=== PATIENT | female | born 2000 | race Hispanic/Latino ===

== ENCOUNTER 2021-08-14 09:12 | Emergency (ER) | payer OTHER ==
--- OUTSIDE RECORDS SUMMARY | 2021-08-14 09:24 | XMS REPORT | Continuity of Care Document ---
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, G Attending Clinician Doctor Unassigned, Name Attending Clinician Unavailable RAZ Attending Clinician Unavailable Akinsilolita WILSONP, C Attending Clinician KEVIN C Attending Clinician Unavailable Abel Brandon DO Attending Clinician Stephanie ZHAO Attending Clinician Unavailable Micah MARTÍNEZ Attending Clinician Ultrasound Attending Clinician Unavailable Sage MARTÍNEZ, F Attending Clinician 2, [facility] Usg Room Attending Clinician Unavailable Ana Paula MARTÍNEZ, M Attending Clinician Micah MARTÍNEZ Admitting Clinician Payers Payer Name Policy Type Policy Number Effective Date Expiration Date Counts include 234 beds at the [facility] [id number] 2019 CHOICE MEDICAID 00:00:00 Problems Condition Condition Condition Status Onset Resolution Last Treating Co mments Source Name Details Category Date Date Treatment Clinician Date UTI UTI Disease Active Univers symptoms symptoms 4-26 ity of 00:00: [address] Nexplanon Nexplanon Disease Active Uni vers insertion insertion 1-04 ity of 00:00: [place] 00 Medical Branch Obesity Obesity Disease Active 2020-0 Univers (BMI (BMI 1-04 ity of 30.0-34.9) 30.0-34.9) [place] UTI UTI Disease Active 2020- Univers symptoms symptoms 1-10 ity of 00:00: [place] 00 Medical Branch 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 vaginally vaginally Bran ch Encounter Encounter Disease Active 2020- Uni vers for for 0-25 ity of induction [place] 00:[place] of [place] 00 Med[place] Branch Vaginal Vaginal Disease Active 2020- Univers bleeding bleeding 0-13 ity of during during 00:00: [place] 00 [facility] Anemia of Anemia of Disease Active 2020-0 Uni vers mother in mother in 8-12 ity of , , [place] [facility] [place] Obesity in Obesity in Disease Active 2020-0 U nivers 8-11 ity of 00:00: [place] 00 [facility] Supervisio Supervisio Disease Active 2020-0 U nivers n of n of 3-27 ity of high-risk high-risk 00:[place] [facility] Multiparit Multiparit Disease Active 2020-0 U nivers y y 3-27 ity of 00:00: [place] 00 [facility] Single Single Disease Active 2020-0 Overview: Univer s umbilical umbilical 3-27 With last i ty of artery artery 00:00: [place] 00 [facility] Well woman Well woman Disease Active 2019-0 U nivers exam exam 9-05 ity of 00:00: [place] 00 Medical [place] Contracept Contracept Disease Active 2019-0 U nivers baron baron 9-05 ity of management management [place] Contracept Contracept Disease Active 2019-0 U nivers baron baron 9-05 ity of management management [place] Liveborn Liveborn Disease Active Unive rs , of infant, of 2-22 it y of woot[place] wooten 00:00: Jeramy montoya , , 00 Me dical born in born in [facility] hospital by vaginal by vaginal delivery delivery Over Over Disease Active Univers weight weight 2-21 ity of 00:00: [place] [facility] 39 weeks 39 weeks Disease Active Unive rs gestation gestation 2-21 ity of of of 00:00: [place] [address] [facility] Branch Obesity Obesity Disease Active Univers (BMI (BMI 2-21 ity of 30-39.9) 30-39.9) 00:00: [place] [facility] Two vessel Two vessel Disease Active U nivers umbilical umbilical 1-03 ity of cord cord 00:00: [place] [facility] Anxiety Anxiety Disease Active Univers disorder, disorder, 706 ity of unspecifie unspecifie 00:[place] d type d type 00 Medical [place] Bipolar Bipolar Disease Active Univers affective affective 7-06 ity of disorder, disorder, 00:00: Jeramy s remission remission 00 [facility] status status Branch unspecifie unspecifie d d Allergies, Adverse Reactions, Alerts Allergy Allergy Status Severity Reaction(s) Onset Inactive Treating Comm ents Source Name Type Date Date Clinician DIPHENHY DRUG Active Hives Univers DRAMINE INGREDI 3-24 ity of HCL 00:00: [facility] Branch SEAFOOD/ Food Active Hives Univers FISH 3-24 ity of 00:00: [place] [facility] Diphenhy Propensi Active Hives Pt states Uni vers dramine ty to 3-24 she gets ity of Hcl adverse 00:00: "bumps [place] reaction 00 all over Medica l s face and Branch covers her eyes" Seafood/ Propensi Active Hives Univer s Fish ty to 3-24 ity of adverse 00:00: [place] reaction 00 Medical [facility] Social History Social Habit Start Date Stop Date Quantity Comments Source ASSERTION 2019-09-13 University of 00:00:00 [facility] Exposure to Not sure University of SARS-CoV-2 [place] [facility] (event) Branch Alcohol intake 2021-07-29 2021-07-29 Current University 00:00:00 00:00:00 non-drinker of [facility] alcohol Branch (finding) Tobacco use and 2020-11-26 2020-11-26 Never used Universit y of exposure 00:00:00 00:00:00 [facility] Sex Assigned At [birth year] Universit y of 00:00:00 00:00:00 [facility] Smoking Status Start Date Stop Date Source Never smoker [facility] Medical Branch Medications Ordered Filled Start Stop Current Ordering Indication Dosage Frequency Signature Comments Components Source Medication Medication Date Date Medication? Clinician (SIG) Name Name naproxen 2020-08 Yes [id number] 500mg Take 1 Un cuco (NAPROSYN) 2-27 tablet by ity of 500 mg 00:00: mouth 2 [place] tablet 00 (two) Medical times Branch daily with meals. methylPREDN 2020-08 Yes [id number] Take by Univers ISolone 4 2-10 mouth ity of mg tablets 00:00: [place]INSTRU [place] CTIONS. Medical follow Branch package directions methylPREDN 2020-08 Yes [id number] Take by Univers ISolone 4 2-10 mouth ity of mg tablets 00:00: [place]INSTRU [place] 00 CTIONS. Medical follow Branch package directions amoxicillin 2020-08- Yes [id number] 500mg Take 1 Univers 500 mg 2-10 12-21 tablet by ity of tablet 00:00: 05:59 mouth 3 [place] 00 :00 (three) Medical times Branch daily for 10 days. etonogestre No 68mg Unive rs L 08-06 ity of (NEXPLANON) 21:45: 20:39 [place] implant 68 00 :03 Medical mg Branch etonogestre 2020- No 68mg Unive rs L 08-06 ity of (NEXPLANON) 21:45: 20:39 [place] implant 68 00 :03 Medical mg Branch etonogestre 2020- No 68mg Unive rs L 08-06 ity of (NEXPLANON) 21:45: 20:39 [place] implant 68 00 :03 Medical mg Branch etonogestre 2020- No 68mg Unive rs L 08-06 ity of (NEXPLANON) 21:45: 20:39 [place] implant 68 00 :03 Medical mg Branch etonogestre 2020- No 68mg Unive rs L 08-06 ity of (NEXPLANON) 21:30: 20:39 [place] implant 68 00 :00 Medical mg Branch etonogestre 2020- No 68mg 68 mg, Uni vers L 08-06 Subdermal, ity of (NEXPLANON) 21:30: 20:39 ONCE NOW, [place] implant 68 00 :00 1 dose, Medica l mg 08/06/20 Branch at 1530, Routine
Use approved by: RIPPER OPERATOR etonogestre 2020- No 68mg Unive rs L 08-06 ity of (NEXPLANON) 21:30: 20:39 [place] implant 68 00 :00 Medical mg Branch etonogestre 2020- No 68mg 68 mg, Uni vers L 08-06 Subdermal, ity of (NEXPLANON) 21:30: 20:39 ONCE NOW, [place] implant 68 00 :00 1 dose, Medica l mg 08/06/20 Branch at 1530, Routine
Use approved by: RIPPER OPERATOR etonogestre 2020- No 68mg Unive rs L 08-06 ity of (NEXPLANON) 21:30: 20:39 [place] implant 68 00 :00 Medical mg Branch etonogestre 2020- No 68mg 68 mg, Uni vers L 08-06 Subdermal, ity of (NEXPLANON) 21:30: 20:39 ONCE NOW, [place] implant 68 00 :00 1 dose, Medica l mg 08/06/20 Branch at 1530, Routine
Use approved by: RIPPER OPERATOR etonogestre 2020- No 68mg Unive rs L 08-06 ity of (NEXPLANON) 21:30: 20:39 [place] implant 68 00 :00 Medical mg Branch etonogestre 2020- No 68mg 68 mg, Uni vers L 08-06 Subdermal, ity of (NEXPLANON) 21:30: 20:39 ONCE NOW, [place] implant 68 00 :00 1 dose, Medica l mg 08/06/20 Branch at 1530, Routine
Use approved by: RIPPER OPERATOR 2019-08 2020- No Take by [facility] ers vit 0-26 10-26 mouth. ity of calc,iron,f 13:19: 00:00 [place] olic 03 :00 Medical ( Branch VITAMIN ORAL) rho(D) 2019-08 Yes 300ug 300 mcg, Univer s immune 0-26 Intramuscu ity of globulin 03:55: lar, ONCE, Sridhar as (RHOGAM) 44 For 1 Medical syringe 300 dose, Branch mcg Conditiona l, Routine human 2019-08 Yes .5mL 0.5 mL, Univers papillomav 0- Intramuscu ity of vac,9-shanice(P 03:55: lar, [place] F) 42 ONCE-PRIOR Medical (GARDASIL-9 TO [place] ) syringe DISCHARGE, 0.5 mL 1 dose, Starting 05/27/20 at 2255, Until Discontinu ed, Routine, Give vaccine prior to discharge ibuprofen 2019-08 Yes 600mg 600 mg, Univ ers (IBU) 0- Oral, ity of tablet 600 03:55: Q6HPRN, [place] mg 42 Starting Medical Sun Branch 05/27/20 at 2255, Until Discontinu ed, Routine, Pain (scale 4-6) ondansetron 2019-08 Yes 4mg 4 mg, Slow Univers (ZOFRAN 0-26 IV Push, ity of (PF)) 03:55: Q8HPRN, [place] injection 4 42 Starting Medi martínez mg [facility] 05/27/20 at 2255, Until Discontinu ed, Routine, Nausea and Vomiting (N/V) simethicone 2019-08 Yes 160mg 160 mg, Un cuco (GAS RELIEF 0-26 Oral, ity of (SIMETHICON 03:55: PC+HSPRN, [place] E)) 42 Starting Medical chewable Sun Branch tablet 160 05/27/ mg at 2255, Until Discontinu ed, Routine, Gas docusate 2019-08 Yes 240mg 240 mg, Unive rs calcium 0-26 Oral, ity of (SURFAK) 03:55: QDAILYPRN, [place] as capsule 240 42 Starting Medi martínez mg Sun Branch 05/27/20 at 2255, Until Discontinu ed, Routine, Constipati on magnesium 2019-08 Yes 30mL 30 mL, Univer s hydroxide 0-26 Oral, ity of (MILK OF 03:55: QDAILYPRN, [place] as MAGNESIA) 42 Starting Medica l 400 mg/5 mL Sun Branch suspension 05/27/20 30 mL at 2255, Until Discontinu ed, Routine, Constipati on acetaminoph 2019-08 Yes 650mg 650 mg, Un cuco en 0-26 Oral, ity of (TYLENOL) 03:55: Q6HPRN, [place] tablet 650 41 Starting Medic al mg Sun Branch 05/27/20 at 2255, Until Discontinu ed, Routine, Pain (scale 1-3) benzocaine- 2019-08 Yes Topical, Un cuco menthol 0-26 PRN, ity of (DERMOPLAST 03:55: [place] 20-0.5 % 41 Sun Medical topical 05/27/20 Branch spray at 2255, Until Discontinu ed, Routine, Perineum discomfort 2019-08 Yes [id number] 1{tbl} Take 1 Univers vitamin 0-26 tablet by ity of w/FA tablet 00:00: mouth [place] 00 daily. Medical Branch docusate 2019-08 Yes [id number] 240mg Take 1 U nivers calcium 240 0-26 capsule by it y of mg capsule 00:00: mouth [place] 00 daily as Medical needed for Branch Constipati on. ferrous 2019-08 Yes [id number] 325mg Take 1 Un cuco sulfate 325 0-26 tablet by ity of mg (65 mg 00:00: mouth 2 [place] iron) 00 (two) Medical tablet times Branch daily. ibuprofen 2019-08 Yes [id number] 600mg Take 1 Univers 600 mg 0-26 tablet by ity of tablet 00:00: mouth [place] 00 every 6 Medical (six) Branch hours as needed (Pain). Take with food or milk. 2019-08 Yes [id number] 1{tbl} Take 1 Univers vitamin 0-26 tablet by ity of w/FA tablet 00:00: mouth [place] 00 daily. Medical Branch docusate 2019-08 Yes [id number] 240mg Take 1 U nivers calcium 240 0-26 capsule by it y of mg capsule 00:00: mouth once [place] 00 daily as Medical needed for Branch Constipati on. ferrous 2020 Yes [id number] 325mg Take 1 Un cuco sulfate 325 0-26 tablet by ity of mg (65 mg 00:00: mouth 2 [place] iron) 00 (two) Medical tablet times Branch daily. ibuprofen 2019-08 Yes [id number] 600mg Take 1 Univers 600 mg 0-26 tablet by ity of tablet 00:00: mouth [place] 00 every 6 Medical (six) Branch hours as needed (Pain). Take with food or milk. 2019-08 Yes [id number] 1{tbl} Take 1 Univers vitamin 0-26 tablet by ity of w/FA tablet 00:00: mouth [place] 00 daily. Medical Branch docusate 2019-08 Yes [id number] 240mg Take 1 U nivers calcium 240 0-26 capsule by it y of mg capsule 00:00: mouth once [place] 00 daily as Medical needed for Branch Constipati on. ferrous 2019-08 Yes [id number] 325mg Take 1 Un cuco sulfate 325 0-26 tablet by ity of mg (65 mg 00:00: mouth 2 [place] iron) 00 (two) Medical tablet times Branch daily. ibuprofen 2019-08 Yes [id number] 600mg Take 1 Univers 600 mg 0-26 tablet by ity of tablet 00:00: mouth [place] 00 every 6 Medical (six) Branch hours as needed (Pain). Take with food or milk. 2019-08 Yes [id number] 1{tbl} Take 1 Univers vitamin 0-26 tablet by ity of w/FA tablet 00:00: mouth [place] 00 daily. Medical Branch docusate 2019-08 Yes [id number] 240mg Take 1 U nivers calcium 240 0-26 capsule by it y of mg capsule 00:00: mouth once [place] 00 daily as Medical needed for Branch Constipati on. ferrous 2019-08 Yes [id number] 325mg Take 1 Un cuco sulfate 325 0-26 tablet by ity of mg (65 mg 00:00: mouth 2 [place] iron) 00 (two) Medical tablet times Branch daily. ibuprofen 2019-08 Yes [id number] 600mg Take 1 Univers 600 mg 0-26 tablet by ity of tablet 00:00: mouth [place] 00 every 6 Medical (six) Branch hours as needed (Pain). Take with food or milk. 2019-08 Yes [id number] 1{tbl} Take 1 Univers vitamin 0-26 tablet by ity of w/FA tablet 00:00: mouth [place] 00 daily. Medical Branch docusate 2019-08 Yes [id number] 240mg Take 1 U nivers calcium 240 0-26 capsule by it y of mg capsule 00:00: mouth once [place] 00 daily as Medical needed for Branch Constipati on. ferrous 2019-08 Yes [id number] 325mg Take 1 Un cuco sulfate 325 0-26 tablet by ity of mg (65 mg 00:00: mouth 2 [place] iron) 00 (two) Medical tablet times Branch daily. ibuprofen 2019-08 Yes [id number] 600mg Take 1 Univers 600 mg 0-26 tablet by ity of tablet 00:00: mouth [place] 00 every 6 Medical (six) Branch hours as needed (Pain). Take with food or milk. 2019-08 Yes [id number] 1{tbl} Take 1 Univers vitamin 0-26 tablet by ity of w/FA tablet 00:00: mouth [place] 00 daily. Medical Branch docusate 2019-08 Yes [id number] 240mg Take 1 U nivers calcium 240 0-26 capsule by it y of mg capsule 00:00: mouth once [place] 00 daily as Medical needed for Branch Constipati on. ferrous 2019-08 Yes [id number] 325mg Take 1 Un cuco sulfate 325 0-26 tablet by ity of mg (65 mg 00:00: mouth 2 [place] iron) 00 (two) Medical tablet times Branch daily. ibuprofen 2019-08 Yes [id number] 600mg Take 1 Univers 600 mg 0-26 tablet by ity of tablet 00:00: mouth [place] 00 every 6 Medical (six) Branch hours as needed (Pain). Take with food or milk. 2019-08 Yes [id number] 1{tbl} Take 1 Univers vitamin 0-26 tablet by ity of w/FA tablet 00:00: mouth [place] 00 daily. Medical Branch docusate 2019-08 Yes [id number] 240mg Take 1 U nivers calcium 240 0-26 capsule by it y of mg capsule 00:00: mouth once [place] 00 daily as Medical needed for Branch Constipati on. ferrous 2019-08 Yes [id number] 325mg Take 1 Un cuco sulfate 325 0-26 tablet by ity of mg (65 mg 00:00: mouth 2 [place] iron) 00 (two) Medical tablet times Branch daily. ibuprofen 2019-08 Yes [id number] 600mg Take 1 Univers 600 mg 0-26 tablet by ity of tablet 00:00: mouth [place] 00 every 6 Medical (six) Branch hours as needed (Pain). Take with food or milk. 2019-08 Yes [id number] 1{tbl} Take 1 Univers vitamin 0-26 tablet by ity of w/FA tablet 00:00: mouth [place] 00 daily. Medical Branch docusate 2019-08 Yes [id number] 240mg Take 1 U nivers calcium 240 0-26 capsule by it y of mg capsule 00:00: mouth once [place] 00 daily as Medical needed for Branch Constipati on. ferrous 2019-08 Yes [id number] 325mg Take 1 Un cuco sulfate 325 0-26 tablet by ity of mg (65 mg 00:00: mouth 2 [place] iron) 00 (two) Medical tablet times Branch daily. ibuprofen 2019-08 Yes [id number] 600mg Take 1 Univers 600 mg 0-26 tablet by ity of tablet 00:00: mouth [place] 00 every 6 Medical (six) Branch hours as needed (Pain). Take with food or milk. 2019-08 Yes [id number] 1{tbl} Take 1 Univers vitamin 0-26 tablet by ity of w/FA tablet 00:00: mouth [place] 00 daily. Medical Branch docusate 2019-08 Yes [id number] 240mg Take 1 U nivers calcium 240 0-26 capsule by it y of mg capsule 00:00: mouth once [place] 00 daily as Medical needed for Branch Constipati on. ferrous 2019-08 Yes [id number] 325mg Take 1 Un cuco sulfate 325 0-26 tablet by ity of mg (65 mg 00:00: mouth 2 [place] iron) 00 (two) Medical tablet times Branch daily. ibuprofen 2019-08 Yes [id number] 600mg Take 1 Univers 600 mg 0-26 tablet by ity of tablet 00:00: mouth [place] 00 every 6 Medical (six) Branch hours as needed (Pain). Take with food or milk. 2019-08 Yes [id number] 1{tbl} Take 1 Univers vitamin 0-26 tablet by ity of w/FA tablet 00:00: mouth [place] 00 daily. Medical Branch docusate 2019-08 Yes [id number] 240mg Take 1 U nivers calcium 240 0-26 capsule by it y of mg capsule 00:00: mouth once [place] 00 daily as Medical needed for Branch Constipati on. ferrous 2019-08 Yes [id number] 325mg Take 1 Un cuco sulfate 325 0-26 tablet by ity of mg (65 mg 00:00: mouth 2 [place] iron) 00 (two) Medical tablet times Branch daily. ibuprofen 2019-08 Yes [id number] 600mg Take 1 Univers 600 mg 0-26 tablet by ity of tablet 00:00: mouth [place] 00 every 6 Medical (six) Branch hours as needed (Pain). Take with food or milk. 2019-08 Yes [id number] 1{tbl} Take 1 Univers vitamin 0-26 tablet by ity of w/FA tablet 00:00: mouth [place] 00 daily. Medical Branch docusate 2019-08 Yes [id number] 240mg Take 1 U nivers calcium 240 0-26 capsule by it y of mg capsule 00:00: mouth once [place] 00 daily as Medical needed for Branch Constipati on. ferrous 2019-08 Yes [id number] 325mg Take 1 Un cuco sulfate 325 0-26 tablet by ity of mg (65 mg 00:00: mouth 2 [place] iron) 00 (two) Medical tablet times Branch daily. ibuprofen 2019-08 Yes [id number] 600mg Take 1 Univers 600 mg 0-26 tablet by ity of tablet 00:00: mouth [place] 00 every 6 Medical (six) Branch hours as needed (Pain). Take with food or milk. 2019-08 Yes [id number] 1{tbl} Take 1 Univers vitamin 0-26 tablet by ity of w/FA tablet 00:00: mouth [place] 00 daily. Medical Branch docusate 2019-08 Yes [id number] 240mg Take 1 U nivers calcium 240 0-26 capsule by it y of mg capsule 00:00: mouth once [place] 00 daily as Medical needed for Branch Constipati on. ferrous 2019-08 Yes [id number] 325mg Take 1 Un cuco sulfate 325 0-26 tablet by ity of mg (65 mg 00:00: mouth 2 [place] iron) 00 (two) Medical tablet times Branch daily. ibuprofen 2019-08 Yes [id number] 600mg Take 1 Univers 600 mg 0-26 tablet by ity of tablet 00:00: mouth [place] 00 every 6 Medical (six) Branch hours as needed (Pain). Take with food or milk. 2019-08 Yes [id number] 1{tbl} Take 1 Univers vitamin 0-26 tablet by ity of w/FA tablet 00:00: mouth [place] 00 daily. Medical Branch docusate 2019-08 Yes [id number] 240mg Take 1 U nivers calcium 240 0-26 capsule by it y of mg capsule 00:00: mouth once [place] 00 daily as Medical needed for Branch Constipati on. ferrous 2019-08 Yes [id number] 325mg Take 1 Un cuco sulfate 325 0-26 tablet by ity of mg (65 mg 00:00: mouth 2 [place] iron) 00 (two) Medical tablet times Branch daily. ibuprofen 2019-08 Yes [id number] 600mg Take 1 Univers 600 mg 0-26 tablet by ity of tablet 00:00: mouth [place] 00 every 6 Medical (six) Branch hours as needed (Pain). Take with food or milk. 2019-08 Yes [id number] 1{tbl} Take 1 Univers vitamin 0-26 tablet by ity of w/FA tablet 00:00: mouth [place] 00 daily. Medical Branch docusate 2019-08 Yes [id number] 240mg Take 1 U nivers calcium 240 0-26 capsule by it y of mg capsule 00:00: mouth once [place] 00 daily as Medical needed for Branch Constipati on. ferrous 2019-08 Yes [id number] 325mg Take 1 Un cuco sulfate 325 0-26 tablet by ity of mg (65 mg 00:00: mouth 2 [place] iron) 00 (two) Medical tablet times Branch daily. ibuprofen 2019-08 Yes [id number] 600mg Take 1 Univers 600 mg 0-26 tablet by ity of tablet 00:00: mouth [place] 00 every 6 Medical (six) Branch hours as needed (Pain). Take with food or milk. 2019-08 Yes [id number] 1{tbl} Take 1 Univers vitamin 0-26 tablet by ity of w/FA tablet 00:00: mouth [place] 00 daily. Medical Branch docusate 2019-08 Yes [id number] 240mg Take 1 U nivers calcium 240 0-26 capsule by it y of mg capsule 00:00: mouth once [place] 00 daily as Medical needed for Branch Constipati on. ferrous 2019-08 Yes [id number] 325mg Take 1 Un cuco sulfate 325 0-26 tablet by ity of mg (65 mg 00:00: mouth 2 [place] iron) 00 (two) Medical tablet times Branch daily. ibuprofen 2019-08 Yes [id number] 600mg Take 1 Univers 600 mg 0-26 tablet by ity of tablet 00:00: mouth [place] 00 every 6 Medical (six) Branch hours as needed (Pain). Take with food or milk. 2019-08 Yes [id number] 1{tbl} Take 1 Univers vitamin 0-26 tablet by ity of w/FA tablet 00:00: mouth [place] 00 daily. Medical Branch docusate 2019-08 Yes [id number] 240mg Take 1 U nivers calcium 240 0-26 capsule by it y of mg capsule 00:00: mouth once [place] 00 daily as Medical needed for Branch Constipati on. ferrous 2019-08 Yes [id number] 325mg Take 1 Un cuco sulfate 325 0-26 tablet by ity of mg (65 mg 00:00: mouth 2 [place] iron) 00 (two) Medical tablet times Branch daily. ibuprofen 2019-08 Yes [id number] 600mg Take 1 Univers 600 mg 0-26 tablet by ity of tablet 00:00: mouth [place] 00 every 6 Medical (six) Branch hours as needed (Pain). Take with food or milk. 2019-08 Yes [id number] 1{tbl} Take 1 Univers vitamin 0-26 tablet by ity of w/FA tablet 00:00: mouth [place] 00 daily. Medical Branch docusate 2019-08 Yes [id number] 240mg Take 1 U nivers calcium 240 0-26 capsule by it y of mg capsule 00:00: mouth once [place] 00 daily as Medical needed for Branch Constipati on. ferrous 2019-08 Yes [id number] 325mg Take 1 Un cuco sulfate 325 0-26 tablet by ity of mg (65 mg 00:00: mouth 2 [place] iron) 00 (two) Medical tablet times Branch daily. ibuprofen 2019-08 Yes [id number] 600mg Take 1 Univers 600 mg 0-26 tablet by ity of tablet 00:00: mouth [place] 00 every 6 Medical (six) Branch hours as needed (Pain). Take with food or milk. 2019-08 Yes [id number] 1{tbl} Take 1 Univers vitamin 0-26 tablet by ity of w/FA tablet 00:00: mouth [place] 00 daily. Medical Branch docusate 2019-08 Yes [id number] 240mg Take 1 U nivers calcium 240 0-26 capsule by it y of mg capsule 00:00: mouth once [place] 00 daily as Medical needed for Branch Constipati on. ferrous 2019-08 Yes [id number] 325mg Take 1 Un cuco sulfate 325 0-26 tablet by ity of mg (65 mg 00:00: mouth 2 [place] iron) 00 (two) Medical tablet times Branch daily. ibuprofen 2019-08 Yes [id number] 600mg Take 1 Univers 600 mg 0-26 tablet by ity of tablet 00:00: mouth [place] 00 every 6 Medical (six) Branch hours as needed (Pain). Take with food or milk. 2019-08 Yes [id number] 1{tbl} Take 1 Univers vitamin 0-26 tablet by ity of w/FA tablet 00:00: mouth [place] 00 daily. Medical Branch docusate 2019-08 Yes [id number] 240mg Take 1 U nivers calcium 240 0-26 capsule by it y of mg capsule 00:00: mouth once [place] 00 daily as Medical needed for Branch Constipati on. ferrous 2019-08 Yes [id number] 325mg Take 1 Un cuco sulfate 325 0-26 tablet by ity of mg (65 mg 00:00: mouth 2 [place] iron) 00 (two) Medical tablet times Branch daily. ibuprofen 2019-08 Yes [id number] 600mg Take 1 Univers 600 mg 0-26 tablet by ity of tablet 00:00: mouth [place] 00 every 6 Medical (six) Branch hours as needed (Pain). Take with food or milk. 2019-08 Yes [id number] 1{tbl} Take 1 Univers vitamin 0-26 tablet by ity of w/FA tablet 00:00: mouth [place] 00 daily. Medical Branch docusate 2019-08 Yes [id number] 240mg Take 1 U nivers calcium 240 0-26 capsule by it y of mg capsule 00:00: mouth once [place] 00 daily as Medical needed for Branch Constipati on. ferrous 2019-08 Yes [id number] 325mg Take 1 Un cuco sulfate 325 0-26 tablet by ity of mg (65 mg 00:00: mouth 2 [place] iron) 00 (two) Medical tablet times Branch daily. ibuprofen 2019-08 Yes [id number] 600mg Take 1 Univers 600 mg 0-26 tablet by ity of tablet 00:00: mouth [place] 00 every 6 Medical (six) Branch hours as needed (Pain). Take with food or milk. 2019-08 Yes [id number] 1{tbl} Take 1 [facility] vitamin 0-26 tablet by ity of w/FA tablet 00:00: mouth [place] 00 daily. Medical Branch docusate 2019-08 Yes [id number] 240mg Take 1 [facility] calcium 240 0-26 capsule by it y of mg capsule 00:00: mouth once [place] 00 daily as Medical needed for Branch Constipati on. ferrous 2019-08 Yes [id number] 325mg Take 1 Un cuco sulfate 325 0-26 tablet by ity of mg (65 mg 00:00: mouth 2 [place] iron) 00 (two) Medical tablet times Branch daily. ibuprofen 2019-08 Yes [id number] 600mg Take 1 [facility] 600 mg 0-26 tablet by ity of tablet 00:00: mouth [place] 00 every 6 Medical (six) Branch hours as needed (Pain). Take with food or milk. 2019-08 Yes [id number] 1{tbl} Take 1 [facility] vitamin 0-26 tablet by ity of w/FA tablet 00:00: mouth [place] 00 daily. Medical Branch docusate 2019-08 Yes [id number] 240mg Take 1 [facility] n[facility] calcium 240 0-26 capsule by it y of mg capsule 00:00: mouth once [place] 00 daily as Medical needed for Branch Constipati on. ferrous 2019-08 Yes [id number] 325mg Take 1 Un cuco sulfate 325 0-26 tablet by ity of mg (65 mg 00:00: mouth 2 [place] iron) 00 (two) Medical tablet times Branch daily. ibuprofen 2019-08 Yes [id number] 600mg Take 1 [facility] 600 mg 0-26 tablet by ity of tablet 00:00: mouth [place] 00 every 6 Medical (six) Branch hours as needed (Pain). Take with food or milk. 2019-08 Yes [id number] 1{tbl} Take 1 [facility] vitamin 0-26 tablet by ity of w/FA tablet 00:00: mouth [place] 00 daily. Medical Branch docusate 2019-08 Yes [id number] 240mg Take 1 [facility] n[facility] calcium 240 0-26 capsule by it y of mg capsule 00:00: mouth once [place] 00 daily as Medical needed for Branch Constipati on. ferrous 2019-08 Yes [id number] 325mg Take 1 Un cuco sulfate 325 0-26 tablet by ity of mg (65 mg 00:00: mouth 2 [place] iron) 00 (two) Medical tablet times Branch daily. ibuprofen 2019-08 Yes [id number] 600mg Take 1 [facility] 600 mg 0-26 tablet by ity of tablet 00:00: mouth [place] 00 every 6 Medical (six) Branch hours as needed (Pain). Take with food or milk. 2019-08 Yes [id number] 1{tbl} Take 1 [facility] vitamin 0-26 tablet by ity of w/FA tablet 00:00: mouth [place] 00 daily. Medical Branch docusate 2019-08 Yes [id number] 240mg Take 1 [facility] n[facility] calcium 240 0-26 capsule by it y of mg capsule 00:00: mouth once [place] 00 daily as Medical needed for Branch Constipati on. ferrous 2019-08 Yes [id number] 325mg Take 1 Un cuco sulfate 325 0-26 tablet by ity of mg (65 mg 00:00: mouth 2 [place] iron) 00 (two) Medical tablet times Branch daily. ibuprofen 2019-08 Yes [id number] 600mg Take 1 [facility] 600 mg 0-26 tablet by ity of tablet 00:00: mouth [place] 00 every 6 Medical (six) Branch hours as needed (Pain). Take with food or milk. lactated 2019-08- No 500mL at 999 Unive rs ringers IV 0-25 10-25 mL/hr, 500 it y of infusion 22:30: 21:55 mL, IV [place] 500 mL 00 :00 Infusion, Medical ONCE, 1 Branch dose, 05/27/20 at 1730, Routine sodium 2019-08- No 30mL 30 mL, [facility] citrate-cit 0-25 10-25 Oral, ity of anamaria acid 21:17: 21:54 PRE-PROCED [place] (BICITRA) 19 :00 URE ONCE, Medic al 500-334 1 dose, Branch mg/5 mL Starting solution 30 Sun mL 05/27/20 at 1617, Until 05/27/20 at 1654, Routine, Surgery/Pr ocedure [id number] IV 2019-08 2020- No 1000mL at 125 Uni vers infusion 0-25 10-26 mL/hr, IV ity o f 1,000 mL 19:15: 03:55 Infusion, [place] as 00 :45 CONTINUOUS Medical , Starting Branch 05/27/20 at 1415, Until 05/27/20 at 2255, Routine LR 1000 mL 2020- 2020- No 2mU/min at 6-120 [facility] + oxytocin 0-25 10-26 mL/hr, IV ity of 20 units IV 19:08: 03:55 Infusion, [place] Solution 25 :45 TITRATE, Medical Starting Branch 05/27/20 at 1408, Until 05/27/20 at 2255, ROSALINO ferrous 2020-0 Yes [id number] 325mg Take 1 Un cuco sulfate 325 8-12 tablet by ity of mg (65 mg 00:00: mouth 2 [place] iron) 00 (two) Medical tablet times Branch daily. ascorbic 2020-0 Yes [id number] 500mg Take 1 [facility] n[facility] acid, 8-12 tablet by it[facility] of vitamin C, 00:00: mouth 3 [place] 500 mg 00 (three) Medical tablet times Branch daily. ferrous 2020-0 Yes [id number] 325mg Take 1 Un cuco sulfate 325 8-12 tablet by ity of mg (65 mg 00:00: mouth 2 [place] iron) 00 (two) Medical tablet times Branch daily. ascorbic 2020-0 Yes [id number] 500mg Take 1 [facility] n[facility] acid, 8-12 tablet by [facility] of vitamin C, 00:00: mouth [place] 500 mg 00 (three) Medical tablet times Branch daily. ferrous 2020-0 Yes [id number] 325mg Take 1 Un cuco sulfate 325 8-12 tablet by ity of mg (65 mg 00:00: mouth 2 [place] iron) 00 (two) Medical tablet times Branch daily. ascorbic 2020-0 Yes [id number] 500mg Take 1 [facility] nivers acid, 8-12 tablet by it[facility] of vitamin C, 00:00: mouth [place] 500 mg 00 (three) Medical tablet times Branch daily. ferrous 2020-0 Yes [id number] 325mg Take 1 Un cuco sulfate 325 8-12 tablet by ity of mg (65 mg 00:00: mouth 2 [place] iron) 00 (two) Medical tablet times Branch daily. ascorbic 2020-0 Yes [id number] 500mg Take 1 U nivers acid, 8-12 tablet by ity of vitamin C, 00:00: mouth [place] 500 mg 00 (three) Medical tablet times Branch daily. ferrous 2020-0 Yes [id number] 325mg Take 1 Un cuco sulfate 325 8-12 tablet by ity of mg (65 mg 00:00: mouth 2 [place] iron) 00 (two) Medical tablet times Branch daily. ascorbic 2020-0 Yes [id number] 500mg Take 1 [facility] nivers acid, 8-12 tablet by ity of vitamin C, 00:00: mouth 3 [place] 500 mg 00 (three) Medical tablet times Branch daily. ferrous 2020-0 Yes [id number] 325mg Take 1 Un cuco sulfate 325 8-12 tablet by ity of mg (65 mg 00:00: mouth 2 [place] iron) 00 (two) Medical tablet times Branch daily. ascorbic 2020-0 Yes [id number] 500mg Take 1 [facility] nivers acid, 8-12 tablet by it[facility] of vitamin C, 00:00: mouth [place] 500 mg 00 (three) Medical tablet times Branch daily. ferrous 2020-0 Yes [id number] 325mg Take 1 Un cuco sulfate 325 8-12 tablet by ity of mg (65 mg 00:00: mouth 2 [place] iron) 00 (two) Medical tablet times Branch daily. ascorbic 2020-0 Yes [id number] 500mg Take 1 [facility] n[facility] acid, 8-12 tablet by ity of vitamin C, 00:00: mouth [place] 500 mg 00 (three) Medical tablet times Branch daily. ferrous 2020-0 Yes [id number] 325mg Take 1 Un cuco sulfate 325 8-12 tablet by ity of mg (65 mg 00:00: mouth 2 [place] iron) 00 (two) Medical tablet times Branch daily. ascorbic 2020-0 Yes [id number] 500mg Take 1 [facility] nivers acid, 8-12 tablet by it[facility] of vitamin C, 00:00: mouth [place] 500 mg 00 (three) Medical tablet times Branch daily. ferrous 2020-0 Yes [id number] 325mg Take 1 Un cuco sulfate 325 8-12 tablet by ity of mg (65 mg 00:00: mouth 2 [place] iron) 00 (two) Medical tablet times Branch daily. ascorbic 2020-0 Yes [id number] 500mg Take 1 [facility] nivers acid, 8-12 tablet by [facility] of vitamin C, 00:00: mouth [place] 500 mg 00 (three) Medical tablet times Branch daily. ferrous 2020-0 Yes [id number] 325mg Take 1 Un cuco sulfate 325 8-12 tablet by ity of mg (65 mg 00:00: mouth 2 [place] iron) 00 (two) Medical tablet times Branch daily. ascorbic 2020-0 Yes [id number] 500mg Take 1 [facility] nivers acid, 8-12 tablet by it[facility] of vitamin C, 00:00: mouth [place] 500 mg 00 (three) Medical tablet times Branch daily. ferrous 2020-0 Yes [id number] 325mg Take 1 Un cuco sulfate 325 8-12 tablet by ity of mg (65 mg 00:00: mouth 2 [place] iron) 00 (two) Medical tablet times Branch daily. ascorbic 2020-0 Yes [id number] 500mg Take 1 [facility] n[facility] acid, 8-12 tablet by ity of vitamin C, 00:00: mouth 3 [place] 500 mg 00 (three) Medical tablet times Branch daily. ferrous 2020-0 Yes [id number] 325mg Take 1 Un cuco sulfate 325 8-12 tablet by ity of mg (65 mg 00:00: mouth 2 [place] iron) 00 (two) Medical tablet times Branch daily. ascorbic 2020-0 Yes [id number] 500mg Take 1 [facility] nivers acid, 8-12 tablet by ity of vitamin C, 00:00: mouth 3 [place] 500 mg 00 (three) Medical tablet times Branch daily. ferrous 2020-0 Yes [id number] 325mg Take 1 Un cuco sulfate 325 8-12 tablet by ity of mg (65 mg 00:00: mouth 2 [place] iron) 00 (two) Medical tablet times Branch daily. ascorbic 2020-0 Yes [id number] 500mg Take 1 [facility] nivers acid, 8-12 tablet by ity of vitamin C, 00:00: mouth 3 [place] 500 mg 00 (three) Medical tablet times Branch daily. ferrous 2020-0 Yes [id number] 325mg Take 1 Un cuco sulfate 325 8-12 tablet by ity of mg (65 mg 00:00: mouth 2 [place] iron) 00 (two) Medical tablet times Branch daily. ascorbic 2020-0 Yes [id number] 500mg Take 1 [facility] nivers acid, 8-12 tablet by ity of vitamin C, 00:00: mouth 3 [place] 500 mg 00 (three) Medical tablet times Branch daily. ferrous 2020-0 Yes [id number] 325mg Take 1 Un cuco sulfate 325 8-12 tablet by ity of mg (65 mg 00:00: mouth 2 [place] iron) 00 (two) Medical tablet times Branch daily. ascorbic 2020-0 Yes [id number] 500mg Take 1 [facility] nivers acid, 8-12 tablet by ity of vitamin C, 00:00: mouth 3 [place] 500 mg 00 (three) Medical tablet times Branch daily. ferrous 2020-0 Yes [id number] 325mg Take 1 Un cuco sulfate 325 8-12 tablet by ity of mg (65 mg 00:00: mouth 2 [place] iron) 00 (two) Medical tablet times Branch daily. ascorbic 2020-0 Yes [id number] 500mg Take 1 [facility] n[facility] acid, 8-12 tablet by ity of vitamin C, 00:00: mouth 3 [place] 500 mg 00 (three) Medical tablet times Branch daily. ferrous 2020-0 2020- No [id number] 325mg Take 1 U nivers sulfate 325 8-12 10-26 tablet by it y of mg (65 mg 00:00: 00:00 mouth [place] iron) 00 :00 (two) Medical tablet times Branch daily. ascorbic 2020-0 2020- No [id number] 500mg Take 1 [facility] acid, 8-12 10-26 tablet by ity of vitamin C, 00:00: 00:00 mouth 3 [place] 500 mg 00 :00 (three) Medical tablet times Branch daily. PNV 67-iron 2020-0 Yes [id number] 1{each} Take 1 [facility] ps-folate 6-01 Each by ity of no.1-dha 00:00: mouth [place] (VITAFOL 00 daily. Medical ULTRA) 29 Branch mg iron- 1 mg-200 mg Cap PNV 67-iron 2020-0 Yes [id number] 1{each} Take 1 [facility] ps-folate 6-01 Each by ity of no.1-dha 00:00: mouth [place] (VITAFOL 00 daily. Medical ULTRA) 29 Branch mg iron- 1 mg-200 mg Cap PNV 67-iron 2020-0 Yes [id number] 1{each} Take 1 [facility] ps-folate 6-01 Each by ity of no.1-dha 00:00: mouth [place] (VITAFOL 00 daily. Medical ULTRA) 29 Branch mg iron- 1 mg-200 mg Cap PNV 67-iron 2020-0 Yes [id number] 1{each} Take 1 [facility] ps-folate 6-01 Each by ity of no.1-dha 00:00: mouth [place] (VITAFOL 00 daily. Medical ULTRA) 29 Branch mg iron- 1 mg-200 mg Cap PNV 67-iron 2020-0 Yes [id number] 1{each} Take 1 [facility] ps-folate 6-01 Each by ity of no.1-dha 00:00: mouth [place] (VITAFOL 00 daily. Medical ULTRA) 29 Branch mg iron- 1 mg-200 mg Cap PNV 67-iron 2020-0 Yes [id number] 1{each} Take 1 [facility] ps-folate 6-01 Each by ity of no.1-dha 00:00: mouth [place] (VITAFOL 00 daily. Medical ULTRA) 29 Branch mg iron- 1 mg-200 mg Cap PNV 67-iron 2020-0 Yes [id number] 1{each} Take 1 [facility] ps-folate 6-01 Each by ity of no.1-dha 00:00: mouth [place] (VITAFOL daily. Medical ULTRA) 29 Branch mg iron- 1 mg-200 mg Cap PNV 67-iron 2020-0 Yes [id number] 1{each} Take 1 [facility] ps-folate 6-01 Each by ity of no.1-dha 00:00: mouth [place] (VITAFOL daily. Medical ULTRA) 29 Branch mg iron- 1 mg-200 mg Cap PNV 67-iron 2020-0 Yes [id number] 1{each} Take 1 [facility] ps-folate 6-01 Each by ity of no.1-dha 00:00: mouth [place] (VITAFOL daily. Medical ULTRA) 29 Branch mg iron- 1 mg-200 mg Cap PNV 67-iron 2020-0 Yes [id number] 1{each} Take 1 [facility] ps-folate 6-01 Each by ity of no.1-dha 00:00: mouth [place] (VITAFOL daily. Medical ULTRA) 29 Branch mg iron- 1 mg-200 mg Cap PNV 67-iron 2020-0 Yes [id number] 1{each} Take 1 [facility] ps-folate 6-01 Each by ity of no.1-dha 00:00: mouth [place] (VITAFOL daily. Medical ULTRA) 29 Branch mg iron- 1 mg-200 mg Cap PNV 67-iron 2020-0 Yes [id number] 1{each} Take 1 [facility] ps-folate 6-01 Each by ity of no.1-dha 00:00: mouth [place] (VITAFOL daily. Medical ULTRA) 29 Branch mg iron- 1 mg-200 mg Cap PNV 67-iron 2020-0 Yes [id number] 1{each} Take 1 [facility] ps-folate 6-01 Each by ity of no.1-dha 00:00: mouth [place] (VITAFOL 00 daily. Medical ULTRA) 29 Branch mg iron- 1 mg-200 mg Cap PNV 67-iron 2020-0 Yes [id number] 1{each} Take 1 [facility] ps-folate 6-01 Each by ity of no.1-dha 00:00: mouth [place] (VITAFOL 00 daily. Medical ULTRA) 29 Branch mg iron- 1 mg-200 mg Cap PNV 67-iron 2020-0 Yes [id number] 1{each} Take 1 [facility] ps-folate 6-01 Each by ity of no.1-dha 00:00: mouth [place] (VITAFOL 00 daily. Medical ULTRA) 29 Branch mg iron- 1 mg-200 mg Cap PNV 67-iron 2020-0 Yes [id number] 1{each} Take 1 [facility] ps-folate 6-01 Each by ity of no.1-dha 00:00: mouth [place] (VITAFOL 00 daily. Medical ULTRA) 29 Branch mg iron- 1 mg-200 mg Cap PNV 67-iron 2020-0 Yes [id number] 1{each} Take 1 [facility] ps-folate 6-01 Each by ity of no.1-dha 00:00: mouth [place] (VITAFOL 00 daily. Medical ULTRA) 29 Branch mg iron- 1 mg-200 mg Cap PNV 67-iron 2020-0 Yes [id number] 1{each} Take 1 [facility] ps-folate 6-01 Each by ity of no.1-dha 00:00: mouth [place] (VITAFOL 00 daily. Medical ULTRA) 29 Branch mg iron- 1 mg-200 mg Cap PNV 67-iron 2020-0 Yes [id number] 1{each} Take 1 [facility] ps-folate 6-01 Each by ity of no.1-dha 00:00: mouth [place] (VITAFOL 00 daily. Medical ULTRA) 29 Branch mg iron- 1 mg-200 mg Cap PNV 67-iron 2020-0 Yes [id number] 1{each} Take 1 [facility] ps-folate 6-01 Each by ity of no.1-dha 00:00: mouth [place] (VITAFOL 00 daily. Medical ULTRA) 29 Branch mg iron- 1 mg-200 mg Cap PNV 67-iron 2020-0 Yes [id number] 1{each} Take 1 [facility] ps-folate 6-01 Each by ity of no.1-dha 00:00: mouth [place] (VITAFOL 00 daily. Medical ULTRA) 29 Branch mg iron- 1 mg-200 mg Cap PNV 67-iron 2020-0 Yes [id number] 1{each} Take 1 [facility] ps-folate 6-01 Each by ity of no.1-dha 00:00: mouth [place] (VITAFOL 00 daily. Medical ULTRA) 29 Branch mg iron- 1 mg-200 mg Cap PNV 67-iron 2020-0 Yes [id number] 1{each} Take 1 [facility] ps-folate 6-01 Each by ity of no.1-dha 00:00: mouth [place] (VITAFOL 00 daily. Medical ULTRA) 29 Branch mg iron- 1 mg-200 mg Cap PNV 67-iron 2020-0 Yes [id number] 1{each} Take 1 [facility] ps-folate 6-01 Each by ity of no.1-dha 00:00: mouth [place] (VITAFOL 00 daily. Medical ULTRA) 29 Branch mg iron- 1 mg-200 mg Cap PNV 67-iron 2020-0 Yes [id number] 1{each} Take 1 [facility] ps-folate 6-01 Each by ity of no.1-dha 00:00: mouth [place] (VITAFOL 00 daily. Medical ULTRA) 29 Branch mg iron- 1 mg-200 mg Cap PNV 67-iron 2020-0 Yes [id number] 1{each} Take 1 [facility] ps-folate 6-01 Each by ity of no.1-dha 00:00: mouth [place] (VITAFOL 00 daily. Medical ULTRA) 29 Branch mg iron- 1 mg-200 mg Cap PNV 67-iron 2020-0 Yes [id number] 1{each} Take 1 [facility] ps-folate 6-01 Each by ity of no.1-dha 00:00: mouth [place] (VITAFOL 00 daily. Medical ULTRA) 29 Branch mg iron- 1 mg-200 mg Cap PNV 67-iron 2020-0 Yes [id number] 1{each} Take 1 [facility] ps-folate 6-01 Each by ity of no.1-dha 00:00: mouth [place] (VITAFOL 00 daily. Medical ULTRA) 29 Branch mg iron- 1 mg-200 mg Cap PNV 67-iron 2020-0 Yes [id number] 1{each} Take 1 [facility] ps-folate 6- Each by ity of no.1-dha 00:00: mouth [place] (VITAFOL 00 daily. Medical ULTRA) 29 Branch mg iron- 1 mg-200 mg Cap PNV 67-iron 2020-0 Yes [id number] 1{each} Take 1 [facility] ps-folate 6- Each by ity of no.1-dha 00:00: mouth [place] (VITAFOL 00 daily. Medical ULTRA) 29 Branch mg iron- 1 mg-200 mg Cap PNV 67-iron 2020-0 2020- No [id number] 1{each} Take 1 [facility] ps-folate 6- 10- Each by ity of no.1-dha 00:00: 00:00 mouth [place] (VITAFOL 00 :00 daily. Medical ULTRA) 29 Branch mg iron- 1 mg-200 mg Cap Miscellaneo 2020-0 Yes [id number] Use as [facility] 5-18 directed ity o f Supply 00:00: [place] (BLOOD 00 Medical PRESSURE Branch CUFF) Misc Miscellaneo 2020-0 Yes [id number] Use as [facility] 5-18 directed ity o f Supply 00:00: [place] (BLOOD 00 Medical PRESSURE Branch CUFF) Misc Miscellaneo 2020-0 Yes [id number] Use as [facility] 5- directed ity o f Supply 00:00: [place] (BLOOD 00 Medical PRESSURE Branch CUFF) Misc Miscellaneo 2020-0 Yes [id number] Use as [facility] 5- directed ity o f Supply 00:00: [place] (BLOOD 00 Medical PRESSURE Branch CUFF) Misc Miscellaneo 2020-0 Yes [id number] Use as [facility] 5- directed ity o f Supply 00:00: [place] (BLOOD 00 Medical PRESSURE Branch CUFF) Misc Miscellaneo 2020-0 Yes [id number] Use as [facility] 5- directed ity o f Supply 00:00: [place] (BLOOD 00 Medical PRESSURE Branch CUFF) Misc Miscellaneo 2020-0 Yes [id number] Use as [facility] 5- directed ity o f Supply 00:00: [place] (BLOOD 00 Medical PRESSURE Branch CUFF) Misc Miscellaneo 2020-0 Yes [id number] Use as [facility] 5-18 directed ity o f Supply 00:00: [place] (BLOOD 00 Medical PRESSURE Branch CUFF) Misc Miscellaneo 2020-0 Yes [id number] Use as [facility] Medical 5-18 directed ity o f Supply 00:00: [place] (BLOOD 00 Medical PRESSURE Branch CUFF) Misc Miscellaneo 2020-0 Yes [id number] Use as [facility] Medical 5-18 directed ity o f Supply 00:00: [place] (BLOOD 00 Medical PRESSURE Branch CUFF) Misc Miscellaneo 2020-0 Yes [id number] Use as [facility] Medical 5-18 directed ity o f Supply 00:00: [place] (BLOOD 00 Medical PRESSURE Branch CUFF) Misc Miscellaneo 2020-0 Yes [id number] Use as [facility] Medical 5-18 directed ity o f Supply 00:00: [place] (BLOOD 00 Medical PRESSURE Branch CUFF) Misc Miscellaneo 2020-0 Yes [id number] Use as [facility] Medical 5-18 directed ity o f Supply 00:00: [place] (BLOOD 00 Medical PRESSURE Branch CUFF) Misc Miscellaneo 2020-0 Yes [id number] Use as [facility] Medical 5-18 directed ity o f Supply 00:00: [place] (BLOOD 00 Medical PRESSURE Branch CUFF) Misc Miscellaneo 2020-0 Yes [id number] Use as [facility] Medical 5-18 directed ity o f Supply 00:00: [place] (BLOOD 00 Medical PRESSURE Branch CUFF) Misc Miscellaneo 2020-0 Yes [id number] Use as [facility] Medical 5-18 directed ity o f Supply 00:00: [place] (BLOOD 00 Medical PRESSURE Branch CUFF) Misc Miscellaneo 2020-0 Yes [id number] Use as [facility] Medical 5-18 directed ity o f Supply 00:00: [place] (BLOOD 00 Medical PRESSURE Branch CUFF) Misc Miscellaneo 2020-0 Yes [id number] Use as [facility] Medical 5-18 directed ity o f Supply 00:00: [place] (BLOOD 00 Medical PRESSURE Branch CUFF) Misc Miscellaneo 2020-0 Yes [id number] Use as [facility] Medical 5-18 directed ity o f Supply 00:00: [place] (BLOOD 00 Medical PRESSURE Branch CUFF) Misc Miscellaneo 2020-0 Yes [id number] Use as [facility] Medical 5-18 directed ity o f Supply 00:00: [place] (BLOOD 00 Medical PRESSURE Branch CUFF) Misc Miscellaneo 2020-0 Yes [id number] Use as [facility] Medical 5-18 directed ity o f Supply 00:00: [place] (BLOOD 00 Medical PRESSURE Branch CUFF) Misc Miscellaneo 2020-0 Yes [id number] Use as [facility] Medical 5-18 directed ity o f Supply 00:00: [place] (BLOOD 00 Medical PRESSURE Branch CUFF) Misc Miscellaneo 2020-0 Yes [id number] Use as [facility] Medical 5-18 directed ity o f Supply 00:00: [place] (BLOOD 00 Medical PRESSURE Branch CUFF) Misc Miscellaneo 2020-0 Yes [id number] Use as [facility] Medical 5-18 directed ity o f Supply 00:00: [place] (BLOOD 00 Medical PRESSURE Branch CUFF) Misc Miscellaneo 2020-0 Yes [id number] Use as [facility] Medical 5-18 directed ity o f Supply 00:00: [place] (BLOOD 00 Medical PRESSURE Branch CUFF) Misc Miscellaneo 2020-0 Yes [id number] Use as [facility] Medical 5-18 directed ity o f Supply 00:00: [place] (BLOOD 00 Medical PRESSURE Branch CUFF) Misc Miscellaneo 2020-0 Yes [id number] Use as [facility] Medical 5-18 directed ity o f Supply 00:00: [place] (BLOOD 00 Medical PRESSURE Branch CUFF) Misc Miscellaneo 2020-0 Yes [id number] Use as [facility] Medical 5-18 directed ity o f Supply 00:00: [place] (BLOOD 00 Medical PRESSURE Branch CUFF) Misc Miscellaneo 2020-0 Yes [id number] Use as [facility] Medical 5-18 directed ity o f Supply 00:00: [place] (BLOOD 00 Medical PRESSURE Branch CUFF) Misc Miscellaneo 2020-0 Yes [id number] Use as [facility] Medical 5-18 directed ity o f Supply 00:00: [place] (BLOOD 00 Medical PRESSURE Branch CUFF) Misc Miscellaneo 2020-0 Yes [id number] Use as [facility] Medical 5-18 directed ity o f Supply 00:00: [place] (BLOOD 00 Medical PRESSURE Branch CUFF) Misc Miscellaneo 2020-0 2020- No [id number] Use as [facility] Medical 5-18 - directed ity of Supply 00:00: 00:00 [place] (BLOOD 00 :00 Medical PRESSURE Branch CUFF) Misc Miscellaneo 2020-0 Yes [id number] Use as [facility] Medical 4-20 directed ity o f Supply 00:00: [place] (BLOOD 00 Medical PRESSURE Branch CUFF) Misc Miscellaneo 2020-0 Yes [id number] Use as [facility] 4- directed ity o f Supply 00:00: [place] (BLOOD 00 Medical PRESSURE Branch CUFF) Misc Miscellaneo 2020-0 Yes [id number] Use as [facility] 4- directed ity o f Supply 00:00: [place] (BLOOD 00 Medical PRESSURE Branch CUFF) Misc Miscellaneo 2020-0 Yes [id number] Use as [facility] 4- directed ity o f Supply 00:00: [place] (BLOOD 00 Medical PRESSURE Branch CUFF) Misc Miscellaneo 2020-0 Yes [id number] Use as [facility] 4- directed ity o f Supply 00:00: [place] (BLOOD 00 Medical PRESSURE Branch CUFF) Misc Miscellaneo 2020-0 Yes [id number] Use as [facility] 4- directed ity o f Supply 00:00: [place] (BLOOD 00 Medical PRESSURE Branch CUFF) Misc Miscellaneo 2020-0 Yes [id number] Use as [facility] directed ity o f Supply 00:00: [place] (BLOOD 00 Medical PRESSURE Branch CUFF) Misc Miscellaneo 2020-0 Yes [id number] Use as [facility] 4- directed ity o f Supply 00:00: [place] (BLOOD 00 Medical PRESSURE Branch CUFF) Misc Miscellaneo 2020-0 Yes [id number] Use as [facility] directed ity o f Supply 00:00: [place] (BLOOD 00 Medical PRESSURE Branch CUFF) Misc Miscellaneo 2020-0 Yes [id number] Use as [facility] directed ity o f Supply 00:00: [place] (BLOOD 00 Medical PRESSURE Branch CUFF) Misc Miscellaneo 2020-0 Yes [id number] Use as [facility] directed ity o f Supply 00:00: [place] (BLOOD 00 Medical PRESSURE Branch CUFF) Misc Miscellaneo 2020-0 Yes [id number] Use as [facility] 4- directed ity o f Supply 00:00: [place] (BLOOD 00 Medical PRESSURE Branch CUFF) Misc Miscellaneo 2020-0 Yes [id number] Use as [facility] 4- directed ity o f Supply 00:00: [place] (BLOOD 00 Medical PRESSURE Branch CUFF) Misc Miscellaneo 2020-0 Yes [id number] Use as [facility] Medical 4-20 directed ity o f Supply 00:00: [place] (BLOOD 00 Medical PRESSURE Branch CUFF) Misc Miscellaneo 2020-0 Yes [id number] Use as [facility] Medical 4-20 directed ity o f Supply 00:00: [place] (BLOOD 00 Medical PRESSURE Branch CUFF) Misc Miscellaneo 2020-0 Yes [id number] Use as [facility] Medical 4-20 directed ity o f Supply 00:00: [place] (BLOOD 00 Medical PRESSURE Branch CUFF) Misc Miscellaneo 2020-0 Yes [id number] Use as [facility] Medical 4-20 directed ity o f Supply 00:00: [place] (BLOOD 00 Medical PRESSURE Branch CUFF) Misc Miscellaneo 2020-0 Yes [id number] Use as [facility] Medical 4-20 directed ity o f Supply 00:00: [place] (BLOOD 00 Medical PRESSURE Branch CUFF) Misc Miscellaneo 2020-0 Yes [id number] Use as [facility] Medical 4-20 directed ity o f Supply 00:00: [place] (BLOOD 00 Medical PRESSURE Branch CUFF) Misc Miscellaneo 2020-0 Yes [id number] Use as [facility] Medical 4-20 directed ity o f Supply 00:00: [place] (BLOOD 00 Medical PRESSURE Branch CUFF) Misc Miscellaneo 2020-0 Yes [id number] Use as [facility] Medical 4-20 directed ity o f Supply 00:00: [place] (BLOOD 00 Medical PRESSURE Branch CUFF) Misc Miscellaneo 2020-0 Yes [id number] Use as [facility] Medical 4-20 directed ity o f Supply 00:00: [place] (BLOOD 00 Medical PRESSURE Branch CUFF) Misc Miscellaneo 2020-0 Yes [id number] Use as [facility] Medical 4-20 directed ity o f Supply 00:00: [place] (BLOOD 00 Medical PRESSURE Branch CUFF) Misc Miscellaneo 2020-0 Yes [id number] Use as [facility] Medical 4-20 directed ity o f Supply 00:00: [place] (BLOOD 00 Medical PRESSURE Branch CUFF) Misc Miscellaneo 2020-0 Yes [id number] Use as [facility] Medical 4-20 directed ity o f Supply 00:00: [place] (BLOOD 00 Medical PRESSURE Branch CUFF) Misc Miscellaneo 2020-0 Yes [id number] Use as [facility] 4-20 directed ity o f Supply 00:00: [place] (BLOOD 00 Medical PRESSURE Branch CUFF) Misc Miscellaneo 2020-0 Yes [id number] Use as [facility] 4-20 directed ity o f Supply 00:00: [place] (BLOOD 00 Medical PRESSURE Branch CUFF) Misc Miscellaneo 2020-0 Yes [id number] Use as [facility] 4-20 directed ity o f Supply 00:00: [place] (BLOOD 00 Medical PRESSURE Branch CUFF) Misc Miscellaneo 2020-0 Yes [id number] Use as [facility] 4-20 directed ity o f Supply 00:00: [place] (BLOOD 00 Medical PRESSURE Branch CUFF) Misc Miscellaneo 2020-0 Yes [id number] Use as [facility] 4-20 directed ity o f Supply 00:00: [place] (BLOOD 00 Medical PRESSURE Branch CUFF) Misc Miscellaneo 2020-0 Yes [id number] Use as [facility] 4-20 directed ity o f Supply 00:00: [place] (BLOOD 00 Medical PRESSURE Branch CUFF) Misc Miscellaneo 2020-0 Yes [id number] Use as [facility] 4-20 directed ity o f Supply 00:00: [place] (BLOOD 00 Medical PRESSURE Branch CUFF) Misc Miscellaneo 2020-0 2020- No [id number] Use as [facility] 420 05-28 directed ity of Supply 00:00: 00:00 [place] (BLOOD 00 :00 Medical PRESSURE Branch CUFF) [facility] [place] 2020-0 Yes Take by Unive rs vit 3-27 mouth. ity of calc,iron,f 16:06: [facility] 02 Medical ( Branch VITAMIN ORAL) 2020-0 Yes Take by Unive rs vit 3-27 mouth. ity of calc,iron,f 16:06: [facility] [place] 02 Medical ( Branch VITAMIN ORAL) 2020-0 Yes Take by Unive rs vit 3-27 mouth. ity of calc,iron,f 16:06: [facility] [place] 02 Medical ( Branch VITAMIN ORAL) 2020-0 Yes Take by Unive rs vit 3-27 mouth. ity of calc,iron,f 16:06: [facility] [place] 02 Medical ( Branch VITAMIN ORAL) 2020-0 Yes Take by Unive rs vit 3-27 mouth. ity of calc,iron,f 16:06: [place] [address] Medical ( Branch VITAMIN ORAL) 2020-0 Yes Take by Unive rs vit 3-27 mouth. ity of calc,iron,f 16:06: [place] [address] Medical ( Branch VITAMIN ORAL) 2020-0 Yes Take by Unive rs vit 3-27 mouth. ity of calc,iron,f 16:06: [place] [address] Medical ( Branch VITAMIN ORAL) 2020-0 Yes Take by Unive rs vit 3-27 mouth. ity of calc,iron,f 16:06: [place] [address] Medical ( Branch VITAMIN ORAL) 2020-0 Yes Take by Unive rs vit 3-27 mouth. ity of calc,iron,f 16:06: [place] [address] Medical ( Branch VITAMIN ORAL) 2020-0 Yes Take by Unive rs vit 3-27 mouth. ity of calc,iron,f 16:06: [place] [address] Medical ( Branch VITAMIN ORAL) 2020-0 Yes Take by Unive rs vit 3-27 mouth. ity of calc,iron,f 16:06: [place] [address] Medical ( Branch VITAMIN ORAL) 2020-0 Yes Take by Unive rs vit 3-27 mouth. ity of calc,iron,f 16:06: [place] [address] Medical ( Branch VITAMIN ORAL) 2020-0 Yes Take by Unive rs vit 3-27 mouth. ity of calc,iron,f 16:06: [place] [address] Medical ( Branch VITAMIN ORAL) 2020-0 Yes Take by Unive rs vit 3-27 mouth. ity of calc,iron,f 16:06: [place] [address] Medical ( Branch VITAMIN ORAL) 2020-0 Yes Take by Unive rs vit 3-27 mouth. ity of calc,iron,f 16:06: [place] [address] Medical ( Branch VITAMIN ORAL) 2020-0 Yes Take by Unive rs vit 3-27 mouth. ity of calc,iron,f 16:06: [place] [address] Medical ( Branch VITAMIN ORAL) 2020-0 Yes Take by Unive rs vit 3-27 mouth. ity of calc,iron,f 16:06: [place] [address] Medical ( Branch VITAMIN ORAL) 2020-0 Yes Take by Unive rs vit 3-27 mouth. ity of calc,iron,f 16:06: [place] [address] Medical ( Branch VITAMIN ORAL) 2020-0 Yes Take by Unive rs vit 3-27 mouth. ity of calc,iron,f 16:06: [place] [address] Medical ( Branch VITAMIN ORAL) 2020-0 Yes Take by Unive rs vit 3-27 mouth. ity of calc,iron,f 16:06: [place] [address] Medical ( Branch VITAMIN ORAL) 2020-0 Yes Take by Unive rs vit 3-27 mouth. ity of calc,iron,f 16:06: [place] [address] Medical ( Branch VITAMIN ORAL) 2020-0 Yes Take by Unive rs vit 3-27 mouth. ity of calc,iron,f 16:06: [place] [address] Medical ( Branch VITAMIN ORAL) 2020-0 Yes Take by Unive rs vit 3-27 mouth. ity of calc,iron,f 16:06: [place] [address] Medical ( Branch VITAMIN ORAL) 2020-0 Yes Take by Unive rs vit 3-27 mouth. ity of calc,iron,f 16:06: [place] [address] Medical ( Branch VITAMIN ORAL) 2020-0 Yes Take by Unive rs vit 3-27 mouth. ity of calc,iron,f 16:06: [place] [address] Medical ( Branch VITAMIN ORAL) 2020-0 Yes Take by Unive rs vit 3-27 mouth. ity of calc,iron,f 16:06: [place] [address] Medical ( Branch VITAMIN ORAL) 2020-0 Yes Take by Unive rs vit 3-27 mouth. ity of calc,iron,f 16:06: [place] [address] Medical ( Branch VITAMIN ORAL) 2020-0 Yes Take by Unive rs vit 3-27 mouth. ity of calc,iron,f 16:06: [place] [address] Medical ( Branch VITAMIN ORAL) 2020-0 Yes Take by Unive rs vit 3-27 mouth. ity of calc,iron,f 16:06: [place] [address] Medical ( Branch VITAMIN ORAL) 2020-0 Yes Take by Unive rs vit 3-27 mouth. ity of calc,iron,f 16:06: [place] [address] Medical ( Branch VITAMIN ORAL) 2020-0 Yes Take by Unive rs vit 3-27 mouth. ity of calc,iron,f 16:06: [facility] [place] Medical ( Branch VITAMIN ORAL) Yes Take by Unive rs vit 3-27 mouth. ity of calc,iron,f 16:06: [place] [address] Medical ( Branch VITAMIN ORAL) Yes Take by Unive rs vit 3-27 mouth. ity of calc,iron,f 16:06: [place] [address] Medical ( Branch VITAMIN ORAL) Yes Take by Unive rs vit 3-27 mouth. ity of calc,iron,f 16:06: [facility] [place] Medical ( Branch VITAMIN ORAL) Yes Take by Unive rs vit 3-27 mouth. ity of calc,iron,f 16:06: [facility] [place] Medical ( Branch VITAMIN ORAL) Yes Take by Unive rs vit 3-27 mouth. ity of calc,iron,f 16:06: [place] [address] Medical ( Branch VITAMIN ORAL) ibuprofen Yes [id number] 600mg Take 1 [facility] 600 mg 2-23 102 tablet by ity of tablet 00:00: mouth [place] 00 every 6 Medical (six) Branch hours as needed for Pain (scale 1-3) or Pain (scale 4-6) (Pain). Take with food or milk. ferrous Yes [id number] 325mg Take 1 [facility] sulfate 325 2-23 102 tablet by ity of mg (65 mg 00:00: mouth [place] iron) 00 daily. Medical tablet Branch Yes [id number] 1{tbl} Take 1 [facility] vitamin 2-23 102 tablet by ity of w/FA tablet 00:00: mouth [place] 00 daily. Medical Branch docusate Yes [id number] 240mg Take 1 [facility] calcium 240 2-23 102 capsule by it y of mg capsule 00:00: mouth once [place] 00 daily as Medical needed for Branch Constipati on. ferrous Yes [id number] 325mg Take 1 [facility] sulfate 325 2-23 102 tablet by ity of mg (65 mg 00:00: mouth [place] iron) 00 daily. Medical tablet Branch ibuprofen Yes [id number] 600mg Take 1 [facility] 600 mg 2-23 102 tablet by ity of tablet 00:00: mouth [place] 00 every 6 Medical (six) Branch hours as needed for Pain (scale 1-3) or Pain (scale 4-6) (Pain). Take with food or milk. ibuprofen Yes [id number] 600mg Take 1 [facility] 600 mg 2-23 102 tablet by ity of tablet 00:00: mouth [place] 00 every 6 Medical (six) Branch hours as needed for Pain (scale 1-3) or Pain (scale 4-6) (Pain). Take with food or milk. Yes [id number] 1{tbl} Take 1 [facility] vitamin 2-23 102 tablet by ity of w/FA tablet 00:00: mouth [place] 00 daily. Medical Branch docusate Yes [id number] 240mg Take 1 [facility] calcium 240 2-23 102 capsule by it y of mg capsule 00:00: mouth once [place] 00 daily as Medical needed for Branch Constipati on. ferrous Yes [id number] 325mg Take 1 [facility] sulfate 325 2-23 102 tablet by ity of mg (65 mg 00:00: mouth [place] iron) 00 daily. Medical tablet Branch ibuprofen Yes [id number] 600mg Take 1 [facility] 600 mg 2-23 102 tablet by ity of tablet 00:00: mouth [place] 00 every 6 Medical (six) Branch hours as needed for Pain (scale 1-3) or Pain (scale 4-6) (Pain). Take with food or milk. Yes [id number] 1{tbl} Take 1 [facility] vitamin 2-23 102 tablet by ity of w/FA tablet 00:00: mouth [place] 00 daily. Medical Branch docusate Yes [id number] 240mg Take 1 [facility] calcium 240 2-23 102 capsule by it y of mg capsule 00:00: mouth once [place] 00 daily as Medical needed for Branch Constipati on. ferrous Yes [id number] 325mg Take 1 [facility] sulfate 325 2-23 102 tablet by ity of mg (65 mg 00:00: mouth [place] iron) 00 daily. Medical tablet Branch ibuprofen Yes [id number] 600mg Take 1 [facility] 600 mg 2-23 102 tablet by ity of tablet 00:00: mouth [place] 00 every 6 Medical (six) Branch hours as needed for Pain (scale 1-3) or Pain (scale 4-6) (Pain). Take with food or milk. Yes [id number] 1{tbl} Take 1 [facility] vitamin 2-23 102 tablet by ity of w/FA tablet 00:00: mouth [place] 00 daily. Medical Branch docusate Yes [id number] 240mg Take 1 [facility] calcium 240 2-23 102 capsule by it y of mg capsule 00:00: mouth once [place] 00 daily as Medical needed for Branch Constipati on. ferrous Yes [id number] 325mg Take 1 [facility] sulfate 325 2-23 102 tablet by ity of mg (65 mg 00:00: mouth [place] iron) 00 daily. Medical tablet Branch ibuprofen Yes [id number] 600mg Take 1 [facility] 600 mg 2-23 102 tablet by ity of tablet 00:00: mouth [place] 00 every 6 Medical (six) Branch hours as needed for Pain (scale 1-3) or Pain (scale 4-6) (Pain). Take with food or milk. Yes [id number] 1{tbl} Take 1 [facility] vitamin 2-23 102 tablet by ity of w/FA tablet 00:00: mouth [place] 00 daily. Medical Branch docusate Yes [id number] 240mg Take 1 [facility] calcium 240 2-23 102 capsule by it y of mg capsule 00:00: mouth once [place] 00 daily as Medical needed for Branch Constipati on. ferrous Yes [id number] 325mg Take 1 [facility] sulfate 325 2-23 102 tablet by ity of mg (65 mg 00:00: mouth [place] iron) 00 daily. Medical tablet Branch ibuprofen Yes [id number] 600mg Take 1 [facility] 600 mg 2-23 102 tablet by ity of tablet 00:00: mouth [place] 00 every 6 Medical (six) Branch hours as needed for Pain (scale 1-3) or Pain (scale 4-6) (Pain). Take with food or milk. Yes [id number] 1{tbl} Take 1 [facility] vitamin 2-23 102 tablet by ity of w/FA tablet 00:00: mouth [place] 00 daily. Medical Branch docusate Yes [id number] 240mg Take 1 [facility] calcium 240 2-23 102 capsule by it y of mg capsule 00:00: mouth once [place] 00 daily as Medical needed for Branch Constipati on. ferrous Yes [id number] 325mg Take 1 [facility] sulfate 325 2-23 102 tablet by ity of mg (65 mg 00:00: mouth [place] iron) 00 daily. Medical tablet Branch ibuprofen Yes [id number] 600mg Take 1 [facility] 600 mg 2-23 102 tablet by ity of tablet 00:00: mouth [place] 00 every 6 Medical (six) Branch hours as needed for Pain (scale 1-3) or Pain (scale 4-6) (Pain). Take with food or milk. Yes [id number] 1{tbl} Take 1 [facility] vitamin 2-23 102 tablet by ity of w/FA tablet 00:00: mouth [place] 00 daily. Medical Branch docusate Yes [id number] 240mg Take 1 [facility] calcium 240 2-23 102 capsule by it y of mg capsule 00:00: mouth once [place] 00 daily as Medical needed for Branch Constipati on. ferrous Yes [id number] 325mg Take 1 [facility] sulfate 325 2-23 102 tablet by ity of mg (65 mg 00:00: mouth [place] iron) 00 daily. Medical tablet Branch ibuprofen Yes [id number] 600mg Take 1 [facility] 600 mg 2-23 102 tablet by ity of tablet 00:00: mouth [place] 00 every 6 Medical (six) Branch hours as needed for Pain (scale 1-3) or Pain (scale 4-6) (Pain). Take with food or milk. Yes [id number] 1{tbl} Take 1 [facility] vitamin 2-23 102 tablet by ity of w/FA tablet 00:00: mouth [place] 00 daily. Medical Branch docusate Yes [id number] 240mg Take 1 [facility] calcium 240 2-23 102 capsule by it y of mg capsule 00:00: mouth once [place] 00 daily as Medical needed for Branch Constipati on. ferrous Yes [id number] 325mg Take 1 [facility] sulfate 325 2-23 102 tablet by ity of mg (65 mg 00:00: mouth [place] iron) 00 daily. Medical tablet Branch ibuprofen Yes [id number] 600mg Take 1 [facility] 600 mg 2-23 102 tablet by ity of tablet 00:00: mouth [place] 00 every 6 Medical (six) Branch hours as needed for Pain (scale 1-3) or Pain (scale 4-6) (Pain). Take with food or milk. Yes [id number] 1{tbl} Take 1 [facility] vitamin 2-23 102 tablet by ity of w/FA tablet 00:00: mouth [place] 00 daily. Medical Branch docusate Yes [id number] 240mg Take 1 [facility] calcium 240 2-23 102 capsule by it y of mg capsule 00:00: mouth once [place] 00 daily as Medical needed for Branch Constipati on. ferrous Yes [id number] 325mg Take 1 [facility] sulfate 325 2-23 102 tablet by ity of mg (65 mg 00:00: mouth [place] iron) 00 daily. Medical tablet Branch Yes [id number] 1{tbl} Take 1 [facility] vitamin 2-23 102 tablet by ity of w/FA tablet 00:00: mouth [place] 00 daily. Medical Branch ibuprofen Yes [id number] 600mg Take 1 [facility] 600 mg 2-23 102 tablet by ity of tablet 00:00: mouth [place] 00 every 6 Medical (six) Branch hours as needed for Pain (scale 1-3) or Pain (scale 4-6) (Pain). Take with food or milk. docusate Yes [id number] 240mg Take 1 [facility] calcium 240 2-23 102 capsule by it y of mg capsule 00:00: mouth once [place] 00 daily as Medical needed for Branch Constipati on. ferrous Yes [id number] 325mg Take 1 [facility] sulfate 325 2-23 102 tablet by ity of mg (65 mg 00:00: mouth [place] iron) 00 daily. Medical tablet Branch Yes [id number] 1{tbl} Take 1 [facility] vitamin 2-23 102 tablet by ity of w/FA tablet 00:00: mouth [place] 00 daily. Medical Branch docusate Yes [id number] 240mg Take 1 [facility] calcium 240 2-23 102 capsule by it y of mg capsule 00:00: mouth once [place] 00 daily as Medical needed for Branch Constipati on. ferrous Yes [id number] 325mg Take 1 [facility] sulfate 325 2-23 102 tablet by ity of mg (65 mg 00:00: mouth [place] iron) 00 daily. Medical tablet Branch ibuprofen 2019-0 Yes [id number] 600mg Take 1 [facility] 600 mg 2-23 102 tablet by ity of tablet 00:00: mouth [place] 00 every 6 Medical (six) Branch hours as needed for Pain (scale 1-3) or Pain (scale 4-6) (Pain). Take with food or milk. ibuprofen Yes [id number] 600mg Take 1 [facility] 600 mg 2-23 102 tablet by ity of tablet 00:00: mouth [place] 00 every 6 Medical (six) Branch hours as needed for Pain (scale 1-3) or Pain (scale 4-6) (Pain). Take with food or milk. Yes [id number] 1{tbl} Take 1 [facility] vitamin 2-23 102 tablet by ity of w/FA tablet 00:00: mouth [place] 00 daily. Medical Branch docusate Yes [id number] 240mg Take 1 [facility] calcium 240 2-23 102 capsule by it y of mg capsule 00:00: mouth once [place] 00 daily as Medical needed for Branch Constipati on. ferrous Yes [id number] 325mg Take 1 [facility] sulfate 325 2-23 102 tablet by ity of mg (65 mg 00:00: mouth [place] iron) 00 daily. Medical tablet Branch ibuprofen Yes [id number] 600mg Take 1 [facility] 600 mg 2-23 102 tablet by ity of tablet 00:00: mouth [place] 00 every 6 Medical (six) Branch hours as needed for Pain (scale 1-3) or Pain (scale 4-6) (Pain). Take with food or milk. Yes [id number] 1{tbl} Take 1 [facility] vitamin 2-23 102 tablet by ity of w/FA tablet 00:00: mouth [place] 00 daily. Medical Branch docusate Yes [id number] 240mg Take 1 [facility] calcium 240 2-23 102 capsule by it y of mg capsule 00:00: mouth once [place] 00 daily as Medical needed for Branch Constipati on. ferrous 2018-0 Yes [id number] 325mg Take 1 [facility] sulfate 325 2-23 102 tablet by ity of mg (65 mg 00:00: mouth [place] iron) 00 daily. Medical tablet Branch ibuprofen Yes [id number] 600mg Take 1 [facility] 600 mg 2-23 102 tablet by ity of tablet 00:00: mouth [place] 00 every 6 Medical (six) Branch hours as needed for Pain (scale 1-3) or Pain (scale 4-6) (Pain). Take with food or milk. Yes [id number] 1{tbl} Take 1 [facility] vitamin 2-23 102 tablet by ity of w/FA tablet 00:00: mouth [place] 00 daily. Medical Branch docusate Yes [id number] 240mg Take 1 [facility] calcium 240 2-23 102 capsule by it y of mg capsule 00:00: mouth once [place] 00 daily as Medical needed for Branch Constipati on. ferrous Yes [id number] 325mg Take 1 [facility] sulfate 325 2-23 102 tablet by ity of mg (65 mg 00:00: mouth [place] iron) 00 daily. Medical tablet Branch ibuprofen Yes [id number] 600mg Take 1 [facility] 600 mg 2-23 102 tablet by ity of tablet 00:00: mouth [place] 00 every 6 Medical (six) Branch hours as needed for Pain (scale 1-3) or Pain (scale 4-6) (Pain). Take with food or milk. Yes [id number] 1{tbl} Take 1 [facility] vitamin 2-23 102 tablet by ity of w/FA tablet 00:00: mouth [place] 00 daily. Medical Branch docusate Yes [id number] 240mg Take 1 [facility] calcium 240 2-23 102 capsule by it y of mg capsule 00:00: mouth once [place] 00 daily as Medical needed for Branch Constipati on. ferrous Yes [id number] 325mg Take 1 [facility] sulfate 325 2-23 102 tablet by ity of mg (65 mg 00:00: mouth [place] iron) 00 daily. Medical tablet Branch ibuprofen Yes [id number] 600mg Take 1 [facility] 600 mg 2-23 102 tablet by ity of tablet 00:00: mouth [place] 00 every 6 Medical (six) Branch hours as needed for Pain (scale 1-3) or Pain (scale 4-6) (Pain). Take with food or milk. Yes [id number] 1{tbl} Take 1 [facility] vitamin 2-23 102 tablet by ity of w/FA tablet 00:00: mouth [place] 00 daily. Medical Branch Yes [id number] 1{tbl} Take 1 [facility] vitamin 2-23 102 tablet by ity of w/FA tablet 00:00: mouth [place] 00 daily. Medical Branch docusate Yes [id number] 240mg Take 1 [facility] calcium 240 2-23 102 capsule by it y of mg capsule 00:00: mouth once [place] 00 daily as Medical needed for Branch Constipati on. ferrous Yes [id number] 325mg Take 1 [facility] sulfate 325 2-23 102 tablet by ity of mg (65 mg 00:00: mouth [place] iron) 00 daily. Medical tablet Branch ibuprofen Yes [id number] 600mg Take 1 [facility] 600 mg 2-23 102 tablet by ity of tablet 00:00: mouth [place] 00 every 6 Medical (six) Branch hours as needed for Pain (scale 1-3) or Pain (scale 4-6) (Pain). Take with food or milk. docusate Yes [id number] 240mg Take 1 [facility] calcium 240 2-23 102 capsule by it y of mg capsule 00:00: mouth once [place] 00 daily as Medical needed for Branch Constipati on. ferrous Yes [id number] 325mg Take 1 [facility] sulfate 325 2-23 102 tablet by ity of mg (65 mg 00:00: mouth [place] iron) 00 daily. Medical tablet Branch ibuprofen Yes [id number] 600mg Take 1 [facility] 600 mg 2-23 102 tablet by ity of tablet 00:00: mouth [place] 00 every 6 Medical (six) Branch hours as needed for Pain (scale 1-3) or Pain (scale 4-6) (Pain). Take with food or milk. Yes [id number] 1{tbl} Take 1 [facility] vitamin 2-23 102 tablet by ity of w/FA tablet 00:00: mouth [place] 00 daily. Medical Branch docusate Yes [id number] 240mg Take 1 [facility] calcium 240 2-23 102 capsule by it y of mg capsule 00:00: mouth once [place] 00 daily as Medical needed for Branch Constipati on. ferrous Yes [id number] 325mg Take 1 [facility] sulfate 325 2-23 102 tablet by ity of mg (65 mg 00:00: mouth [place] iron) 00 daily. Medical tablet Branch ibuprofen Yes [id number] 600mg Take 1 [facility] 600 mg 2-23 102 tablet by ity of tablet 00:00: mouth [place] 00 every 6 Medical (six) Branch hours as needed for Pain (scale 1-3) or Pain (scale 4-6) (Pain). Take with food or milk. Yes [id number] 1{tbl} Take 1 [facility] vitamin 2-23 102 tablet by ity of w/FA tablet 00:00: mouth [place] 00 daily. Medical Branch docusate Yes [id number] 240mg Take 1 [facility] calcium 240 2-23 102 capsule by it y of mg capsule 00:00: mouth once [place] 00 daily as Medical needed for Branch Constipati on. ferrous Yes [id number] 325mg Take 1 [facility] sulfate 325 2-23 102 tablet by ity of mg (65 mg 00:00: mouth [place] iron) 00 daily. Medical tablet Branch ibuprofen Yes [id number] 600mg Take 1 [facility] 600 mg 2-23 102 tablet by ity of tablet 00:00: mouth [place] 00 every 6 Medical (six) Branch hours as needed for Pain (scale 1-3) or Pain (scale 4-6) (Pain). Take with food or milk. Yes [id number] 1{tbl} Take 1 [facility] vitamin 2-23 102 tablet by ity of w/FA tablet 00:00: mouth [place] 00 daily. Medical Branch docusate Yes [id number] 240mg Take 1 [facility] calcium 240 2-23 102 capsule by it y of mg capsule 00:00: mouth once [place] 00 daily as Medical needed for Branch Constipati on. ferrous Yes [id number] 325mg Take 1 [facility] sulfate 325 2-23 102 tablet by ity of mg (65 mg 00:00: mouth [place] iron) 00 daily. Medical tablet Branch ibuprofen Yes [id number] 600mg Take 1 [facility] 600 mg 2-23 102 tablet by ity of tablet 00:00: mouth [place] 00 every 6 Medical (six) Branch hours as needed for Pain (scale 1-3) or Pain (scale 4-6) (Pain). Take with food or milk. Yes [id number] 1{tbl} Take 1 [facility] vitamin 2-23 102 tablet by ity of w/FA tablet 00:00: mouth [place] 00 daily. Medical Branch docusate Yes [id number] 240mg Take 1 [facility] calcium 240 2-23 102 capsule by it y of mg capsule 00:00: mouth once [place] 00 daily as Medical needed for Branch Constipati on. ferrous Yes [id number] 325mg Take 1 [facility] sulfate 325 2-23 102 tablet by ity of mg (65 mg 00:00: mouth [place] iron) 00 daily. Medical tablet Branch ibuprofen Yes [id number] 600mg Take 1 [facility] 600 mg 2-23 102 tablet by ity of tablet 00:00: mouth [place] 00 every 6 Medical (six) Branch hours as needed for Pain (scale 1-3) or Pain (scale 4-6) (Pain). Take with food or milk. Yes [id number] 1{tbl} Take 1 [facility] vitamin 2-23 102 tablet by ity of w/FA tablet 00:00: mouth [place] 00 daily. Medical Branch docusate Yes [id number] 240mg Take 1 [facility] calcium 240 2-23 102 capsule by it y of mg capsule 00:00: mouth once [place] 00 daily as Medical needed for Branch Constipati on. ferrous Yes [id number] 325mg Take 1 [facility] sulfate 325 2-23 102 tablet by ity of mg (65 mg 00:00: mouth [place] iron) 00 daily. Medical tablet Branch ibuprofen Yes [id number] 600mg Take 1 [facility] 600 mg 2-23 102 tablet by ity of tablet 00:00: mouth [place] 00 every 6 Medical (six) Branch hours as needed for Pain (scale 1-3) or Pain (scale 4-6) (Pain). Take with food or milk. Yes [id number] 1{tbl} Take 1 [facility] vitamin 2-23 102 tablet by ity of w/FA tablet 00:00: mouth [place] 00 daily. Medical Branch docusate Yes [id number] 240mg Take 1 [facility] calcium 240 2-23 102 capsule by it y of mg capsule 00:00: mouth once [place] 00 daily as Medical needed for Branch Constipati on. ferrous Yes [id number] 325mg Take 1 [facility] sulfate 325 2-23 102 tablet by ity of mg (65 mg 00:00: mouth [place] iron) 00 daily. Medical tablet Branch ibuprofen Yes [id number] 600mg Take 1 [facility] 600 mg 2-23 102 tablet by ity of tablet 00:00: mouth [place] 00 every 6 Medical (six) Branch hours as needed for Pain (scale 1-3) or Pain (scale 4-6) (Pain). Take with food or milk. Yes [id number] 1{tbl} Take 1 [facility] vitamin 2-23 102 tablet by ity of w/FA tablet 00:00: mouth [place] 00 daily. Medical Branch docusate Yes [id number] 240mg Take 1 [facility] calcium 240 2-23 102 capsule by it y of mg capsule 00:00: mouth once [place] 00 daily as Medical needed for Branch Constipati on. ferrous Yes [id number] 325mg Take 1 [facility] sulfate 325 2-23 102 tablet by ity of mg (65 mg 00:00: mouth [place] iron) 00 daily. Medical tablet Branch ibuprofen Yes [id number] 600mg Take 1 [facility] 600 mg 2-23 102 tablet by ity of tablet 00:00: mouth [place] 00 every 6 Medical (six) Branch hours as needed for Pain (scale 1-3) or Pain (scale 4-6) (Pain). Take with food or milk. Yes [id number] 1{tbl} Take 1 [facility] vitamin 2-23 102 tablet by ity of w/FA tablet 00:00: mouth [place] 00 daily. Medical Branch docusate Yes [id number] 240mg Take 1 [facility] calcium 240 2-23 102 capsule by it y of mg capsule 00:00: mouth once [place] 00 daily as Medical needed for Branch Constipati on. ferrous Yes [id number] 325mg Take 1 [facility] sulfate 325 2-23 102 tablet by ity of mg (65 mg 00:00: mouth [place] iron) 00 daily. Medical tablet Branch ibuprofen Yes [id number] 600mg Take 1 [facility] 600 mg 2-23 102 tablet by ity of tablet 00:00: mouth [place] 00 every 6 Medical (six) Branch hours as needed for Pain (scale 1-3) or Pain (scale 4-6) (Pain). Take with food or milk. Yes [id number] 1{tbl} Take 1 [facility] vitamin 2-23 102 tablet by ity of w/FA tablet 00:00: mouth [place] 00 daily. Medical Branch docusate Yes [id number] 240mg Take 1 [facility] calcium 240 2-23 102 capsule by it y of mg capsule 00:00: mouth once [place] 00 daily as Medical needed for Branch Constipati on. ferrous Yes [id number] 325mg Take 1 [facility] sulfate 325 2-23 102 tablet by ity of mg (65 mg 00:00: mouth [place] iron) 00 daily. Medical tablet Branch ibuprofen Yes [id number] 600mg Take 1 [facility] 600 mg 2-23 102 tablet by ity of tablet 00:00: mouth [place] 00 every 6 Medical (six) Branch hours as needed for Pain (scale 1-3) or Pain (scale 4-6) (Pain). Take with food or milk. Yes [id number] 1{tbl} Take 1 [facility] vitamin 2-23 102 tablet by [facility] of w/FA tablet 00:00: mouth [place] 00 daily. Medical Branch docusate Yes [id number] 240mg Take 1 [facility] calcium 240 2-23 102 capsule by it y of mg capsule 00:00: mouth once [place] 00 daily as Medical needed for Branch Constipati on. ferrous Yes [id number] 325mg Take 1 [facility] sulfate 325 2-23 102 tablet by ity of mg (65 mg 00:00: mouth [place] iron) 00 daily. Medical tablet Branch ibuprofen Yes [id number] 600mg Take 1 [facility] 600 mg 2-23 102 tablet by ity of tablet 00:00: mouth [place] 00 every 6 Medical (six) Branch hours as needed for Pain (scale 1-3) or Pain (scale 4-6) (Pain). Take with food or milk. Yes [id number] 1{tbl} Take 1 [facility] vitamin 2-23 102 tablet by [facility]y of w/FA tablet 00:00: mouth [place] 00 daily. [facility] docusate Yes [id number] 240mg Take 1 [facility] calcium 240 2-23 102 capsule by it y of mg capsule 00:00: mouth once [place] 00 daily as Medical needed for Branch Constipati on. ferrous Yes [id number] 325mg Take 1 [facility] sulfate 325 2-23 102 tablet by ity of mg (65 mg 00:00: mouth [place] iron) 00 daily. Medical tablet Branch ibuprofen Yes [id number] 600mg Take 1 [facility] 600 mg 2-23 102 tablet by ity of tablet 00:00: mouth [place] 00 every 6 Medical (six) Branch hours as needed for Pain (scale 1-3) or Pain (scale 4-6) (Pain). Take with food or milk. Yes [id number] 1{tbl} Take 1 [facility] vitamin 2-23 102 tablet by [facility]y of w/FA tablet 00:00: mouth [place] 00 daily. Medical [facility] docusate Yes [id number] 240mg Take 1 [facility] calcium 240 2-23 102 capsule by it y of mg capsule 00:00: mouth once [place] 00 daily as Medical needed for Branch Constipati on. Yes [id number] 1{tbl} Take 1 [facility] vitamin 2-23 102 tablet by ity of w/FA tablet 00:00: mouth [place] 00 daily. Medical [facility] docusate Yes [id number] 240mg Take 1 [facility] calcium 240 2-23 102 capsule by it y of mg capsule 00:00: mouth once [place] 00 daily as Medical needed for Branch Constipati on. ferrous Yes [id number] 325mg Take 1 [facility] sulfate 325 2-23 102 tablet by ity of mg (65 mg 00:00: mouth [place] iron) 00 daily. Medical tablet Branch ibuprofen Yes [id number] 600mg Take 1 [facility] 600 mg 2-23 102 tablet by ity of tablet 00:00: mouth [place] 00 every 6 Medical (six) Branch hours as needed for Pain (scale 1-3) or Pain (scale 4-6) (Pain). Take with food or milk. ferrous Yes [id number] 325mg Take 1 [facility] sulfate 325 2-23 102 tablet by ity of mg (65 mg 00:00: mouth [place] iron) 00 daily. Medical tablet Branch Yes [id number] 1{tbl} Take 1 [facility] vitamin 2-23 102 tablet by ity of w/FA tablet 00:00: mouth [place] 00 daily. Medical Branch docusate Yes [id number] 240mg Take 1 [facility] calcium 240 2-23 102 capsule by it y of mg capsule 00:00: mouth once [place] 00 daily as Medical needed for Branch Constipati on. ferrous Yes [id number] 325mg Take 1 [facility] sulfate 325 2-23 102 tablet by ity of mg (65 mg 00:00: mouth [place] iron) 00 daily. Medical tablet Branch ibuprofen Yes [id number] 600mg Take 1 [facility] 600 mg 2-23 102 tablet by ity of tablet 00:00: mouth [place] 00 every 6 Medical (six) Branch hours as needed for Pain (scale 1-3) or Pain (scale 4-6) (Pain). Take with food or milk. ibuprofen Yes [id number] 600mg Take 1 [facility] 600 mg 2-23 102 tablet by ity of tablet 00:00: mouth [place] 00 every 6 Medical (six) Branch hours as needed for Pain (scale 1-3) or Pain (scale 4-6) (Pain). Take with food or milk. Yes [id number] 1{tbl} Take 1 [facility] vitamin 2-23 102 tablet by [facility]y of w/FA tablet 00:00: mouth [place] 00 daily. [facility] docusate Yes [id number] 240mg Take 1 [facility] calcium 240 2-23 102 capsule by it y of mg capsule 00:00: mouth once [place] 00 daily as Medical needed for Branch Constipati on. ferrous Yes [id number] 325mg Take 1 [facility] sulfate 325 2-23 102 tablet by ity of mg (65 mg 00:00: mouth [place] iron) 00 daily. Medical tablet Branch ibuprofen Yes [id number] 600mg Take 1 [facility] 600 mg 2-23 102 tablet by ity of tablet 00:00: mouth [place] 00 every 6 Medical (six) Branch hours as needed for Pain (scale 1-3) or Pain (scale 4-6) (Pain). Take with food or milk. Yes [id number] 1{tbl} Take 1 [facility] vitamin 2-23 102 tablet by [facility]y of w/FA tablet 00:00: mouth [place] 00 daily. [facility] docusate Yes [id number] 240mg Take 1 [facility] calcium 240 2-23 102 capsule by it y of mg capsule 00:00: mouth once [place] 00 daily as Medical needed for Branch Constipati on. ferrous Yes [id number] 325mg Take 1 [facility] sulfate 325 2-23 102 tablet by ity of mg (65 mg 00:00: mouth [place] iron) 00 daily. Medical tablet Branch ibuprofen Yes [id number] 600mg Take 1 [facility] 600 mg 2-23 102 tablet by ity of tablet 00:00: mouth [place] 00 every 6 Medical (six) Branch hours as needed for Pain (scale 1-3) or Pain (scale 4-6) (Pain). Take with food or milk. Yes [id number] 1{tbl} Take 1 [facility] vitamin 2-23 102 tablet by [facility]y of w/FA tablet 00:00: mouth [place] 00 daily. [facility] docusate Yes [id number] 240mg Take 1 [facility] calcium 240 2-23 102 capsule by it y of mg capsule 00:00: mouth once [place] 00 daily as Medical needed for Branch Constipati on. ferrous Yes [id number] 325mg Take 1 [facility] sulfate 325 2-23 102 tablet by ity of mg (65 mg 00:00: mouth [place] iron) 00 daily. Medical tablet Branch ibuprofen Yes [id number] 600mg Take 1 [facility] 600 mg 2-23 102 tablet by ity of tablet 00:00: mouth [place] 00 every 6 Medical (six) Branch hours as needed for Pain (scale 1-3) or Pain (scale 4-6) (Pain). Take with food or milk. Yes [id number] 1{tbl} Take 1 [facility] vitamin 2-23 102 tablet by [facility]y of w/FA tablet 00:00: mouth [place] 00 daily. [facility] docusate Yes [id number] 240mg Take 1 [facility] calcium 240 2-23 102 capsule by it y of mg capsule 00:00: mouth once [place] 00 daily as Medical needed for Branch Constipati on. ferrous Yes [id number] 325mg Take 1 [facility] sulfate 325 2-23 102 tablet by ity of mg (65 mg 00:00: mouth [place] iron) 00 daily. Medical tablet Branch ibuprofen Yes [id number] 600mg Take 1 [facility] 600 mg 2-23 102 tablet by ity of tablet 00:00: mouth [place] 00 every 6 Medical (six) Branch hours as needed for Pain (scale 1-3) or Pain (scale 4-6) (Pain). Take with food or milk. Yes [id number] 1{tbl} Take 1 [facility] vitamin 2-23 102 tablet by [facility]y of w/FA tablet 00:00: mouth [place] 00 daily. [facility] docusate Yes [id number] 240mg Take 1 [facility] calcium 240 2-23 102 capsule by it y of mg capsule 00:00: mouth once [place] 00 daily as Medical needed for Branch Constipati on. ferrous Yes [id number] 325mg Take 1 [facility] sulfate 325 2-23 102 tablet by ity of mg (65 mg 00:00: mouth [place] iron) 00 daily. Medical tablet Branch ibuprofen Yes [id number] 600mg Take 1 [facility] 600 mg 2-23 102 tablet by ity of tablet 00:00: mouth [place] 00 every 6 Medical (six) Branch hours as needed for Pain (scale 1-3) or Pain (scale 4-6) (Pain). Take with food or milk. Yes [id number] 1{tbl} Take 1 [facility] vitamin 2-23 102 tablet by ity of w/FA tablet 00:00: mouth [place] 00 daily. [facility] [id number] 240mg Take 1 [facility] calcium 240 2-23 102 capsule by it y of mg capsule 00:00: mouth once [place] 00 daily as Medical needed for Branch Constipati on. ferrous Yes [id number] 325mg Take 1 [facility] sulfate 325 2-23 102 tablet by ity of mg (65 mg 00:00: mouth [place] iron) 00 daily. Medical tablet Branch ibuprofen Yes [id number] 600mg Take 1 [facility] 600 mg 2-23 102 tablet by ity of tablet 00:00: mouth [place] 00 every 6 Medical (six) Branch hours as needed for Pain (scale 1-3) or Pain (scale 4-6) (Pain). Take with food or milk. Yes [id number] 1{tbl} Take 1 [facility] vitamin 2-23 102 tablet by ity of w/FA tablet 00:00: mouth [place] 00 daily. [facility] [id number] 240mg Take 1 [facility] calcium 240 2-23 102 capsule by it y of mg capsule 00:00: mouth once [place] 00 daily as Medical needed for Branch Constipati on. ferrous Yes [id number] 325mg Take 1 [facility] sulfate 325 2-23 102 tablet by ity of mg (65 mg 00:00: mouth [place] iron) 00 daily. Medical tablet Branch ibuprofen Yes [id number] 600mg Take 1 [facility] 600 mg 2-23 102 tablet by ity of tablet 00:00: mouth [place] 00 every 6 Medical (six) Branch hours as needed for Pain (scale 1-3) or Pain (scale 4-6) (Pain). Take with food or milk. Yes [id number] 1{tbl} Take 1 [facility] vitamin 2-23 102 tablet by ity of w/FA tablet 00:00: mouth [place] 00 daily. Medical Branch Yes [id number] 1{tbl} Take 1 [facility] vitamin 2-23 102 tablet by ity of w/FA tablet 00:00: mouth [place] 00 daily. Medical Branch docusate Yes [id number] 240mg Take 1 [facility] calcium 240 2-23 102 capsule by it y of mg capsule 00:00: mouth once [place] 00 daily as Medical needed for Branch Constipati on. ferrous Yes [id number] 325mg Take 1 [facility] sulfate 325 2-23 102 tablet by ity of mg (65 mg 00:00: mouth [place] iron) 00 daily. Medical tablet Branch docusate Yes [id number] 240mg Take 1 [facility] calcium 240 2-23 102 capsule by it y of mg capsule 00:00: mouth once [place] 00 daily as Medical needed for Branch Constipati on. 2020- No [id number] 1{tbl} Take 1 [facility] vitamin 2-23 10-26 102 tablet by [facility]y of w/FA tablet 00:00: 00:00 mouth [place] :00 daily. [facility] docusate 2020- No [id number] 240mg Take 1 [facility] calcium 240 2-23 10-26 102 capsule by i ty of mg capsule 00:00: 00:00 mouth once [place] 00 :00 daily as Medical needed for Branch Constipati on. ferrous 2020- No [id number] 325mg Take 1 [facility] sulfate 325 2-23 10-26 102 tablet by it y of mg (65 mg 00:00: 00:00 mouth [place] iron) 00 :00 daily. Medical tablet Branch ibuprofen 2020- No [id number] 600mg Take 1 [facility] 600 mg 2-23 10-26 102 tablet by ity of tablet 00:00: 00:00 mouth [place] 00 :00 every 6 Medical (six) Branch hours as needed for Pain (scale 1-3) or Pain (scale 4-6) (Pain). Take with food or milk. [id number] Yes 1{dose} Take 1 Un cuco carb,glu-FA 8-20 Dose by ity o f -dss-dha 00:00: mouth [place] ([employer] 00 daily. Medica l ASSURE) 35 Branch mg iron-1 mg -50 mg-300 mg combo pack [id number] Yes 1{dose} Take 1 Un cuco carb,glu-FA 8-20 Dose by ity o f -dss-dha 00:00: mouth [place] ([employer] 00 daily. Medica l ASSURE) 35 Branch mg iron-1 mg -50 mg-300 mg combo pack [id number] Yes 1{dose} Take 1 Un cuco carb,glu-FA 8-20 Dose by ity o f -dss-dha 00:00: mouth [place] ([employer] 00 daily. Medica l ASSURE) 35 Branch mg iron-1 mg -50 mg-300 mg combo pack [id number] Yes 1{dose} Take 1 Un cuco carb,glu-FA 8-20 Dose by ity o f -dss-dha 00:00: mouth [place] ([employer] 00 daily. Medica l ASSURE) 35 Branch mg iron-1 mg -50 mg-300 mg combo pack [id number] Yes 1{dose} Take 1 Un cuco carb,glu-FA 8-20 Dose by ity o f -dss-dha 00:00: mouth [place] ([employer] 00 daily. Medica l ASSURE) 35 Branch mg iron-1 mg -50 mg-300 mg combo pack [id number] Yes 1{dose} Take 1 Un cuco carb,glu-FA 8-20 Dose by ity o f -dss-dha 00:00: mouth [place] ([employer] 00 daily. Medica l ASSURE) 35 Branch mg iron-1 mg -50 mg-300 mg combo pack [id number] 2018-0 Yes 1{dose} Take 1 Un cuco carb,glu-FA 8-20 Dose by ity o f -dss-dha 00:00: mouth [place] ([employer] 00 daily. Medica l ASSURE) 35 Branch mg iron-1 mg -50 mg-300 mg combo pack [id number] 2017-0 Yes 1{dose} Take 1 Un cuco carb,glu-FA 8-20 Dose by ity o f -dss-dha 00:00: mouth [place] ([employer] 00 daily. Medica l ASSURE) 35 Branch mg iron-1 mg -50 mg-300 mg combo pack [id number] 2017- Yes 1{dose} Take 1 Un cuco carb,glu-FA 8-20 Dose by ity o f -dss-dha 00:00: mouth [place] ([employer] 00 daily. Medica l ASSURE) 35 Branch mg iron-1 mg -50 mg-300 mg combo pack [id number] 2017- Yes 1{dose} Take 1 Un cuco carb,glu-FA 8-20 Dose by ity o f -dss-dha 00:00: mouth [place] ([employer] 00 daily. Medica l ASSURE) 35 Branch mg iron-1 mg -50 mg-300 mg combo pack [id number] Yes 1{dose} Take 1 Un cuco carb,glu-FA 8-20 Dose by ity o f -dss-dha 00:00: mouth [place] ([employer] 00 daily. Medica l ASSURE) 35 Branch mg iron-1 mg -50 mg-300 mg combo pack [id number] Yes 1{dose} Take 1 Un cuco carb,glu-FA 8-20 Dose by ity o f -dss-dha 00:00: mouth [place] ([employer] 00 daily. Medica l ASSURE) 35 Branch mg iron-1 mg -50 mg-300 mg combo pack [id number] 2017-0 Yes 1{dose} Take 1 Un cuco carb,glu-FA 8-20 Dose by ity o f -dss-dha 00:00: mouth [place] ([employer] 00 daily. Medica l ASSURE) 35 Branch mg iron-1 mg -50 mg-300 mg combo pack [id number] Yes 1{dose} Take 1 Un cuco carb,glu-FA 8-20 Dose by ity o f -dss-dha 00:00: mouth [place] ([employer] 00 daily. Medica l ASSURE) 35 Branch mg iron-1 mg -50 mg-300 mg combo pack [id number] Yes 1{dose} Take 1 Un cuco carb,glu-FA 8-20 Dose by ity o f -dss-dha 00:00: mouth [place] ([employer] 00 daily. Medica l ASSURE) 35 Branch mg iron-1 mg -50 mg-300 mg combo pack [id number] Yes 1{dose} Take 1 Un cuco carb,glu-FA 8-20 Dose by ity o f -dss-dha 00:00: mouth [place] ([employer] 00 daily. Medica l ASSURE) 35 Branch mg iron-1 mg -50 mg-300 mg combo pack [id number] Yes 1{dose} Take 1 Un cuco carb,glu-FA 8-20 Dose by ity o f -dss-dha 00:00: mouth [place] ([employer] 00 daily. Medica l ASSURE) 35 Branch mg iron-1 mg -50 mg-300 mg combo pack [id number] Yes 1{dose} Take 1 Un cuco carb,glu-FA 8-20 Dose by ity o f -dss-dha 00:00: mouth [place] ([employer] 00 daily. Medica l ASSURE) 35 Branch mg iron-1 mg -50 mg-300 mg combo pack [id number] Yes 1{dose} Take 1 Un cuco carb,glu-FA 8-20 Dose by ity o f -dss-dha 00:00: mouth [place] ([employer] 00 daily. Medica l ASSURE) 35 Branch mg iron-1 mg -50 mg-300 mg combo pack [id number] Yes 1{dose} Take 1 Un cuco carb,glu-FA 8-20 Dose by ity o f -dss-dha 00:00: mouth [place] ([employer] 00 daily. Medica l ASSURE) 35 Branch mg iron-1 mg -50 mg-300 mg combo pack [id number] Yes 1{dose} Take 1 Un cuco carb,glu-FA 8-20 Dose by ity o f -dss-dha 00:00: mouth [place] ([employer] 00 daily. Medica l ASSURE) 35 Branch mg iron-1 mg -50 mg-300 mg combo pack [id number] 2018-0 Yes 1{dose} Take 1 Un cuco carb,glu-FA 8-20 Dose by ity o f -dss-dha 00:00: mouth [place] ([employer] 00 daily. Medica l ASSURE) 35 Branch mg iron-1 mg -50 mg-300 mg combo pack [id number] 2018-0 Yes 1{dose} Take 1 Un cuco carb,glu-FA 8-20 Dose by ity o f -dss-dha 00:00: mouth [place] ([employer] 00 daily. Medica l ASSURE) 35 Branch mg iron-1 mg -50 mg-300 mg combo pack [id number] 2017-0 Yes 1{dose} Take 1 Un cuco carb,glu-FA 8-20 Dose by ity o f -dss-dha 00:00: mouth [place] ([employer] 00 daily. Medica l ASSURE) 35 Branch mg iron-1 mg -50 mg-300 mg combo pack [id number] 2017-0 Yes 1{dose} Take 1 Un cuco carb,glu-FA 8-20 Dose by ity o f -dss-dha 00:00: mouth [place] ([employer] 00 daily. Medica l ASSURE) 35 Branch mg iron-1 mg -50 mg-300 mg combo pack [id number] 2017-0 Yes 1{dose} Take 1 Un cuco carb,glu-FA 8-20 Dose by ity o f -dss-dha 00:00: mouth [place] ([employer] 00 daily. Medica l ASSURE) 35 Branch mg iron-1 mg -50 mg-300 mg combo pack [id number] 2018-0 Yes 1{dose} Take 1 Un cuco carb,glu-FA 8-20 Dose by ity o f -dss-dha 00:00: mouth [place] ([employer] 00 daily. Medica l ASSURE) 35 Branch mg iron-1 mg -50 mg-300 mg combo pack [id number] 2017-0 Yes 1{dose} Take 1 Un cuco carb,glu-FA 8-20 Dose by ity o f -dss-dha 00:00: mouth [place] ([employer] 00 daily. Medica l ASSURE) 35 Branch mg iron-1 mg -50 mg-300 mg combo pack [id number] 2018-0 Yes 1{dose} Take 1 Un cuco carb,glu-FA 8-20 Dose by ity o f -dss-dha 00:00: mouth [place] ([employer] 00 daily. Medica l ASSURE) 35 Branch mg iron-1 mg -50 mg-300 mg combo pack [id number] 2018-0 Yes 1{dose} Take 1 Un cuco carb,glu-FA 8-20 Dose by ity o f -dss-dha 00:00: mouth [place] ([employer] 00 daily. Medica l ASSURE) 35 Branch mg iron-1 mg -50 mg-300 mg combo pack [id number] 2018-0 Yes 1{dose} Take 1 Un cuco carb,glu-FA 8-20 Dose by ity o f -dss-dha 00:00: mouth [place] ([employer] daily. Medica l ASSURE) 35 Branch mg iron-1 mg -50 mg-300 mg combo pack [id number] 2018-0 Yes 1{dose} Take 1 Un cuco carb,glu-FA 8-20 Dose by ity o f -dss-dha 00:00: mouth [place] ([employer] 00 daily. Medica l ASSURE) 35 Branch mg iron-1 mg -50 mg-300 mg combo pack [id number] 2018-0 Yes 1{dose} Take 1 Un cuco carb,glu-FA 8-20 Dose by ity o f -dss-dha 00:00: mouth [place] ([employer] 00 daily. Medica l ASSURE) 35 Branch mg iron-1 mg -50 mg-300 mg combo pack [id number] 2018-0 Yes 1{dose} Take 1 Un cuco carb,glu-FA 8-20 Dose by ity o f -dss-dha 00:00: mouth [place] ([employer] 00 daily. Medica l ASSURE) 35 Branch mg iron-1 mg -50 mg-300 mg combo pack [id number] 2018-0 Yes 1{dose} Take 1 Un cuco carb,glu-FA 8-20 Dose by ity o f -dss-dha 00:00: mouth [place] ([employer] 00 daily. Medica l ASSURE) 35 Branch mg iron-1 mg -50 mg-300 mg combo pack [id number] 2018- Yes 1{dose} Take 1 Un cuoc carb,glu-FA 8-20 Dose by ity o f -dss-dha 00:00: mouth [place] ([employer] 00 daily. Medica l ASSURE) 35 Branch mg iron-1 mg -50 mg-300 mg combo pack [id number] 0 Yes 1{dose} Take 1 Un cuco carb,glu-FA 8-20 Dose by ity o f -dss-dha 00:00: mouth [place] ([employer] 00 daily. Medica l ASSURE) 35 Branch mg iron-1 mg -50 mg-300 mg combo pack [id number] Yes 1{dose} Take 1 Un cuco carb,glu-FA 8-20 Dose by ity o f -dss-dha 00:00: mouth [place] ([employer] 00 daily. Medica l ASSURE) 35 Branch mg iron-1 mg -50 mg-300 mg combo pack [id number] Yes 1{dose} Take 1 Un cuco carb,glu-FA 8-20 Dose by ity o f -dss-dha 00:00: mouth [place] ([employer] 00 daily. Medica l ASSURE) 35 Branch mg iron-1 mg -50 mg-300 mg combo pack [id number] Yes 1{dose} Take 1 Un cuco carb,glu-FA 8-20 Dose by ity o f -dss-dha 00:00: mouth [place] ([employer] 00 daily. Medica l ASSURE) 35 Branch mg iron-1 mg -50 mg-300 mg combo pack [id number] 2020- No 1{dose} Take 1 U nivers carb,glu-FA 8-20 10-26 Dose by ity of -dss-dha 00:00: 00:00 mouth [place] ([facility] 00 :00 daily. Medica l ASSURE) 35 Branch mg iron-1 mg -50 mg-300 mg combo pack Immunizations Ordered Filled Immunization Date Status Comments [facility] e Immunization Name Name TDAP 2020-03-13 Completed [facility] 00:00:00 [facility] TDAP 2020-03-13 Completed [facility] 00:00:00 [place] [facility] TDAP 2020-03-13 Completed [facility] 00[facility]00:00 [place] [facility] TDAP 2020-03-13 Completed [facility] 00:00:00 [place] [facility] TDAP 2020-03-13 Completed [facility] 00:00:00 [place] [facility] TDAP 2020-03-13 Completed [facility] 00:00:00 [place] [facility] TDAP 2020-03-13 Completed [facility] 00:00:00 [place] [facility] TDAP 2020-03-13 Completed [facility] 00:00:00 [place] [facility] TDAP 2020-03-13 Completed [facility] 00:00:00 [place] [facility] TDAP 2020-03-13 Completed [facility] 00:00:00 [place] [facility] TDAP 2020-03-13 Completed [facility] 00:00:00 [place] [facility] TDAP 2020-03-13 Completed [facility] 00:00:00 [place] [facility] TDAP 2020-03-13 Completed [facility] 00:00:00 [place] [facility] TDAP 2020-03-13 Completed [facility] 00:00:00 [place] [facility] TDAP 2020-03-13 Completed [facility] 00:00:00 [place] [facility] TDAP 2020-03-13 Completed [facility] 00:00:00 [place] [facility] TDAP 2020-03-13 Completed [facility] 00:00:00 [place] [facility] TDAP 2020-03-13 Completed [facility] 00:00:00 [place] [facility] TDAP 2020-03-13 Completed [facility] 00:00:00 [place] [facility] TDAP 2020-03-13 Completed [facility] 00:00:00 [place] [facility] TDAP 2020-03-13 Completed [facility] 00:00:00 [place] [facility] TDAP 2020-03-13 Completed [facility] 00:00:00 [place] [facility] TDAP 2020-03-13 Completed [facility] 00:00:00 [place] [facility] TDAP 2020-03-13 Completed [facility] 00:00:00 [place] [facility] TDAP 2020-03-13 Completed [facility] 00:00:00 [place] [facility] TDAP 2020-03-13 Completed [facility] 00:00:00 [place] [facility] TDAP 2020-03-13 Completed [facility] 00:00:00 [place] [facility] TDAP 2020-03-13 Completed [facility] 00:00:00 [place] [facility] TDAP 2020-03-13 Completed [facility] 00:00:00 [place] [facility] TDAP 2020-03-13 Completed [facility] 00:00:00 [place] [facility] TDAP 2020-03-13 Completed [facility] 00:00:00 [place] [facility] TDAP 2020-03-13 Completed [facility] 00:00:00 [place] [facility] TDAP 2020-03-13 Completed [facility] 00:00:00 [place] [facility] TDAP 2020-03-13 Completed [facility] 00:00:00 [place] [facility] TDAP 2020-03-13 Completed [facility] 00:00:00 [place] [facility] TDAP 2020-03-13 Completed [facility] 00:00:00 [place] [facility] TDAP 2020-03-13 Completed [facility] 00:00:00 [place] [facility] TDAP 2020-03-13 Completed [facility] 00:00:00 [place] [facility] TDAP 2020-03-13 Completed [facility] 00:00:00 [place] [facility] TDAP 2020-03-13 Completed [facility] 00:00:00 [place] [facility] TDAP 2020-03-13 Completed [facility] 00:00:00 [facility] TDAP 2020-03-13 Completed [facility] 00:00:00 [place] [facility] [place] TDAP 2020-03-13 Completed [facility] 00:00:00 [facility] Influenza Virus 2019-10-28 Completed Universit y of [facility] .5 mL 00:00:00 [place] [facility] 6+ [facility] Influenza Virus 2019-10-28 Completed [facility] y of [facility] .5 mL 00:00:00 [place] [facility] 6+ [facility] Influenza Virus 2019-10-28 Completed [facility]it y of [facility] .5 mL 00:00:00 [place] [facility] 6+ MO [facility] Influenza Virus 2019-10-28 Completed [facility]it y of [facility] .5 mL 00:00:00 [place] [facility] IM 6+ MO [facility] Influenza Virus 2019-10-28 Completed [facility]it y of [facility] .5 mL 00:00:00 [place] [facility] IM 6+ MO Branch Influenza Virus 2019-10-28 Completed [facility]it y of [facility] .5 mL 00:00:00 [place] [facility] IM 6+ MO [facility] Influenza Virus 2019-10-28 Completed [facility]it y of [facility] .5 mL 00:00:00 [place] [facility] IM 6+ MO [facility] Influenza Virus 2019-10-28 Completed [facility]it y of [facility] .5 mL 00:00:00 [place] [facility] 6+ MO [facility] Influenza Virus 2019-10-28 Completed [facility] y of [facility] .5 mL 00:00:00 [place] [facility] IM 6+ MO [facility] Influenza Virus 2019-10-28 Completed [facility] y of [facility] .5 mL 00:00:00 [place] [facility] IM 6+ MO [facility] Influenza Virus 2019-10-28 Completed [facility] y of [facility] .5 mL 00:00:00 [place] [facility] 6+ MO [facility] Influenza Virus 2019-10-28 Completed [facility] y of [facility] .5 mL 00:00:00 [place] [facility] IM 6+ MO [facility] Influenza Virus 2019-10-28 Completed [facility] y of [facility] .5 mL 00:00:00 [place] [facility] IM 6+ MO [facility] Influenza Virus 2019-10-28 Completed [facility] y of [facility] .5 mL 00:00:00 [place] [facility] IM 6+ MO [facility] Influenza Virus 2019-10-28 Completed [facility] y of [facility] .5 mL 00:00:00 [place] [facility] IM 6+ MO [facility] Influenza Virus 2019-10-28 Completed [facility] y of [facility] .5 mL 00:00:00 [place] [facility] IM 6+ MO [facility] Influenza Virus 2019-10-28 Completed [facility] y of [facility] .5 mL 00:00:00 [place] [facility] IM 6+ MO [facility] Influenza Virus 2019-10-28 Completed [facility] y of [facility] .5 mL 00:00:00 [place] [facility] IM 6+ MO [facility] Influenza Virus 2019-10-28 Completed [facility] y of [facility] .5 mL 00:00:00 [place] [facility] IM 6+ MO [facility] Influenza Virus 2019-10-28 Completed [facility] y of [facility] .5 mL 00:00:00 [place] [facility] IM 6+ MO [facility] Influenza Virus 2019-10-28 Completed [facility] y of [facility] .5 mL 00:00:00 [place] [facility] IM 6+ MO [facility] Influenza Virus 2019-10-28 Completed [facility] of [facility] .5 mL 00:00:00 [place] [facility] IM 6+ MO [facility] Influenza Virus 2019-10-28 Completed [facility] y of [facility] .5 mL 00:00:00 [place] [facility] IM 6+ MO [facility] Influenza Virus 2019-10-28 Completed [facility] y of [facility] .5 mL 00:00:00 [place] [facility] IM 6+ MO [facility] Influenza Virus 2019-10-28 Completed [facility] y of [facility] .5 mL 00:00:00 [place] [facility] IM 6+ MO Branch Influenza Virus 2019-10-28 Completed [facility] y of [facility] .5 mL 00:00:00 [place] [facility] IM 6+ MO [facility] Influenza Virus 2019-10-28 Completed [facility] y of [facility] .5 mL 00:00:00 [place] [facility] IM 6+ MO [facility] Influenza Virus 2019-10-28 Completed [facility] y of [facility] .5 mL 00:00:00 [place] [facility] IM 6+ MO [facility] Influenza Virus 2019-10-28 Completed [facility] y of [facility] .5 mL 00:00:00 [facility] Influenza Virus 2019-10-28 Completed [facility] .5 mL 00:00:00 [facility] Influenza Virus 2019-10-28 Completed [facility] .5 mL 00:00:00 [facility] Influenza Virus 2019-10-28 Completed [facility] .5 mL 00:00:00 [facility] Influenza Virus 2019-10-28 Completed [facility] .5 mL 00:00:00 [facility] Influenza Virus 2019-10-28 Completed [facility] .5 mL 00:00:00 [facility] Influenza Virus 2019-10-28 Completed [facility] .5 mL 00:00:00 [facility] Influenza Virus 2019-10-28 Completed [facility] .5 mL 00:00:00 [facility] Influenza Virus 2019-10-28 Completed [facility] .5 mL 00:00:00 [facility] Influenza Virus 2019-10-28 Completed [facility] .5 mL 00:00:00 [facility] Influenza Virus 2019-10-28 Completed [facility] .5 mL 00:00:00 [facility] Influenza Virus 2019-10-28 Completed [facility] .5 mL 00:00:00 [facility] Influenza Virus 2019-10-28 Completed [facility] .5 mL 00:00:00 [facility] Influenza Virus 2019-10-28 Completed [facility] .5 mL 00:00:00 [facility] Influenza Virus 2019-10-28 Completed [facility] .5 mL 00:00:00 [facility] Influenza Virus 2019-10-28 Completed [facility] .5 mL 00:00:00 [facility] Influenza Virus 2019-10-28 Completed [facility] .5 mL 00:00:00 [facility] Influenza Virus 2019-10-28 Completed [facility] .5 mL 00:00:00 [facility] Influenza Virus 2019-10-28 Completed [facility] .5 mL 00:00:00 [facility] Influenza Virus 2019-10-28 Completed [facility] .5 mL 00:00:00 [facility] Influenza Virus 2019-10-28 Completed [facility] .5 mL 00:00:00 [facility] Influenza Virus 2019-10-28 Completed [facility] .5 mL 00:00:00 [facility] Influenza Virus 2019-10-28 Completed [facility] .5 mL 00:00:00 [facility] Influenza Virus 2019-10-28 Completed [facility] .5 mL 00:00:00 [facility] Influenza Virus 2019-10-28 Completed [facility] .5 mL 00:00:00 [facility] Influenza Virus 2019-10-28 Completed [facility] .5 mL 00:00:00 [facility] Influenza Virus 2019-10-28 Completed [facility] .5 mL 00:00:00 [facility] Influenza Virus 2019-10-28 Completed [facility] .5 mL 00:00:00 [facility] Influenza Virus 2019-10-28 Completed [facility] .5 mL 00:00:00 [facility] Influenza Virus 2019-10-28 Completed [facility] .5 mL 00:00:00 [facility] Influenza Virus 2019-10-28 Completed [facility] .5 mL 00:00:00 [facility] Influenza Virus 2019-10-28 Completed [facility] .5 mL 00:00:00 [facility] TDAP 2018-07-13 Completed [facility] 00:00:00 [facility] TDAP 2018-07-13 Completed [facility] 00:00:00 [facility] TDAP 2018-07-13 Completed [facility] 00:00:00 [facility] TDAP 2018-07-13 Completed [facility] 00:00:00 [facility] TDAP 2018-07-13 Completed [facility] 00:00:00 [facility] TDAP 2018-07-13 Completed [facility] 00:00:00 [facility] TDAP 2018-07-13 Completed [facility] 00:00:00 [facility] Tdap 2018-07-13 Completed [facility] 00:00:00 [facility] TDAP 2018-07-13 Completed [facility] 00:00:00 [facility] TDAP 2018-07-13 Completed [facility] 00:00:00 [facility] TDAP 2018-07-13 Completed [facility] 00:00:00 [facility] TDAP 2018-07-13 Completed [facility] 00:00:00 [facility] TDAP 2018-07-13 Completed [facility] 00:00:00 [facility] TDAP 2018-07-13 Completed [facility] 00:00:00 [facility] TDAP 2018-07-13 Completed [facility] 00:00:00 [facility] Tdap 2018-07-13 Completed [facility] 00:00:00 [facility] TDAP 2018-07-13 Completed [facility] 00:00:00 [facility] Tdap 2018-07-13 Completed [facility] 00:00:00 [facility] Tdap 2018-07-13 Completed [facility] 00:00:00 [facility] Tdap 2018-07-13 Completed [facility] 00:00:00 [facility] Tdap 2018-07-13 Completed [facility] 00:00:00 [facility] TDAP 2018-07-13 Completed [facility] 00:00:00 [facility] TDAP 2018-07-13 Completed [facility] 00:00:00 [facility] TDAP 2018-07-13 Completed [facility] 00:00:00 [facility] TDAP 2018-07-13 Completed [facility] 00:00:00 [facility] TDAP 2018-07-13 Completed [facility] 00:00:00 [facility] TDAP 2018-07-13 Completed [facility] 00:00:00 [facility] Tdap 2018-07-13 Completed [facility] 00:00:00 [facility] TDAP 2018-07-13 Completed [facility] 00:00:00 [facility] TDAP 2018-07-13 Completed [facility] 00:00:00 [facility] TDAP 2018-07-13 Completed [facility] 00:00:00 [facility] TDAP 2018-07-13 Completed [facility] 00:00:00 [facility] TDAP 2018-07-13 Completed [facility] 00:00:00 [facility] TDAP 2018-07-13 Completed [facility] 00:00:00 [facility] TDAP 2018-07-13 Completed [facility] 00:00:00 [facility] TDAP 2018-07-13 Completed [facility] 00:00:00 [facility] TDAP 2018-07-13 Completed [facility] 00:00:00 [facility] Tdap 2018-07-13 Completed [facility] 00:00:00 [facility] TDAP 2018-07-13 Completed [facility] 00:00:00 [facility] TDAP 2018-07-13 Completed [facility] 00:00:00 [facility] TDAP 2018-07-13 Completed [facility] 00:00:00 [facility] TDAP 2018-07-13 Completed [facility] 00:00:00 [facility] TDAP 2018-07-13 Completed [facility] 00:00:00 [facility] TDAP 2018-07-13 Completed [facility] 00:00:00 [facility] TDAP 2018-07-13 Completed [facility] 00:00:00 [facility] TDAP 2018-07-13 Completed [facility] 00:00:00 [facility] TDAP 2018-07-13 Completed [facility] 00:00:00 [facility] Tdap 2018-07-13 Completed [facility] 00:00:00 [facility] TDAP 2018-07-13 Completed [facility] 00:00:00 [facility] TDAP 2018-07-13 Completed [facility] 00:00:00 [facility] TDAP 2018-07-13 Completed [facility] 00:00:00 [facility] TDAP 2018-07-13 Completed [facility] 00:00:00 [facility] TDAP 2018-07-13 Completed [facility] 00:00:00 [facility] Tdap 2018-07-13 Completed [facility] 00:00:00 [facility] TDAP 2018-07-13 Completed [facility] 00:00:00 [facility] TDAP 2018-07-13 Completed [facility] 00:00:00 [facility] TDAP 2018-07-13 Completed [facility] 00:00:00 [facility] TDAP 2018-07-13 Completed [facility] 00:00:00 [facility] Tdap 2018-07-13 Completed [facility] 00:00:00 [facility] TDAP 2018-07-13 Completed [facility] 00:00:00 [facility] TDAP 2018-07-13 Completed [facility] 00:00:00 [facility] TDAP 2018-07-13 Completed [facility] 00:00:00 [facility] TDAP 2018-07-13 Completed [facility] 00:00:00 [facility] TDAP 2018-07-13 Completed [facility] 00:00:00 [facility] Influenza Virus 2018-05-06 Completed [facility] .5 mL 00:00:00 [facility] Influenza Virus 2018-05-06 Completed [facility] .5 mL 00:00:00 [facility] Influenza Virus 2018-05-06 Completed [facility] .5 mL 00:00:00 [facility] Influenza Virus 2018-05-06 Completed [facility] .5 mL 00:00:00 [facility] Influenza Virus 2018-05-06 Completed [facility] .5 mL 00:00:00 [facility] Influenza Virus 2018-05-06 Completed [facility] .5 mL 00:00:00 [facility] Influenza Virus 2018-05-06 Completed [facility] .5 mL 00:00:00 [facility] Influenza Virus 2018-05-06 Completed [facility] .5 mL 00:00:00 [facility] Influenza Virus 2018-05-06 Completed [facility] .5 mL 00:00:00 [facility] Influenza Virus 2018-05-06 Completed [facility] .5 mL 00:00:00 [facility] Influenza Virus 2018-05-06 Completed [facility] .5 mL 00:00:00 [facility] Influenza Virus 2018-05-06 Completed [facility] .5 mL 00:00:00 [facility] Influenza Virus 2018-05-06 Completed [facility] .5 mL 00:00:00 [facility] Influenza Virus 2018-05-06 Completed [facility] .5 mL 00:00:00 [facility] Influenza Virus 2018-05-06 Completed [facility] .5 mL 00:00:00 [facility] Influenza Virus 2018-05-06 Completed [facility] .5 mL 00:00:00 [facility] Influenza Virus 2018-05-06 Completed [facility] .5 mL 00:00:00 [facility] Influenza Virus 2018-05-06 Completed [facility] .5 mL 00:00:00 [facility] Influenza Virus 2018-05-06 Completed [facility] .5 mL 00:00:00 [facility] Influenza Virus 2018-05-06 Completed [facility] .5 mL 00:00:00 [facility] Influenza Virus 2018-05-06 Completed [facility] .5 mL 00:00:00 [facility] Influenza Virus 2018-05-06 Completed [facility] .5 mL 00:00:00 [facility] Influenza Virus 2018-05-06 Completed [facility] .5 mL 00:00:00 [facility] Influenza Virus 2018-05-06 Completed [facility] .5 mL 00:00:00 [facility] Influenza Virus 2018-05-06 Completed [facility] .5 mL 00:00:00 [facility] Influenza Virus 2018-05-06 Completed [facility] .5 mL 00:00:00 [facility] Influenza Virus 2018-05-06 Completed [facility] .5 mL 00:00:00 [facility] Influenza Virus 2018-05-06 Completed [facility] .5 mL 00:00:00 [facility] Influenza Virus 2018-05-06 Completed [facility] .5 mL 00:00:00 [facility] Influenza Virus 2018-05-06 Completed [facility] .5 mL 00:00:00 [facility] Influenza Virus 2018-05-06 Completed [facility] .5 mL 00:00:00 [facility] Influenza Virus 2018-05-06 Completed [facility] .5 mL 00:00:00 [facility] Influenza Virus 2018-05-06 Completed [facility] .5 mL 00:00:00 [facility] Influenza Virus 2018-05-06 Completed [facility] .5 mL 00:00:00 [facility] Influenza Virus 2018-05-06 Completed [facility] .5 mL 00:00:00 [facility] Influenza Virus 2018-05-06 Completed [facility] .5 mL 00:00:00 [facility] Influenza Virus 2018-05-06 Completed [facility] .5 mL 00:00:00 [facility] Influenza Virus 2018-05-06 Completed [facility] .5 mL 00:00:00 [facility] Influenza Virus 2018-05-06 Completed [facility] .5 mL 00:00:00 [facility] Influenza Virus 2018-05-06 Completed [facility] .5 mL 00:00:00 [facility] Influenza Virus 2018-05-06 Completed [facility] .5 mL 00:00:00 [facility] Influenza Virus 2018-05-06 Completed [facility] .5 mL 00:00:00 [facility] Influenza Virus 2018-05-06 Completed [facility] .5 mL 00:00:00 [facility] Influenza Virus 2018-05-06 Completed [facility] .5 mL 00:00:00 [facility] Influenza Virus 2018-05-06 Completed [facility] .5 mL 00:00:00 [facility] Influenza Virus 2018-05-06 Completed [facility] .5 mL 00:00:00 [facility] Influenza Virus 2018-05-06 Completed [facility] .5 mL 00:00:00 [facility] Influenza Virus 2018-05-06 Completed [facility] .5 mL 00:00:00 [facility] Influenza Virus 2018-05-06 Completed [facility] .5 mL 00:00:00 [facility] Influenza Virus 2018-05-06 Completed [facility] .5 mL 00:00:00 [facility] Influenza Virus 2018-05-06 Completed [facility] .5 mL 00:00:00 [facility] Influenza Virus 2018-05-06 Completed [facility] .5 mL 00:00:00 [facility] Influenza Virus 2018-05-06 Completed [facility] .5 mL 00:00:00 [facility] Influenza Virus 2018-05-06 Completed [facility] .5 mL 00:00:00 [facility] Influenza Virus 2018-05-06 Completed [facility] .5 mL 00:00:00 [facility] Influenza Virus 2018-05-06 Completed [facility] .5 mL 00:00:00 [facility] Influenza Virus 2018-05-06 Completed [facility] .5 mL 00:00:00 [facility] Influenza Virus 2018-05-06 Completed [facility] .5 mL 00:00:00 [facility] Influenza Virus 2018-05-06 Completed [facility] .5 mL 00:00:00 [facility] Influenza Virus 2018-05-06 Completed [facility] .5 mL 00:00:00 [facility] Influenza Virus 2018-05-06 Completed [facility] .5 mL 00:00:00 [facility] Influenza Virus 2018-05-06 Completed [facility] .5 mL 00:00:00 [facility] Influenza Virus 2018-05-06 Completed [facility] .5 mL 00:00:00 [facility] Influenza Virus 2018-05-06 Completed [facility] .5 mL 00:00:00 [facility] TDAP 2014-08-19 Completed [facility] 00:00:00 [facility] TDAP 2014-08-19 Completed [facility] 00:00:00 [facility] TDAP 2014-08-19 Completed [facility] 00:00:00 [facility] TDAP 2014-08-19 Completed [facility] 00:00:00 [facility] TDAP 2014-08-19 Completed [facility] 00:00:00 [facility] TDAP 2014-08-19 Completed [facility] 00:00:00 [facility] Tdap 2014-08-19 Completed [facility] 00:00:00 [facility] TDAP 2014-08-19 Completed [facility] 00:00:00 [facility] TDAP 2014-08-19 Completed [facility] 00:00:00 [facility] TDAP 2014-08-19 Completed [facility] 00:00:00 [facility] TDAP 2014-08-19 Completed [facility] 00:00:00 [facility] TDAP 2014-08-19 Completed [facility] 00:00:00 [facility] TDAP 2014-08-19 Completed [facility] 00:00:00 [facility] TDAP 2014-08-19 Completed [facility] 00:00:00 [facility] TDAP 2014-08-19 Completed [facility] 00:00:00 [facility] Tdap 2014-08-19 Completed [facility] 00:00:00 [facility] TDAP 2014-08-19 Completed [facility] 00:00:00 [facility] Tdap 2014-08-19 Completed [facility] 00:00:00 [facility] Tdap 2014-08-19 Completed [facility] 00:00:00 [facility] Tdap 2014-08-19 Completed [facility] 00:00:00 [facility] Tdap 2014-08-19 Completed [facility] 00:00:00 [facility] TDAP 2014-08-19 Completed [facility] 00:00:00 [facility] TDAP 2014-08-19 Completed [facility] 00:00:00 [facility] TDAP 2014-08-19 Completed [facility] 00:00:00 [facility] TDAP 2014-08-19 Completed [facility] 00:00:00 [facility] TDAP 2014-08-19 Completed [facility] 00:00:00 [facility] Tdap 2014-08-19 Completed [facility] 00:00:00 [facility] TDAP 2014-08-19 Completed [facility] 00:00:00 [facility] TDAP 2014-08-19 Completed [facility] 00:00:00 [facility] TDAP 2014-08-19 Completed [facility] 00:00:00 [facility] TDAP 2014-08-19 Completed [facility] 00:00:00 [facility] TDAP 2014-08-19 Completed [facility] 00:00:00 [facility] TDAP 2014-08-19 Completed [facility] 00:00:00 [facility] TDAP 2014-08-19 Completed [facility] 00:00:00 [facility] TDAP 2014-08-19 Completed [facility] 00:00:00 [facility] TDAP 2014-08-19 Completed [facility] 00:00:00 [facility] Tdap 2014-08-19 Completed [facility] 00:00:00 [facility] TDAP 2014-08-19 Completed [facility] 00:00:00 [facility] TDAP 2014-08-19 Completed [facility] 00:00:00 [facility] TDAP 2014-08-19 Completed [facility] 00:00:00 [facility] TDAP 2014-08-19 Completed [facility] 00:00:00 [facility] TDAP 2014-08-19 Completed [facility] 00:00:00 [facility] TDAP 2014-08-19 Completed [facility] 00:00:00 [facility] TDAP 2014-08-19 Completed [facility] 00:00:00 [facility] TDAP 2014-08-19 Completed [facility] 00:00:00 [facility] TDAP 2014-08-19 Completed [facility] 00:00:00 [facility] Tdap 2014-08-19 Completed [facility] 00:00:00 [facility] TDAP 2014-08-19 Completed [facility] 00:00:00 [facility] TDAP 2014-08-19 Completed [facility] 00:00:00 [facility] TDAP 2014-08-19 Completed [facility] 00:00:00 [facility] TDAP 2014-08-19 Completed [facility] 00:00:00 [facility] TDAP 2014-08-19 Completed [facility] 00:00:00 [facility] Tdap 2014-08-19 Completed [facility] 00:00:00 [facility] TDAP 2014-08-19 Completed [facility] 00:00:00 [facility] TDAP 2014-08-19 Completed [facility] 00:00:00 [facility] TDAP 2014-08-19 Completed [facility] 00:00:00 [facility] TDAP 2014-08-19 Completed [facility] 00:00:00 [facility] Tdap 2014-08-19 Completed [facility] 00:00:00 [facility] TDAP 2014-08-19 Completed [facility] 00:00:00 [facility] TDAP 2014-08-19 Completed [facility] 00:00:00 [facility] TDAP 2014-08-19 Completed [facility] 00:00:00 [facility] TDAP 2014-08-19 Completed [facility] 00:00:00 [facility] TDAP 2014-08-19 Completed [facility] 00:00:00 [facility] TDAP 2014-08-19 Completed [facility] 00:00:00 [facility] Vital Signs Vital Name Observation Time Observation Value Comments Source Systolic blood 2021-07-30 01:10:00 108 mm[Hg] Univer sity of pressure [facility] Diastolic blood 2021-07-30 01:10:00 71 mm[Hg] Unive rsity of [facility] Heart rate 2021-07-30 01:10:00 69 /min [facility] Body temperature 2021-07-30 01:10:00 37.17 [place] [facility] 2021-07-30 01:10:00 15 /min [facility] Body height 2021-07-30 01:10:00 154.9 cm [facility] Body weight 2021-07-30 01:10:00 69.854 kg [facility] BMI 2021-07-30 01:10:00 29.10 kg/m2 [facility] Oxygen saturation in 2021-07-30 01:10:00 99 /min [facility] Arterial blood by [facility] Pulse oximetry Branch Systolic blood 2021-07-12 18:46:00 126 mm[Hg] Univer sity of pressure [facility] Diastolic blood 2021-07-12 18:46:00 63 mm[Hg] Unive rsity of pressure [facility] Heart rate 2021-07-12 18:46:00 84 /[facility] 2021-07-12 18:46:00 37.17 [place] [facility] Respiratory rate 2021-07-12 18:46:00 17 /min [facility] Body height 2021-07-12 18:46:00 154.9 cm [facility] Body weight 2021-07-12 18:46:00 69.854 kg [facility] BMI 2021-07-12 18:46:00 29.10 kg/m2 [facility] of [facility] Oxygen saturation in 2021-07-12 18:46:00 98 /min University of Arterial blood by [facility] Pulse oximetry Branch Systolic blood 2020-11-26 20:39:00 114 mm[Hg] Univer sity of pressure [facility] Diastolic blood 2020-11-26 20:39:00 71 mm[Hg] Unive rsity of pressure [facility] Heart rate 2020-11-26 20:39:00 73 /min [facility]i [facility] of [facility] Body temperature 2020-11-26 20:39:00 36.72 [place] [facility] ersity of [facility] Respiratory rate 2020-11-26 20:39:00 16 /min Univ ersity of [facility] Body height 2020-11-26 20:39:00 152.4 cm [facility] Body weight 2020-11-26 20:39:00 82.243 kg [facility]i [facility] of [facility] BMI 2020-11-26 20:39:00 35.41 kg/m2 [facility] of [facility] Systolic blood 2020-08-06 19:49:00 114 mm[Hg] Univer sity of pressure [facility] Diastolic blood 2020-08-06 19:49:00 72 mm[Hg] Unive rsity of pressure [facility] Heart rate 2020-08-06 19:49:00 84 /min [facility] Body temperature 2020-08-06 19:49:00 36.89 [place] [facility] ers[facility] of [facility] Respiratory rate 2020-08-06 19:49:00 16 /min Univ ersity of [facility] Body height 2020-08-06 19:49:00 152.4 cm [facility] Body weight 2020-08-06 19:49:00 75.07 kg [facility] BMI 2020-08-06 19:49:00 32.32 kg/m2 [facility] Systolic blood 2020-07-18 20:07:00 111 mm[Hg] [facility]ity of pressure [facility] Diastolic blood 2020-07-18 20:07:00 65 mm[Hg] Unive rsity of pressure [facility] Heart rate 2020-07-18 20:07:00 87 /min [facility] Body temperature 2020-07-18 20:07:00 36.67 [place] [facility] Respiratory rate 2020-07-18 20:07:00 16 /min Univ [facility] Body height 2020-07-18 20:07:00 152.4 cm [facility] Body weight 2020-07-18 20:07:00 74.985 kg [facility] BMI 2020-07-18 20:07:00 32.29 kg/m2 [facility] Systolic blood 2020-06-12 19:10:00 108 mm[Hg] Univer sity of pressure [facility] Diastolic blood 2020-06-12 19:10:00 59 mm[Hg] Unive rsity of pressure [facility] Heart rate 2020-06-12 19:10:00 80 /min Universi ty [facility] Body temperature 2020-06-12 19:10:00 37.11 Dinorah [facility] Respiratory rate 2020-06-12 19:10:00 16 /min Univ [facility] Body height 2020-06-12 19:10:00 152.4 cm [facility] Body weight 2020-06-12 19:10:00 74.617 kg [facility] BMI 2020-06-12 19:10:00 32.13 kg/m2 [facility] Systolic blood 2020-05-28 20:36:00 111 mm[Hg] Univer sity of [facility] Diastolic blood 2020-05-28 20:36:00 70 mm[Hg] Unive rsity of [facility] Heart rate 2020-05-28 20:36:00 73 /min Universi ty [facility] Body temperature 2020-05-28 20:36:00 36.33 Dinorah [facility] Respiratory rate 2020-05-28 20:36:00 18 /min Univ ersity of [facility] Oxygen saturation in 2020-05-28 20:36:00 96 /min University of Arterial blood by [facility] Pulse oximetry Branch Body height 2020-05-27 17:30:00 154 cm Universi ty of [facility] Body weight 2020-05-27 17:30:00 78 kg [facility] BMI 2020-05-27 17:30:00 32.89 kg/m2 Universi ty of [facility] Systolic blood 2020-05-21 15:52:00 115 mm[Hg] Univer sity of pressure [facility] Diastolic blood 2020-05-21 15:52:00 67 mm[Hg] Unive rsity of pressure [facility] Heart rate 2020-05-21 15:52:00 83 /min Universi ty of [facility] Body temperature 2020-05-21 15:52:00 36.39 Dinorah Univ ersity of [facility] Respiratory rate 2020-05-21 15:52:00 16 /min Univ ersity of [facility] Body height 2020-05-21 15:52:00 154.9 cm [facility] [place] [facility] [place] Body weight 2020-05-21 15:52:00 77.622 kg [facility] BMI 2020-05-21 15:52:00 32.33 kg/m2 Universi ty of [facility] Systolic blood 2020-05-15 15:58:00 112 mm[Hg] Univer sity of pressure [facility] Diastolic blood 2020-05-15 15:58:00 53 mm[Hg] Unive rsity of pressure [facility] Heart rate 2020-05-15 15:58:00 74 /min Universi ty of [facility] Body temperature 2020-05-15 15:58:00 36.94 [place] Univ ersity of [facility] Respiratory rate 2020-05-15 15:58:00 16 /min Univ ersity of [facility] Body height 2020-05-15 15:58:00 154.9 cm Universi ty of [facility] Body weight 2020-05-15 15:58:00 77.593 kg Universi ty of [facility] BMI 2020-05-15 15:58:00 32.32 kg/m2 Universi ty of [facility] Systolic blood 2020-05-09 16:14:00 104 mm[Hg] Univer sity of [facility] Diastolic blood 2020-05-09 16:14:00 65 mm[Hg] Unive rsity of [facility] Heart rate 2020-05-09 16:14:00 87 /min [facility]i ty [facility] Body temperature 2020-05-09 16:14:00 36.89 [place] [facility] Respiratory rate 2020-05-09 16:14:00 16 /min Univ [facility] Body height 2020-05-09 16:14:00 154.9 cm [facility]i [facility] Body weight 2020-05-09 16:14:00 77.168 kg [facility] BMI 2020-05-09 16:14:00 32.14 kg/m2 [facility] Systolic blood 2020-03-27 16:27:00 96 mm[Hg] Univer sity of [facility] Diastolic blood 2020-03-27 16:27:00 57 mm[Hg] Unive rsity of [facility] Heart rate 2020-03-27 16:27:00 86 /min [facility]i [facility] Body temperature 2020-03-27 16:27:00 36.72 Din[place] [facility] Respiratory rate 2020-03-27 16:27:00 16 /min Univ [facility] Body height 2020-03-27 16:27:00 154.9 cm Universi ty [facility] Body weight 2020-03-27 16:27:00 74.503 kg [facility] BMI 2020-03-27 16:27:00 31.03 kg/m2 [facility] Systolic blood 2020-03-13 14:49:00 96 mm[Hg] Univer [facility]ity of [facility] Diastolic blood 2020-03-13 14:49:00 58 mm[Hg] Unive rsity of [facility] Heart rate 2020-03-13 14:49:00 82 /min [facility] Body temperature 2020-03-13 14:49:00 36.83 [place] [facility] Respiratory rate 2020-03-13 14:49:00 16 /min Univ [facility] Body height 2020-03-13 14:49:00 154.9 cm [facility] Body weight 2020-03-13 14:49:00 73.284 kg [facility] BMI 2020-03-13 14:49:00 30.53 kg/m2 [facility] Systolic blood 2020-02-16 15:55:00 121 mm[Hg] Univer sity of [facility] Diastolic blood 2020-02-16 15:55:00 81 mm[Hg] Unive rsity of [facility] Heart rate 2020-02-16 15:55:00 100 /min [facility]i [facility] Body temperature 2020-02-16 15:55:00 36.44 [place] [facility] Respiratory rate 2020-02-16 15:55:00 16 /min Univ [facility] Body height 2020-02-16 15:55:00 154.9 cm [facility] Body weight 2020-02-16 15:55:00 71.81 kg [facility] BMI 2020-02-16 15:55:00 29.91 kg/m2 [facility] Systolic blood 2020-01-17 18:06:00 104 mm[Hg] Univer [facility]ity of [facility] Diastolic blood 2020-01-17 18:06:00 57 mm[Hg] Unive rsity of [facility] Heart rate 2020-01-17 18:06:00 86 /min [facility] Body temperature 2020-01-17 18:06:00 37 [place] [facility] Respiratory rate 2020-01-17 18:06:00 16 /min Univ [facility] Body height 2020-01-17 18:06:00 154.9 cm [facility] Body weight 2020-01-17 18:06:00 68.266 kg [facility] BMI 2020-01-17 18:06:00 28.44 kg/m2 [facility] Systolic blood 2019-10-28 15:38:00 109 mm[Hg] Univer sity of [facility] Diastolic blood 2019-10-28 15:38:00 69 mm[Hg] Unive rsity of [facility] Heart rate 2019-10-28 15:38:00 94 /min Universi ty [facility] Body temperature 2019-10-28 15:38:00 37.17 Dinorah [facility] Respiratory rate 2019-10-28 15:38:00 16 /min [facility] Body height 2019-10-28 15:38:00 154.9 cm Universi ty [facility] Body weight 2019-10-28 15:38:00 65.046 kg Universi [facility] BMI 2019-10-28 15:38:00 27.10 kg/m2 Universi [facility] Systolic blood 2019-04-07 19:35:00 119 mm[Hg] [facility] Diastolic blood 2019-04-07 19:35:00 76 mm[Hg] [facility] 2019-04-07 19:35:00 76 /min [facility] Body temperature 2019-04-07 19:35:00 36.67 Dinorah [facility] Respiratory rate 2019-04-07 19:35:00 16 /min [facility] Body height 2019-04-07 19:35:00 154.9 cm Universi ty [facility] Body weight 2019-04-07 19:35:00 71.923 kg [facility] BMI 2019-04-07 19:35:00 29.96 kg/m2 [facility] Procedures Procedure Date / Time Performing Clinician Source Performed LIPASE 2021-07-30 01:38:00 Nisha Nascimento [facility] COMP. METABOLIC PANEL 2021-07-30 01:38:00 Nisha Nascimento [facility] ([id number]) [facility] CBC WITH DIFF 2021-07-30 01:38:00 Nisha Nascimento [facility] POCT TEST 2021-07-30 01:38:00 Nisha Nascimento [facility] URINALYSIS 2021-07-30 01:32:00 Nisha Nascimento [facility] CONSENT/REFUSAL FOR 2021-07-30 01:03:08 Doctor Unassigned, No Un [facility] DIAGNOSIS AND TREATMENT Name Medical Branch POCT TEST 2021-07-12 19:11:[address] [facility] NOTICE OF PRIVACY 2021-07-12 18:38:27 Doctor Unassigned, No [facility] PRACTICES Name [facility] CONSENT/REFUSAL FOR 2021-07-12 18:37:37 Doctor Unassigned, No Un [facility] AND TREATMENT [facility] REFERRAL- 2021-07-05 06:01:00 Doctor Unassigned, No [facility] REQUEST/RESPONSE [facility] POCT URINALYSIS W/O 2020-11-26 20:41:00 Mona Brown Uni versity of [facility] ASSIGNMENT OF BENEFITS 2020-11-26 20:20:50 Doctor Unassigned, No [facility] POCT TEST 2020-08-06 19:50:00 Mona Brown [facility] CONSENT FOR CONTRACEPTION 2020-08-06 06:01:00 Doctor Unassigned, No [facility] POCT TEST 2020-07-18 20:08:00 Mona Brown Uni [facility] POCT URINALYSIS W/O 2020-06-12 19:12:00 Mona Brown Uni [facility] CBC WITH DIFF 2020-05-28 09:42:00 [facility]AS 2020-05-28 01:11:00 [facility] HEPATITIS B SURFACE 2020-05-27 20:53:00 [facility] ANTIGEN [facility] GALV ONLY - SYPHILIS 2020-05-27 20:53:00 [facility] IGG/IGM [facility] HB ABO GROUPING 2020-05-27 19:46:00 [facility] RHO (D) IMMUNE GLOBULIN 2020-05-27 19:46:00 [facility] (ID NOW RAPID 2020-05-27 17:26:00 Agata Brandon [facility] TESTING) Medical Branch LAB ONLY COVID 2020-05-27 17:26:00 [facility] FLU VACC (), 2020-05-15 16:08:57 Mona Brown [facility], , [facility] POCT URINALYSIS 2020-05-15 16:00:[address] [facility] POCT URINALYSIS 2020-05-09 16:16:[address] [facility] POCT URINALYSIS 2020-03-27 16:28:[address] [facility] TDAP VACCINE, >11 YRS, IM 2020-03-13 15:06:[address] [facility] POCT URINALYSIS 2020-03-13 14:55:[address] [facility] POCT URINALYSIS 2020-02-16 15:56:[address] [facility] POCT URINALYSIS 2020-01-17 18:07:[address] [facility] ASSIGNMENT OF BENEFITS 2019-10-28 16:52:01 Doctor Unassigned, No [facility] FLU VACC (), 2019-10-28 16:02:39 Mona Brown [facility], , [facility] POCT TEST 2019-10-28 15:47:00 [facility]INALYSIS W/O 2019-10-28 15:47:[address] [facility] SPECIFIC GRAVITY [facility] POCT TEST 2019-04-07 19:51:00 [facility] NO SHOW OR MISSED 2019-04-07 19:25:15 Doctor Unassigned, No [facility] APPOINTMENT POLICY Name Medical [facility] h ACKNOWLEDGEMENT Encounters Start End Encounter Admission Attending Care Care Encounter Source Date/Time Date/Time Type Type Clinicians Facility Department ID 2021-06-01 Outpatient [facility] [id number] Univers 00:54:23 ity [facility] 2021-07-29 2021-07-29 Emergency X [facility] ERT [id number] Univers 19:20:00 21:17:00 [facility] 2021-07-29 2021-07-29 Emergency [facility] [id number] Univers 19:20:00 21:17:00 Nisha Montoya PASCUAL [id number] i ty of [place] [id number] [facility] [phone] [place] [id number] [place] 2021-07-12 2021-07-12 Emergency X [facility] ERT [id number] Univers 12:49:00 13:30:00 [facility] 2021-07-12 2021-07-12 Emergency [facility] [id number] Univers 12:49:00 13:30:00 Dmitriy GARNER 350.1.13.10 ity [facility] [id number] [facility] [phone] [place] [id number] Branch 2021-07-05 2021-07-05 Orders Doctor YVROSE [id number] Univers 00:00:00 00:00:00 Only Unassigned, REGINA [id number] ity of [place] [facility] [phone] [facility] 009 Branch 2021-03-28 2021-03-28 Outpatient [facility] [id number] Univers 11:20:00 11:20:00 [id number] [facility] 2021-03-28 2021-03-28 Outpatient Stephanie CRANDALL [facility] [id number] Univers 11:20:00 11:20:00 ROMEO [facility] 2020-12-03 2020-12-03 [facility]phone [facility] [id number] Univers 00:00:00 00:00:00 Mona Mancilla RIPPER OPERATOR [id number] ity of [facility] [id number] [place] as MATERNAL [phone] Med ical & CHILD [address] [place] [address] 2020-11-30 2020-11-30 Outpatient R AKINSIPE, [facility] [id number] Univers 15:45:00 15:45:00 MONA [id number] ity o f [facility] 2020-11-28 2020-11-28 Telephone [facility] [id number] Univers 00:00:00 00:00:00 Mona Mancilla RIPPER OPERATOR [id number] ity of [facility] [id number] [place] as MATERNAL [id number] [facility] & CHILD [address] [place] [address] 2020-11-26 2020-11-26 Office [facility] [id number] Univers 15:18:52 16:06:01 Visit Mona Mancilla RIPPER OPERATOR [id number] ity of [facility] [id number] [place] as MATERNAL [phone] [facility] & [address] 2020-11-26 2020-11-26 Outpatient R AKINSIPE, [facility] [id number] Univers 15:15:00 15:15:00 MONA [id number] ity o [facility] 2020-11-26 2020-11-26 Outpatient R AKINSIPE, [facility] [id number] Univers 15:15:00 15:15:00 MONA upy o [facility] 2020-11-26 2020-11-26 Orders Doctor YVROSE [id number] Univers 00:00:00 00:00:00 Only Unassigned, REGINA 350.1.13.10 ity of [place] [facility] [phone] [facility] 009 [place] 2020-10-23 2020-10-23 Patient Aleksandr [facility] [id number] Univers 00:00:00 00:00:00 Outreach Сергейjan POPE [id number] i ty of [facility] [id number] [place] [phone] Me dical [address] [place] 2020-08-23 2020-08-23 Outpatient R TRACILOLITA, [facility] [id number] Univers 13:15:00 13:15:00 MONA [id number] ity o [facility] 2020-08-23 2020-08-23 Outpatient R TRACIPE, [facility] [id number] Univers 13:15:00 13:15:00 MONA ity o [facility] 2020-08-22 2020-08-22 Telephone [facility] [id number] Univers 00:00:00 00:00:00 Mona Mancilla RIPPER OPERATOR [id number] ity of [facility] [id number] [place] as MATERNAL [phone] [facility] CHILD [address] [place] [address] 2020-08-06 2020-08-06 Office [facility] [id number] Univers 13:35:16 14:54:02 Visit Mona Mancilla RIPPER OPERATOR 350.1.13.[address] [facility] [id number] [place] as MATERNAL [phone] [facility] & [address] 2020-08-06 2020-08-06 Outpatient R KEVIN, [facility] [id number] Univers 13:30:00 13:30:00 MONA [id number] annely o [facility] 2020-08-06 2020-08-06 Outpatient R REREGIANLUCALOLITA, [facility] [id number] Univers 13:30:00 13:30:00 MONA ity o [facility] 2020-08-06 2020-08-06 Orders Doctor YVROSE [id number] [id number] Univers 00:00:00 00:00:00 Only Unassigned, REGINA 350.1.13.10 ity of [facility] [id number] [place] as [id number] [address] 2020-07-18 2020-07-18 Office [facility] [id number] Univers 13:32:05 14:22:19 Visit Mona Mancilla RIPPER OPERATOR [id number] ity of [facility] [id number] [place] as MATERNAL [phone] [facility] & [address] 2020-07-18 2020-07-18 Outpatient R AKINSIPE, [facility] [id number] Univers 13:30:00 13:30:00 MONA [id number] ity o f [facility] 2020-07-18 2020-07-18 Outpatient R AKINSIPE, [facility] [id number] Univers 13:30:00 13:30:00 MONA ity o [facility] 2020-07-12 2020-07-12 Telephone [facility] 1.2.840.114 [id number] Univers 00:00:00 00:00:00 Mona Mancilla RIPPER OPERATOR [id number] ity of REG[facility] [id number] [place] as MATERNAL [phone] [facility] & [address] 2020-07-11 2020-07-11 Outpatient R AKINSIPE, [facility] [id number] Univers 13:15:00 13:15:00 MONA ity o [facility] 2020-07-11 2020-07-11 Outpatient R AKINSIPE, [facility] [id number] Univers 13:15:00 13:15:00 MONA ity o f [facility] 2020-06-27 2020-06-27 Outpatient R AKINSIPE, [facility] [id number] Univers 13:30:00 13:30:00 MONA [id number] ity o f [facility] 2020-06-27 2020-06-27 Outpatient R AKINSIPE, [facility] [id number] Univers 13:30:00 13:30:00 MONA ity o [facility] 2020-06-21 2020-06-21 Outpatient R ZHAO, [facility] [id number] Univers 15:15:00 15:15:00 ROSHUNDA ity o [facility] 2020-06-15 2020-06-15 Telephone [facility] 1.2.840.114 [id number] Univers 00:00:00 00:00:00 Mona Mancilla RIPPER OPERATOR [id number] ity of [facility] [id number] [place] as MATERNAL [id number] [facility] ical & CHILD [address] [place] [address] 2020-06-12 2020-06-12 Routine [facility] [id number] Univers 12:57:43 13:37:52 Mona C RIPPER OPERATOR 350.1.13.10 ity of Visit REGIONAL [id number] [place] as MATERNAL [id number] [facility] ical & CHILD [address] [place] [address] 2020-06-12 2020-06-12 Outpatient R AKINSIPE, [facility] [id number] Univers 13:00:00 13:00:00 MONA ity o [facility] 2020-06-12 2020-06-12 Outpatient R AKINSIPE, [facility] [id number] Univers 13:00:00 13:00:00 MONA sosa o [facility] 2020-06-12 2020-06-12 Telephone [facility] 1.2.840.114 [id number] Univers 00:00:00 00:00:00 Mona Mancilla RIPPER OPERATOR [id number] ity of [facility] [id number] [place] as MATERNAL [id number] [facility] & CHILD [address] [place] [address] 2020-05-27 2020-05-28 [facility] Micah YVROSE 1.2.840.114 [id number] Univers 11:59:00 22:15:00 Encounter Nell TAPIA 350.1.13.10 ity of [facility] 4.2.7.2.686 [place] as [id number] [address] 2020-05-28 2020-05-28 Outpatient R AKINSIPE, [facility] [id number] Univers 13:00:00 13:00:00 MONA sosa o [facility] 2020-05-28 2020-05-28 Outpatient R AKINSIPE, [facility] [id number] Univers 08:30:00 08:30:00 MONA [id number] ity o [facility] 2020-05-28 2020-05-28 Outpatient R AKINSIPE, [facility] [id number] Univers 08:30:00 08:30:00 MONA ity o [facility] 2020-05-21 2020-05-21 Routine Akinsipe, [facility] [id number] Univers 10:46:00 11:18:02 Mona C RIPPER OPERATOR [id number] ity of Visit REGIONAL [id number] [place] as MATERNAL [phone] Med ical & CHILD [address] [place] [address] 2020-05-21 2020-05-21 Outpatient R AKINSIPE, [facility] [id number] Univers 11:00:00 11:00:00 MONA [id number] ity o [facility] 2020-05-21 2020-05-21 Outpatient R AKINSIPE, [facility] [id number] Univers 11:00:00 11:00:00 MONA ity o [facility] 2020-05-15 2020-05-15 Routine Akinsipe, [facility] [id number] Univers 10:46:40 11:11:47 Mona C RIPPER OPERATOR 350.1.13.10 ity of Visit REGIONAL [id number] [place]har as MATERNAL [phone] [facility] ical & CHILD [address] [place] [address] 2020-05-15 2020-05-15 Outpatient R AKINSIPE, [facility] [id number] Univers 10:45:00 10:45:00 MONA [id number] ity o [facility] 2020-05-15 2020-05-15 Outpatient R AKINSIPE, [facility] [id number] Univers 10:45:00 10:45:00 MONA ity o [facility] 2020-05-10 2020-05-10 Telephone Akinsipe, [facility] [id number] Univers 00:00:00 00:00:00 Mona C RIPPER OPERATOR [id number] ity of [facility] [id number] [place] as MATERNAL [phone] [facility] ical & CHILD [address] [place] [address] 2020-05-09 2020-05-09 Routine Akinsipe, [facility] [id number] Univers 10:48:25 11:31:17 Mona C RIPPER OPERATOR 350.1.13.10 ity of Visit REGIONAL [id number] [place]har as MATERNAL [id number] [facility] ical & CHILD [address] [place] [address] 2020-05-09 2020-05-09 Outpatient AKINSIPE, [facility] [id number] Univers 11:00:00 11:00:00 MONA ity o [facility] 2020-05-09 2020-05-09 Outpatient R AKINSIPE, [facility] [id number] Univers 11:00:00 11:00:00 MONA ity o [facility] 2020-04-26 2020-04-26 Telephone [facility] 1.2.840.114 [id number] Univers 00:00:00 00:00:00 Mona C RIPPER OPERATOR [id number] ity of [place] [id number] [place] as MATERNAL [phone] [facility] ical & CHILD [address] [place] [address] 2020-04-11 2020-04-11 Outpatient R AKINSIPE, [facility] [id number] Univers 09:30:00 09:30:00 MONA ity o [facility] 2020-04-11 2020-04-11 Outpatient R AKINSIPE, [facility] [id number] Univers 09:30:00 09:30:00 MONA ity o [facility] 2020-04-06 2020-04-06 Refill [facility] [id number] Univers 00:00:00 00:00:00 Mona C RIPPER OPERATOR 350.1.13.10 ity of [facility] [id number] [place]har as MATERNAL [id number] [facility] & CHILD [address] [place] [address] 2020-03-27 2020-03-27 Routine Akinsipe, [facility] [id number] Univers 10:52:55 11:52:15 Mona C RIPPER OPERATOR 350.1.13.10 ity of Visit REGIONAL [id number] Sridhar as MATERNAL [phone] [facility] ical & CHILD [address] [place] [address] 2020-03-27 2020-03-27 Outpatient R KEVIN [facility] [id number] Univers 10:45:00 10:45:00 MONA [id number] ity o f [facility] [facility] 2020-03-27 2020-03-27 Outpatient R KEVIN [facility] [id number] Univers 10:45:00 10:45:00 MONA ity o f [facility] 2020-03-14 2020-03-14 [facility] 1.2.840.114 [id number] Univers 00:00:00 00:00:00 Mona C RIPPER OPERATOR 350.1.13.10 ity of REGIONAL 4.2.7.2.686 Sridhar as MATERNAL [phone] [facility] & CHILD [address] [place] [address] 2020-03-14 2020-03-14 [facility] 1.2.840.114 [id number] Univers 00:00:00 00:00:00 Mona C RIPPER OPERATOR 350.1.13.10 ity of REGIONAL 4.2.7.2.686 Sridhar as MATERNAL [phone] [facility] & CHILD [address] [place] [address] 2020-03-13 2020-03-13 [facility]ine [facility] [id number] Univers 09:43:25 11:44:55 Mona C RIPPER OPERATOR 350.1.13.10 ity of Visit REGIONAL 4.2.7.2.686 Sridhar as MATERNAL [phone] [facility] ical & CHILD [address] [place] [address] 2020-03-13 2020-03-13 Pipe Cleaning Machine Operator Ultrasound, [facility] 1.2 .840.114 [id number] Univers 10:25:57 10:42:11 Visit Mona Brown C RIPPER OPERATOR 350.1.13. 10 ity of Kai Cazares REGIONAL 4.2.7.2.686 [place] MATERNAL [phone] [facility] ical & CHILD 369 [facility] 2020-03-13 2020-03-13 Outpatient R [facility] [id number] Univers 10:00:00 10:00:00 [id number] ity [facility] 2020-03-13 2020-03-13 Outpatient P [facility] [id number] Univers 10:00:00 10:00:00 ity of [facility] 2020-03-08 2020-03-08 Outpatient AKINSIPE, [facility] [id number] Univers 08:15:00 08:15:00 MONA ity o f [facility] 2020-03-08 2020-03-08 Outpatient R AKINSIPE, [facility] [id number] Univers 08:15:00 08:15:00 MONA upy o f [facility] 2020-03-01 2020-03-01 Outpatient R AKINSIPE, [facility] [id number] Univers 09:15:00 09:15:00 MONA annely o f [facility] 2020-03-01 2020-03-01 Outpatient R AKINSIPE, [facility] [id number] Univers 09:15:00 09:15:00 MONA upy o f [facility] 2020-02-17 2020-02-17 Telephone Akinsipe, [facility] 1.2.840.114 [id number] Univers 00:00:00 00:00:00 Mona Mancilla RIPPER OPERATOR 350.1.13.10 ity of REGIONAL 4.2.7.2.686 [place]rid[place] as MATERNAL [phone] [facility] ical & CHILD [address] [place] [address] 2020-02-16 2020-02-16 Routine Akinsipe, [facility] [id number] Univers 10:44:57 11:18:35 Mona C RIPPER OPERATOR 350.1.13.10 ity of Visit REGIONAL 4.2.7.2.686 Sridhar as MATERNAL [id number] [facility] & CHILD [address] [place] [address] 2020-02-16 2020-02-16 Outpatient R AKINSIPE, [facility] [id number] Univers 10:45:00 10:45:00 MONA [id number] annely o f [facility] 2020-02-16 2020-02-16 [facility] [id number] Univers 10:45:00 10:45:00 MONA itkervin o giovani [facility] 2020-02-15 2020-02-15 [facility]phone [facility] 1.2.840.114 [id number] Univers 00:00:00 00:00:00 Mona C RIPPER OPERATOR 350.1.13.10 ity of REGIONAL 4.2.7.2.686 Sridhar as MATERNAL [phone] [facility] & CHILD [address] [place] [address] 2020-02-14 2020-02-14 Outpatient R AKINSIPE, [facility] [id number] Univers 13:00:00 13:00:00 MONA [id number] ity o [facility] 2020-02-14 2020-02-14 Outpatient R [facility] [id number] Univers 13:00:00 13:00:00 MONA annelkervin o [facility] 2020-02-13 2020-02-13 Telephone [facility] 1.2.840.114 [id number] Univers 00:00:00 00:00:00 Mona C RIPPER OPERATOR 350.1.13.10 ity of REGIONAL 4.2.7.2.686 [place]ridhar as MATERNAL [phone] [address] 2020-02-01 2020-02-01 Abstract [facility] 1.2.840.114 [id number] Univers 00:00:00 00:00:00 Mona C RIPPER OPERATOR 350.1.13.10 ity of REGIONAL 4.2.7.2.686 Sridhar as MATERNAL [phone] [facility] & CHILD [address] [place] [address] 2020-01-31 2020-01-31 Pipe Cleaning Machine Operator 2, [facility] Us Room UNIVERSIT 1 .2.840.114 [id number] Univers 11:06:29 12:38:[address] [facility] 350.1.13.10 ity of CL[place] [phone] [address] 2020-01-31 2020-01-31 Outpatient P [facility] [id number] Univers 10:45:00 10:45:00 ity [facility] 2020-01-31 2020-01-31 Outpatient P [facility] [id number] Univers 10:45:00 10:45:00 ity of [facility] 2020-01-31 2020-01-31 [facility] 1.2.840.114 [id number] Univers 00:00:00 00:00:00 Mona C RIPPER OPERATOR 350.1.13.10 ity of REGIONAL 4.2.7.2.686 Sridhar as MATERNAL [phone] Med ical & CHILD [address] [place] [address] 2020-01-26 2020-01-26 Outpatient R [facility] [id number] Univers 13:00:00 13:00:00 [id number] ity [facility] 2020-01-26 2020-01-26 Outpatient P [facility] [id number] Univers 13:00:00 13:00:00 ity of [facility] 2020-01-17 2020-01-17 Routine [facility] [id number] Univers 12:49:15 13:31:47 Mona C RIPPER OPERATOR 350.1.13.10 ity of Visit REGIONAL 4.2.7.2.686 Sridhar as MATERNAL [phone] [facility] & [address] 2020-01-17 2020-01-17 Outpatient R AKINSIPE, [facility] [id number] Univers 12:45:00 12:45:00 MONA [id number] ity o f [facility] 2020-01-17 2020-01-17 Outpatient R AKINSIPE, [facility] [id number] Univers 12:45:00 12:45:00 MONA ity o f [facility] 2019-12-19 2019-12-19 Telemedici [facility] 1.2.840.114 [id number] Univers 13:22:09 13:57:58 ne Visit Mona C RIPPER OPERATOR 350.1.13.10 ity of REGIONAL 4.2.7.2.686 Sridhar as MATERNAL [phone] [facility] ical & CHILD [address] [place] [address] 2019-12-19 2019-12-19 Outpatient R AKINSIPE, [facility] [id number] Univers 13:45:00 13:45:00 MONA [id number] itkervin o [facility] 2019-12-19 2019-12-19 Outpatient R AKINSIPE, [facility] [id number] Univers 13:45:00 13:45:00 MONA ian o [facility] 2019-11-24 2019-11-24 Outpatient R AKINSIPE, [facility] [id number] Univers 10:45:00 10:45:00 MONA [id number] itkervin o [facility] 2019-11-24 2019-11-24 Outpatient R AKINSIPE, [facility] [id number] Univers 10:45:00 10:45:00 MONA ian o [facility] 2019-11-21 2019-11-21 Telemedici [facility] 1.2.840.114 [id number] Univers 07:48:27 15:06:30 ne Visit Mona Mancilla RIPPER OPERATOR 350.1.13.10 ity of [facility] 4.2.7.2.686 Sridhar as MATERNAL [phone] Med ical & CHILD [address] [place] [address] 2019-11-21 2019-11-21 Outpatient R AKINSIPE, [facility] [id number] Univers 08:30:00 08:30:00 MONA annelkervin o [facility] 2019-11-21 2019-11-21 Outpatient R AKINSIPE, [facility] [id number] Univers 08:30:00 08:30:00 MONA itkervin o [facility] 2019-11-21 2019-11-21 Telephone [facility] 1.2.840.114 [id number] Univers 00:00:00 00:00:00 Mona C RIPPER OPERATOR 350.1.13.10 ity of [facility] 4.2.7.2.686 Sridhar as MATERNAL [phone] Med ical & CHILD [address] [place] [address] 2019-11-01 2019-11-01 Telephone Akinsipe, [facility] 1.2.840.114 [id number] Univers 00:00:00 00:00:00 Mona C RIPPER OPERATOR 350.1.13.10 ity of [facility] 4.2.7.2.686 Sridhar as MATERNAL [phone] [facility] ica & CHILD [address] [place] [address] 2019-10-28 2019-10-28 Initial [facility] 1.2.165.851 [id number] Univers 10:28:47 11:51:12 Mona C RIPPER OPERATOR 350.1.13.10 ity of Visit [facility] 4.2.7.2.686 Sridhar as MATERNAL [phone] [facility] & CHILD [address] [place] [address] 2019-10-28 2019-10-28 [facility] [id number] Univers 10:30:00 10:30:00 MONA [id number] ity o f [facility] 2019-10-28 2019-10-28 [facility] [id number] Univers 10:30:00 10:30:00 MONA sosa o f [facility] 2019-10-28 2019-10-28 Orders Doctor FRANCES 1.2.840.114 [id number] Univers 00:00:00 00:00:00 Only Unassigned, REGINA 350.1.13.10 ity of [place] [facility] 4.2.7.2.686 Sridhar as [id number] [address] 2019-10-25 2019-10-25 Telephone [facility] 1.2.840.114 [id number] Univers 00:00:00 00:00:00 Mona C RIPPER OPERATOR 350.1.13.10 ity of [facility] 4.2.7.2.686 Sridhar as MATERNAL [phone] [facility] ical & CHILD [address] [place] [address] 2019-04-07 2019-04-07 Office [facility] [id number] Univers 14:25:56 15:31:22 Visit Mona C RIPPER OPERATOR 350.1.13.10 ity of [facility] 4.2.7.2.686 Sridhar as MATERNAL [id number] [facility] ical & CHILD [address] [place] [address] 2019-04-07 2019-04-07 Orders Doctor YVROSE 1.2.840.114 [id number] Univers 00:00:00 00:00:00 Only Unassigned, REGINA 350.1.13.10 ity of [place] [facility] 4.2.7.2.686 Sridhar as [phone] [place] [address] Branch Results Test Description Test Time Test Comments Results Result Comments Source COMP. METABOLIC PANEL (06751) 2021-07-30 01:59:38 Test Item Value Reference Range Interpretation Comme nts NA (test code = 8256199001) 135 mmol/L 135-145 K (test code = 5303582430) 3.9 mmol/L 3.5-5.0 CL (test code = 0300467158) 102 mmol/L 98-108 CO2 TOTAL (test code = 27 mmol/L 23-31 0747886830) AGAP (test code = 7955459610) 2-16 BUN (test code = 6879758937) 15 mg/dL 7-23 GLUCOSE (test code = 2919553629) 107 mg/dL 70-110 CREATININE (test code = 0.67 mg/dL 0.50-1.04 5844043904) TOTAL BILI (test code = 0.3 mg/dL 0.1-1.8 1215799658) CALCIUM (test code = 5730577057) 8.8 mg/dL 8.6-10.6 T PROTEIN (test code = 7.4 g/dL 6.3-8.2 8302433142) ALBUMIN (test code = 9447138142) 4.5 g/dL 3.5-5.0 ALK PHOS (test code = 8615243275) 114 U/L 34-122 ALTv (test code = 1742-6) 20 U/L 5-35 AST(SGOT) (test code = 28 U/L 13-40 5022637915) eGFR (test code = 7120323561) mL/min/1.73m2 BASIL (test code = BASIL) Association of Glomerular Filtration Rate (GFR) and Staging of Kidney Disease* + +--------- + ----+| GFR (mL/min/1.73 m2) ?| With Kidney Damage ?| ?Without Kidney Damage+ +--- + +| ?>90 ?| ?Stage one ?| ? Normal ?+ +-------- + -----+| ?60-89 ?| ?Stage two ?| ? Decreased GFR ? + +--------- + ----+| ?30-59 ?| ?Stage three ?| ? Stage three ? + +--------- + ----+| ?15-29 ?| ?Stage four ? | ? Stage four ?+ +-------- + -----+| ?<15 (or dialysis) ? ?| ?Stage five ? | ? Stage five ?+ +-------- + -----+ *Each stage assumes the associated GFR level has been in effect for at least three months. ?Stages 1 to 5, with or without kidney disease, indicate chronic kidney disease. Notes: Determination of stages one and two (with eGFR >59mL/min/1.73 m2) requires estimation of kidney damage for at least three months as defined by structural or functional abnormalities of the kidney, manifested by either:Pathological abnormalities or Markers of kidney damage (including abnormalities in the composition of the blood or urine or abnormalities in imaging tests). [facility] 01:59:33 Test Item Value Reference Range Interpretation Comments LIPASE (test code = 3751442595) 58 U/L 0-220 Lab Interpretation (test code = Normal 26507-6) [facility] WITH [id number] 01:46:19 Test Item Value Reference Range Interpretation Comments WBC (test code = See_Comment [Automated 8332-2) message] The sy stem which generated this result transmitted reference range : 4.30 - 11.10 10*3/?L. The reference range was not used to interpret this result as normal/abnormal . RBC (test code = See_Comment [Automated 746-8) message] The sy stem which generated this result transmitted reference range : 3.93 - 5.25 10*6/?L. The reference range was not used to interpret this result as normal/abnormal . HGB (test code = 12.4 g/dL 11.6-15.0 718-7) HCT (test code = 38.1 % 35.7-45.2 4544-3) MCV (test code = 93.4 fL 80.6-95.5 787-2) MCH (test code = 30.4 pg 25.9-32.8 785-6) MCHC (test code = 32.5 g/dL 31.6-35.1 786-4) RDW-SD (test code = 45.5 fL 39.0-49.9 21533-5) RDW-CV (test code = 13.2 % 12.0-15.5 788-0) PLT (test code = See_Comment [Automated 777-3) message] The sy stem which generated this result transmitted reference range : 166 - 358 10*3/ ?L. The reference r emile was not used to interpret this result as normal/abnormal . MPV (test code = 11.2 fL 9.5-12.9 75473-7) NRBC/100 WBC (test See_Comment [Automat ed code = 7629053397) message] The system which generated this result transmitted reference range : 0.0 - 10.0 /100 WBCs. The refer ence range was not u sed to interpret th is result as normal/abnormal . NRBC x10^3 (test code <0.01 See_Comment [Auto mated = 0879600125) message] The s ystem which generated this result transmitted reference range : 10*3/?L. The reference range was not used to interpret this result as normal/abnormal . GRAN MAT (NEUT) % 73.5 % (test code = 770-8) IMM GRAN % (test code 0.50 % = 6400831028) LYMPH % (test code = 19.0 % 736-9) MONO % (test code = 5.2 % 5905-5) EOS % (test code = 1.1 % 713-8) BASO % (test code = 0.7 % 706-2) GRAN MAT x10^3(ANC) 7.95 10*3/uL 1.88-7.09 H (test code = 9427271396) IMM GRAN x10^3 (test 0.05 10*3/uL 0.00-0.06 code = 3422600685) LYMPH x10^3 (test code 2.05 10*3/uL 1.32-3.29 = 731-0) MONO x10^3 (test code 0.56 10*3/uL 0.33-0.92 = 742-7) EOS x10^3 (test code = 0.12 10*3/uL 0.03-0.39 711-2) BASO x10^3 (test code 0.08 10*3/uL 0.01-0.07 H = 704-7) Lab Interpretation Abnormal (test code = 85105-4) [facility] [id number] 01:38:00 Test Item Value Reference Range Interpretation Comments POCT PREG (test code = 1605) negative On board controls acceptable with present C Line (test code = 3574) POCT PREG LOT # (test code = 3575) [id number] POCT PREG TEST DATE (test 2022-09-30 code = 3576) Lab Interpretation (test code = Normal 29500-8) [facility] [id number] 19:11:00 Test Item Value Reference Range Interpretation Comments POCT PREG (test code = 1605) negative On board controls acceptable with present C Line (test code = 3574) POCT PREG LOT # (test code = 3575) [id number] POCT PREG TEST DATE (test 09-02-2022 code = 3576) Lab Interpretation (test code = Normal 05302-1) [facility] URINALYSIS W/O SPECIFIC [id number] 20:41:00 Test Item Value Reference Range Interpretation Comments POCT PH U (test code = 3254) 7 mg/dl 5-8 POCT U LEUK EST (test code = Trace Negative - Negative 3263) POCT U NIT (test code = 3262) Neg Negative - Negative POCT U PROT (test code = 3259) Trace Negative - Negative POCT U GLU (test code = 3256) Neg Negative - Negative POCT U KETONE (test code = 3258) None Negative - Negative POCT U BLD (test code = 3257) Trace Negative - Negative [facility] URINALYSIS W/O SPECIFIC [id number] 20:41:00 Test Item Value Reference Range Interpretation Comments POCT PH U (test code = 3254) 7 mg/dl 5-8 POCT U LEUK EST (test code = Trace Negative - Negative 3263) POCT U NIT (test code = 3262) Neg Negative - Negative POCT U PROT (test code = 3259) Trace Negative - Negative POCT U GLU (test code = 3256) Neg Negative - Negative POCT U KETONE (test code = 3258) None Negative - Negative POCT U BLD (test code = 3257) Trace Negative - Negative [facility] URINALYSIS W/O SPECIFIC [id number] 20:41:00 Test Item Value Reference Range Interpretation Comments POCT PH U (test code = 3254) 7 mg/dl 5-8 POCT U LEUK EST (test code = Trace Negative - Negative 3263) POCT U NIT (test code = 3262) Neg Negative - Negative POCT U PROT (test code = 3259) Trace Negative - Negative POCT U GLU (test code = 3256) Neg Negative - Negative POCT U KETONE (test code = 3258) None Negative - Negative POCT U BLD (test code = 3257) Trace Negative - Negative [facility] [id number] 19:50:00 Test Item Value Reference Range Interpretation Comments POCT PREG (test code = 1605) Negative On board controls acceptable with C Yes Line (test code = 3574) POCT PREG LOT # (test code = 3575) POCT PREG TEST DATE (test code = 3576) [facility] [id number] 19:50:00 Test Item Value Reference Range Interpretation Comments POCT PREG (test code = 1605) Negative On board controls acceptable with C Yes Line (test code = 3574) POCT PREG LOT # (test code = 3575) POCT PREG TEST DATE (test code = 3576) [facility] [id number] 19:50:00 Test Item Value Reference Range Interpretation Comments POCT PREG (test code = 1605) Negative On board controls acceptable with C Yes Line (test code = 3574) POCT PREG LOT # (test code = 3575) POCT PREG TEST DATE (test code = 3576) [facility] [id number] 19:50:00 Test Item Value Reference Range Interpretation Comments POCT PREG (test code = 1605) Negative On board controls acceptable with C Yes Line (test code = 3574) POCT PREG LOT # (test code = 3575) POCT PREG TEST DATE (test code = 3576) [facility] [id number] 20:08:00 Test Item Value Reference Range Interpretation Comments POCT PREG (test code = 1605) Negative On board controls acceptable with C Yes Line (test code = 3574) POCT PREG LOT # (test code = 3575) POCT PREG TEST DATE (test code = 3576) [facility] [id number] 20:08:00 Test Item Value Reference Range Interpretation Comments POCT PREG (test code = 1605) Negative On board controls acceptable with C Yes Line (test code = 3574) POCT PREG LOT # (test code = 3575) POCT PREG TEST DATE (test code = 3576) [facility] URINALYSIS W/O SPECIFIC [id number] 19:12:00 Test Item Value Reference Range Interpretation Comments POCT PH U (test code = 3254) 5 mg/dl 5-8 POCT U LEUK EST (test code = 1+ Negative - Negative 3263) POCT U NIT (test code = 3262) Neg Negative - Negative POCT U PROT (test code = 3259) Trace Negative - Negative POCT U GLU (test code = 3256) Neg Negative - Negative POCT U KETONE (test code = 3258) None Negative - Negative POCT U BLD (test code = 3257) Trace Negative - Negative [facility] URINALYSIS W/O SPECIFIC [id number] 19:12:00 Test Item Value Reference Range Interpretation Comments POCT PH U (test code = 3254) 5 mg/dl 5-8 POCT U LEUK EST (test code = 1+ Negative - Negative 3263) POCT U NIT (test code = 3262) Neg Negative - Negative POCT U PROT (test code = 3259) Trace Negative - Negative POCT U GLU (test code = 3256) Neg Negative - Negative POCT U KETONE (test code = 3258) None Negative - Negative POCT U BLD (test code = 3257) Trace Negative - Negative [facility] COVID [id number] 00:16:00COVID DMT InterpretationInterpretation/RecommendationTests (PCR) for Active Infection by COVID-19 Virus:This result indicates that the patient has tested negative for the COVID-19 virus on one occasion. The most likely interpretation, for approximately two thirds of patients with a negative test, is that the patient is truly negative and has not been infected with the COVID- 19 virus. However, for those tested using a nasopharyngeal sample, there is approximately a kaf-xj-zkibf chance that the patient has indeed been infected and the result is a false negative. This occurs because the virus is predom inantly in the lung and out of reach of the nasopharyngeal swab. ?If the patient becomes progressively more symptomatic, a repeat PCR test should be performed.Tests for IgM and/or IgG Antibodies to COVID-19 Virus: ? A. ?A test for IgM antibody to the COVID-19 virus is would be highly informative at this time. IgM antibodies to the COVID-19 virus identified in a high performing test, usually an KORIN or chemiluminescence based assay, should appear in most patients who are truly infected within approximately one week from the onset of symptoms, and in nearly all patients by 2 to 3 weeks after symptoms begin. If the IgM test is positive, even if the initial PCR test for active infection was negative,it is highly probable that the patient has been infected with the virus at some point. A repeat PCR test to determine if the patient has recovered from the infection would be important to perform if the IgM gclx-QBZCJ-25 antibody test is positive. ? B. ?A blood sample collected from this patient revealed a negative test for IgG antibodies to the COVID-19 virus. ?This could be because the patient has never been infected with the COVID-19 virus. ?However, IgG antibodies to the COVID-19 virus often appear after the presence of IgM antibodies, and therefore it may be too early in the course of this patient's infection for the IgG response to occur. It would be informative to test the patient at least 3-to-4 weeks post onset of symptoms for both IgG and IgM antibodies. IgM antibodies may have developed since the first IgG antibody test was performed. At this time, it is not known if the production ofantibodies indicates whether the patient is immune to future infections with the COVID-19 virus. ? C. ?Although it is uncommon, some patients cannot ever mount an antibody response to infectious agents, such as COVID-19. If there are persistently negative results for IgM and IgG antibodies, this may be the explanation.[facility] LABORATORY SERVICESCOVID [id number] Rapid ID NOW (no units) ? ? Date ? Value ? 05/27/2020 ? Not Detected ? CoV-2 IgG (nounits) ? ? Date ? Value ? 05/09/2020 ? Negative ? ? ? [facility] LABORATORY SERVICESUnMemorial [facility] HospitalGALV ONLY - SYPHILIS [id number] 13:53:00 Test Item Value Reference Range Interpretation Comments Syphilis IgG/IgM (test Non-reactive Non-reactive code = 61098-0) BASIL (test code = BASIL) Non-reactive - No serologic evidence of T. pallidum infection. Cannot exclude incubating or early syphilis. Submit a second specimen in 2-4 weeks if syphilis is clinically suspected. Equivocal - Further testing to follow. Reactive - Further testing to follow. Lab Interpretation (test Normal code = 25785-0) [facility] HospitalCB with [id number] 10:09:00 Test Item Value Reference Range Interpretation Comments WBC (test code = See_Comment H [Automated 0790-2) message] The sy stem which generated this result transmitted reference range : 4.30 - 11.10 10*3/?L. The reference range was not used to interpret this result as normal/abnormal . RBC (test code = See_Comment L [Automated 129-8) message] The sy stem which generated this result transmitted reference range : 3.93 - 5.25 10*6/?L. The reference range was not used to interpret this result as normal/abnormal . HGB (test code = 9.8 g/dL 11.6-15 L 718-7) HCT (test code = 29.9 % 35.7-45.2 L 4544-3) MCV (test code = 86.9 fL 80.6-95.5 787-2) MCH (test code = 28.5 pg 25.9-32.8 785-6) MCHC (test code = 32.8 g/dL 31.6-35.1 786-4) RDW-SD (test code = 41.8 fL 39-49.9 71873-2) RDW-CV (test code = 13.4 % 12-15.5 788-0) PLT (test code = See_Comment [Automated 777-3) message] The sy stem which generated this result transmitted reference range : 166 - 358 10*3/ ?L. The reference r emile was not used to interpret this result as normal/abnormal . MPV (test code = 11.7 fL 9.5-12.9 94489-8) NRBC/100 WBC (test See_Comment [Automat ed code = [id number]) message] The system which generated this result transmitted reference range : 0.0 - 10.0 /100 WBCs. The refer ence range was not u sed to interpret th is result as normal/abnormal . NRBC x10^3 (test code <0.01 See_Comment [Auto mated = 0593009786) message] The s ystem which generated this result transmitted reference range : 10*3/?L. The reference range was not used to interpret this result as normal/abnormal . GRAN MAT (NEUT) % 72.6 % (test code = 770-8) IMM GRAN % (test code 0.80 % = 9674091583) LYMPH % (test code = 20.0 % 736-9) MONO % (test code = 5.6 % 5905-5) EOS % (test code = 0.6 % 713-8) BASO % (test code = 0.4 % 706-2) GRAN MAT x10^3(ANC) 9.03 10*3/uL 1.88-7.09 H (test code = 2568207838) IMM GRAN x10^3 (test 0.10 10*3/uL 0-0.06 H code = 0586436137) LYMPH x10^3 (test code 2.49 10*3/uL 1.32-3.29 = 731-0) MONO x10^3 (test code 0.70 10*3/uL 0.33-0.92 = 742-7) EOS x10^3 (test code = 0.07 10*3/uL 0.03-0.39 711-2) BASO x10^3 (test code 0.05 10*3/uL 0.01-0.07 = 704-7) Lab Interpretation Abnormal (test code = 99047-9) [facility] IMMUNE [id number] 03:57:06 Test Item Value Reference Range Interpretation Comments RHIG CANDIDATE? No- see comment Patient i s not a (test code = candidate for R hIg- 5055) Patient is Rh Positive.Perfor med at [facility] Laboratory Services - [facility] [address], [place] [address] Free: [phone] A No. [id number] [facility] HospitalVENOUS CORD [id number] 01:29:00 Test Item Value Reference Range Interpretation Comments VENOUS BASE EXCESS, mEq/L CORD (test code = 0127112958) VENOUS PH, CORD (test 7.25-7.45 code = 0421933479) VENOUS PC02, CORD See_Comment [Automate d message] The (test code = system which ge nerated 9947451382) this result tra nsmitted reference range : 27 - 49 mmHg. The refer ence range was not used to interpret this result as normal/abnormal . VENOUS PO2, CORD (test See_Comment [Aut omated message] The code = 4046218740) system wh ich generated this result tra nsmitted reference range : 17 - 41 mmHg. The refer ence range was not used to interpret this result as normal/abnormal . VENOUS BICARBONATE, See_Comment QUES [Au tomated message] CORD (test code = The system which generated 5192421992) this result tra nsmitted reference range : 12 - 29 mEq/L. The refe rence range was not used to interpret this result as normal/abnormal . [facility] HospitalHepatitis B Surface [id number] 22:52:00 Test Item Value Reference Range Interpretation Comments HBsAg Semi-Quantitative (test code = Negative Negative 5195-3) [facility] HospitalType and Screen - ONCE [id number] 21:31:21 Test Item Value Reference Range Interpretation Comments ABO & RH (test code O POSITIVE Performe d at [facility] = 20) Laboratory Serv ices - [facility] Blood [address] [facility] s [address]Vs[address] Free: [phone] A No. [id number] IAT (test code = Negative Performed a t [facility] 1185) Laboratory Serv [facility] Blood [facility] [place] [address]Wxaq Free: [phone] A No. [id number] [facility] HospitalCOVID-19 (ID NOW RAPID TESTING)2020-05-27 18:12:00 Test Item Value Reference Range Interpretation Comments SARS-CoV-2 Rapid ID NOW Not Detected Not Detected (test code = 24183-2) BASIL (test code = BASIL) ID NOW COVID-19 Assay is an isothermal nucleic acid amplification test intended for the qualitative detection of nucleic acid from SARS-CoV-2 viral RNA in nasopharyngeal (DISTILLERY WORKER GENERAL) specimens. It is used under Emergency Use Authorization (EUA) by FDA. The limit of detection (LOD) of the assay is 125 Genome Equivalents/mL. A positive result is indicative of the presence of SARS-CoV-2 RNA. ?Clinical correlation with patient history and other diagnostic information is necessary to determine patient infection status. A negative (Not Detected) result does not preclude SARS-CoV-2 infection. In patients with clinical symptoms and other tests that are consistent with SARS-CoV-2 infection, negative results should be treated as presumptive negative and a new specimen should be tested with alternative PCR molecular test. Invalid: Please collect a new specimen for repeat patient testing if clinically indicated. Lab Interpretation Normal (test code = 95628-0) [facility] URINALYSIS W SPECIFIC [id number] 16:00:00 Test Item Value Reference Range Interpretation Comments POCT U SP GRAV (test code = 3255) . 1.005-1.025 POCT PH U (test code = 3254) . 5-8 POCT U LEUK EST (test code = 3263) . Negative - Negative POCT U NIT (test code = 3262) . Negative - Negative POCT U PROT (test code = 3259) Trace Negative - Negative POCT U GLU (test code = 3256) Neg Negative - Negative POCT U KETONE (test code = 3258) . Negative - Negative POCT U UROBILI (test code = 3260) . 0.2-1 POCT U BILI (test code = 3261) . Negative - Negative POCT U BLD (test code = 3257) . Negative - Negative POCT U COLOR (test code = 3266) POCT U APPEAR (test code = 3267) [facility] URINALYSIS W SPECIFIC [id number] 16:16:00 Test Item Value Reference Range Interpretation Comments POCT U SP GRAV (test code = 3255) . 1.005-1.025 POCT PH U (test code = 3254) . 5-8 POCT U LEUK EST (test code = 3263) . Negative - Negative POCT U NIT (test code = 3262) . Negative - Negative POCT U PROT (test code = 3259) Trace Negative - Negative POCT U GLU (test code = 3256) Neg Negative - Negative POCT U KETONE (test code = 3258) . Negative - Negative POCT U UROBILI (test code = 3260) . 0.2-1 POCT U BILI (test code = 3261) . Negative - Negative POCT U BLD (test code = 3257) . Negative - Negative POCT U COLOR (test code = 3266) POCT U APPEAR (test code = 3267) Lab Interpretation (test code = Normal 68899-7) [facility] URINALYSIS W SPECIFIC [id number] 16:16:00 Test Item Value Reference Range Interpretation Comments POCT U SP GRAV (test code = 3255) . 1.005-1.025 POCT PH U (test code = 3254) . 5-8 POCT U LEUK EST (test code = 3263) . Negative - Negative POCT U NIT (test code = 3262) . Negative - Negative POCT U PROT (test code = 3259) Trace Negative - Negative POCT U GLU (test code = 3256) Neg Negative - Negative POCT U KETONE (test code = 3258) . Negative - Negative POCT U UROBILI (test code = 3260) . 0.2-1 POCT U BILI (test code = 3261) . Negative - Negative POCT U BLD (test code = 3257) . Negative - Negative POCT U COLOR (test code = 3266) POCT U APPEAR (test code = 3267) Lab Interpretation (test code = Normal 20441-3) [facility] URINALYSIS W SPECIFIC [id number] 16:16:00 Test Item Value Reference Range Interpretation Comments POCT U SP GRAV (test code = 3255) . 1.005-1.025 POCT PH U (test code = 3254) . 5-8 POCT U LEUK EST (test code = 3263) . Negative - Negative POCT U NIT (test code = 3262) . Negative - Negative POCT U PROT (test code = 3259) Trace Negative - Negative POCT U GLU (test code = 3256) Neg Negative - Negative POCT U KETONE (test code = 3258) . Negative - Negative POCT U UROBILI (test code = 3260) . 0.2-1 POCT U BILI (test code = 3261) . Negative - Negative POCT U BLD (test code = 3257) . Negative - Negative POCT U COLOR (test code = 3266) POCT U APPEAR (test code = 3267) Lab Interpretation (test code = Normal 43206-3) [facility] URINALYSIS W SPECIFIC [id number] 16:16:00 Test Item Value Reference Range Interpretation Comments POCT U SP GRAV (test code = 3255) . 1.005-1.025 POCT PH U (test code = 3254) . 5-8 POCT U LEUK EST (test code = 3263) . Negative - Negative POCT U NIT (test code = 3262) . Negative - Negative POCT U PROT (test code = 3259) Trace Negative - Negative POCT U GLU (test code = 3256) Neg Negative - Negative POCT U KETONE (test code = 3258) . Negative - Negative POCT U UROBILI (test code = 3260) . 0.2-1 POCT U BILI (test code = 3261) . Negative - Negative POCT U BLD (test code = 3257) . Negative - Negative POCT U COLOR (test code = 3266) POCT U APPEAR (test code = 3267) Lab Interpretation (test code = Normal 73011-2) [facility] URINALYSIS W SPECIFIC [id number] 16:28:00 Test Item Value Reference Range Interpretation Comments POCT U SP GRAV (test code = 3255) . 1.005-1.025 POCT PH U (test code = 3254) . 5-8 POCT U LEUK EST (test code = 3263) . Negative - Negative POCT U NIT (test code = 3262) . Negative - Negative POCT U PROT (test code = 3259) Trace Negative - Negative POCT U GLU (test code = 3256) Neg Negative - Negative POCT U KETONE (test code = 3258) . Negative - Negative POCT U UROBILI (test code = 3260) . 0.2-1 POCT U BILI (test code = 3261) . Negative - Negative POCT U BLD (test code = 3257) . Negative - Negative POCT U COLOR (test code = 3266) POCT U APPEAR (test code = 3267) [facility] URINALYSIS W SPECIFIC [id number] 14:55:00 Test Item Value Reference Range Interpretation Comments POCT U SP GRAV (test code = 3255) . 1.005-1.025 POCT PH U (test code = 3254) . 5-8 POCT U LEUK EST (test code = 3263) . Negative - Negative POCT U NIT (test code = 3262) . Negative - Negative POCT U PROT (test code = 3259) Trace Negative - Negative POCT U GLU (test code = 3256) Neg Negative - Negative POCT U KETONE (test code = 3258) . Negative - Negative POCT U UROBILI (test code = 3260) . 0.2-1 POCT U BILI (test code = 3261) . Negative - Negative POCT U BLD (test code = 3257) . Negative - Negative POCT U COLOR (test code = 3266) POCT U APPEAR (test code = 3267) [facility] URINALYSIS W SPECIFIC [id number] 14:55:00 Test Item Value Reference Range Interpretation Comments POCT U SP GRAV (test code = 3255) . 1.005-1.025 POCT PH U (test code = 3254) . 5-8 POCT U LEUK EST (test code = 3263) . Negative - Negative POCT U NIT (test code = 3262) . Negative - Negative POCT U PROT (test code = 3259) Trace Negative - Negative POCT U GLU (test code = 3256) Neg Negative - Negative POCT U KETONE (test code = 3258) . Negative - Negative POCT U UROBILI (test code = 3260) . 0.2-1 POCT U BILI (test code = 3261) . Negative - Negative POCT U BLD (test code = 3257) . Negative - Negative POCT U COLOR (test code = 3266) POCT U APPEAR (test code = 3267) [facility] URINALYSIS W SPECIFIC [id number] 15:56:00 Test Item Value Reference Range Interpretation Comments POCT U SP GRAV (test code = 3255) . 1.005-1.025 POCT PH U (test code = 3254) . 5-8 POCT U LEUK EST (test code = 3263) . Negative - Negative POCT U NIT (test code = 3262) . Negative - Negative POCT U PROT (test code = 3259) Trace Negative - Negative POCT U GLU (test code = 3256) Neg Negative - Negative POCT U KETONE (test code = 3258) . Negative - Negative POCT U UROBILI (test code = 3260) . 0.2-1 POCT U BILI (test code = 3261) . Negative - Negative POCT U BLD (test code = 3257) . Negative - Negative POCT U COLOR (test code = 3266) POCT U APPEAR (test code = 3267) [facility] URINALYSIS W SPECIFIC [id number] 15:56:00 Test Item Value Reference Range Interpretation Comments POCT U SP GRAV (test code = 3255) . 1.005-1.025 POCT PH U (test code = 3254) . 5-8 POCT U LEUK EST (test code = 3263) . Negative - Negative POCT U NIT (test code = 3262) . Negative - Negative POCT U PROT (test code = 3259) Trace Negative - Negative POCT U GLU (test code = 3256) Neg Negative - Negative POCT U KETONE (test code = 3258) . Negative - Negative POCT U UROBILI (test code = 3260) . 0.2-1 POCT U BILI (test code = 3261) . Negative - Negative POCT U BLD (test code = 3257) . Negative - Negative POCT U COLOR (test code = 3266) POCT U APPEAR (test code = 3267) [facility] URINALYSIS W SPECIFIC [id number] 15:56:00 Test Item Value Reference Range Interpretation Comments POCT U SP GRAV (test code = 3255) . 1.005-1.025 POCT PH U (test code = 3254) . 5-8 POCT U LEUK EST (test code = 3263) . Negative - Negative POCT U NIT (test code = 3262) . Negative - Negative POCT U PROT (test code = 3259) Trace Negative - Negative POCT U GLU (test code = 3256) Neg Negative - Negative POCT U KETONE (test code = 3258) . Negative - Negative POCT U UROBILI (test code = 3260) . 0.2-1 POCT U BILI (test code = 3261) . Negative - Negative POCT U BLD (test code = 3257) . Negative - Negative POCT U COLOR (test code = 3266) POCT U APPEAR (test code = 3267) [facility] URINALYSIS W SPECIFIC [id number] 18:08:00 Test Item Value Reference Range Interpretation Comments POCT U SP GRAV (test code = . 1.005-1.025 3255) POCT PH U (test code = 3254) . 5-8 POCT U LEUK EST (test code = . Negative - Negative 3263) POCT U NIT (test code = 3262) . Negative - Negative POCT U PROT (test code = 3259) trace Negative - Negative POCT U GLU (test code = 3256) neg Negative - Negative POCT U KETONE (test code = 3258) . Negative - Negative POCT U UROBILI (test code = . 0.2-1 3260) POCT U BILI (test code = 3261) . Negative - Negative POCT U BLD (test code = 3257) . Negative - Negative POCT U COLOR (test code = 3266) POCT U APPEAR (test code = 3267) Lab Interpretation (test code = Abnormal 92345-8) [facility] [id number] 15:48:00 Test Item Value Reference Range Interpretation Comments POCT PREG (test code = 1605) Positive On board controls acceptable with C Yes Line (test code = 3574) POCT PREG LOT # (test code = 3575) POCT PREG TEST DATE (test code = 3576) [facility] W/O SPECIFIC [id number] 15:47:00 Test Item Value Reference Range Interpretation Comments POCT PH U (test code = 3254) 5 mg/dl 5-8 POCT U LEUK EST (test code = 1+ Negative - Negative 3263) POCT U NIT (test code = 3262) Neg Negative - Negative POCT U PROT (test code = 3259) Trace Negative - Negative POCT U GLU (test code = 3256) Neg Negative - Negative POCT U KETONE (test code = 3258) Small Negative - Negative POCT U BLD (test code = 3257) Neg Negative - Negative [facility]PO[facility] [id number] 19:51:00 Test Item Value Reference Range Interpretation Comments POCT PREG (test code = 1605) Negative On board controls acceptable with C Yes Line (test code = 3574) POCT PREG LOT # (test code = 3575) POCT PREG TEST DATE (test code = 3576) [facility] [id number] 19:51:00 Test Item Value Reference Range Interpretation Comments POCT PREG (test code = 1605) Negative On board controls acceptable with C Yes Line (test code = 3574) POCT PREG LOT # (test code = 3575) POCT PREG TEST DATE (test code = 3576) [facility]
[2021-08-14 09:37] LABS: Urine Blood Negative (Negative); Urine Glucose Negative (Negative); Urine Protein Negative (Negative); Urine Specific Gravity >=1.030 (1.005-1.030); Urine pH 6.5 (5.0-7.0)
[2021-08-14 10:11] LABS: Urine Specific Gravity/Preg >1.030 (1.005-1.030)
--- NOTE | 2021-08-14 11:34 | EDPHYS ---
Physician Documentation [facility] Name: Sofia Redd Age: 21 yrs Sex: Female : 2000 Arrival Date: 08/14/2021 Time: 09:15 Bed 15 Private MD: ED Physician Pedro Lew HPI: 08/14 10:40 This 21 yrs old Female presents to ER via Wheelchair with complaints of Ankle rn Injury. 10:40 The patient presents with an injury, pain. The complaints affect the right ankle. rn Onset: The symptoms/episode began/occurred last night. Context: The problem was sustained at an unknown location, resulted from a mis-step by the patient, The mechanism of injury involved inversion of the affected ankle. The patient can fully bear weight on the affected extremity. the patient is able to ambulate. Associated signs and symptoms: Pertinent positives: swelling, Pertinent negatives: weakness. Modifying factors: The symptoms are alleviated by elevation of extremity, the symptoms are aggravated by weight bearing, wearing shoes. Severity of symptoms: At their worst the symptoms were moderate, in the emergency department the symptoms have improved. The patient has experienced similar episodes in the past. The patient has not recently seen a physician. 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 - Social history:: Smoking status: Patient denies any tobacco usage or history of. - Family history:: not pertinent. - Hospitalizations: : No recent hospitalization is reported. ROS: 10:40 Constitutional: Negative for fever, chills, and weight loss, MS/Extremity: Positive for rn injury and pain to right ankle Skin: Negative for injury, rash, and discoloration, Neuro: Negative for weakness, numbness, tingling Exam: 10:40 Constitutional: This is a well developed, well nourished patient who is awake, alert, rn and in no acute distress. On phone Skin: Warm, dry with normal turgor. Normal color with no rashes, no lesions, and no evidence of cellulitis. MS/ Extremity: Pulses equal, no cyanosis. Neurovascular intact. Mild tenderness posterior to medial malleolus, no bony tenderness or deformity. Mild ecchymosis and swelling around the ankle. Vital Signs: 09:29 BP 141 / 64; Pulse 76; Resp 17; Temp 97.6; Pulse Ox 100% on R/A; Weight 65.77 kg; jl7 Height 5 ft. 1 in. (154.94 cm); Pain 8/10; 11:15 BP 127 / 64; Pulse 77; Resp 18; Temp 98.0(O); Pulse Ox 100% ; Pain 2/10; jh6 09:29 Body Mass Index 27.40 (65.77 kg, 154.94 cm) jl7 MDM: 09:17 Patient medically screened. rn 11:32 Differential diagnosis: fracture, sprain. Data reviewed: vital signs, nurses notes, rn radiologic studies, plain films, and as a result, I will discharge patient. Counseling: I had a detailed discussion with the patient and/or guardian regarding: the historical points, exam findings, and any diagnostic results supporting the discharge/admit diagnosis, radiology results, the need for outpatient follow up, to return to the emergency department if symptoms worsen or persist or if there are any questions or concerns that arise at home. Special discussion: I discussed with the patient/guardian in detail that at this point there is no indication for admission to the hospital. It is understood, however, that if the symptoms persist or worsen the patient needs to return immediately for re-evaluation. Further emergent ED testing is not indicated at this point in time. I discussed with the patient/guardian in detail the need to arrange with the PCP or specialist further outpatient testing, MRI, Based on the history and exam findings, there is no indication for further emergent testing or inpatient evaluation. I discussed with the patient/guardian the need to see the orthopedic surgeon for further evaluation of the symptoms. 08/14 09:37 Order name: Urine Dipstick-Ancillary; Complete Time: 10:26 EDMS 08/14 09:49 Order name: Urine --Ancillary (enter results) bd 08/14 09:32 Order name: XRAY Ankle RIGHT 3 view; Complete Time: 11:54 jl7 08/14 09:32 Order name: Urine Dipstick-Ancillary (obtain specimen); Complete Time: 10:08/14 09:32 Order name: Urine Test (obtain specimen); Complete Time: 10:08/14 09:50 Order name: Urine --Ancillary; Complete Time: 10:26 EDMS Administered Medications: No medications were administered Disposition Summary: 08/14/21 11:33 Discharge Ordered Location: Home rn Problem: new rn Symptoms: have improved rn Condition: Stable rn Diagnosis - Sprain of unspecified ligament of right ankle, initial encounter rn Followup: rn - With: Private Physician - When: As needed - Reason: Recheck today's complaints, Re-evaluation by your physician Discharge Instructions: - Discharge Summary Sheet rn - Ankle Sprain rn Forms: - Medication Reconciliation Form rn - Thank You Letter rn - Antibiotic fern gatherer - Prescription Opioid Use rn Signatures: Dispatcher [employer] EDMS Pedro Lew MD MD rn Leal, Jahala, RN RN jl7
--- NOTE | 2021-08-14 11:34 | ER ---
Nurse's Notes [facility] Name: Sofia Redd Age: 21 yrs Sex: Female : 2000 Arrival Date: 08/14/2021 Time: 09:15 Bed 15 Private MD: Diagnosis: Sprain of unspecified ligament of right ankle, initial encounter Presentation: 08/14 09:29 Chief complaint: Patient states: Tripped last night, hurt right ankle, swelling noted jl7 to right ankle. Coronavirus screen: At this time, the client does not indicate any symptoms associated with coronavirus-19. Ebola Screen: No symptoms or risks identified at this time. Initial Sepsis Screen: Does the patient meet any 2 criteria? No. Patient's initial sepsis screen is negative. Does the patient have a suspected source of infection? No. Patient's initial sepsis screen is negative. Risk Assessment: Do you want to hurt yourself or someone else? Patient reports no desire to harm self or others. Onset of symptoms was August 13, 2021. 09:29 Method Of Arrival: Wheelchair jl7 09:29 Acuity: BRYCE 4 jl7 Triage Assessment: 09:30 General: Appears in no apparent distress. uncomfortable, Behavior is calm, cooperative, jl7 appropriate for age. Pain: Complains of pain in right lateral malleolus Pain currently is 8 out of 10 on a pain scale. Neuro: Level of Consciousness is awake, alert, obeys commands, Oriented to person, place, time, situation. Cardiovascular: Patient's skin is warm and dry. Respiratory: Airway is patent Respiratory effort is even, unlabored, Respiratory pattern is regular, symmetrical. Derm: Skin is pink, warm \T\ dry. Musculoskeletal: Swelling present in right ankle. 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 - Social history:: Smoking status: Patient denies any tobacco usage or history of. - Family history:: not pertinent. - Hospitalizations: : No recent hospitalization is reported. Screenin:00 Abuse screen: Denies threats or abuse. 6 10:00 Nutritional screening: No deficits noted. Tuberculosis screening: No symptoms or risk [facility] factors identified. Fall Risk None identified. Gait- Impaired (20 pts.). Assessment: 09:46 General: Appears in no apparent distress. Behavior is cooperative, appropriate for age. 6 09:46 Pain: Complains of pain in right ankle and anterior aspect of right ankle Pain jh6 currently is 5 out of 10 on a pain scale. Injury Description: states that she twisted her ankle last night. Vital Signs: 09:29 BP 141 / 64; Pulse 76; Resp 17; Temp 97.6; Pulse Ox 100% on R/A; Weight 65.77 kg; 7 Height 5 ft. 1 in. (154.94 cm); Pain 8/10; 11:15 BP 127 / 64; Pulse 77; Resp 18; Temp 98.0(O); Pulse Ox 100% ; Pain 2/10; 6 09:29 Body Mass Index 27.40 (65.77 kg, 154.94 cm) 7 ED Course: 09:15 Patient arrived in ED. as 09:17 Pedro Lew MD is Attending Physician. rn 09:30 Triage completed. 7 09:30 Arm band placed on right wrist. 7 09:34 Patient placed in waiting room, Patient notified of wait time. 7 10:00 Bed in low position. Call light in reach. Side rails up X 1. 6 10:03 Sofia Ramos, RN is Primary Nurse. 6 10:03 X-ray completed. pt abdomen shielded for imaging. md1 10:11 XRAY Ankle RIGHT 3 view In Process Unspecified. EDMS 11:16 No provider procedures requiring assistance completed. Patient did not have IV access 6 during this emergency room visit. Administered Medications: No medications were administered Outcome: 11:33 Discharge ordered by . rn 12:06 Patient left the ED. ld1 Signatures: Dispatcher [employer] EDMS Danita Ch Roman, MD MD rn Leal, Jahala, RN RN 7 Karma Lundberg md1 Armida Mckeon RN RN ld1 Hastedt, Sofia, RN RN jh6
--- NOTE | 2021-08-14 11:39 | RAD REPORT ---
EXAM DESCRIPTION: RAD - Ankle Right 3 View - 08/14/2021 10:11 am CLINICAL HISTORY: Pain;Swelling, fall history COMPARISON: No comparisons FINDINGS: No fracture, dislocation or periosteal reaction. Small rounded low densities near the tip of the medial malleolus not regarded as acute. No joint effusion seen. No joint space narrowing. Soft tissue swelling is present. IMPRESSION: Right ankle soft tissue swelling with no acute bone or joint finding.
[2021-08-14 12:21] VITALS: O2SAT 100
[2021-08-14 12:26] VITALS: BP 127/64; TEMP 98
== END 2021-08-14 12:06 | disposition home or self-care (01) ==
LOC: ER 09:12 → MERGE 09:12 → ER 12:06
DX: S93.401A Sprain of unspecified ligament of right ankle, initial encounter (principal); Z88.8 Allergy status to other drugs, medicaments and biological substances; Z91.013 Allergy to seafood
CPT/HCPCS: 81003; 81025; 99283

== ENCOUNTER 2021-10-04 02:28 | Emergency (ER) | payer OTHER, SELFPAY ==
--- OUTSIDE RECORDS SUMMARY | 2021-10-04 02:39 | XMS REPORT | Continuity of Care Document ---
:2000 Author Organization [facility] t Address 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, G Attending Clinician Doctor Unassigned, Name Attending Clinician Unavailable RAZ Attending Clinician Unavailable Kevin LOYA C Attending Clinician Luarent BROWN Attending Clinician Unavailable Abel Brandon DO Attending Clinician Stephanie ZHAO Attending Clinician Unavailable Micah MARTÍNEZ Attending Clinician Ultrasound Attending Clinician Unavailable Sage MARTÍNEZ, F Attending Clinician 2, [facility] Room Attending Clinician Unavailable Ana Paula MARTÍNEZ, M Attending Clinician Micah MARTÍNEZ Admitting Clinician Payers Payer Name Policy Type Policy Number Effective Date Expiration Date [facility] [id number] 2019 CHOICE MEDICAID 00:00:00 Problems Condition Condition Condition Status Onset Resolution Last Treating Co mments Source Name Details Category Date Date Treatment Clinician Date UTI UTI Disease Active Univers symptoms symptoms 4-26 ity of 00:00: [address] Nexplanon Nexplanon Disease Active Uni vers insertion insertion 1-04 ity of 00:00: [place] 00 Medical Branch Obesity Obesity Disease Active 2020- Univers (BMI (BMI 1-04 ity of 30.0-34.9) 30.0-34.9) 00:00[place] 00 [place] UTI UTI Disease Active 2020- Univers symptoms symptoms 1-10 ity of 00:00: [place] 00 Medical Branch 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 1-10 ity of with with 00:00: [place] 00 [facility] breast breast Branch attachment attachment difficulty difficulty Disease Active 2019-08 Univers (spontaneo (spontaneo 0-26 it y of [place] vaginal [place] vaginal 00:[place] delivery[place] delivery[place] 00 [facility] Single Single Disease Active 2019- Univers liveborn liveborn 0-26 ity of infant 00:00: [place] delivered delivered 00 [facility] vaginally vaginally Bran ch Encounter Encounter Disease Active 2019-08 Uni vers for for 0-25 ity of induction [place] 00:[place] labor of [place] 00 Medica l Branch Vaginal Vaginal Disease Active 2019-08 Univers bleeding bleeding 0-13 ity of during during 00:00: [place] 00 [facility] Anemia of Anemia of Disease Active 2020- Uni vers mother in mother in 8-12 ity of , , 00:[place] [facility] in Obesity in Disease Active 2020-0 U nivers 8-11 ity of 00:00: [place] 00 Medical Branch Supervisio Supervisio Disease Active 2020-0 U nivers n of n of 3-27 ity of high-risk high-risk 00:[place] [facility] Multiparit Multiparit Disease Active 2020-0 U nivers y y 3-27 ity of 00:00: [place] 00 [facility] Single Single Disease Active 2020- Overview: Univer s umbilical umbilical 3-27 With last i ty of artery artery 00:00: [place] 00 [facility] Well woman Well woman Disease Active 2019-0 U nivers exam exam 9-05 ity of 00:00: [place] 00 [facility] Contracept Contracept Disease Active 2019-0 U nivers baron baron 9-05 ity of management management 00:[place]: [place] Contracept Contracept Disease Active U nivers baron baron 9-05 ity of management management 00:00: [place] [facility] [place] Liveborn Liveborn Disease Active Unive rs , of infant, of 2-22 it y of w[place] wooten 00:00: Jeramy montoya , , 00 Me dical born in born in [facility] hospital by vaginal by vaginal delivery delivery Over Over Disease Active Univers weight weight 2-21 ity of 00:00: Medical Branch 39 weeks 39 weeks Disease Active Unive rs gestation gestation 2-21 ity of of of 00:00: [place] 00 [facility] Branch Obesity Obesity Disease Active Univers (BMI (BMI 2-21 ity of 30-39.9) 30-39.9) 00:00: Medical [place] Two vessel Two vessel Disease Active U nivers umbilical umbilical 1-03 ity of cord cord 00:00: Medical Branch Anxiety Anxiety Disease Active Univers disorder, disorder, 706 ity of unspecifie unspecifie 00:[place] d type d type 00 [facility] Branch Bipolar Bipolar Disease Active Univers affective affective 7-06 ity of disorder, disorder, 00:00: Jeramy montoya remission remission 00 [facility] status status Branch unspecifie unspecifie d d Allergies, Adverse Reactions, Alerts Allergy Allergy Status Severity Reaction(s) Onset Inactive Treating Comm ents Source Name Type Date Date Clinician DIPHENHY DRUG Active Hives Univers DRAMINE INGREDI 3-24 ity of HCL 00:00: Medical Branch SEAFOOD/ Food Active Hives Univers FISH 3-24 ity of 00:00: Medical Branch Diphenhy Propensi Active Hives Pt states Uni vers dramine ty to 3-24 she gets ity of Hcl adverse 00:00: "bumps [place] reaction 00 all over Medica l s face and Branch covers her eyes" Seafood/ Propensi Active Hives Univer s Fish ty to 3-24 ity of adverse 00:00: [place] reaction 00 Medical s [place] Social History Social Habit Start Date Stop Date Quantity Comments Source ASSERTION 2019-09-13 University of 00:00:00 [facility] Exposure to Not sure University SARS-CoV-2 [place] Medical (event) Branch Alcohol intake 2021-07-29 2021-07-29 Current University of 00:00:00 00:00:00 non-drinker of [facility] alcohol Branch (finding) Tobacco use and 2020-11-26 2020-11-26 Never used Universit y of exposure 00:00:00 00:00:00 [facility] Sex Assigned At [birth year] Universit y of 00:00:00 00:00:00 [facility] Smoking Status Start Date Stop Date Source Never smoker [facility] [place] Medications Ordered Filled Start Stop Current Ordering Indication Dosage Frequency Signature Comments Components Source Medication Medication Date Date Medication? Clinician (SIG) Name Name naproxen 2020-08 Yes [id number] 500mg Take 1 Un cuco (NAPROSYN) 2-27 tablet by ity of 500 mg 00:00: mouth 2 [place] tablet 00 (two) Medical times Branch daily with meals. methylPREDN 2020-08 Yes [id number] Take by Univers ISolone 4 2-10 mouth ity of mg tablets 00:00: [place]INSTRU [place] 00 CTIONS. Medical follow Branch package directions methylPREDN 2020-08 Yes [id number] Take by Univers ISolone 4 2-10 mouth ity of mg tablets 00:00: [place]-INSTRU [place] 00 CTIONS. Medical follow Branch package directions amoxicillin 2020-08- Yes [id number] 500mg Take 1 Univers 500 mg 2-10 12-21 tablet by ity of tablet 00:00: 05:59 mouth 3 [place] 00 :00 (three) Medical times Branch daily for 10 days. etonogestre 2020- No 68mg Unive rs L [...] Branch at 1530, Routine
Use approved by: REVENUE DIRECTOR etonogestre 2020- No 68mg Unive rs L 08-06 ity of (NEXPLANON) 21:30: 20:39 [place] implant 68 00 :00 Medical mg Branch etonogestre 2020- No 68mg 68 mg, Uni vers L 08-06 Subdermal, ity of (NEXPLANON) 21:30: 20:39 ONCE NOW, [place] implant 68 00 :00 1 dose, Medica l mg 08/06/20 Branch at 1530, Routine
Use approved by: REVENUE DIRECTOR etonogestre 2020- No 68mg Unive rs L 08-06 ity of (NEXPLANON) 21:30: 20:39 [place] implant 68 00 :00 Medical mg Branch etonogestre 2020- No 68mg 68 mg, Uni vers L 08-06 Subdermal, ity of (NEXPLANON) 21:30: 20:39 ONCE NOW, [place] implant 68 00 :00 1 dose, Medica l mg 08/06/20 Branch at 1530, Routine
Use approved by: REVENUE DIRECTOR etonogestre 2020- No 68mg Unive rs L 08-06 ity of (NEXPLANON) 21:30: 20:39 [place] implant 68 00 :00 Medical mg Branch etonogestre 2020- No 68mg 68 mg, Uni vers L 08-06 Subdermal, ity of (NEXPLANON) 21:30: 20:39 ONCE NOW, [place] implant 68 00 :00 1 dose, Medica l mg 08/06/20 Branch at 1530, Routine
Use approved by: REVENUE DIRECTOR 2019-08 2020- No Take by [facility] ers vit 0-26 10-26 mouth. ity of calc,iron,f 13:19: 00:00 [place] olic 03 :00 Medical ( Branch VITAMIN ORAL) rho(D) 2019-08 Yes 300ug 300 mcg, Univer s immune 0- Intramuscu ity of globulin 03:55: lar, ONCE, Sridhar as (RHOGAM) 44 For 1 Medical syringe 300 dose, Branch mcg Conditiona l, Routine human 2019-08 Yes .5mL 0.5 mL, Univers papillomav 0- Intramuscu ity of vac,9-shanice(P 03:55: lar, [place] F) 42 ONCE-PRIOR Medical (GARDASIL-9 TO [place] ) syringe DISCHARGE, 0.5 mL 1 dose, Starting 05/27/20 at 2255, Until Discontinu ed, Routine, Give vaccine prior to discharge ibuprofen 2019-08 Yes 600mg 600 mg, [facility] ers (IBU) 0- Oral, ity of tablet 600 03:55: Q6HPRN, [place] mg 42 Starting Medical Sun Branch 05/27/20 at 2255, Until Discontinu ed, Routine, Pain (scale 4-6) ondansetron 2019-08 Yes 4mg 4 mg, Slow Univers (ZOFRAN 0- IV Push, ity of (PF)) 03:55: Q8HPRN, [place] injection 4 42 Starting Medi martínez mg Sun Branch 05/27/20 at 2255, Until Discontinu ed, Routine, Nausea and Vomiting (N/V) simethicone 2019-08 Yes 160mg 160 mg, Un cuco (GAS RELIEF 0- Oral, ity of (SIMETHICON 03:55: PC+HSPRN, [place] E)) 42 Starting Medical chewable Sun Branch tablet 160 //20 mg at 2255, Until Discontinu ed, Routine, [...] Discontinu ed, Routine, Perineum discomfort 2019-08 Yes [id number] 1{tbl} Take 1 Univers vitamin 0-26 tablet by ity of w/FA tablet 00:00: mouth [place] 00 daily. Medical Branch docusate 2019-08 Yes [id number] 240mg Take 1 U nivers calcium 240 0-26 capsule by it y of mg capsule 00:00: mouth once [place] 00 daily as Medical needed for Branch Constipati on. ferrous 2019-08 Yes [id number] 325mg Take 1 Un cuco sulfate 325 0-26 tablet by ity of mg (65 mg 00:00: mouth 2 [place] iron) 00 (two) Medical tablet times Branch daily. ibuprofen 2019-08 Yes [id number] 600mg Take 1 Univers 600 mg 0-26 tablet by ity of tablet 00:00: mouth [place] 00 every 6 Medical (six) Branch hours as needed (Pain). Take with food or milk. 2019-08 Yes [id number] 1{tbl} Take 1 Univers vitamin 0-26 tablet by ity of w/FA tablet 00:00: mouth [place] 00 daily. Medical Branch docusate 2019-08 Yes [id number] 240mg Take 1 U nivers calcium 240 0-26 capsule by it y of mg capsule 00:00: mouth once [place] 00 daily as Medical needed for Branch Constipati on. ferrous 2019-08 Yes [id number] 325mg Take 1 Un cuco sulfate 325 0-26 tablet by ity of mg (65 mg 00:00: mouth 2 [place] iron) 00 (two) Medical tablet times Branch daily. ibuprofen 2019-08 Yes [id number] 600mg Take 1 Univers 600 mg 0-26 tablet by ity of tablet 00:00: mouth [place] 00 every 6 Medical (six) Branch hours as needed (Pain). Take with food or milk. 2019-08 Yes [id number] 1{tbl} Take 1 Univers vitamin 0-26 tablet by ity of w/FA tablet 00:00: mouth [place] 00 daily. Medical Branch docusate 2019-08 Yes [id number] 240mg Take 1 U nivers calcium 240 0-26 capsule by it y of mg capsule 00:00: mouth once [place] 00 daily as Medical needed for Branch Constipati on. ferrous 2019-08 Yes [id number] 325mg Take 1 Un cuco sulfate 325 0-26 tablet by ity of mg (65 mg 00:00: mouth 2 [place] iron) 00 (two) Medical tablet times Branch daily. ibuprofen 2019-08 Yes [id number] 600mg Take 1 Univers 600 mg 0-26 tablet by ity of tablet 00:00: mouth [place] 00 every 6 Medical (six) Branch hours as needed (Pain). Take with food or milk. 2019-08 Yes [id number] 1{tbl} Take 1 Univers vitamin 0-26 tablet by ity of w/FA tablet 00:00: mouth [place] 00 daily. Medical Branch docusate 2019-08 Yes [id number] 240mg Take 1 U nivers calcium 240 0-26 capsule by it y of mg capsule 00:00: mouth once [place] 00 daily as Medical needed for Branch Constipati on. ferrous 2019-08 Yes [id number] 325mg Take 1 Un cuco sulfate 325 0-26 tablet by ity of mg (65 mg 00:00: mouth 2 [place] iron) 00 (two) Medical tablet times Branch daily. ibuprofen 2019-08 Yes [id number] 600mg Take 1 Univers 600 mg 0-26 tablet by ity of tablet 00:00: mouth [place] 00 every 6 Medical (six) Branch hours as needed (Pain). Take with food or milk. 2019-08 Yes [id number] 1{tbl} Take 1 Univers vitamin 0-26 tablet by ity of w/FA tablet 00:00: mouth [place] 00 daily. Medical Branch docusate 2019-08 Yes [id number] 240mg Take 1 U nivers calcium 240 0-26 capsule by it y of mg capsule 00:00: mouth once [place] 00 daily as Medical needed for Branch Constipati on. ferrous 2019-08 Yes [id number] 325mg Take 1 Un cuco sulfate 325 0-26 tablet by ity of mg (65 mg 00:00: mouth 2 [place] iron) 00 (two) Medical tablet times Branch daily. ibuprofen 2019-08 Yes [id number] 600mg Take 1 Univers 600 mg 0-26 tablet by ity of tablet 00:00: mouth [place] 00 every 6 Medical (six) Branch hours as needed (Pain). Take with food or milk. 2019-08 Yes [id number] 1{tbl} Take 1 Univers vitamin 0-26 tablet by ity of w/FA tablet 00:00: mouth [place] 00 daily. Medical Branch docusate 2019-08 Yes [id number] 240mg Take 1 U nivers calcium 240 0-26 capsule by it y of mg capsule 00:00: mouth once [place] 00 daily as Medical needed for Branch Constipati on. ferrous 2019-08 Yes [id number] 325mg Take 1 Un cuco sulfate 325 0-26 tablet by ity of mg (65 mg 00:00: mouth 2 [place] iron) 00 (two) Medical tablet times Branch daily. ibuprofen 2019-08 Yes [id number] 600mg Take 1 Univers 600 mg 0-26 tablet by ity of tablet 00:00: mouth [place] 00 every 6 Medical (six) Branch hours as needed (Pain). Take with food or milk. 2019-08 Yes [id number] 1{tbl} Take 1 Univers vitamin 0-26 tablet by ity of w/FA tablet 00:00: mouth [place] 00 daily. Medical Branch docusate 2019-08 Yes [id number] 240mg Take 1 U nivers calcium 240 0-26 capsule by it y of mg capsule 00:00: mouth once [place] 00 daily as Medical needed for Branch Constipati on. ferrous 2019-08 Yes [id number] 325mg Take 1 Un cuco sulfate 325 0-26 tablet by ity of mg (65 mg 00:00: mouth 2 [place] iron) 00 (two) Medical tablet times Branch daily. ibuprofen 2019-08 Yes [id number] 600mg Take 1 Univers 600 mg 0-26 tablet by ity of tablet 00:00: mouth [place] 00 every 6 Medical (six) Branch hours as needed (Pain). Take with food or milk. 2019-08 Yes [id number] 1{tbl} Take 1 Univers vitamin 0-26 tablet by ity of w/FA tablet 00:00: mouth [place] 00 daily. Medical Branch docusate 2019-08 Yes [id number] 240mg Take 1 U nivers calcium 240 0-26 capsule by it y of mg capsule 00:00: mouth once [place] 00 daily as Medical needed for Branch Constipati on. ferrous 2019-08 Yes [id number] 325mg Take 1 Un cuco sulfate 325 0-26 tablet by ity of mg (65 mg 00:00: mouth 2 [place] iron) 00 (two) Medical tablet times Branch daily. ibuprofen 2019-08 Yes [id number] 600mg Take 1 Univers 600 mg 0-26 tablet by ity of tablet 00:00: mouth [place] 00 every 6 Medical (six) Branch hours as needed (Pain). Take with food or milk. 2019-08 Yes [id number] 1{tbl} Take 1 Univers vitamin 0-26 tablet by ity of w/FA tablet 00:00: mouth [place] 00 daily. Medical Branch docusate 2019-08 Yes [id number] 240mg Take 1 U nivers calcium 240 0-26 capsule by it y of mg capsule 00:00: mouth once [place] 00 daily as Medical needed for Branch Constipati on. ferrous 2019-08 Yes [id number] 325mg Take 1 Un cuco sulfate 325 0-26 tablet by ity of mg (65 mg 00:00: mouth 2 [place] iron) 00 (two) Medical tablet times Branch daily. ibuprofen 2019-08 Yes [id number] 600mg Take 1 Univers 600 mg 0-26 tablet by ity of tablet 00:00: mouth [place] 00 every 6 Medical (six) Branch hours as needed (Pain). Take with food or milk. 2019-08 Yes [id number] 1{tbl} Take 1 Univers vitamin 0-26 tablet by ity of w/FA tablet 00:00: mouth [place] 00 daily. Medical Branch docusate 2019-08 Yes [id number] 240mg Take 1 U nivers calcium 240 0-26 capsule by it y of mg capsule 00:00: mouth once [place] 00 daily as Medical needed for Branch Constipati on. ferrous 2019-08 Yes [id number] 325mg Take 1 Un cuco sulfate 325 0-26 tablet by ity of mg (65 mg 00:00: mouth 2 [place] iron) 00 (two) Medical tablet times Branch daily. ibuprofen 2019-08 Yes [id number] 600mg Take 1 Univers 600 mg 0-26 tablet by ity of tablet 00:00: mouth [place] 00 every 6 Medical (six) Branch hours as needed (Pain). Take with food or milk. 2019-08 Yes [id number] 1{tbl} Take 1 Univers vitamin 0-26 tablet by ity of w/FA tablet 00:00: mouth [place] 00 daily. Medical Branch docusate 2019-08 Yes [id number] 240mg Take 1 U nivers calcium 240 0-26 capsule by it y of mg capsule 00:00: mouth once [place] 00 daily as Medical needed for Branch Constipati on. ferrous 2019-08 Yes [id number] 325mg Take 1 Un cuco sulfate 325 0-26 tablet by ity of mg (65 mg 00:00: mouth 2 [place] iron) 00 (two) Medical tablet times Branch daily. ibuprofen 2019-08 Yes [id number] 600mg Take 1 Univers 600 mg 0-26 tablet by ity of tablet 00:00: mouth [place] 00 every 6 Medical (six) Branch hours as needed (Pain). Take with food or milk. 2019-08 Yes [id number] 1{tbl} Take 1 Univers vitamin 0-26 tablet by ity of w/FA tablet 00:00: mouth [place] 00 daily. Medical Branch docusate 2019-08 Yes [id number] 240mg Take 1 U nivers calcium 240 0-26 capsule by it y of mg capsule 00:00: mouth once [place] 00 daily as Medical needed for Branch Constipati on. ferrous 2019-08 Yes [id number] 325mg Take 1 Un cuco sulfate 325 0-26 tablet by ity of mg (65 mg 00:00: mouth 2 [place] iron) 00 (two) Medical tablet times Branch daily. ibuprofen 2019-08 Yes [id number] 600mg Take 1 Univers 600 mg 0-26 tablet by ity of tablet 00:00: mouth [place] 00 every 6 Medical (six) Branch hours as needed (Pain). Take with food or milk. 2019-08 Yes [id number] 1{tbl} Take 1 Univers vitamin 0-26 tablet by ity of w/FA tablet 00:00: mouth [place] 00 daily. Medical Branch docusate 2019-08 Yes [id number] 240mg Take 1 U nivers calcium 240 0-26 capsule by it y of mg capsule 00:00: mouth once [place] 00 daily as Medical needed for Branch Constipati on. ferrous 2019-08 Yes [id number] 325mg Take 1 Un cuco sulfate 325 0-26 tablet by ity of mg (65 mg 00:00: mouth 2 [place] iron) 00 (two) Medical tablet times Branch daily. ibuprofen 2019-08 Yes [id number] 600mg Take 1 Univers 600 mg 0-26 tablet by ity of tablet 00:00: mouth [place] 00 every 6 Medical (six) Branch hours as needed (Pain). Take with food or milk. 2019-08 Yes [id number] 1{tbl} Take 1 Univers vitamin 0-26 tablet by ity of w/FA tablet 00:00: mouth [place] 00 daily. Medical Branch docusate 2019-08 Yes [id number] 240mg Take 1 U nivers calcium 240 0-26 capsule by it y of mg capsule 00:00: mouth once [place] 00 daily as Medical needed for Branch Constipati on. ferrous 2019-08 Yes [id number] 325mg Take 1 Un cuco sulfate 325 0-26 tablet by ity of mg (65 mg 00:00: mouth 2 [place] iron) 00 (two) Medical tablet times Branch daily. ibuprofen 2019-08 Yes [id number] 600mg Take 1 Univers 600 mg 0-26 tablet by ity of tablet 00:00: mouth [place] 00 every 6 Medical (six) Branch hours as needed (Pain). Take with food or milk. 2019-08 Yes [id number] 1{tbl} Take 1 Univers vitamin 0-26 tablet by ity of w/FA tablet 00:00: mouth [place] 00 daily. Medical Branch docusate 2019-08 Yes [id number] 240mg Take 1 U nivers calcium 240 0-26 capsule by it y of mg capsule 00:00: mouth once [place] 00 daily as Medical needed for Branch Constipati on. ferrous 2019-08 Yes [id number] 325mg Take 1 Un cuco sulfate 325 0-26 tablet by ity of mg (65 mg 00:00: mouth 2 [place] iron) 00 (two) Medical tablet times Branch daily. ibuprofen 2019-08 Yes [id number] 600mg Take 1 Univers 600 mg 0-26 tablet by ity of tablet 00:00: mouth [place] 00 every 6 Medical (six) Branch hours as needed (Pain). Take with food or milk. 2019-08 Yes [id number] 1{tbl} Take 1 Univers vitamin 0-26 tablet by ity of w/FA tablet 00:00: mouth [place] 00 daily. Medical Branch docusate 2019-08 Yes [id number] 240mg Take 1 U nivers calcium 240 0-26 capsule by it y of mg capsule 00:00: mouth once [place] 00 daily as Medical needed for Branch Constipati on. ferrous 2019-08 Yes [id number] 325mg Take 1 Un cuco sulfate 325 0-26 tablet by ity of mg (65 mg 00:00: mouth 2 [place] iron) 00 (two) Medical tablet times Branch daily. ibuprofen 2019-08 Yes [id number] 600mg Take 1 Univers 600 mg 0-26 tablet by ity of tablet 00:00: mouth [place] 00 every 6 Medical (six) Branch hours as needed (Pain). Take with food or milk. 2019-08 Yes [id number] 1{tbl} Take 1 Univers vitamin 0-26 tablet by ity of w/FA tablet 00:00: mouth [place] 00 daily. Medical Branch docusate 2019-08 Yes [id number] 240mg Take 1 U nivers calcium 240 0-26 capsule by it y of mg capsule 00:00: mouth once [place] 00 daily as Medical needed for Branch Constipati on. ferrous 2019-08 Yes [id number] 325mg Take 1 Un cuco sulfate 325 0-26 tablet by ity of mg (65 mg 00:00: mouth 2 [place] iron) 00 (two) Medical tablet times Branch daily. ibuprofen 2019-08 Yes [id number] 600mg Take 1 Univers 600 mg 0-26 tablet by ity of tablet 00:00: mouth [place] 00 every 6 Medical (six) Branch hours as needed (Pain). Take with food or milk. 2019-08 Yes [id number] 1{tbl} Take 1 Univers vitamin 0-26 tablet by ity of w/FA tablet 00:00: mouth [place] 00 daily. Medical Branch docusate 2019-08 Yes [id number] 240mg Take 1 U nivers calcium 240 0-26 capsule by it y of mg capsule 00:00: mouth once [place] 00 daily as Medical needed for Branch Constipati on. ferrous 2020 Yes [id number] 325mg Take 1 Un cuco sulfate 325 0-26 tablet by ity of mg (65 mg 00:00: mouth 2 [place] iron) 00 (two) Medical tablet times Branch daily. ibuprofen 2019-08 Yes [id number] 600mg Take 1 Univers 600 mg 0-26 tablet by ity of tablet 00:00: mouth [place] 00 every 6 Medical (six) Branch hours as needed (Pain). Take with food or milk. 2019-08 Yes [id number] 1{tbl} Take 1 Univers vitamin 0-26 tablet by ity of w/FA tablet 00:00: mouth [place] 00 daily. Medical Branch docusate 2019-08 Yes [id number] 240mg Take 1 U nivers calcium 240 0-26 capsule by it y of mg capsule 00:00: mouth once [place] 00 daily as Medical needed for Branch Constipati on. ferrous 2019-08 Yes [id number] 325mg Take 1 Un cuco sulfate 325 0-26 tablet by ity of mg (65 mg 00:00: mouth 2 [place] iron) 00 (two) Medical tablet times Branch daily. ibuprofen 2019-08 Yes [id number] 600mg Take 1 Univers 600 mg 0-26 tablet by ity of tablet 00:00: mouth [place] 00 every 6 Medical (six) Branch hours as needed (Pain). Take with food or milk. 2019-08 Yes [id number] 1{tbl} Take 1 Univers vitamin 0-26 tablet by ity of w/FA tablet 00:00: mouth [place] 00 daily. Medical Branch docusate 2019-08 Yes [id number] 240mg Take 1 U nivers calcium 240 0-26 capsule by it y of mg capsule 00:00: mouth once [place] 00 daily as Medical needed for Branch Constipati on. ferrous 2019-08 Yes [id number] 325mg Take 1 Un cuco sulfate 325 0-26 tablet by ity of mg (65 mg 00:00: mouth 2 [place] iron) 00 (two) Medical tablet times Branch daily. ibuprofen 2019-08 Yes [id number] 600mg Take 1 Univers 600 mg 0-26 tablet by ity of tablet 00:00: mouth [place] 00 every 6 Medical (six) Branch hours as needed (Pain). Take with food or milk. 2019-08 Yes [id number] 1{tbl} Take 1 Univers vitamin 0-26 tablet by ity of w/FA tablet 00:00: mouth [place] 00 daily. Medical Branch docusate 2019-08 Yes [id number] 240mg Take 1 U nivers calcium 240 0-26 capsule by it y of mg capsule 00:00: mouth once [place] 00 daily as Medical needed for Branch Constipati on. ferrous 2019-08 Yes [id number] 325mg Take 1 Un cuco sulfate 325 0-26 tablet by ity of mg (65 mg 00:00: mouth 2 [place] iron) 00 (two) Medical tablet times Branch daily. ibuprofen 2019-08 Yes [id number] 600mg Take 1 Univers 600 mg 0-26 tablet by ity of tablet 00:00: mouth [place] 00 every 6 Medical (six) Branch hours as needed (Pain). Take with food or milk. 2019-08 Yes [id number] 1{tbl} Take 1 Univers vitamin 0-26 tablet by ity of w/FA tablet 00:00: mouth [place] 00 daily. Medical Branch docusate 2019-08 Yes [id number] 240mg Take 1 U nivers calcium 240 0-26 capsule by it y of mg capsule 00:00: mouth once [place] 00 daily as Medical needed for Branch Constipati on. ferrous 2019-08 Yes [id number] 325mg Take 1 Un cuco sulfate 325 0-26 tablet by ity of mg (65 mg 00:00: mouth 2 [place] iron) 00 (two) Medical tablet times Branch daily. ibuprofen 2019-08 Yes [id number] 600mg Take 1 Univers 600 mg 0-26 tablet by ity of tablet 00:00: mouth [place] 00 every 6 Medical (six) Branch hours as needed (Pain). Take with food or milk. 2019-08 Yes [id number] 1{tbl} Take 1 Univers vitamin 0-26 tablet by ity of w/FA tablet 00:00: mouth [place] 00 daily. Medical Branch docusate 2019-08 Yes [id number] 240mg Take 1 U nivers calcium 240 0-26 capsule by it y of mg capsule 00:00: mouth [place] 00 daily as Medical needed for Branch Constipati on. ferrous 2019-08 Yes [id number] 325mg Take 1 Un cuco sulfate 325 0-26 tablet by ity of mg (65 mg 00:00: mouth 2 [place] iron) 00 (two) Medical tablet times Branch daily. ibuprofen 2019-08 Yes [id number] 600mg Take 1 [facility] 600 mg 0-26 tablet by ity of tablet 00:00: mouth [place] 00 every 6 Medical (six) Branch hours as needed (Pain). Take with food or milk. 2019-08 Yes [id number] 1{tbl} Take 1 [facility] vitamin 0-26 tablet by ity of w/FA tablet 00:00: mouth [place] 00 daily. Medical Branch docusate 2019-08 Yes [id number] 240mg Take 1 [facility] calcium 240 0-26 capsule by it y of mg capsule 00:00: mouth [place] 00 daily as Medical needed for Branch Constipati on. ferrous 2019-08 Yes [id number] 325mg Take 1 Un cuco sulfate 325 0-26 tablet by ity of mg (65 mg 00:00: mouth 2 [place] iron) 00 (two) Medical tablet times Branch daily. ibuprofen 2019-08 Yes [id number] 600mg Take 1 [facility] 600 mg 0-26 [...] Branch dose, 05/27/20 at 1730, Routine sodium 2019-08 2020- No 30mL 30 mL, [facility] citrate-cit 0-25 [...] 05/27/20 at 2255, Routine LR 1000 mL 2020-1 2020- No 2mU/min at 6-120 [facility] + oxytocin 0-25 10-26 mL/hr, IV ity of 20 units IV 19:08: 03:55 Infusion, [place] Solution 25 :45 TITRATE, Medical Starting Branch 05/27/20 at 1408, Until 05/27/20 at 2255, ROSALINO ferrous 2020-0 Yes [id number] 325mg Take 1 Un cuco sulfate 325 8-12 tablet by ity of mg (65 mg 00:00: mouth 2 [place] iron) 00 (two) Medical tablet times Branch daily. ascorbic 2020-0 Yes [id number] 500mg Take 1 [facility] acid, 8-12 tablet by [facility] of vitamin C, 00:00: mouth [place] 500 mg 00 (three) Medical tablet times Branch daily. ferrous 2020-0 Yes [id number] 325mg Take 1 Un cuco sulfate 325 8-12 tablet by ity of mg (65 mg 00:00: mouth 2 [place] iron) 00 (two) Medical tablet times Branch daily. ascorbic 2020-0 Yes [id number] 500mg Take 1 [facility] acid, 8-12 tablet by it[facility] of vitamin C, 00:00: mouth [place] 500 mg 00 (three) Medical tablet times Branch daily. ferrous 2020-0 Yes [id number] 325mg Take 1 Un cuco sulfate 325 8-12 tablet by ity of mg (65 mg 00:00: mouth 2 [place] iron) 00 (two) Medical tablet times Branch daily. ascorbic 2020-0 Yes [id number] 500mg Take 1 [facility] acid, 8-12 tablet by it[facility] of vitamin C, 00:00: mouth [place] 500 mg 00 (three) Medical tablet times Branch daily. ferrous 2020-0 Yes [id number] 325mg Take 1 Un cuco sulfate 325 8-12 tablet by ity of mg (65 mg 00:00: mouth 2 [place] iron) 00 (two) Medical tablet times Branch daily. ascorbic 2020-0 Yes [id number] 500mg Take 1 [facility] nivers acid, 8-12 tablet by ity of vitamin C, 00:00: mouth 3 [place] 500 mg 00 (three) Medical tablet times Branch daily. ferrous 2020-0 Yes [id number] 325mg Take 1 Un cuco sulfate 325 8-12 tablet by ity of mg (65 mg 00:00: mouth 2 [place] iron) 00 (two) Medical tablet times Branch daily. ascorbic 2020-0 Yes [id number] 500mg Take 1 [facility] acid, 8-12 tablet by ity of vitamin C, 00:00: mouth 3 [place] 500 mg 00 (three) Medical tablet times Branch daily. ferrous 2020-0 Yes [id number] 325mg Take 1 Un cuco sulfate 325 8-12 tablet by ity of mg (65 mg 00:00: mouth 2 [place] iron) 00 (two) Medical tablet times Branch daily. ascorbic 2020-0 Yes [id number] 500mg Take 1 [facility] n[facility] acid, 8-12 tablet by ity of vitamin C, 00:00: mouth 3 [place] 500 mg 00 (three) Medical tablet times Branch daily. ferrous 2020-0 Yes [id number] 325mg Take 1 Un cuco sulfate 325 8-12 tablet by ity of mg (65 mg 00:00: mouth 2 [place] iron) 00 (two) Medical tablet times Branch daily. ascorbic 2020-0 Yes [id number] 500mg Take 1 [facility] n[facility] acid, 8-12 tablet by ity of vitamin C, 00:00: mouth 3 [place] 500 mg 00 (three) Medical tablet times Branch daily. ferrous 2020-0 Yes [id number] 325mg Take 1 Un cuco sulfate 325 8-12 tablet by ity of mg (65 mg 00:00: mouth 2 [place] iron) 00 (two) Medical tablet times Branch daily. ascorbic 2020-0 Yes [id number] 500mg Take 1 [facility] acid, 8-12 tablet by ity of vitamin C, 00:00: mouth 3 [place] 500 mg 00 (three) Medical tablet times Branch daily. ferrous 2020-0 Yes [id number] 325mg Take 1 Un cuco sulfate 325 8-12 tablet by ity of mg (65 mg 00:00: mouth 2 [place] iron) 00 (two) Medical tablet times Branch daily. ascorbic 2020-0 Yes [id number] 500mg Take 1 [facility] nivers acid, 8-12 tablet by ity of vitamin C, 00:00: mouth 3 [place] 500 mg 00 (three) Medical tablet times Branch daily. ferrous 2020-0 Yes [id number] 325mg Take 1 Un cuco sulfate 325 8-12 tablet by ity of mg (65 mg 00:00: mouth 2 [place] iron) 00 (two) Medical tablet times Branch daily. ascorbic 2020-0 Yes [id number] 500mg Take 1 U nivers acid, 8-12 tablet by ity of vitamin C, 00:00: mouth 3 [place] 500 mg 00 (three) Medical tablet times Branch daily. ferrous 2020-0 Yes [id number] 325mg Take 1 Un cuco sulfate 325 8-12 tablet by ity of mg (65 mg 00:00: mouth 2 [place] iron) 00 (two) Medical tablet times Branch daily. ascorbic 2020-0 Yes [id number] 500mg Take 1 U nivers acid, 8-12 tablet by ity of vitamin C, 00:00: mouth 3 [place] 500 mg 00 (three) Medical tablet times Branch daily. ferrous 2020-0 Yes [id number] 325mg Take 1 Un cuco sulfate 325 8-12 tablet by ity of mg (65 mg 00:00: mouth 2 [place] iron) 00 (two) Medical tablet times Branch daily. ascorbic 2020-0 Yes [id number] 500mg Take 1 U nivers acid, 8-12 tablet by ity of vitamin C, 00:00: mouth 3 [place] 500 mg 00 (three) Medical tablet times Branch daily. ferrous 2020-0 Yes [id number] 325mg Take 1 Un cuco sulfate 325 8-12 tablet by ity of mg (65 mg 00:00: mouth 2 [place] iron) 00 (two) Medical tablet times Branch daily. ascorbic 2020-0 Yes [id number] 500mg Take 1 [facility] n[facility] acid, 8-12 tablet by ity of vitamin C, 00:00: mouth 3 [place] 500 mg 00 (three) Medical tablet times Branch daily. ferrous 2020-0 Yes [id number] 325mg Take 1 Un cuco sulfate 325 8-12 tablet by ity of mg (65 mg 00:00: mouth 2 [place] iron) 00 (two) Medical tablet times Branch daily. ascorbic 2020-0 Yes [id number] 500mg Take 1 U n[facility] acid, 8-12 tablet by ity of vitamin C, 00:00: mouth 3 [place] 500 mg 00 (three) Medical tablet times Branch daily. ferrous 2020-0 Yes [id number] 325mg Take 1 Un cuco sulfate 325 8-12 tablet by ity of mg (65 mg 00:00: mouth 2 [place] iron) 00 (two) Medical tablet times Branch daily. ascorbic 2020-0 Yes [id number] 500mg Take 1 [facility] n[facility] acid, 8-12 tablet by ity of vitamin C, 00:00: mouth 3 [place] 500 mg 00 (three) Medical tablet times Branch daily. ferrous 2020-0 Yes [id number] 325mg Take 1 Un cuco sulfate 325 8-12 tablet by ity of mg (65 mg 00:00: mouth 2 [place] iron) 00 (two) Medical tablet times Branch daily. ascorbic 2020-0 Yes [id number] 500mg Take 1 U nivers acid, 8-12 tablet by ity of vitamin C, 00:00: mouth 3 [place] 500 mg 00 (three) Medical tablet times Branch daily. ferrous 2020-0 2020- No [id number] 325mg Take 1 U nivers sulfate 325 8-12 10-26 tablet by it y of mg (65 mg 00:00: 00:00 mouth [place] iron) 00 :00 (two) Medical tablet times Branch daily. ascorbic 2020-0 2020- No [id number] 500mg Take 1 [facility] acid, 8-12 10-26 tablet by ity of vitamin C, 00:00: 00:00 mouth 3 [place] 500 mg 00 :00 (three) Medical tablet times Branch daily. PNV 67-iron 2020-0 Yes [id number] 1{each} Take 1 [facility] ps-folate 6-01 Each by ity of no.1-dha 00:00: mouth [place] (VITAFOL 00 daily. Medical ULTRA) 29 Branch mg iron- 1 mg-200 mg Cap PNV 67-iron 2020-0 Yes [id number] 1{each} Take 1 [facility] ps-folate 6-01 Each by ity of no.1-dha 00:00: mouth [place] (VITAFOL 00 daily. Medical ULTRA) 29 Branch mg iron- 1 mg-200 mg Cap PNV 67-iron 2020-0 Yes [id number] 1{each} Take 1 [facility] ps-folate 6-01 Each by ity of no.1-dha 00:00: mouth [place] (VITAFOL 00 daily. Medical ULTRA) 29 Branch mg iron- 1 mg-200 mg Cap PNV 67-iron 2020-0 Yes [id number] 1{each} Take 1 [facility] ps-folate 6-01 Each by ity of no.1-dha 00:00: mouth [place] (VITAFOL 00 daily. Medical ULTRA) 29 Branch mg iron- 1 mg-200 mg Cap PNV 67-iron 2020-0 Yes [id number] 1{each} Take 1 [facility] ps-folate 6-01 Each by ity of no.1-dha 00:00: mouth [place] (VITAFOL 00 daily. Medical ULTRA) 29 Branch mg iron- 1 mg-200 mg Cap PNV 67-iron 2020-0 Yes [id number] 1{each} Take 1 [facility] ps-folate 6-01 Each by ity of no.1-dha 00:00: mouth [place] (VITAFOL 00 daily. Medical ULTRA) 29 Branch mg iron- 1 mg-200 mg Cap PNV 67-iron 2020-0 Yes [id number] 1{each} Take 1 [facility] ps-folate 6-01 Each by ity of no.1-dha 00:00: mouth [place] (VITAFOL 00 daily. Medical ULTRA) 29 Branch mg iron- 1 mg-200 mg Cap PNV 67-iron 2020-0 Yes [id number] 1{each} Take 1 [facility] ps-folate 6-01 Each by ity of no.1-dha 00:00: mouth [place] (VITAFOL 00 daily. Medical ULTRA) 29 Branch mg iron- 1 mg-200 mg Cap PNV 67-iron 2020-0 Yes [id number] 1{each} Take 1 [facility] ps-folate 6-01 Each by ity of no.1-dha 00:00: mouth [place] (VITAFOL 00 daily. Medical ULTRA) 29 Branch mg iron- 1 mg-200 mg Cap PNV 67-iron 2020-0 Yes [id number] 1{each} Take 1 [facility] ps-folate 6-01 Each by ity of no.1-dha 00:00: mouth [place] (VITAFOL 00 daily. Medical ULTRA) 29 Branch mg iron- 1 mg-200 mg Cap PNV 67-iron 2020-0 Yes [id number] 1{each} Take 1 [facility] ps-folate 6-01 Each by ity of no.1-dha 00:00: mouth [place] (VITAFOL 00 daily. Medical ULTRA) 29 Branch mg iron- 1 mg-200 mg Cap PNV 67-iron 2020-0 Yes [id number] 1{each} Take 1 [facility] ps-folate 6-01 Each by ity of no.1-dha 00:00: mouth [place] (VITAFOL 00 daily. Medical ULTRA) 29 Branch mg iron- 1 mg-200 mg Cap PNV 67-iron 2020-0 Yes [id number] 1{each} Take 1 [facility] ps-folate 6-01 Each by ity of no.1-dha 00:00: mouth [place] (VITAFOL 00 daily. Medical ULTRA) 29 Branch mg iron- 1 mg-200 mg Cap PNV 67-iron 2020-0 Yes [id number] 1{each} Take 1 [facility] ps-folate 6-01 Each by ity of no.1-dha 00:00: mouth [place] (VITAFOL 00 daily. Medical ULTRA) 29 Branch mg iron- 1 mg-200 mg Cap PNV 67-iron 2020-0 Yes [id number] 1{each} Take 1 [facility] ps-folate 6-01 Each by ity of no.1-dha 00:00: mouth [place] (VITAFOL 00 daily. Medical ULTRA) 29 Branch mg iron- 1 mg-200 mg Cap PNV 67-iron 2020-0 Yes [id number] 1{each} Take 1 [facility] ps-folate 6-01 Each by ity of no.1-dha 00:00: mouth [place] (VITAFOL 00 daily. Medical ULTRA) 29 Branch mg iron- 1 mg-200 mg Cap PNV 67-iron 2020-0 Yes [id number] 1{each} Take 1 [facility] ps-folate 6-01 Each by ity of no.1-dha 00:00: mouth [place] (VITAFOL 00 daily. Medical ULTRA) 29 Branch mg iron- 1 mg-200 mg Cap PNV 67-iron 2020-0 Yes [id number] 1{each} Take 1 [facility] ps-folate 6-01 Each by ity of no.1-dha 00:00: mouth [place] (VITAFOL 00 daily. Medical ULTRA) 29 Branch mg iron- 1 mg-200 mg Cap PNV 67-iron 2020-0 Yes [id number] 1{each} Take 1 [facility] ps-folate 6-01 Each by ity of no.1-dha 00:00: mouth [place] (VITAFOL 00 daily. Medical ULTRA) 29 Branch mg iron- 1 mg-200 mg Cap PNV 67-iron 2020-0 Yes [id number] 1{each} Take 1 [facility] ps-folate 6-01 Each by ity of no.1-dha 00:00: mouth [place] (VITAFOL 00 daily. Medical ULTRA) 29 Branch mg iron- 1 mg-200 mg Cap PNV 67-iron 2020-0 Yes [id number] 1{each} Take 1 [facility] ps-folate 6-01 Each by ity of no.1-dha 00:00: mouth [place] (VITAFOL 00 daily. Medical ULTRA) 29 Branch mg iron- 1 mg-200 mg Cap PNV 67-iron 2020-0 Yes [id number] 1{each} Take 1 [facility] ps-folate 6-01 Each by ity of no.1-dha 00:00: mouth [place] (VITAFOL 00 daily. Medical ULTRA) 29 Branch mg iron- 1 mg-200 mg Cap PNV 67-iron 2020-0 Yes [id number] 1{each} Take 1 [facility] ps-folate 6-01 Each by ity of no.1-dha 00:00: mouth [place] (VITAFOL 00 daily. Medical ULTRA) 29 Branch mg iron- 1 mg-200 mg Cap PNV 67-iron 2020-0 Yes [id number] 1{each} Take 1 [facility] ps-folate 6-01 Each by ity of no.1-dha 00:00: mouth [place] (VITAFOL 00 daily. Medical ULTRA) 29 Branch mg iron- 1 mg-200 mg Cap PNV 67-iron 2020-0 Yes [id number] 1{each} Take 1 [facility] ps-folate 6-01 Each by ity of no.1-dha 00:00: mouth [place] (VITAFOL 00 daily. Medical ULTRA) 29 Branch mg iron- 1 mg-200 mg Cap PNV 67-iron 2020-0 Yes [id number] 1{each} Take 1 [facility] ps-folate 6-01 Each by ity of no.1-dha 00:00: mouth [place] (VITAFOL 00 daily. Medical ULTRA) 29 Branch mg iron- 1 mg-200 mg Cap PNV 67-iron 2020-0 Yes [id number] 1{each} Take 1 [facility] ps-folate 6-01 Each by ity of no.1-dha 00:00: mouth [place] (VITAFOL 00 daily. Medical ULTRA) 29 Branch mg iron- 1 mg-200 mg Cap PNV 67-iron 2020-0 Yes [id number] 1{each} Take 1 [facility] ps-folate 6-01 Each by ity of no.1-dha 00:00: mouth [place] (VITAFOL 00 daily. Medical ULTRA) 29 Branch mg iron- 1 mg-200 mg Cap PNV 67-iron 2020-0 Yes [id number] 1{each} Take 1 [facility] ps-folate 6- Each by ity of no.1-dha 00:00: mouth [place] (VITAFOL 00 daily. Medical ULTRA) 29 Branch mg iron- 1 mg-200 mg Cap PNV 67-iron 2020-0 Yes [id number] 1{each} Take 1 [facility] ps-folate 6- Each by ity of no.1-dha 00:00: mouth [place] (VITAFOL 00 daily. Medical ULTRA) 29 Branch mg iron- 1 mg-200 mg Cap PNV 67-iron 2020-0 2020- No [id number] 1{each} Take 1 [facility] ps-folate 6- 10- Each by ity of no.1-dha 00:00: 00:00 mouth [place] (VITAFOL 00 :00 daily. Medical ULTRA) 29 Branch mg iron- 1 mg-200 mg Cap Miscellaneo 2020-0 Yes [id number] Use as [facility] 5-18 directed ity o f Supply 00:00: [place] (BLOOD 00 Medical PRESSURE Branch CUFF) Misc Miscellaneo 2020-0 Yes [id number] Use as [facility] 5-18 directed ity o f Supply 00:00: [place] (BLOOD 00 Medical PRESSURE Branch CUFF) Misc Miscellaneo 2020-0 Yes [id number] Use as [facility] 5-18 directed ity o f Supply 00:00: [place] (BLOOD 00 Medical PRESSURE Branch CUFF) Misc Miscellaneo 2020-0 Yes [id number] Use as [facility] 5-18 directed ity o f Supply 00:00: [place] (BLOOD 00 Medical PRESSURE Branch CUFF) Misc Miscellaneo 2020-0 Yes [id number] Use as [facility] 5-18 directed ity o f Supply 00:00: [place] (BLOOD 00 Medical PRESSURE Branch CUFF) Misc Miscellaneo 2020-0 Yes [id number] Use as [facility] 5-18 directed ity o f Supply 00:00: [place] (BLOOD 00 Medical PRESSURE Branch CUFF) Misc Miscellaneo 2020-0 Yes [id number] Use as [facility] 5-18 directed ity o f Supply 00:00: [place] (BLOOD 00 Medical PRESSURE Branch CUFF) Misc Miscellaneo 2020-0 Yes [id number] Use as [facility] Medical 5-18 directed ity o f Supply 00:00: [place] (BLOOD 00 Medical PRESSURE Branch CUFF) Misc Miscellaneo 2020-0 Yes [id number] Use as [facility] 5-18 directed ity o f Supply 00:00: [place] (BLOOD 00 Medical PRESSURE Branch CUFF) Misc Miscellaneo 2020-0 Yes [id number] Use as [facility] 5- directed ity o f Supply 00:00: [place] (BLOOD 00 Medical PRESSURE Branch CUFF) Misc Miscellaneo 2020-0 Yes [id number] Use as [facility] 5- directed ity o f Supply 00:00: [place] (BLOOD 00 Medical PRESSURE Branch CUFF) Misc Miscellaneo 2020-0 Yes [id number] Use as [facility] 5- directed ity o f Supply 00:00: [place] (BLOOD 00 Medical PRESSURE Branch CUFF) Misc Miscellaneo 2020-0 Yes [id number] Use as [facility] 5- directed ity o f Supply 00:00: [place] (BLOOD 00 Medical PRESSURE Branch CUFF) Misc Miscellaneo 2020-0 Yes [id number] Use as [facility] 5- directed ity o f Supply 00:00: [place] (BLOOD 00 Medical PRESSURE Branch CUFF) Misc Miscellaneo 2020-0 Yes [id number] Use as [facility] 5- directed ity o f Supply 00:00: [place] (BLOOD 00 Medical PRESSURE Branch CUFF) Misc Miscellaneo 2020-0 Yes [id number] Use as [facility] 5- directed ity o f Supply 00:00: [place] (BLOOD 00 Medical PRESSURE Branch CUFF) Misc Miscellaneo 2020-0 Yes [id number] Use as [facility] 5- directed ity o f Supply 00:00: [place] (BLOOD 00 Medical PRESSURE Branch CUFF) Misc Miscellaneo 2020-0 Yes [id number] Use as [facility] 5- directed ity o f Supply 00:00: [place] (BLOOD 00 Medical PRESSURE Branch CUFF) Misc Miscellaneo 2020-0 Yes [id number] Use as [facility] 5- directed ity o f Supply 00:00: [place] (BLOOD 00 Medical PRESSURE Branch CUFF) Misc Miscellaneo 2020-0 Yes [id number] Use as [facility] 5- directed ity o f Supply 00:00: [place] (BLOOD 00 Medical PRESSURE Branch CUFF) Misc Miscellaneo 2020-0 Yes [id number] Use as [facility] Medical 5-18 directed ity o f Supply 00:00: [place] (BLOOD 00 Medical PRESSURE Branch CUFF) Misc Miscellaneo 2020-0 Yes [id number] Use as [facility] Medical 5-18 directed ity o f Supply 00:00: [place] (BLOOD 00 Medical PRESSURE Branch CUFF) Misc Miscellaneo 2020-0 Yes [id number] Use as [facility] Medical 5-18 directed ity o f Supply 00:00: [place] (BLOOD 00 Medical PRESSURE Branch CUFF) Misc Miscellaneo 2020-0 Yes [id number] Use as [facility] Medical 5-18 directed ity o f Supply 00:00: [place] (BLOOD 00 Medical PRESSURE Branch CUFF) Misc Miscellaneo 2020-0 Yes [id number] Use as [facility] Medical 5-18 directed ity o f Supply 00:00: [place] (BLOOD 00 Medical PRESSURE Branch CUFF) Misc Miscellaneo 2020-0 Yes [id number] Use as [facility] Medical 5-18 directed ity o f Supply 00:00: [place] (BLOOD 00 Medical PRESSURE Branch CUFF) Misc Miscellaneo 2020-0 Yes [id number] Use as [facility] Medical 5-18 directed ity o f Supply 00:00: [place] (BLOOD 00 Medical PRESSURE Branch CUFF) Misc Miscellaneo 2020-0 Yes [id number] Use as [facility] Medical 5-18 directed ity o f Supply 00:00: [place] (BLOOD 00 Medical PRESSURE Branch CUFF) Misc Miscellaneo 2020-0 Yes [id number] Use as [facility] Medical 5-18 directed ity o f Supply 00:00: [place] (BLOOD 00 Medical PRESSURE Branch CUFF) Misc Miscellaneo 2020-0 Yes [id number] Use as [facility] Medical 5-18 directed ity o f Supply 00:00: [place] (BLOOD 00 Medical PRESSURE Branch CUFF) Misc Miscellaneo 2020-0 Yes [id number] Use as [facility] Medical 5-18 directed ity o f Supply 00:00: [place] (BLOOD 00 Medical PRESSURE Branch CUFF) Misc Miscellaneo 2020-0 2020- No [id number] Use as [facility] Medical 5-18 - directed ity of Supply 00:00: 00:00 [place] (BLOOD 00 :00 Medical PRESSURE Branch CUFF) Misc Miscellaneo 2020-0 Yes [id number] Use as [facility] Medical 4-20 directed ity o f Supply 00:00: [place] (BLOOD 00 Medical PRESSURE Branch CUFF) Misc Miscellaneo 2020-0 Yes [id number] Use as [facility] Medical 4-20 directed ity o f Supply 00:00: [place] (BLOOD 00 Medical PRESSURE Branch CUFF) Misc Miscellaneo 2020-0 Yes [id number] Use as [facility] 4-20 directed ity o f Supply 00:00: [place] (BLOOD 00 Medical PRESSURE Branch CUFF) Misc Miscellaneo 2020-0 Yes [id number] Use as [facility] 4-20 directed ity o f Supply 00:00: [place] (BLOOD 00 Medical PRESSURE Branch CUFF) Misc Miscellaneo 2020-0 Yes [id number] Use as [facility] 4-20 directed ity o f Supply 00:00: [place] (BLOOD 00 Medical PRESSURE Branch CUFF) Misc Miscellaneo 2020-0 Yes [id number] Use as [facility] 4-20 directed ity o f Supply 00:00: [place] (BLOOD 00 Medical PRESSURE Branch CUFF) Misc Miscellaneo 2020-0 Yes [id number] Use as [facility] 4-20 directed ity o f Supply 00:00: [place] (BLOOD 00 Medical PRESSURE Branch CUFF) Misc Miscellaneo 2020-0 Yes [id number] Use as [facility] 4-20 directed ity o f Supply 00:00: [place] (BLOOD 00 Medical PRESSURE Branch CUFF) Misc Miscellaneo 2020-0 Yes [id number] Use as [facility] 4-20 directed ity o f Supply 00:00: [place] (BLOOD 00 Medical PRESSURE Branch CUFF) Misc Miscellaneo 2020-0 Yes [id number] Use as [facility] 4-20 directed ity o f Supply 00:00: [place] (BLOOD 00 Medical PRESSURE Branch CUFF) Misc Miscellaneo 2020-0 Yes [id number] Use as [facility] 4-20 directed ity o f Supply 00:00: [place] (BLOOD 00 Medical PRESSURE Branch CUFF) Misc Miscellaneo 2020-0 Yes [id number] Use as [facility] 4-20 directed ity o f Supply 00:00: [place] (BLOOD 00 Medical PRESSURE Branch CUFF) Misc Miscellaneo 2020-0 Yes [id number] Use as [facility] 4-20 directed ity o f Supply 00:00: [place] (BLOOD 00 Medical PRESSURE Branch CUFF) Misc Miscellaneo 2020-0 Yes [id number] Use as [facility] Medical 4-20 directed ity o f Supply 00:00: [place] (BLOOD 00 Medical PRESSURE Branch CUFF) Misc Miscellaneo 2020-0 Yes [id number] Use as [facility] Medical 4-20 directed ity o f Supply 00:00: [place] (BLOOD 00 Medical PRESSURE Branch CUFF) Misc Miscellaneo 2020-0 Yes [id number] Use as [facility] Medical 4-20 directed ity o f Supply 00:00: [place] (BLOOD 00 Medical PRESSURE Branch CUFF) Misc Miscellaneo 2020-0 Yes [id number] Use as [facility] Medical 4-20 directed ity o f Supply 00:00: [place] (BLOOD 00 Medical PRESSURE Branch CUFF) Misc Miscellaneo 2020-0 Yes [id number] Use as [facility] 4-20 directed ity o f Supply 00:00: [place] (BLOOD 00 Medical PRESSURE Branch CUFF) Misc Miscellaneo 2020-0 Yes [id number] Use as [facility] 4-20 directed ity o f Supply 00:00: [place] (BLOOD 00 Medical PRESSURE Branch CUFF) Misc Miscellaneo 2020-0 Yes [id number] Use as [facility] 4-20 directed ity o f Supply 00:00: [place] (BLOOD 00 Medical PRESSURE Branch CUFF) Misc Miscellaneo 2020-0 Yes [id number] Use as [facility] 4-20 directed ity o f Supply 00:00: [place] (BLOOD 00 Medical PRESSURE Branch CUFF) Misc Miscellaneo 2020-0 Yes [id number] Use as [facility] Medical 4-20 directed ity o f Supply 00:00: [place] (BLOOD 00 Medical PRESSURE Branch CUFF) Misc Miscellaneo 2020-0 Yes [id number] Use as [facility] Medical 4-20 directed ity o f Supply 00:00: [place] (BLOOD 00 Medical PRESSURE Branch CUFF) Misc Miscellaneo 2020-0 Yes [id number] Use as [facility] Medical 4-20 directed ity o f Supply 00:00: [place] (BLOOD 00 Medical PRESSURE Branch CUFF) Misc Miscellaneo 2020-0 Yes [id number] Use as [facility] Medical 4-20 directed ity o f Supply 00:00: [place] (BLOOD 00 Medical PRESSURE Branch CUFF) Misc Miscellaneo 2020-0 Yes [id number] Use as [facility] Medical 4-20 directed ity o f Supply 00:00: [place] (BLOOD 00 Medical PRESSURE Branch CUFF) Misc Miscellaneo 2020-0 Yes [id number] Use as [facility] 4-20 directed ity o f Supply 00:00: [place] (BLOOD 00 Medical PRESSURE Branch CUFF) Misc Miscellaneo 2020-0 Yes [id number] Use as [facility] 4-20 directed ity o f Supply 00:00: [place] (BLOOD 00 Medical PRESSURE Branch CUFF) Misc Miscellaneo 2020-0 Yes [id number] Use as [facility] 4-20 directed ity o f Supply 00:00: [place] (BLOOD 00 Medical PRESSURE Branch CUFF) Misc Miscellaneo 2020-0 Yes [id number] Use as [facility] 4-20 directed ity o f Supply 00:00: [place] (BLOOD 00 Medical PRESSURE Branch CUFF) Misc Miscellaneo 2020-0 Yes [id number] Use as [facility] 4-20 directed ity o f Supply 00:00: [place] (BLOOD 00 Medical PRESSURE Branch CUFF) Misc Miscellaneo 2020-0 Yes [id number] Use as [facility] 4-20 directed ity o f Supply 00:00: [place] (BLOOD 00 Medical PRESSURE Branch CUFF) Misc Miscellaneo 2020-0 2020- No [id number] Use as [facility] 4-20 05-28 directed ity of Supply 00:00: 00:00 [place] (BLOOD 00 :00 Medical PRESSURE Branch CUFF) Misc 2020-0 Yes Take by [facility] rs vit 3-27 mouth. ity of calc,iron,f 16:06: [facility] 02 Medical ( Branch VITAMIN ORAL) 2020-0 Yes Take by [facility] rs vit 3-27 mouth. ity of calc,iron,f 16:06: [place] [facility] 02 Medical ( Branch VITAMIN ORAL) 2020-0 Yes Take by [facility] rs vit 3-27 mouth. ity of calc,iron,f 16:06: [place] [facility] 02 Medical ( Branch VITAMIN ORAL) 2020-0 Yes Take by [facility] rs vit 3-27 mouth. ity of calc,iron,f 16:06: [facility] 02 Medical ( Branch VITAMIN ORAL) 2020-0 Yes Take by [facility] rs vit 3-27 mouth. ity of calc,iron,f 16:06: [place] [address] [facility] ( Branch VITAMIN ORAL) 2020-0 Yes Take by [facility] rs vit 3-27 mouth. ity of calc,iron,f 16:06: [place] [address] Medical ( Branch VITAMIN ORAL) 2020-0 Yes Take by [facility] rs vit 3-27 mouth. ity of calc,iron,f 16:06: [place] [address] Medical ( Branch VITAMIN ORAL) 2020-0 Yes Take by [facility] rs vit 3-27 mouth. ity of calc,iron,f 16:06: [place] [address] Medical ( Branch VITAMIN ORAL) 2020-0 Yes Take by [facility] rs vit 3-27 mouth. ity of calc,iron,f 16:06: [place] [address] Medical ( Branch VITAMIN ORAL) 2020-0 Yes Take by [facility] rs vit 3-27 mouth. ity of calc,iron,f 16:06: [place] [address] Medical ( Branch VITAMIN ORAL) 2020-0 Yes Take by [facility] rs vit 3-27 mouth. ity of calc,iron,f 16:06: [place] [address] Medical ( Branch VITAMIN ORAL) 2020-0 Yes Take by [facility] rs vit 3-27 mouth. ity of calc,iron,f 16:06: [place] [address] Medical ( Branch VITAMIN ORAL) 2020-0 Yes Take by [facility] rs vit 3-27 mouth. ity of calc,iron,f 16:06: [place] [address] Medical ( Branch VITAMIN ORAL) 2020-0 Yes Take by [facility] rs vit 3-27 mouth. ity of calc,iron,f 16:06: [place] [address] Medical ( Branch VITAMIN ORAL) 2020-0 Yes Take by [facility] rs vit 3-27 mouth. ity of calc,iron,f 16:06: [place] [address] Medical ( Branch VITAMIN ORAL) 2020-0 Yes Take by [facility] rs vit 3-27 mouth. ity of calc,iron,f 16:06: [place] [address] Medical ( Branch VITAMIN ORAL) 2020-0 Yes Take by [facility] rs vit 3-27 mouth. ity of calc,iron,f 16:06: [place] [address] Medical ( Branch VITAMIN ORAL) 2020-0 Yes Take by [facility] rs vit 3-27 mouth. ity of calc,iron,f 16:06: [place] [address] Medical ( Branch VITAMIN ORAL) 2020-0 Yes Take by [facility] rs vit 3-27 mouth. ity of calc,iron,f 16:06: [place] [address] Medical ( Branch VITAMIN ORAL) 2020-0 Yes Take by [facility] rs vit 3-27 mouth. ity of calc,iron,f 16:06: [place] [address] Medical ( Branch VITAMIN ORAL) 2020-0 Yes Take by [facility] rs vit 3-27 mouth. ity of calc,iron,f 16:06: [place] [address] Medical ( Branch VITAMIN ORAL) 2020-0 Yes Take by [facility] rs vit 3-27 mouth. ity of calc,iron,f 16:06: [place] [address] Medical ( Branch VITAMIN ORAL) 2020-0 Yes Take by [facility] rs vit 3-27 mouth. ity of calc,iron,f 16:06: [place] [address] Medical ( Branch VITAMIN ORAL) 2020-0 Yes Take by [facility] rs vit 3-27 mouth. ity of calc,iron,f 16:06: [place] [address] Medical ( Branch VITAMIN ORAL) 2020-0 Yes Take by [facility] rs vit 3-27 mouth. ity of calc,iron,f 16:06: [place] [address] Medical ( Branch VITAMIN ORAL) 2020-0 Yes Take by [facility] rs vit 3-27 mouth. ity of calc,iron,f 16:06: [place] [address] Medical ( Branch VITAMIN ORAL) 2020-0 Yes Take by [facility] rs vit 3-27 mouth. ity of calc,iron,f 16:06: [place] [address] Medical ( Branch VITAMIN ORAL) 2020-0 Yes Take by [facility] rs vit 3-27 mouth. ity of calc,iron,f 16:06: [place] [address] Medical ( Branch VITAMIN ORAL) 2020-0 Yes Take by [facility] rs vit 3-27 mouth. ity of calc,iron,f 16:06: [place] [address] Medical ( Branch VITAMIN ORAL) 2020-0 Yes Take by [facility] rs vit 3-27 mouth. ity of calc,iron,f 16:06: [place] [address] Medical ( Branch VITAMIN ORAL) 2020-0 Yes Take by [facility] rs vit 3-27 mouth. ity of calc,iron,f 16:06: [place] [address] Medical ( Branch VITAMIN ORAL) Yes Take by [facility] rs vit 3-27 mouth. ity of calc,iron,f 16:06: [place] [address] Medical ( Branch VITAMIN ORAL) Yes Take by [facility] rs vit 3-27 mouth. ity of calc,iron,f 16:06: [place] [address] Medical ( Branch VITAMIN ORAL) Yes Take by [facility] rs vit 3-27 mouth. ity of calc,iron,f 16:06: [place] [address] Medical ( Branch VITAMIN ORAL) Yes Take by [facility] rs vit 3-27 mouth. ity of calc,iron,f 16:06: [place] [address] Medical ( Branch VITAMIN ORAL) Yes Take by [facility] rs vit 3-27 mouth. ity of calc,iron,f 16:06: [place] [address] Medical ( Branch VITAMIN ORAL) ferrous 2018- Yes [id number] 325mg Take 1 [facility] sulfate 325 2-23 102 tablet by ity of mg (65 mg 00:00: mouth [place] iron) 00 daily. Medical tablet Branch ibuprofen Yes [id number] 600mg Take 1 [facility] 600 mg 2-23 102 tablet by ity of tablet 00:00: mouth [place] 00 every 6 Medical (six) Branch hours as needed for Pain (scale 1-3) or Pain (scale 4-6) (Pain). Take with food or milk. Yes [id number] 1{tbl} Take 1 [facility] vitamin 2-23 102 tablet by ity of w/FA tablet 00:00: mouth [place] 00 daily. Medical Branch 2019- Yes [id number] 1{tbl} Take 1 [facility] vitamin 2-23 102 tablet by ity of w/FA tablet 00:00: mouth [place] 00 daily. Medical Branch docusate 2019 Yes [id number] 240mg Take 1 [facility] calcium 240 2-23 102 capsule by it y of mg capsule 00:00: mouth once [place] 00 daily as Medical needed for Branch Constipati on. ferrous 2018- Yes [id number] 325mg Take 1 [facility] sulfate 325 2-23 102 tablet by ity of mg (65 mg 00:00: mouth [place] iron) 00 daily. Medical tablet Branch docusate Yes [id number] 240mg Take 1 [facility] calcium 240 2-23 102 capsule by it y of mg capsule 00:00: mouth once [place] 00 daily as Medical needed for Branch Constipati on. ibuprofen Yes [id number] 600mg Take 1 [facility] 600 mg 2-23 102 tablet by ity of tablet 00:00: mouth [place] 00 every 6 Medical (six) Branch hours as needed for Pain (scale 1-3) or Pain (scale 4-6) (Pain). Take with food or milk. ferrous Yes [id number] 325mg Take 1 [facility] sulfate 325 2-23 102 tablet by ity of mg (65 mg 00:00: mouth [place] iron) 00 daily. Medical tablet Branch Yes [id number] 1{tbl} Take 1 [facility] vitamin 2-23 102 tablet by ity of w/FA tablet 00:00: mouth [place] 00 daily. Medical Branch docusate Yes [id number] 240mg Take 1 [facility] calcium 240 2-23 102 capsule by it y of mg capsule 00:00: mouth once [place] 00 daily as Medical needed for Branch Constipati on. ferrous Yes [id number] 325mg Take 1 [facility] sulfate 325 2-23 102 tablet by ity of mg (65 mg 00:00: mouth [place] iron) 00 daily. Medical tablet Branch ibuprofen Yes [id number] 600mg Take 1 [facility] 600 mg 2-23 102 tablet by ity of tablet 00:00: mouth [place] 00 every 6 Medical (six) Branch hours as needed for Pain (scale 1-3) or Pain (scale 4-6) (Pain). Take with food or milk. ibuprofen Yes [id number] 600mg Take 1 [facility] 600 mg 2-23 102 tablet by ity of tablet 00:00: mouth [place] 00 every 6 Medical (six) Branch hours as needed for Pain (scale 1-3) or Pain (scale 4-6) (Pain). Take with food or milk. Yes [id number] 1{tbl} Take 1 [facility] vitamin 2-23 102 tablet by ity of w/FA tablet 00:00: mouth [place] 00 daily. Medical Branch docusate Yes [id number] 240mg Take 1 [facility] calcium 240 2-23 102 capsule by it y of mg capsule 00:00: mouth once [place] 00 daily as Medical needed for Branch Constipati on. ferrous Yes [id number] 325mg Take 1 [facility] sulfate 325 2-23 102 tablet by ity of mg (65 mg 00:00: mouth [place] iron) 00 daily. Medical tablet Branch ibuprofen Yes [id number] 600mg Take 1 [facility] 600 mg 2-23 102 tablet by ity of tablet 00:00: mouth [place] 00 every 6 Medical (six) Branch hours as needed for Pain (scale 1-3) or Pain (scale 4-6) (Pain). Take with food or milk. Yes [id number] 1{tbl} Take 1 [facility] vitamin 2-23 102 tablet by ity of w/FA tablet 00:00: mouth [place] 00 daily. Medical Branch docusate Yes [id number] 240mg Take 1 [facility] calcium 240 2-23 102 capsule by it y of mg capsule 00:00: mouth once [place] 00 daily as Medical needed for Branch Constipati on. ferrous Yes [id number] 325mg Take 1 [facility] sulfate 325 2-23 102 tablet by ity of mg (65 mg 00:00: mouth [place] iron) 00 daily. Medical tablet Branch ibuprofen Yes [id number] 600mg Take 1 [facility] 600 mg 2-23 102 tablet by ity of tablet 00:00: mouth [place] 00 every 6 Medical (six) Branch hours as needed for Pain (scale 1-3) or Pain (scale 4-6) (Pain). Take with food or milk. Yes [id number] 1{tbl} Take 1 [facility] vitamin 2-23 102 tablet by ity of w/FA tablet 00:00: mouth [place] 00 daily. Medical Branch docusate Yes [id number] 240mg Take 1 [facility] calcium 240 2-23 102 capsule by it y of mg capsule 00:00: mouth once [place] 00 daily as Medical needed for Branch Constipati on. ferrous Yes [id number] 325mg Take 1 [facility] sulfate 325 2-23 102 tablet by ity of mg (65 mg 00:00: mouth [place] iron) 00 daily. Medical tablet Branch ibuprofen 2019-0 Yes [id number] 600mg Take 1 [facility] 600 mg 2-23 102 tablet by ity of tablet 00:00: mouth [place] 00 every 6 Medical (six) Branch hours as needed for Pain (scale 1-3) or Pain (scale 4-6) (Pain). Take with food or milk. Yes [id number] 1{tbl} Take 1 [facility] vitamin 2-23 102 tablet by ity of w/FA tablet 00:00: mouth [place] 00 daily. Medical Branch docusate Yes [id number] 240mg Take 1 [facility] calcium 240 2-23 102 capsule by it y of mg capsule 00:00: mouth once [place] 00 daily as Medical needed for Branch Constipati on. ferrous Yes [id number] 325mg Take 1 [facility] sulfate 325 2-23 102 tablet by ity of mg (65 mg 00:00: mouth [place] iron) 00 daily. Medical tablet Branch ibuprofen Yes [id number] 600mg Take 1 [facility] 600 mg 2-23 102 tablet by ity of tablet 00:00: mouth [place] 00 every 6 Medical (six) Branch hours as needed for Pain (scale 1-3) or Pain (scale 4-6) (Pain). Take with food or milk. Yes [id number] 1{tbl} Take 1 [facility] vitamin 2-23 102 tablet by ity of w/FA tablet 00:00: mouth [place] 00 daily. Medical Branch docusate Yes [id number] 240mg Take 1 [facility] calcium 240 2-23 102 capsule by it y of mg capsule 00:00: mouth once [place] 00 daily as Medical needed for Branch Constipati on. ferrous Yes [id number] 325mg Take 1 [facility] sulfate 325 2-23 102 tablet by ity of mg (65 mg 00:00: mouth [place] iron) 00 daily. Medical tablet Branch ibuprofen Yes [id number] 600mg Take 1 [facility] 600 mg 2-23 102 tablet by ity of tablet 00:00: mouth [place] 00 every 6 Medical (six) Branch hours as needed for Pain (scale 1-3) or Pain (scale 4-6) (Pain). Take with food or milk. Yes [id number] 1{tbl} Take 1 [facility] vitamin 2-23 102 tablet by ity of w/FA tablet 00:00: mouth [place] 00 daily. Medical Branch docusate Yes [id number] 240mg Take 1 [facility] calcium 240 2-23 102 capsule by it y of mg capsule 00:00: mouth once [place] 00 daily as Medical needed for Branch Constipati on. ferrous Yes [id number] 325mg Take 1 [facility] sulfate 325 2-23 102 tablet by ity of mg (65 mg 00:00: mouth [place] iron) 00 daily. Medical tablet Branch ibuprofen Yes [id number] 600mg Take 1 [facility] 600 mg 2-23 102 tablet by ity of tablet 00:00: mouth [place] 00 every 6 Medical (six) Branch hours as needed for Pain (scale 1-3) or Pain (scale 4-6) (Pain). Take with food or milk. Yes [id number] 1{tbl} Take 1 [facility] vitamin 2-23 102 tablet by ity of w/FA tablet 00:00: mouth [place] 00 daily. Medical Branch docusate Yes [id number] 240mg Take 1 [facility] calcium 240 2-23 102 capsule by it y of mg capsule 00:00: mouth once [place] 00 daily as Medical needed for Branch Constipati on. ferrous Yes [id number] 325mg Take 1 [facility] sulfate 325 2-23 102 tablet by ity of mg (65 mg 00:00: mouth [place] iron) 00 daily. Medical tablet Branch ibuprofen Yes [id number] 600mg Take 1 [facility] 600 mg 2-23 102 tablet by ity of tablet 00:00: mouth [place] 00 every 6 Medical (six) Branch hours as needed for Pain (scale 1-3) or Pain (scale 4-6) (Pain). Take with food or milk. Yes [id number] 1{tbl} Take 1 [facility] vitamin 2-23 102 tablet by ity of w/FA tablet 00:00: mouth [place] 00 daily. Medical Branch docusate Yes [id number] 240mg Take 1 [facility] calcium 240 2-23 102 capsule by it y of mg capsule 00:00: mouth once [place] 00 daily as Medical needed for Branch Constipati on. ferrous Yes [id number] 325mg Take 1 [facility] sulfate 325 2-23 102 tablet by ity of mg (65 mg 00:00: mouth [place] iron) 00 daily. Medical tablet Branch Yes [id number] 1{tbl} Take 1 [facility] vitamin 2-23 102 tablet by ity of w/FA tablet 00:00: mouth [place] 00 daily. Medical Branch ibuprofen Yes [id number] 600mg Take 1 [facility] 600 mg 2-23 102 tablet by ity of tablet 00:00: mouth [place] 00 every 6 Medical (six) Branch hours as needed for Pain (scale 1-3) or Pain (scale 4-6) (Pain). Take with food or milk. docusate Yes [id number] 240mg Take 1 [facility] calcium 240 2-23 102 capsule by it y of mg capsule 00:00: mouth once [place] 00 daily as Medical needed for Branch Constipati on. ferrous Yes [id number] 325mg Take 1 [facility] sulfate 325 2-23 102 tablet by ity of mg (65 mg 00:00: mouth [place] iron) 00 daily. Medical tablet Branch Yes [id number] 1{tbl} Take 1 [facility] vitamin 2-23 102 tablet by ity of w/FA tablet 00:00: mouth [place] 00 daily. Medical Branch docusate Yes [id number] 240mg Take 1 [facility] calcium 240 2-23 102 capsule by it y of mg capsule 00:00: mouth once [place] 00 daily as Medical needed for Branch Constipati on. ferrous Yes [id number] 325mg Take 1 [facility] sulfate 325 2-23 102 tablet by ity of mg (65 mg 00:00: mouth [place] iron) 00 daily. Medical tablet Branch ibuprofen Yes [id number] 600mg Take 1 [facility] 600 mg 2-23 102 tablet by ity of tablet 00:00: mouth [place] 00 every 6 Medical (six) Branch hours as needed for Pain (scale 1-3) or Pain (scale 4-6) (Pain). Take with food or milk. ibuprofen Yes [id number] 600mg Take 1 [facility] 600 mg 2-23 102 tablet by ity of tablet 00:00: mouth [place] 00 every 6 Medical (six) Branch hours as needed for Pain (scale 1-3) or Pain (scale 4-6) (Pain). Take with food or milk. Yes [id number] 1{tbl} Take 1 [facility] vitamin 2-23 102 tablet by ity of w/FA tablet 00:00: mouth [place] 00 daily. Medical Branch docusate Yes [id number] 240mg Take 1 [facility] calcium 240 2-23 102 capsule by it y of mg capsule 00:00: mouth once [place] 00 daily as Medical needed for Branch Constipati on. ferrous Yes [id number] 325mg Take 1 [facility] sulfate 325 2-23 102 tablet by ity of mg (65 mg 00:00: mouth [place] iron) 00 daily. Medical tablet Branch ibuprofen Yes [id number] 600mg Take 1 [facility] 600 mg 2-23 102 tablet by ity of tablet 00:00: mouth [place] 00 every 6 Medical (six) Branch hours as needed for Pain (scale 1-3) or Pain (scale 4-6) (Pain). Take with food or milk. Yes [id number] 1{tbl} Take 1 [facility] vitamin 2-23 102 tablet by ity of w/FA tablet 00:00: mouth [place] 00 daily. Medical Branch docusate Yes [id number] 240mg Take 1 [facility] calcium 240 2-23 102 capsule by it y of mg capsule 00:00: mouth once [place] 00 daily as Medical needed for Branch Constipati on. ferrous Yes [id number] 325mg Take 1 [facility] sulfate 325 2-23 102 tablet by ity of mg (65 mg 00:00: mouth [place] iron) 00 daily. Medical tablet Branch ibuprofen Yes [id number] 600mg Take 1 [facility] 600 mg 2-23 102 tablet by ity of tablet 00:00: mouth [place] 00 every 6 Medical (six) Branch hours as needed for Pain (scale 1-3) or Pain (scale 4-6) (Pain). Take with food or milk. Yes [id number] 1{tbl} Take 1 [facility] vitamin 2-23 102 tablet by ity of w/FA tablet 00:00: mouth [place] 00 daily. Medical Branch docusate Yes [id number] 240mg Take 1 [facility] calcium 240 2-23 102 capsule by it y of mg capsule 00:00: mouth once [place] 00 daily as Medical needed for Branch Constipati on. ferrous Yes [id number] 325mg Take 1 [facility] sulfate 325 2-23 102 tablet by ity of mg (65 mg 00:00: mouth [place] iron) 00 daily. Medical tablet Branch ibuprofen Yes [id number] 600mg Take 1 [facility] 600 mg 2-23 102 tablet by ity of tablet 00:00: mouth [place] 00 every 6 Medical (six) Branch hours as needed for Pain (scale 1-3) or Pain (scale 4-6) (Pain). Take with food or milk. Yes [id number] 1{tbl} Take 1 [facility] vitamin 2-23 102 tablet by ity of w/FA tablet 00:00: mouth [place] 00 daily. Medical Branch docusate Yes [id number] 240mg Take 1 [facility] calcium 240 2-23 102 capsule by it y of mg capsule 00:00: mouth once [place] 00 daily as Medical needed for Branch Constipati on. ferrous Yes [id number] 325mg Take 1 [facility] sulfate 325 2-23 102 tablet by ity of mg (65 mg 00:00: mouth [place] iron) 00 daily. Medical tablet Branch ibuprofen Yes [id number] 600mg Take 1 [facility] 600 mg 2-23 102 tablet by ity of tablet 00:00: mouth [place] 00 every 6 Medical (six) Branch hours as needed for Pain (scale 1-3) or Pain (scale 4-6) (Pain). Take with food or milk. Yes [id number] 1{tbl} Take 1 [facility] vitamin 2-23 102 tablet by ity of w/FA tablet 00:00: mouth [place] 00 daily. Medical Branch Yes [id number] 1{tbl} Take 1 [facility] vitamin 2-23 102 tablet by ity of w/FA tablet 00:00: mouth [place] 00 daily. Medical Branch docusate Yes [id number] 240mg Take 1 [facility] calcium 240 2-23 102 capsule by it y of mg capsule 00:00: mouth once [place] 00 daily as Medical needed for Branch Constipati on. ferrous Yes [id number] 325mg Take 1 [facility] sulfate 325 2-23 102 tablet by ity of mg (65 mg 00:00: mouth [place] iron) 00 daily. Medical tablet Branch ibuprofen Yes [id number] 600mg Take 1 [facility] 600 mg 2-23 102 tablet by ity of tablet 00:00: mouth [place] 00 every 6 Medical (six) Branch hours as needed for Pain (scale 1-3) or Pain (scale 4-6) (Pain). Take with food or milk. docusate Yes [id number] 240mg Take 1 [facility] calcium 240 2-23 102 capsule by it y of mg capsule 00:00: mouth once [place] 00 daily as Medical needed for Branch Constipati on. ferrous Yes [id number] 325mg Take 1 [facility] sulfate 325 2-23 102 tablet by ity of mg (65 mg 00:00: mouth [place] iron) 00 daily. Medical tablet Branch ibuprofen Yes [id number] 600mg Take 1 [facility] 600 mg 2-23 102 tablet by ity of tablet 00:00: mouth [place] 00 every 6 Medical (six) Branch hours as needed for Pain (scale 1-3) or Pain (scale 4-6) (Pain). Take with food or milk. Yes [id number] 1{tbl} Take 1 [facility] vitamin 2-23 102 tablet by ity of w/FA tablet 00:00: mouth [place] 00 daily. Medical Branch docusate Yes [id number] 240mg Take 1 [facility] calcium 240 2-23 102 capsule by it y of mg capsule 00:00: mouth once [place] 00 daily as Medical needed for Branch Constipati on. ferrous Yes [id number] 325mg Take 1 [facility] sulfate 325 2-23 102 tablet by ity of mg (65 mg 00:00: mouth [place] iron) 00 daily. Medical tablet Branch ibuprofen Yes [id number] 600mg Take 1 [facility] 600 mg 2-23 102 tablet by ity of tablet 00:00: mouth [place] 00 every 6 Medical (six) Branch hours as needed for Pain (scale 1-3) or Pain (scale 4-6) (Pain). Take with food or milk. Yes [id number] 1{tbl} Take 1 [facility] vitamin 2-23 102 tablet by ity of w/FA tablet 00:00: mouth [place] 00 daily. Medical Branch docusate Yes [id number] 240mg Take 1 [facility] calcium 240 2-23 102 capsule by it y of mg capsule 00:00: mouth once [place] 00 daily as Medical needed for Branch Constipati on. ferrous Yes [id number] 325mg Take 1 [facility] sulfate 325 2-23 102 tablet by ity of mg (65 mg 00:00: mouth [place] iron) 00 daily. Medical tablet Branch ibuprofen Yes [id number] 600mg Take 1 [facility] 600 mg 2-23 102 tablet by ity of tablet 00:00: mouth [place] 00 every 6 Medical (six) Branch hours as needed for Pain (scale 1-3) or Pain (scale 4-6) (Pain). Take with food or milk. Yes [id number] 1{tbl} Take 1 [facility] vitamin 2-23 102 tablet by ity of w/FA tablet 00:00: mouth [place] 00 daily. Medical Branch docusate Yes [id number] 240mg Take 1 [facility] calcium 240 2-23 102 capsule by it y of mg capsule 00:00: mouth once [place] 00 daily as Medical needed for Branch Constipati on. ferrous Yes [id number] 325mg Take 1 [facility] sulfate 325 2-23 102 tablet by ity of mg (65 mg 00:00: mouth [place] iron) 00 daily. Medical tablet Branch ibuprofen Yes [id number] 600mg Take 1 [facility] 600 mg 2-23 102 tablet by ity of tablet 00:00: mouth [place] 00 every 6 Medical (six) Branch hours as needed for Pain (scale 1-3) or Pain (scale 4-6) (Pain). Take with food or milk. Yes [id number] 1{tbl} Take 1 [facility] vitamin 2-23 102 tablet by ity of w/FA tablet 00:00: mouth [place] 00 daily. Medical Branch docusate Yes [id number] 240mg Take 1 [facility] calcium 240 2-23 102 capsule by it y of mg capsule 00:00: mouth once [place] 00 daily as Medical needed for Branch Constipati on. ferrous Yes [id number] 325mg Take 1 [facility] sulfate 325 2-23 102 tablet by ity of mg (65 mg 00:00: mouth [place] iron) 00 daily. Medical tablet Branch ibuprofen Yes [id number] 600mg Take 1 [facility] 600 mg 2-23 102 tablet by ity of tablet 00:00: mouth [place] 00 every 6 Medical (six) Branch hours as needed for Pain (scale 1-3) or Pain (scale 4-6) (Pain). Take with food or milk. Yes [id number] 1{tbl} Take 1 [facility] vitamin 2-23 102 tablet by ity of w/FA tablet 00:00: mouth [place] 00 daily. Medical Branch docusate Yes [id number] 240mg Take 1 [facility] calcium 240 2-23 102 capsule by it y of mg capsule 00:00: mouth once [place] 00 daily as Medical needed for Branch Constipati on. ferrous Yes [id number] 325mg Take 1 [facility] sulfate 325 2-23 102 tablet by ity of mg (65 mg 00:00: mouth [place] iron) 00 daily. Medical tablet Branch ibuprofen Yes [id number] 600mg Take 1 [facility] 600 mg 2-23 102 tablet by ity of tablet 00:00: mouth [place] 00 every 6 Medical (six) Branch hours as needed for Pain (scale 1-3) or Pain (scale 4-6) (Pain). Take with food or milk. Yes [id number] 1{tbl} Take 1 [facility] vitamin 2-23 102 tablet by ity of w/FA tablet 00:00: mouth [place] [id number] 240[facility] Take 1 [facility] calcium 240 2-23 102 capsule by it y of mg capsule 00:00: mouth once [place] 00 daily as Medical needed for Branch Constipati on. ferrous Yes [id number] 325mg Take 1 [facility] sulfate 325 2-23 102 tablet by ity of mg (65 mg 00:00: mouth [place] iron) 00 daily. Medical tablet Branch ibuprofen Yes [id number] 600mg Take 1 [facility] 600 mg 2-23 102 tablet by ity of tablet 00:00: mouth [place] 00 every 6 Medical (six) Branch hours as needed for Pain (scale 1-3) or Pain (scale 4-6) (Pain). Take with food or milk. Yes [id number] 1{tbl} Take 1 [facility] vitamin 2-23 102 tablet by [facility]y of w/FA tablet 00:00: mouth [place] [id number] 240[facility] Take 1 [facility] calcium 240 2-23 102 capsule by it y of mg capsule 00:00: mouth once [place] 00 daily as Medical needed for Branch Constipati on. ferrous Yes [id number] 325mg Take 1 [facility] sulfate 325 2-23 102 tablet by ity of mg (65 mg 00:00: mouth [place] iron) 00 daily. Medical tablet Branch ibuprofen Yes [id number] 600mg Take 1 [facility] 600 mg 2-23 102 tablet by ity of tablet 00:00: mouth [place] 00 every 6 Medical (six) Branch hours as needed for Pain (scale 1-3) or Pain (scale 4-6) (Pain). Take with food or milk. Yes [id number] 1{tbl} Take 1 [facility] vitamin 2-23 102 tablet by ity of w/FA tablet 00:00: mouth [place] 00 daily. Medical Branch docusate Yes [id number] 240mg Take 1 [facility] calcium 240 2-23 102 capsule by it y of mg capsule 00:00: mouth once [place] 00 daily as Medical needed for Branch Constipati on. ferrous Yes [id number] 325mg Take 1 [facility] sulfate 325 2-23 102 tablet by ity of mg (65 mg 00:00: mouth [place] iron) 00 daily. Medical tablet Branch ibuprofen Yes [id number] 600mg Take 1 [facility] 600 mg 2-23 102 tablet by ity of tablet 00:00: mouth [place] 00 every 6 Medical (six) Branch hours as needed for Pain (scale 1-3) or Pain (scale 4-6) (Pain). Take with food or milk. Yes [id number] 1{tbl} Take 1 [facility] vitamin 2-23 102 tablet by ity of w/FA tablet 00:00: mouth [place] 00 daily. Medical Branch docusate Yes [id number] 240mg Take 1 [facility] calcium 240 2-23 102 capsule by it y of mg capsule 00:00: mouth once [place] 00 daily as Medical needed for Branch Constipati on. ferrous Yes [id number] 325mg Take 1 [facility] sulfate 325 2-23 102 tablet by ity of mg (65 mg 00:00: mouth [place] iron) 00 daily. Medical tablet Branch ibuprofen Yes [id number] 600mg Take 1 [facility] 600 mg 2-23 102 tablet by ity of tablet 00:00: mouth [place] 00 every 6 Medical (six) Branch hours as needed for Pain (scale 1-3) or Pain (scale 4-6) (Pain). Take with food or milk. Yes [id number] 1{tbl} Take 1 [facility] vitamin 2-23 102 tablet by ity of w/FA tablet 00:00: mouth [place] 00 daily. Medical Branch docusate Yes [id number] 240mg Take 1 [facility] calcium 240 2-23 102 capsule by it y of mg capsule 00:00: mouth once [place] 00 daily as Medical needed for Branch Constipati on. ferrous Yes [id number] 325mg Take 1 [facility] sulfate 325 2-23 102 tablet by ity of mg (65 mg 00:00: mouth [place] iron) 00 daily. Medical tablet Branch ibuprofen Yes [id number] 600mg Take 1 [facility] 600 mg 2-23 102 tablet by ity of tablet 00:00: mouth [place] 00 every 6 Medical (six) Branch hours as needed for Pain (scale 1-3) or Pain (scale 4-6) (Pain). Take with food or milk. Yes [id number] 1{tbl} Take 1 [facility] vitamin 2-23 102 tablet by [facility] of w/FA tablet 00:00: mouth [place] 00 daily. [facility] Branch docusate Yes [id number] 240mg Take 1 [facility] calcium 240 2-23 102 capsule by [facility] y [facility] mg capsule 00:00: mouth [place] 00 daily as Medical needed for Branch Constipati on. ferrous Yes [id number] 325mg Take 1 [facility] sulfate 325 2-23 102 tablet by [facility]y of mg (65 mg 00:00: mouth [place] iron) 00 daily. Medical tablet Branch ibuprofen Yes [id number] 600mg Take 1 [facility] 600 mg 2-23 102 tablet by [facility] of tablet 00:00: mouth [place] 00 every 6 Medical (six) Branch hours as needed for Pain (scale 1-3) or Pain (scale 4-6) (Pain). Take with food or milk. Yes [id number] 1{tbl} Take 1 [facility] vitamin 2-23 102 tablet by [facility] of w/FA tablet 00:00: mouth [place] 00 daily. [facility] docusate Yes [id number] 240mg Take 1 [facility] calcium 240 2-23 102 capsule by it y of mg capsule 00:00: mouth once [place] 00 daily as Medical needed for Branch Constipati on. Yes [id number] 1{tbl} Take 1 [facility] vitamin 2-23 102 tablet by [facility] of w/FA tablet 00:00: mouth [place] 00 daily. [facility] docusate Yes [id number] 240mg Take 1 [facility] calcium 240 2-23 102 capsule by it y of mg capsule 00:00: mouth once [place] 00 daily as Medical needed for Branch Constipati on. ferrous Yes [id number] 325mg Take 1 [facility] sulfate 325 2-23 102 tablet by [facility]y of mg (65 mg 00:00: mouth [place] iron) 00 daily. Medical tablet Branch ibuprofen Yes [id number] 600mg Take 1 [facility] 600 mg 2-23 102 tablet by [facility]y of tablet 00:00: mouth [place] 00 every 6 Medical (six) Branch hours as needed for Pain (scale 1-3) or Pain (scale 4-6) (Pain). Take with food or milk. ferrous Yes [id number] 325mg Take 1 [facility] sulfate 325 2-23 102 tablet by [facility]y of mg (65 mg 00:00: mouth [place] iron) 00 daily. Medical tablet Branch Yes [id number] 1{tbl} Take 1 [facility] vitamin 2-23 102 tablet by [facility] of w/FA tablet 00:00: mouth [place] 00 daily. [facility] docusate Yes [id number] 240mg Take 1 [facility] calcium 240 2-23 102 capsule by [facility] y of mg capsule 00:00: mouth once [place] 00 daily as Medical needed for Branch Constipati on. ferrous Yes [id number] 325mg Take 1 [facility] sulfate 325 2-23 102 tablet by [facility] of mg (65 mg 00:00: mouth [place] iron) 00 daily. Medical tablet Branch ibuprofen Yes [id number] 600mg Take 1 [facility] 600 mg 2-23 102 tablet by [facility]y of tablet 00:00: mouth [place] 00 every 6 Medical (six) Branch hours as needed for Pain (scale 1-3) or Pain (scale 4-6) (Pain). Take with food or milk. ibuprofen Yes [id number] 600mg Take 1 [facility] 600 mg 2-23 102 tablet by [facility] of tablet 00:00: mouth [place] 00 every 6 Medical (six) Branch hours as needed for Pain (scale 1-3) or Pain (scale 4-6) (Pain). Take with food or milk. Yes [id number] 1{tbl} Take 1 [facility] vitamin 2-23 102 tablet by [facility] of w/FA tablet 00:00: mouth [place] 00 daily. Medical [facility] docusate Yes [id number] 240mg Take 1 [facility] calcium 240 2-23 102 capsule by it y of mg capsule 00:00: mouth once [place] 00 daily as Medical needed for Branch Constipati on. ferrous Yes [id number] 325mg Take 1 [facility] sulfate 325 2-23 102 tablet by [facility] of mg (65 mg 00:00: mouth [place] iron) 00 daily. Medical tablet Branch ibuprofen Yes [id number] 600mg Take 1 [facility] 600 mg 2-23 102 tablet by [facility]y of tablet 00:00: mouth [place] 00 every 6 Medical (six) Branch hours as needed for Pain (scale 1-3) or Pain (scale 4-6) (Pain). Take with food or milk. Yes [id number] 1{tbl} Take 1 [facility] vitamin 2-23 102 tablet by [facility]y of w/FA tablet 00:00: mouth [place] 00 daily. [facility] docusate Yes [id number] 240mg Take 1 [facility] calcium 240 2-23 102 capsule by it y of mg capsule 00:00: mouth once [place] 00 daily as Medical needed for Branch Constipati on. ferrous Yes [id number] 325mg Take 1 [facility] sulfate 325 2-23 102 tablet by [facility]y of mg (65 mg 00:00: mouth [place] iron) 00 daily. Medical tablet Branch ibuprofen Yes [id number] 600mg Take 1 [facility] 600 mg 2-23 102 tablet by [facility]y of tablet 00:00: mouth [place] 00 every 6 Medical (six) Branch hours as needed for Pain (scale 1-3) or Pain (scale 4-6) (Pain). Take with food or milk. Yes [id number] 1{tbl} Take 1 [facility] vitamin 2-23 102 tablet by [facility]y of w/FA tablet 00:00: mouth [place] 00 daily. [facility] docusate 2019-0 Yes [id number] 240mg Take 1 [facility] calcium 240 2-23 102 capsule by it y of mg capsule 00:00: mouth once [place] 00 daily as Medical needed for Branch Constipati on. ferrous Yes [id number] 325mg Take 1 [facility] sulfate 325 2-23 102 tablet by [facility] of mg (65 mg 00:00: mouth [place] iron) 00 daily. Medical tablet Branch ibuprofen Yes [id number] 600mg Take 1 [facility] 600 mg 2-23 102 tablet by [facility]y of tablet 00:00: mouth [place] 00 every 6 Medical (six) Branch hours as needed for Pain (scale 1-3) or Pain (scale 4-6) (Pain). Take with food or milk. Yes [id number] 1{tbl} Take 1 [facility] vitamin 2-23 102 tablet by [facility]y of w/FA tablet 00:00: mouth [place] 00 daily. [facility] docusate Yes [id number] 240mg Take 1 [facility] calcium 240 2-23 102 capsule by it y of mg capsule 00:00: mouth once [place] 00 daily as Medical needed for Branch Constipati on. ferrous Yes [id number] 325mg Take 1 [facility] sulfate 325 2-23 102 tablet by [facility]y of mg (65 mg 00:00: mouth [place] iron) 00 daily. Medical tablet Branch ibuprofen Yes [id number] 600mg Take 1 [facility] 600 mg 2-23 102 tablet by ity of tablet 00:00: mouth [place] 00 every 6 Medical (six) Branch hours as needed for Pain (scale 1-3) or Pain (scale 4-6) (Pain). Take with food or milk. Yes [id number] 1{tbl} Take 1 [facility] vitamin 2-23 102 tablet by [facility]y of w/FA tablet 00:00: mouth [place] 00 daily. [facility] docusate Yes [id number] 240mg Take 1 [facility] calcium 240 2-23 102 capsule by it y of mg capsule 00:00: mouth once [place] 00 daily as Medical needed for Branch Constipati on. ferrous Yes [id number] 325mg Take 1 [facility] sulfate 325 2-23 102 tablet by [facility]y of mg (65 mg 00:00: mouth [place] iron) 00 daily. Medical tablet Branch ibuprofen Yes [id number] 600mg Take 1 [facility] 600 mg 2-23 102 tablet by ity of tablet 00:00: mouth [place] 00 every 6 Medical (six) Branch hours as needed for Pain (scale 1-3) or Pain (scale 4-6) (Pain). Take with food or milk. Yes [id number] 1{tbl} Take 1 [facility] vitamin 2-23 102 tablet by [facility]y of w/FA tablet 00:00: mouth [place] 00 daily. [facility] docusate Yes [id number] 240mg Take 1 [facility] calcium 240 2-23 102 capsule by it y of mg capsule 00:00: mouth once [place] 00 daily as Medical needed for Branch Constipati on. ferrous Yes [id number] 325mg Take 1 [facility] sulfate 325 2-23 102 tablet by ity of mg (65 mg 00:00: mouth [place] iron) 00 daily. Medical tablet Branch ibuprofen Yes [id number] 600mg Take 1 [facility] 600 mg 2-23 102 tablet by ity of tablet 00:00: mouth [place] 00 every 6 Medical (six) Branch hours as needed for Pain (scale 1-3) or Pain (scale 4-6) (Pain). Take with food or milk. Yes [id number] 1{tbl} Take 1 [facility] vitamin 2-23 102 tablet by ity of w/FA tablet 00:00: mouth [place] 00 daily. Medical Branch docusate Yes [id number] 240mg Take 1 [facility] calcium 240 2-23 102 capsule by it y of mg capsule 00:00: mouth once [place] 00 daily as Medical needed for Branch Constipati on. 2020- No [id number] 1{tbl} Take 1 [facility] vitamin 2-23 10-26 102 tablet by [facility] w/FA tablet 00:00: 00:[place] :00 daily. [facility] docusate 2020- No [id number] 240mg Take 1 [facility] calcium 240 2-23 10-26 102 capsule by i ty of mg capsule 00:00: 00:00 mouth once [place] 00 :00 daily as Medical needed for Branch Constipati on. ferrous 2020- No [id number] 325mg Take 1 [facility] sulfate 325 2-23 10-26 102 tablet by it y of mg (65 mg 00:00: 00:00 mouth [place] iron) 00 :00 daily. Medical tablet Branch ibuprofen 0 2020- No [id number] 600mg Take 1 [facility] 600 mg 2-23 10-26 102 tablet by ity of tablet 00:00: 00:00 mouth [place] 00 :00 every 6 Medical (six) Branch hours as needed for Pain (scale 1-3) or Pain (scale 4-6) (Pain). Take with food or milk. [id number] 2017- Yes 1{dose} Take 1 Un cuco carb,glu-FA 8-20 Dose by ity o f -dss-dha 00:00: mouth [place] (CIT[employer] 00 daily. Medica l ASSURE) 35 Branch mg iron-1 mg -50 mg-300 mg combo pack [id number] Yes 1{dose} Take 1 Un cuco carb,glu-FA 8-20 Dose by ity o f -dss-dha 00:00: mouth [place] (CIT[employer] daily. Medica l ASSURE) 35 Branch mg iron-1 mg -50 mg-300 mg combo pack [id number] Yes 1{dose} Take 1 Un cuco carb,glu-FA 8-20 Dose by ity o f -dss-dha 00:00: mouth [place] ([employer] 00 daily. Medica l ASSURE) 35 Branch mg iron-1 mg -50 mg-300 mg combo pack [id number] Yes 1{dose} Take 1 Un cuco carb,glu-FA 8-20 Dose by ity o f -dss-dha 00:00: mouth [place] ([employer] daily. Medica l ASSURE) 35 Branch mg iron-1 mg -50 mg-300 mg combo pack [id number] Yes 1{dose} Take 1 Un cuco carb,glu-FA 8-20 Dose by ity o f -dss-dha 00:00: mouth [place] ([employer] 00 daily. Medica l ASSURE) 35 Branch mg iron-1 mg -50 mg-300 mg combo pack [id number] Yes 1{dose} Take 1 Un cuco carb,glu-FA 8-20 Dose by ity o f -dss-dha 00:00: mouth [place] ([employer] 00 daily. Medica l ASSURE) 35 Branch mg iron-1 mg -50 mg-300 mg combo pack [id number] 2018-0 Yes 1{dose} Take 1 Un cuco carb,glu-FA 8-20 Dose by ity o f -dss-dha 00:00: mouth [place] ([employer] 00 daily. Medica l ASSURE) 35 Branch mg iron-1 mg -50 mg-300 mg combo pack [id number] 2017-0 Yes 1{dose} Take 1 Un cuco carb,glu-FA 8-20 Dose by ity o f -dss-dha 00:00: mouth [place] ([employer] 00 daily. Medica l ASSURE) 35 Branch mg iron-1 mg -50 mg-300 mg combo pack [id number] 2017- Yes 1{dose} Take 1 Un cuco carb,glu-FA 8-20 Dose by ity o f -dss-dha 00:00: mouth [place] ([employer] 00 daily. Medica l ASSURE) 35 Branch mg iron-1 mg -50 mg-300 mg combo pack [id number] 2017-0 Yes 1{dose} Take 1 Un cuco carb,glu-FA 8-20 Dose by ity o f -dss-dha 00:00: mouth [place] ([employer] 00 daily. Medica l ASSURE) 35 Branch mg iron-1 mg -50 mg-300 mg combo pack [id number] 2017-0 Yes 1{dose} Take 1 Un cuco carb,glu-FA 8-20 Dose by ity o f -dss-dha 00:00: mouth [place] ([employer] 00 daily. Medica l ASSURE) 35 Branch mg iron-1 mg -50 mg-300 mg combo pack [id number] 2017-0 Yes 1{dose} Take 1 Un cuco carb,glu-FA 8-20 Dose by ity o f -dss-dha 00:00: mouth [place] ([employer] 00 daily. Medica l ASSURE) 35 Branch mg iron-1 mg -50 mg-300 mg combo pack [id number] 2017- Yes 1{dose} Take 1 Un cuco carb,glu-FA 8-20 Dose by ity o f -dss-dha 00:00: mouth [place] ([employer] 00 daily. Medica l ASSURE) 35 Branch mg iron-1 mg -50 mg-300 mg combo pack [id number] 2018-0 Yes 1{dose} Take 1 Un cuco carb,glu-FA 8-20 Dose by ity o f -dss-dha 00:00: mouth [place] ([employer] 00 daily. Medica l ASSURE) 35 Branch mg iron-1 mg -50 mg-300 mg combo pack [id number] 2018-0 Yes 1{dose} Take 1 Un cuco carb,glu-FA 8-20 Dose by ity o f -dss-dha 00:00: mouth [place] ([employer] 00 daily. Medica l ASSURE) 35 Branch mg iron-1 mg -50 mg-300 mg combo pack [id number] 2017-0 Yes 1{dose} Take 1 Un cuco carb,glu-FA 8-20 Dose by ity o f -dss-dha 00:00: mouth [place] ([employer] 00 daily. Medica l ASSURE) 35 Branch mg iron-1 mg -50 mg-300 mg combo pack [id number] 2017-0 Yes 1{dose} Take 1 Un cuco carb,glu-FA 8-20 Dose by ity o f -dss-dha 00:00: mouth [place] ([employer] 00 daily. Medica l ASSURE) 35 Branch mg iron-1 mg -50 mg-300 mg combo pack [id number] 2017-0 Yes 1{dose} Take 1 Un cuco carb,glu-FA 8-20 Dose by ity o f -dss-dha 00:00: mouth [place] ([employer] 00 daily. Medica l ASSURE) 35 Branch mg iron-1 mg -50 mg-300 mg combo pack [id number] 2017-0 Yes 1{dose} Take 1 Un cuco carb,glu-FA 8-20 Dose by ity o f -dss-dha 00:00: mouth [place] ([employer] 00 daily. Medica l ASSURE) 35 Branch mg iron-1 mg -50 mg-300 mg combo pack [id number] 2017-0 Yes 1{dose} Take 1 Un cuco carb,glu-FA 8-20 Dose by ity o f -dss-dha 00:00: mouth [place] ([employer] 00 daily. Medica l ASSURE) 35 Branch mg iron-1 mg -50 mg-300 mg combo pack [id number] 2018-0 Yes 1{dose} Take 1 Un cuco carb,glu-FA 8-20 Dose by ity o f -dss-dha 00:00: mouth [place] ([employer] 00 daily. Medica l ASSURE) 35 Branch mg iron-1 mg -50 mg-300 mg combo pack [id number] Yes 1{dose} Take 1 Un cuco carb,glu-FA 8-20 Dose by ity o f -dss-dha 00:00: mouth [place] ([employer] 00 daily. Medica l ASSURE) 35 Branch mg iron-1 mg -50 mg-300 mg combo pack [id number] Yes 1{dose} Take 1 Un cuco carb,glu-FA 8-20 Dose by ity o f -dss-dha 00:00: mouth [place] ([employer] 00 daily. Medica l ASSURE) 35 Branch mg iron-1 mg -50 mg-300 mg combo pack [id number] Yes 1{dose} Take 1 Un cuco carb,glu-FA 8-20 Dose by ity o f -dss-dha 00:00: mouth [place] ([employer] 00 daily. Medica l ASSURE) 35 Branch mg iron-1 mg -50 mg-300 mg combo pack [id number] Yes 1{dose} Take 1 Un cuco carb,glu-FA 8-20 Dose by ity o f -dss-dha 00:00: mouth [place] ([employer] 00 daily. Medica l ASSURE) 35 Branch mg iron-1 mg -50 mg-300 mg combo pack [id number] Yes 1{dose} Take 1 Un cuco carb,glu-FA 8-20 Dose by ity o f -dss-dha 00:00: mouth [place] ([employer] 00 daily. Medica l ASSURE) 35 Branch mg iron-1 mg -50 mg-300 mg combo pack [id number] Yes 1{dose} Take 1 Un cuco carb,glu-FA 8-20 Dose by ity o f -dss-dha 00:00: mouth [place] ([employer] 00 daily. Medica l ASSURE) 35 Branch mg iron-1 mg -50 mg-300 mg combo pack [id number] Yes 1{dose} Take 1 Un cuco carb,glu-FA 8-20 Dose by ity o f -dss-dha 00:00: mouth [place] ([employer] 00 daily. Medica l ASSURE) 35 Branch mg iron-1 mg -50 mg-300 mg combo pack [id number] 2018-0 Yes 1{dose} Take 1 Un cuco carb,glu-FA 8-20 Dose by ity o f -dss-dha 00:00: mouth [place] ([employer] 00 daily. Medica l ASSURE) 35 Branch mg iron-1 mg -50 mg-300 mg combo pack [id number] 2017-0 Yes 1{dose} Take 1 Un cuco carb,glu-FA 8-20 Dose by ity o f -dss-dha 00:00: mouth [place] ([employer] 00 daily. Medica l ASSURE) 35 Branch mg iron-1 mg -50 mg-300 mg combo pack [id number] 2017-0 Yes 1{dose} Take 1 Un cuco carb,glu-FA 8-20 Dose by ity o f -dss-dha 00:00: mouth [place] ([employer] 00 daily. Medica l ASSURE) 35 Branch mg iron-1 mg -50 mg-300 mg combo pack [id number] 2017-0 Yes 1{dose} Take 1 Un cuco carb,glu-FA 8-20 Dose by ity o f -dss-dha 00:00: mouth [place] ([employer] 00 daily. Medica l ASSURE) 35 Branch mg iron-1 mg -50 mg-300 mg combo pack [id number] 2017-0 Yes 1{dose} Take 1 Un cuco carb,glu-FA 8-20 Dose by ity o f -dss-dha 00:00: mouth [place] (CIT[employer]AL 00 daily. Medica l ASSURE) 35 Branch mg iron-1 mg -50 mg-300 mg combo pack [id number] 2018-0 Yes 1{dose} Take 1 Un cuco carb,glu-FA 8-20 Dose by ity o f -dss-dha 00:00: mouth [place] (CIT[employer] 00 daily. Medica l ASSURE) 35 Branch mg iron-1 mg -50 mg-300 mg combo pack [id number] 2017-0 Yes 1{dose} Take 1 Un cuco carb,glu-FA 8-20 Dose by ity o f -dss-dha 00:00: mouth [place] ([employer] 00 daily. Medica l ASSURE) 35 Branch mg iron-1 mg -50 mg-300 mg combo pack [id number] 2018-0 Yes 1{dose} Take 1 Un cuco carb,glu-FA 8-20 Dose by ity o f -dss-dha 00:00: mouth [place] ([employer] 00 daily. Medica l ASSURE) 35 Branch mg iron-1 mg -50 mg-300 mg combo pack [id number] 2017-0 Yes 1{dose} Take 1 Un cuco carb,glu-FA 8-20 Dose by ity o f -dss-dha 00:00: mouth [place] (CIT[employer]AL 00 daily. Medica l ASSURE) 35 Branch mg iron-1 mg -50 mg-300 mg combo pack [id number] Yes 1{dose} Take 1 Un cuco carb,glu-FA 8-20 Dose by ity o f -dss-dha 00:00: mouth [place] ([employer] 00 daily. Medica l ASSURE) 35 Branch mg iron-1 mg -50 mg-300 mg combo pack [id number] 2017-0 Yes 1{dose} Take 1 Un cuco carb,glu-FA 8-20 Dose by ity o f -dss-dha 00:00: mouth [place] ([employer] 00 daily. Medica l ASSURE) 35 Branch mg iron-1 mg -50 mg-300 mg combo pack [id number] 2017-0 Yes 1{dose} Take 1 Un cuco carb,glu-FA 8-20 Dose by ity o f -dss-dha 00:00: mouth [place] ([employer] 00 daily. Medica l ASSURE) 35 Branch mg iron-1 mg -50 mg-300 mg combo pack [id number] 2017-0 2020- No 1{dose} Take 1 U nivers carb,glu-FA 8-20 10-26 Dose by ity of -dss-dha 00:00: 00:00 mouth [place] (CIT[employer]ATAL 00 :00 daily. Medica l ASSURE) 35 Branch mg iron-1 mg -50 mg-300 mg combo pack Immunizations Ordered Filled Immunization Date Status Comments [facility] e Immunization Name Name TDAP 2020-03-13 Completed [facility] 00:00:00 [place] [facility] TDAP 2020-03-13 Completed [facility] 00:00:00 [place] [facility] TDAP 2020-03-13 Completed [facility] 00:00:00 [place] [facility] TDAP 2020-03-13 Completed [facility] 00:00:00 [place] [facility] TDAP 2020-03-13 Completed [facility] 00:00:00 [place] [facility] TDAP 2020-03-13 Completed [facility] 00:00:00 [place] [facility] TDAP 2020-03-13 Completed [facility] 00:00:00 [place] [facility] TDAP 2020-03-13 Completed [facility] 00:00:00 [place] [facility] TDAP 2020-03-13 Completed [facility] 00:00:00 [place] [facility] TDAP 2020-03-13 Completed [facility] 00:00:00 [place] [facility] TDAP 2020-03-13 Completed [facility] 00:00:00 [place] [facility] TDAP 2020-03-13 Completed [facility] 00:00:00 [place] [facility] TDAP 2020-03-13 Completed [facility] 00:00:00 [place] [facility] TDAP 2020-03-13 Completed [facility] 00:00:00 [place] [facility] TDAP 2020-03-13 Completed [facility] 00:00:00 [place] [facility] TDAP 2020-03-13 Completed [facility] 00:00:00 [place] [facility] TDAP 2020-03-13 Completed [facility] 00:00:00 [place] [facility] TDAP 2020-03-13 Completed [facility] 00:00:00 [place] [facility] TDAP 2020-03-13 Completed [facility] 00:00:00 [place] [facility] TDAP 2020-03-13 Completed [facility] 00:00:00 [place] [facility] TDAP 2020-03-13 Completed [facility] 00:00:00 [place] [facility] TDAP 2020-03-13 Completed [facility] 00:00:00 [place] [facility] TDAP 2020-03-13 Completed [facility] 00:00:00 [place] [facility] TDAP 2020-03-13 Completed [facility] 00:00:00 [place] [facility] TDAP 2020-03-13 Completed [facility] 00:00:00 [place] [facility] TDAP 2020-03-13 Completed [facility] 00:00:00 [place] [facility] TDAP 2020-03-13 Completed [facility] 00:00:00 [place] [facility] TDAP 2020-03-13 Completed [facility] 00:00:00 [place] [facility] TDAP 2020-03-13 Completed [facility] 00:00:00 [place] [facility] TDAP 2020-03-13 Completed [facility] 00:00:00 [place] [facility] TDAP 2020-03-13 Completed [facility] 00:00:00 [place] [facility] TDAP 2020-03-13 Completed [facility] 00:00:00 [place] [facility] TDAP 2020-03-13 Completed [facility] 00:00:00 [place] [facility] TDAP 2020-03-13 Completed [facility] 00:00:00 [place] [facility] TDAP 2020-03-13 Completed [facility] 00:00:00 [place] [facility] TDAP 2020-03-13 Completed [facility] 00:00:00 [place] [facility] TDAP 2020-03-13 Completed [facility] 00:00:00 [place] [facility] TDAP 2020-03-13 Completed [facility] 00:00:00 [place] [facility] TDAP 2020-03-13 Completed [facility] 00:00:00 [place] [facility] TDAP 2020-03-13 Completed [facility] 00:00:00 [place] [facility] TDAP 2020-03-13 Completed [facility] 00:00:00 [place] [facility] TDAP 2020-03-13 Completed [facility] 00:00:00 [place] [facility] [place] TDAP 2020-03-13 Completed [facility] 00:00:00 [facility] Influenza Virus 2019-10-28 Completed [facility] [place] .5 mL 00:00:00 [place] [facility] 6+ [facility] Influenza Virus 2019-10-28 Completed [facility] of [facility] [place] .5 mL 00:00:00 [place] [facility] IM 6+ [facility] Influenza Virus [...] y of Vaccine [place] .5 mL 00:00:00 [place] [facility] IM 6+ [facility] Influenza Virus [...] y of [facility] [place] .5 mL 00:00:00 [place] [facility] IM 6+ [facility] Influenza Virus [...] y of [facility] [place] .5 mL 00:00:00 [place] [facility] IM 6+ [facility] Influenza Virus [...] y of [facility] [place] .5 mL 00:00:00 [place] [facility] IM 6+ [facility] Influenza Virus 2019-10-28 Completed [facility] of [facility] [place] .5 mL 00:00:00 [place] [facility] IM 6+ [facility] Influenza Virus 2019-10-28 Completed [facility] of [facility] [place] .5 mL 00:00:00 [place] [facility] IM 6+ [facility] Influenza Virus 2019-10-28 Completed [facility] of [facility] [place] .5 mL 00:00:00 [place] [facility] IM 6+ MO Branch Influenza Virus 2019-10-28 Completed [facility] of [facility] [place] .5 mL 00:00:00 [place] [facility] 6+ [facility] Influenza Virus 2019-10-28 Completed [facility] of [facility] [place] .5 mL 00:00:00 [place] [facility] IM 6+ MO Branch Influenza Virus [...] y of [facility]ine [place] .5 mL 00:00:00 [place] [facility] IM 6+ MO [facility] Influenza Virus 2019-10-28 Completed [facility] of [facility] [place] .5 mL 00:00:00 [place] [facility] IM 6+ MO Branch Influenza Virus 2019-10-28 Completed [facility] of [facility] [place] .5 mL 00:00:00 [place] [facility] IM 6+ [facility] TDAP 2018-07-13 Completed [facility] 00:00:00 [place] [facility] TDAP 2018-07-13 Completed [facility] 00:00:00 [place] [facility] TDAP 2018-07-13 Completed [facility] 00:00:00 [place] [facility] TDAP 2018-07-13 Completed [facility] 00:00:00 [place] [facility] TDAP 2018-07-13 Completed [facility] 00:00:00 [place] [facility] TDAP 2018-07-13 Completed [facility] 00:00:00 [place] [facility] TDAP 2018-07-13 Completed [facility] 00:00:00 [place] [facility] Tdap 2018-07-13 Completed [facility] 00:00:00 [place] [facility] TDAP 2018-07-13 Completed [facility] 00:00:00 [place] [facility] TDAP 2018-07-13 Completed [facility] 00:00:00 [place] [facility] TDAP 2018-07-13 Completed [facility] 00:00:00 [place] [facility] TDAP 2018-07-13 Completed [facility] 00:00:00 [facility] TDAP 2018-07-13 Completed [facility] 00:00:00 [place] [facility] TDAP 2018-07-13 Completed [facility] 00:00:00 [place] [facility] TDAP 2018-07-13 Completed [facility] 00:00:00 [place] [facility] Tdap 2018-07-13 Completed [facility] 00:00:00 [place] [facility] TDAP 2018-07-13 Completed [facility] 00:00:00 [place] [facility] Tdap 2018-07-13 Completed [facility] 00:00:00 [facility] Tdap 2018-07-13 Completed [facility] 00:00:00 [facility] Tdap 2018-07-13 Completed [facility] 00:00:00 [place] [facility] Tdap 2018-07-13 Completed [facility] 00:00:00 [place] [facility] TDAP 2018-07-13 Completed [facility] 00:00:00 [place] [facility] TDAP 2018-07-13 Completed [facility] 00:00:00 [place] [facility] TDAP 2018-07-13 Completed [facility] 00:00:00 [place] [facility] TDAP 2018-07-13 Completed [facility] 00:00:00 [facility] TDAP 2018-07-13 Completed [facility] 00:00:00 [facility] TDAP 2018-07-13 Completed [facility] 00:00:00 [place] [facility] Tdap 2018-07-13 Completed [facility] 00:00:00 [place] [facility] TDAP 2018-07-13 Completed [facility] 00:00:00 [place] [facility] TDAP 2018-07-13 Completed [facility] 00:00:00 [place] [facility] TDAP 2018-07-13 Completed [facility] 00:00:00 [place] [facility] TDAP 2018-07-13 Completed [facility] 00:00:00 [place] [facility] TDAP 2018-07-13 Completed [facility] 00:00:00 [place] [facility] TDAP 2018-07-13 Completed [facility] 00:00:00 [place] [facility] TDAP 2018-07-13 Completed [facility] 00:00:00 [place] [facility] TDAP 2018-07-13 Completed [facility] 00:00:00 [place] [facility] TDAP 2018-07-13 Completed [facility] 00:00:00 [place] [facility] Tdap 2018-07-13 Completed [facility] 00:00:00 [place] [facility] TDAP 2018-07-13 Completed [facility] 00:00:00 [place] [facility] TDAP 2018-07-13 Completed [facility] 00:00:00 [place] [facility] TDAP 2018-07-13 Completed [facility] 00:00:00 [place] [facility] TDAP 2018-07-13 Completed [facility] 00:00:00 [place] [facility] TDAP 2018-07-13 Completed [facility] 00:00:00 [place] [facility] TDAP 2018-07-13 Completed [facility] 00:00:00 [place] [facility] TDAP 2018-07-13 Completed [facility] 00:00:00 [place] [facility] TDAP 2018-07-13 Completed [facility] 00:00:00 [place] [facility] TDAP 2018-07-13 Completed [facility] 00:00:00 [place] [facility] Tdap 2018-07-13 Completed [facility] 00:00:00 [place] [facility] TDAP 2018-07-13 Completed [facility] 00:00:00 [place] [facility] TDAP 2018-07-13 Completed [facility] 00:00:00 [place] [facility] TDAP 2018-07-13 Completed [facility] 00:00:00 [place] [facility] TDAP 2018-07-13 Completed [facility] 00:00:00 [place] [facility] TDAP 2018-07-13 Completed [facility] 00:00:00 [facility] Tdap 2018-07-13 Completed [facility] 00:00:00 [facility] TDAP 2018-07-13 Completed [facility] 00:00:00 [facility] TDAP 2018-07-13 Completed [facility] 00:00:00 [facility] TDAP 2018-07-13 Completed [facility] 00[facility]00:00 [facility] TDAP 2018-07-13 Completed [facility] 00:00:00 [facility] Tdap 2018-07-13 Completed [facility] 00:00:00 [facility] TDAP 2018-07-13 Completed [facility] 00:00:00 [facility] TDAP 2018-07-13 Completed [facility] 00:00:00 [facility] TDAP 2018-07-13 Completed [facility] 00:00:00 [facility] TDAP 2018-07-13 Completed [facility] 00:00:00 [facility] TDAP 2018-07-13 Completed University of 00:00:00 [facility] Influenza Virus 2018-05-06 Completed Universit y of [...] y of Vaccine [place] .5 mL 00:00:00 [facility] 6+ SD Branch TDAP 2014-08-19 Completed [facility] 00:00:00 [facility] TDAP 2014-08-19 Completed [facility] 00:00:00 [facility] TDAP 2014-08-19 Completed [facility] 00:00:00 [facility] TDAP 2014-08-19 Completed [facility] 00:00:00 [facility] TDAP 2014-08-19 Completed [facility] 00:00:00 [facility] TDAP 2014-08-19 Completed [facility] 00:00:00 [facility] Tdap 2014-08-19 Completed [facility] 00:00:00 [facility] TDAP 2014-08-19 Completed [facility] 00[facility]00:00 [facility] TDAP 2014-08-19 Completed [facility] 00:00:00 [facility] TDAP 2014-08-19 Completed [facility] 00:00:00 [facility] TDAP 2014-08-19 Completed [facility] 00:00:00 [facility] TDAP 2014-08-19 Completed [facility] 00:00:00 [facility] TDAP 2014-08-19 Completed [facility] 00:00:00 [facility] TDAP 2014-08-19 Completed [facility] 00:00:00 [facility] TDAP 2014-08-19 Completed [facility] 00:00:00 [facility] Tdap 2014-08-19 Completed [facility] 00[facility]00:00 [facility] TDAP 2014-08-19 Completed [facility] 00:00:00 [facility] Tdap 2014-08-19 Completed [facility] 00:00:00 [facility] Tdap 2014-08-19 Completed [facility] 00:00:00 [facility] Tdap 2014-08-19 Completed [facility] 00:00:00 [facility] Tdap 2014-08-19 Completed [facility] 00:00:00 [facility] TDAP 2014-08-19 Completed [facility] 00:00:00 [facility] TDAP 2014-08-19 Completed [facility] 00:00:00 [facility] TDAP 2014-08-19 Completed [facility] 00:00:00 [facility] TDAP 2014-08-19 Completed [facility] 00:00:00 [facility] TDAP 2014-08-19 Completed [facility] 00:00:00 [facility] Tdap 2014-08-19 Completed [facility] 00:00:00 [facility] TDAP 2014-08-19 Completed [facility] 00:00:00 [facility] TDAP 2014-08-19 Completed [facility] 00:00:00 [facility] TDAP 2014-08-19 Completed [facility] 00:00:00 [facility] TDAP 2014-08-19 Completed [facility] 00:00:00 [facility] TDAP 2014-08-19 Completed [facility] 00:00:00 [facility] TDAP 2014-08-19 Completed [facility] 00:00:00 [facility] TDAP 2014-08-19 Completed [facility] 00:00:00 [facility] TDAP 2014-08-19 Completed [facility] 00:00:00 [facility] TDAP 2014-08-19 Completed [facility] 00:00:00 [facility] Tdap 2014-08-19 Completed [facility] 00:00:00 [facility] TDAP 2014-08-19 Completed [facility] 00:00:00 [facility] TDAP 2014-08-19 Completed [facility] 00:00:00 [facility] TDAP 2014-08-19 Completed [facility] 00:00:00 [facility] TDAP 2014-08-19 Completed [facility] 00:00:00 [facility] TDAP 2014-08-19 Completed [facility] 00:00:00 [facility] TDAP 2014-08-19 Completed [facility] 00:00:00 [facility] TDAP 2014-08-19 Completed [facility] 00:00:00 [facility] TDAP 2014-08-19 Completed [facility] 00:00:00 [facility] TDAP 2014-08-19 Completed [facility] 00:00:00 [facility] Tdap 2014-08-19 Completed [facility] 00:00:00 [facility] TDAP 2014-08-19 Completed [facility] 00:00:00 [facility] TDAP 2014-08-19 Completed [facility] 00:00:00 [facility] TDAP 2014-08-19 Completed [facility] 00:00:00 [facility] TDAP 2014-08-19 Completed [facility] 00:00:00 [facility] TDAP 2014-08-19 Completed [facility] 00:00:00 [facility] Tdap 2014-08-19 Completed [facility] 00:00:00 [facility] TDAP 2014-08-19 Completed [facility] 00:00:00 [facility] TDAP 2014-08-19 Completed [facility] 00:00:00 [facility] TDAP 2014-08-19 Completed [facility] 00:00:00 [facility] TDAP 2014-08-19 Completed [facility] 00:00:00 [facility] Tdap 2014-08-19 Completed [facility] 00:00:00 [facility] TDAP 2014-08-19 Completed [facility] 00:00:00 [facility] TDAP 2014-08-19 Completed [facility] 00:00:00 [facility] TDAP 2014-08-19 Completed [facility] 00:00:00 [facility] TDAP 2014-08-19 Completed [facility] 00:00:00 [facility] TDAP 2014-08-19 Completed [facility] 00:00:00 [facility] TDAP 2014-08-19 Completed [facility] of 00:00:00 [facility] Vital Signs Vital Name Observation Time Observation Value Comments Source Systolic blood 2021-07-30 01:10:00 108 mm[Hg] Univer sity of pressure [facility] Diastolic blood 2021-07-30 01:10:00 71 mm[Hg] Unive rsity of pressure [facility] Heart rate 2021-07-30 01:10:00 69 /min [facility] Body temperature 2021-07-30 01:10:00 37.17 Dinorah [facility] Respiratory rate 2021-07-30 01:10:00 15 /min [facility] Body height 2021-07-30 01:10:00 154.9 cm [facility] Body weight 2021-07-30 01:10:00 69.854 kg [facility] BMI 2021-07-30 01:10:00 29.10 kg/m2 [facility] Oxygen saturation in 2021-07-30 01:10:00 99 /min University Arterial blood by [facility] Pulse oximetry Branch Systolic blood 2021-07-12 18:46:00 126 mm[Hg] Univer sity of pressure [facility] Diastolic blood 2021-07-12 18:46:00 63 mm[Hg] Unive rsity of pressure [facility] Heart rate 2021-07-12 18:46:00 84 [facility] 2021-07-12 18:46:00 37.17 Dinorah [facility] ersity of [facility] Respiratory rate 2021-07-12 18:46:00 17 /min Univ ersity of [facility] Body height 2021-07-12 18:46:00 154.9 cm Universi ty of [facility] Body weight 2021-07-12 18:46:00 69.854 kg Universi ty of [facility] BMI 2021-07-12 18:46:00 29.10 kg/m2 Universi ty of [facility] Oxygen saturation in 2021-07-12 18:46:00 98 /min University Arterial blood by [facility] Pulse oximetry Branch Systolic blood 2020-11-26 20:39:00 114 mm[Hg] Univer sity of pressure [facility] Diastolic blood 2020-11-26 20:39:00 71 mm[Hg] Unive rsity of pressure [facility] Heart rate 2020-11-26 20:39:00 73 /min Universi ty of [facility] Body temperature 2020-11-26 20:39:00 36.72 Dinorah Univ ersity of [facility] Respiratory rate 2020-11-26 20:39:00 16 /min Univ ersity of [facility] Body height 2020-11-26 20:39:00 152.4 cm Universi ty of [facility] Body weight 2020-11-26 20:39:00 82.243 kg Universi ty of [facility] BMI 2020-11-26 20:39:00 35.41 kg/m2 [facility]i ty [facility] Systolic blood 2020-08-06 19:49:00 114 mm[Hg] Univer sity of pressure [facility] Diastolic blood 2020-08-06 19:49:00 72 mm[Hg] Unive rsity of pressure [facility] Heart rate 2020-08-06 19:49:00 84 /min Universi ty of [facility] Body temperature 2020-08-06 19:49:00 36.89 Dinorah Univ ersity of [facility] Respiratory rate 2020-08-06 19:49:00 16 /min Univ ersity of [facility] Body height 2020-08-06 19:49:00 152.4 cm [facility]i ty [facility] Body weight 2020-08-06 19:49:00 75.07 kg Universi ty of [facility] BMI 2020-08-06 19:49:00 32.32 kg/m2 [facility]i ty of [facility] Systolic blood 2020-07-18 20:07:00 111 mm[Hg] Univer sity of pressure [facility] Diastolic blood 2020-07-18 20:07:00 65 mm[Hg] Unive rsity of pressure [facility] Heart rate 2020-07-18 20:07:00 87 /min Universi ty of [facility] Body temperature 2020-07-18 20:07:00 36.67 Dinor[place] Univ ersity of [facility] Respiratory rate 2020-07-18 20:07:00 16 /min Univ ersity of [facility] Body height 2020-07-18 20:07:00 152.4 cm Universi ty of [facility] Body weight 2020-07-18 20:07:00 74.985 kg Universi ty of [facility] BMI 2020-07-18 20:07:00 32.29 kg/m2 [facility]i ty [facility] Systolic blood 2020-06-12 19:10:00 108 mm[Hg] Univer sity of pressure [facility] Diastolic blood 2020-06-12 19:10:00 59 mm[Hg] Unive rsity of pressure [facility] Heart rate 2020-06-12 19:10:00 80 /min Universi ty of [facility] Body temperature 2020-06-12 19:10:00 37.11 Dinorah Univ ersity of [facility] Respiratory rate 2020-06-12 19:10:00 16 /min Univ ersity of [facility] Body height 2020-06-12 19:10:00 152.4 cm Universi ty of [facility] Body weight 2020-06-12 19:10:00 74.617 kg Universi ty of [facility] BMI 2020-06-12 19:10:00 32.13 kg/m2 Universi ty of [facility] Systolic blood 2020-05-28 20:36:00 111 mm[Hg] Univer sity of pressure [facility] Diastolic blood 2020-05-28 20:36:00 70 mm[Hg] Unive rsity of pressure [facility] Heart rate 2020-05-28 20:36:00 73 /min Universi ty of [facility] Body temperature 2020-05-28 20:36:00 36.33 Dinor[place] Univ ersity of [facility] Respiratory rate 2020-05-28 20:36:00 18 /min Univ ersity of [facility] Oxygen saturation in 2020-05-28 20:36:00 96 /min University Arterial blood by [facility] Pulse oximetry Branch Body height 2020-05-27 17:30:00 154 cm [facility]i ty [facility] Body weight 2020-05-27 17:30:00 78 kg Universi ty of [facility] BMI 2020-05-27 17:30:00 32.89 kg/m2 Universi ty of [facility] Systolic blood 2020-05-21 15:52:00 115 mm[Hg] Univer sity of pressure [facility] Diastolic blood 2020-05-21 15:52:00 67 mm[Hg] Unive rsity of pressure [facility] Heart rate 2020-05-21 15:52:00 83 /min Universi ty of [facility] Body temperature 2020-05-21 15:52:00 36.39 Dinor[place] Univ ersity of [facility] Respiratory rate 2020-05-21 15:52:00 16 /min Univ ersity of [facility] Body height 2020-05-21 15:52:00 154.9 cm Universi ty of [facility] Body weight 2020-05-21 15:52:00 77.622 kg Universi ty of [facility] BMI 2020-05-21 15:52:00 32.33 kg/m2 Universi ty of [facility] Systolic blood 2020-05-15 15:58:00 112 mm[Hg] Univer sity of pressure [facility] Diastolic blood 2020-05-15 15:58:00 53 mm[Hg] Unive rsity of pressure [facility] Heart rate 2020-05-15 15:58:00 74 /min Universi ty of [facility] Body temperature 2020-05-15 15:58:00 36.94 [place]or[place] Univ ersity of [facility] Respiratory rate 2020-05-15 15:58:00 16 /min Univ ersity of [facility] Body height 2020-05-15 15:58:00 154.9 cm Universi ty of [facility] Body weight 2020-05-15 15:58:00 77.593 kg [facility]i ty [facility] BMI 2020-05-15 15:58:00 32.32 kg/m2 Universi ty of [facility] Systolic blood 2020-05-09 16:14:00 104 mm[Hg] Univer sity of pressure [facility] Diastolic blood 2020-05-09 16:14:00 65 mm[Hg] Unive rsity of pressure [facility] Heart rate 2020-05-09 16:14:00 87 /min Universi ty of [facility] Body temperature 2020-05-09 16:14:00 36.89 [place]or[place] Univ ersity of [facility] Respiratory rate 2020-05-09 16:14:00 16 /min Univ ersity of [facility] Body height 2020-05-09 16:14:00 154.9 cm Universi ty of [facility] Body weight 2020-05-09 16:14:00 77.168 kg Universi ty of [facility] BMI 2020-05-09 16:14:00 32.14 kg/m2 [facility] ty [facility] Systolic blood 2020-03-27 16:27:00 96 mm[Hg] Univer sity of pressure [facility] Diastolic blood 2020-03-27 16:27:00 57 mm[Hg] Unive rsity of pressure [facility] Heart rate 2020-03-27 16:27:00 86 /min Universi ty of [facility] Body temperature 2020-03-27 16:27:00 36.72 [place]or[place] Univ ersity of [facility] Respiratory rate 2020-03-27 16:27:00 16 /min Univ ersity of [facility] Body height 2020-03-27 16:27:00 154.9 cm Universi ty of [facility] Body weight 2020-03-27 16:27:00 74.503 kg [facility]i ty [facility] BMI 2020-03-27 16:27:00 31.03 kg/m2 [facility] ty [facility] Systolic blood 2020-03-13 14:49:00 96 mm[Hg] Univer sity of pressure [facility] Diastolic blood 2020-03-13 14:49:00 58 mm[Hg] Unive rsity of pressure [facility] Heart rate 2020-03-13 14:49:00 82 /min Universi ty of [facility] Body temperature 2020-03-13 14:49:00 36.83 [place] Univ ersity of [facility] Respiratory rate 2020-03-13 14:49:00 16 /min Univ ersity of [facility] Body height 2020-03-13 14:49:00 154.9 cm Universi ty [facility] Body weight 2020-03-13 14:49:00 73.284 kg Universi ty [facility] BMI 2020-03-13 14:49:00 30.53 kg/m2 [facility]i ty [facility] Systolic blood 2020-02-16 15:55:00 121 mm[Hg] Univer sity of pressure [facility] Diastolic blood 2020-02-16 15:55:00 81 mm[Hg] Unive rsity of pressure [facility] Heart rate 2020-02-16 15:55:00 100 /min Universi ty of [facility] Body temperature 2020-02-16 15:55:00 36.44 [place]or[place] Univ ersity of [facility] Respiratory rate 2020-02-16 15:55:00 16 /min Univ ersity of [facility] Body height 2020-02-16 15:55:00 154.9 cm Universi ty of [facility] Body weight 2020-02-16 15:55:00 71.81 kg Universi ty of [facility] BMI 2020-02-16 15:55:00 29.91 kg/m2 [facility]i ty [facility] Systolic blood 2020-01-17 18:06:00 104 mm[Hg] Univer sity of pressure [facility] Diastolic blood 2020-01-17 18:06:00 57 mm[Hg] Unive rsity of pressure [facility] Heart rate 2020-01-17 18:06:00 86 /min Universi ty of [facility] Body temperature 2020-01-17 18:06:00 37 [place] Univ ersity of [facility] Respiratory rate 2020-01-17 18:06:00 16 /min Univ ersity of [facility] Body height 2020-01-17 18:06:00 154.9 cm Universi ty [facility] Body weight 2020-01-17 18:06:00 68.266 kg Universi ty [facility] BMI 2020-01-17 18:06:00 28.44 kg/m2 [facility] ty [facility] Systolic blood 2019-10-28 15:38:00 109 mm[Hg] Univer sity of pressure [facility] Diastolic blood 2019-10-28 15:38:00 69 mm[Hg] Unive rsity of pressure [facility] Heart rate 2019-10-28 15:38:00 94 /min Universi ty of [facility] Body temperature 2019-10-28 15:38:00 37.17 Dinorah [facility] Res[facility] rate 2019-10-28 15:38:00 16 /min [facility] ersity of [facility] Body height 2019-10-28 15:38:00 154.9 cm Universi ty of [facility] Body weight 2019-10-28 15:38:00 65.046 kg Universi ty of [facility] BMI 2019-10-28 15:38:00 27.10 kg/m2 Universi ty of [facility] Systolic blood 2019-04-07 19:35:00 119 mm[Hg] [facility] Diastolic blood 2019-04-07 19:35:00 76 mm[Hg] [facility] 2019-04-07 19:35:00 76 /min Universi ty of [facility] Body temperature 2019-04-07 19:35:00 36.67 Dinorah [facility] Res[facility] rate 2019-04-07 19:35:00 16 /min [facility] Body height 2019-04-07 19:35:00 154.9 cm Universi ty of [facility] Body weight 2019-04-07 19:35:00 71.923 kg Universi ty [facility] BMI 2019-04-07 19:35:00 29.96 kg/m2 [facility] Procedures Procedure Date / Time Performing Clinician Source Performed LIPASE 2021-07-30 01:38:00 Nisha Singh [facility] COMP. METABOLIC PANEL 2021-07-30 01:38:00 Nisha Singh [facility] ([id number]) [facility] CBC WITH DIFF 2021-07-30 01:38:00 Nisha Singh [facility] POCT TEST 2021-07-30 01:38:00 Nisha Singh [facility] URINALYSIS 2021-07-30 01:32:00 Nisha Singh [facility] CONSENT/REFUSAL FOR 2021-07-30 01:03:08 Doctor Unassigned, No Un [facility] DIAGNOSIS AND TREATMENT Name Medical Branch POCT TEST 2021-07-12 19:11:00 Dmitriy Chavarria [facility] NOTICE OF PRIVACY 2021-07-12 18:38:27 Doctor Unassigned, No [facility] PRACTICES [facility] CONSENT/REFUSAL FOR 2021-07-12 18:37:37 [facility] REFERRAL- 2021-07-05 06:01:00 Doctor Unassigned, No [facility] REQUEST/RESPONSE [facility] POCT URINALYSIS W/O 2020-11-26 20:41:00 Mona Brown Uni versity of [facility] ASSIGNMENT OF BENEFITS 2020-11-26 20:20:50 Doctor Unassigned, No [facility] POCT TEST 2020-08-06 19:50:00 Mona Brown [facility] CONSENT FOR CONTRACEPTION 2020-08-06 06:01:00 Doctor Unassigned, No [facility] POCT TEST 2020-07-18 20:08:00 [facility] POCT URINALYSIS W/O 2020-06-12 19:12:00 Mona Brown Uni versity of [facility] CBC WITH DIFF 2020-05-28 09:42:00 [facility] 2020-05-28 01:11:00 [facility] HEPATITIS B SURFACE 2020-05-27 20:53:00 [facility] ANTIGEN [facility] GALV ONLY - SYPHILIS 2020-05-27 20:53:00 [facility] IGG/IGM [facility] HB ABO GROUPING 2020-05-27 19:46:00 [facility] RHO (D) IMMUNE GLOBULIN 2020-05-27 19:46[facility] (ID NOW RAPID 2020-05-27 17:26:00 Agata Brandon [facility] TESTING) Medical Branch LAB ONLY COVID 2020-05-27 17:26:00 Agata Brandon [facility] INTERPRETATION [facility] FLU VACC (), 2020-05-15 16:08:57 Mona Brown [facility] MONTHS, IM, [facility] POCT URINALYSIS 2020-05-15 16:00:00 Mona Brown [facility] POCT URINALYSIS 2020-05-09 16:16:00 Mona Brown [facility] POCT URINALYSIS 2020-03-27 16:28:00 Mona Brown [facility] TDAP VACCINE, >11 YRS, IM 2020-03-13 15:06:09 Mona Brown [facility] POCT URINALYSIS 2020-03-13 14:55:00 Mona Brown [facility] POCT URINALYSIS 2020-02-16 15:56:00 Mona Borwn [facility] POCT URINALYSIS 2020-01-17 18:07:00 Mona Brown [facility] ASSIGNMENT OF BENEFITS 2019-10-28 16:52:01 Doctor Unassigned, Michela [facility] Name [facility] FLU VACC ([id number]), 2019-10-28 16:02:39 Mona Brown [facility] MONTHS, IM, [facility] POCT TEST 2019-10-28 15:47:00 [facility] W/O 2019-10-28 15:47:00 [facility] 2019-04-07 19:51:00 [facility] NO SHOW OR MISSED 2019-04-07 19:25:15 Doctor Unassigned, No [facility] APPOINTMENT POLICY Name [facility] ACKNOWLEDGEMENT Encounters Start End Encounter Admission Attending Care Care Encounter Source Date/Time Date/Time Type Type Clinicians Facility Department ID 2021-06-01 Outpatient [facility] [id number] [facility] 2021-09-20 2021-09-20 Outpatient Stephanie LARES [facility] [id number] Univers 14:15:00 14:15:00 JOAN [id number] [facility] 2021-09-20 2021-09-20 Outpatient Stephanie LARES [facility] [id number] Univers 13:45:00 13:45:00 JOAN [facility] 2021-09-17 2021-09-17 Outpatient Stephanie ESPINOZA [facility] [id number] Univers 14:30:00 14:30:00 JASON [id number] [facility] 2021-09-17 2021-09-17 Outpatient Stephanie ESPINOZA [facility] [id number] Univers 14:00:00 14:00:00 JASON [facility] 2021-09-16 2021-09-16 Outpatient Stephanie ESPINOZA [facility] [id number] Univers 14:30:00 14:30:00 JASON [id number] [facility] 2021-09-04 2021-09-04 Outpatient Stephanie VERGARA [facility] [id number] Univers 10:00:00 10:00:00 AMALIA [id number] [facility] 2021-09-04 2021-09-04 Outpatient R SOULEYMANEVICTORINO [facility] [id number] Univers 10:00:00 10:00:00 AMALIA [facility] 2021-07-29 2021-07-29 Emergency [facility] [id number] Univers 19:20:00 21:17:00 NISHA [facility] 2021-07-29 2021-07-29 Emergency [facility] [id number] Univers 19:20:00 21:17:00 Nisha GARNER [id number] i ty [facility] [id number] [facility] [id number] [place] [id number] Branch 2021-07-12 2021-07-12 Emergency X [facility] ERT [id number] Univers 12:49:00 13:30:00 DMITRIY ity of [facility] 2021-07-12 2021-07-12 Emergency [facility] [id number] Univers 12:49:00 13:30:00 Dmitriy GARNER 350.1.13.10 ity of [facility] 4.2.7.2.686 [place] [facility] [phone] [facility] [address] 2021-07-05 2021-07-05 Orders Doctor YVROSE 1.2.840.114 [id number] Univers 00:00:00 00:00:00 Only Unassigned, REGINA 350.1.13.10 [facility] 4.2.7.2.686 Sridhar as [phone] [facility] [address] [place] 2021-03-28 2021-03-28 Outpatient [facility] [id number] -[id number] Univers 11:20:00 11:20:00 [id number] ity [facility] 2021-03-28 2021-03-28 Outpatient Stephanie CRANDALL [facility] [id number] Univers 11:20:00 11:20:00 ROMEO ity [facility] 2020-12-03 2020-12-03 Telephone [facility] 1.2.840.114 [id number] Univers 00:00:00 00:00:00 Mona Mancilla REVENUE DIRECTOR [id number] ity of [facility] 4.2.7.2.686 Sridhar as MATERNAL [phone] [facility] CH[facility] [address] [place] [address] 2020-11-30 2020-11-30 Outpatient R KEVIN [facility] [id number] 8N-20 Univers 15:45:00 15:45:00 MONA [id number] ity o f [facility] 2020-11-28 2020-11-28 Telephone [facility] 1.2.840.114 [id number] Univers 00:00:00 00:00:00 Mona Mancilla REVENUE DIRECTOR 350.1.13.10 ity of [facility] 4.2.7.2.686 Sridhar as MATERNAL [phone] [facility] & CHILD [address] [place] [address] 2020-11-26 2020-11-26 Office [facility] 1.2.271.131 [id number] Univers 15:18:52 16:06:01 Visit Mona Mancilla REVENUE DIRECTOR [id number] ity of [facility] 4.2.7.2.686 Sridhar as MATERNAL [phone] [facility] ical & CHILD [address] [place] [address] 2020-11-26 2020-11-26 [facility] [id number] 8N-20 Univers 15:15:00 15:15:00 MONA [id number] ity o [facility] 2020-11-26 2020-11-26 [facility] [id number] Univers 15:15:00 15:15:00 MONA sosa o [facility] 2020-11-26 2020-11-26 Orders Doctor YVROSE 1.2.840.114 [id number] Univers 00:00:00 00:00:00 Only Unassigned, REGINA 350.1.13.10 ity of [place] [facility] 4.2.7.2.686 Sridhar as [phone] [address] 2020-10-23 2020-10-23 Patient [facility] 1.2.840.114 [id number] Univers 00:00:00 00:00:00 Outreach Сергей PRIMARY 350.1.13.[address] [facility] 4.2.7.2.686 [place]AN[place] [phone] [address] 2020-08-23 2020-08-23 Outpatient R KEVIN [facility] [id number] 8N-20 Univers 13:15:00 13:15:00 MONA [id number] itkervin o [facility] 2020-08-23 2020-08-23 [facility] [id number] Univers 13:15:00 13:15:00 MONA sosa o [facility] 2020-08-22 2020-08-22 Telephone [facility] 1.2.840.114 [id number] Univers 00:00:00 00:00:00 Mona Mancilla REVENUE DIRECTOR 350.1.13.10 ity of [facility] 4.2.7.2.686 Sridhar as MATERNAL [phone] [facility] & [address] 2020-08-06 2020-08-06 Office [facility] 1.2.109.182 [id number] Univers 13:35:16 14:54:02 Visit Mona Mancilla REVENUE DIRECTOR 350.1.13.10 ity of [facility] 4.2.7.2.686 Sridhar as MATERNAL [phone] [address] 2020-08-06 2020-08-06 Outpatient R AKINSIPE, [facility] [id number] 8N-20 Univers 13:30:00 13:30:00 MONA [id number] ian o [facility] 2020-08-06 2020-08-06 Outpatient R AKINSIPE, [facility] [id number] Univers 13:30:00 13:30:00 MONA sosa o [facility] 2020-08-06 2020-08-06 Orders Doctor YVROSE 1.2.840.114 [id number] Univers 00:00:00 00:00:00 Only Unassigned, REGINA 350.1.13.10 ity of [place] [facility] 4.2.7.2.686 Sridhar as [phone] [address] 2020-07-18 2020-07-18 Office [facility] 1.2.548.444 [id number] Univers 13:32:05 14:22:19 Visit Mona Mancilla REVENUE DIRECTOR 350.1.13.10 ity of [facility] 4.2.7.2.686 Sridhar as MATERNAL [phone] [facility] & [address] 2020-07-18 2020-07-18 Outpatient R AKINLENAPE, [facility] [id number] 8N-20 Univers 13:30:00 13:30:00 MONA [id number] ian o [facility] 2020-07-18 2020-07-18 Outpatient R AKINSIPE, [facility] [id number] Univers 13:30:00 13:30:00 MONA sosa o [facility] 2020-07-12 2020-07-12 Telephone [facility] 1.2.840.114 [id number] Univers 00:00:00 00:00:00 Mona C REVENUE DIRECTOR [id number] ity of REGIONAL 4.2.7.2.686 Sridhar as MATERNAL [phone] [facility] ical & CHILD [address] [place] [address] 2020-07-11 2020-07-11 Outpatient R AKINSIPE, [facility] [id number] 8N-20 Univers 13:15:00 13:15:00 MONA ity o f [facility] 2020-07-11 2020-07-11 Outpatient R AKINSIPE, [facility] [id number] Univers 13:15:00 13:15:00 MONA ity o f [facility] 2020-06-27 2020-06-27 Outpatient R AKINSIPE, [facility] [id number] 8N-20 Univers 13:30:00 13:30:00 MONA [id number] ity o f [facility] 2020-06-27 2020-06-27 Outpatient R AKINSIPE, [facility] [id number] Univers 13:30:00 13:30:00 MONA ity o [facility] 2020-06-21 2020-06-21 Outpatient R ZHAO, [facility] [id number] Univers 15:15:00 15:15:00 MILANHUNDA ity o [facility] 2020-06-15 2020-06-15 Telephone [facility] 1.2.840.114 [id number] Univers 00:00:00 00:00:00 Mona C REVENUE DIRECTOR 350.1.13.10 ity of REGIONAL 4.2.7.2.686 Sridhar as MATERNAL [phone] [facility] [address] [place] [address] 2020-06-12 2020-06-12 Routine Akinsipe, [facility] 1.2.700.740 [id number] Univers 12:57:43 13:37:52 Mona C REVENUE DIRECTOR 350.1.13.10 ity of Visit REGIONAL 4.2.7.2.686 Sridhar as MATERNAL [id number] [facility] [address] [place] [address] 2020-06-12 2020-06-12 Outpatient R AKINSIPE, [facility] [id number] 8N-20 Univers 13:00:00 13:00:00 MONA ity o f [facility] 2020-06-12 2020-06-12 Outpatient R AKINSIPE, [facility] [id number] Univers 13:00:00 13:00:00 MONA ity o f [facility] 2020-06-12 2020-06-12 Telephone Akinsipe, [facility] 1.2.840.114 [id number] Univers 00:00:00 00:00:00 Mona C REVENUE DIRECTOR 350.1.13.10 ity of REGIONAL 4.2.7.2.686 Sridhar as MATERNAL [id number] [facility] ical & CHILD [address] [place] [address] 2020-05-27 2020-05-28 [facility] YVROSE Obrien 1.2.840.114 [id number] Univers 11:59:00 22:15:00 Encounter Nell TAPIA 350.1.13.10 ity of HOSPITAL 4.2.7.2.686 Sridhar as [phone] [address] 2020-05-28 2020-05-28 Outpatient R AKINSIPE, [facility] [id number] Univers 13:00:00 13:00:00 MONA ity o f [facility] 2020-05-28 2020-05-28 Outpatient R AKINSIPE, [facility] [id number] 8N-20 Univers 08:30:00 08:30:00 MONA [id number] ity o [facility] 2020-05-28 2020-05-28 Outpatient R AKINSIPE, [facility] [id number] Univers 08:30:00 08:30:00 MONA ity o f [facility] 2020-05-21 2020-05-21 Routine Akinsipe, [facility] 1.2.251.415 [id number] Univers 10:46:00 11:18:02 Mona Mancilla REVENUE DIRECTOR 350.1.13.10 ity of Visit REGIONAL 4.2.7.2.686 Sridhar as MATERNAL [id number] [facility] ical & CHILD [address] [place] [address] 2020-05-21 2020-05-21 Outpatient R AKINSIPE, [facility] [id number] 8N-20 Univers 11:00:00 11:00:00 MONA [id number] ity o [facility] 2020-05-21 2020-05-21 Outpatient R AKINSIPE, [facility] [id number] Univers 11:00:00 11:00:00 MONA ian o [facility] 2020-05-15 2020-05-15 Routine Akinsipe, [facility] 1.2.589.139 [id number] Univers 10:46:40 11:11:47 Mona C REVENUE DIRECTOR 350.1.13.10 ity of Visit REGIONAL 4.2.7.2.686 Sridhar as MATERNAL [id number] [facility] [address] [place] [address] 2020-05-15 2020-05-15 Outpatient R AKINSIPE, [facility] [id number] 8N-20 Univers 10:45:00 10:45:00 MONA [id number] itkervin o [facility] 2020-05-15 2020-05-15 Outpatient R AKINSIPE, [facility] [id number] Univers 10:45:00 10:45:00 MONA ity [facility] 2020-05-10 2020-05-10 Telephone Akinsipe, [facility] 1.2.840.114 [id number] Univers 00:00:00 00:00:00 Mona C REVENUE DIRECTOR 350.1.13.10 ity of REGIONAL 4.2.7.2.686 Sridhar as MATERNAL [id number] [facility] & [address] 2020-05-09 2020-05-09 Routine Akinsipe, [facility] 1.2.455.963 [id number] Univers 10:48:25 11:31:17 Mona C REVENUE DIRECTOR 350.1.13.10 ity of Visit REGIONAL 4.2.7.2.686 Sridhar as MATERNAL [phone] [facility] & CHILD [address] [place] [address] 2020-05-09 2020-05-09 Outpatient AKINSIPE, [facility] [id number] 8N-20 Univers 11:00:00 11:00:00 MONA ity [facility] 2020-05-09 2020-05-09 Outpatient R AKINSIPE, [facility] [id number] Univers 11:00:00 11:00:00 MONA ity o f [facility] 2020-04-26 2020-04-26 Telephone [facility] 1.2.840.114 [id number] Univers 00:00:00 00:00:00 Mona C REVENUE DIRECTOR 350.1.13.10 ity of REGIONAL 4.2.7.2.686 Sridhar as MATERNAL [id number] [facility] & CHILD [address] [place] [address] 2020-04-11 2020-04-11 Outpatient R AKINSIPE, [facility] [id number] 8N-20 Univers 09:30:00 09:30:00 MONA ity o [facility] 2020-04-11 2020-04-11 Outpatient R AKINSIPE, [facility] [id number] Univers 09:30:00 09:30:00 MONA ity o [facility] 2020-04-06 2020-04-06 Refill [facility]NEW [facility] 1.2.695.641 [id number] Univers 00:00:00 00:00:00 Mona C REVENUE DIRECTOR 350.1.13.10 ity of REGIONAL 4.2.7.2.686 Sridhar as MATERNAL [id number] [address] 2020-03-27 2020-03-27 Routine Akinpe, [facility] 1.2.481.158 [id number] Univers 10:52:55 11:52:15 Mona C REVENUE DIRECTOR 350.1.13.10 ity of Visit REGIONAL 4.2.7.2.686 Sridhar as MATERNAL [id number] [facility] & [address] 2020-03-27 2020-03-27 Outpatient R AKINSIPE, [facility] [id number] 8N-20 Univers 10:45:00 10:45:00 MONA [id number] ity o f [facility] 2020-03-27 2020-03-27 Outpatient R AKINSIPE, [facility] [id number] Univers 10:45:00 10:45:00 MONA ity o [facility] 2020-03-14 2020-03-14 Tele[facility] 1.2.840.114 [id number] Univers 00:00:00 00:00:00 Mona C REVENUE DIRECTOR 350.1.13.10 ity of REGIONAL 4.2.7.2.686 Sridhar as MATERNAL [id number] [facility] ical & CHILD [address] [place] [address] 2020-03-14 2020-03-14 Telephone Kevin [facility] 1.2.840.114 [id number] Univers 00:00:00 00:00:00 Mona C REVENUE DIRECTOR 350.1.13.10 ity of [facility] 4.2.7.2.686 Sridhar as MATERNAL [phone] [facility] [address] [place] [address] 2020-03-13 2020-03-13 [facility]ine [facility] 1.2.960.944 [id number] Univers 09:43:25 11:44:55 Mona C REVENUE DIRECTOR 350.1.13.10 ity of Visit REGIONAL 4.2.7.2.686 Sridhar as MATERNAL [id number] [facility] & CHILD [address] [place] [address] 2020-03-13 2020-03-13 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 10 ity of [facility] 4.2.7.2.686 [place] MATERNAL [id number] [facility] & CHILD [address] [facility] 2020-03-13 2020-03-13 Outpatient R [facility] [id number] Univers 10:00:00 10:00:00 [id number] ity [facility] 2020-03-13 2020-03-13 Outpatient P [facility] [id number] Univers 10:00:00 10:00:00 ity [facility] 2020-03-08 2020-03-08 Outpatient KEVIN [facility] [id number] 8N-20 Univers 08:15:00 08:15:00 MONA ity o f [facility] 2020-03-08 2020-03-08 Outpatient R KEVIN [facility] [id number] Univers 08:15:00 08:15:00 MONA ity o f [facility] 2020-03-01 2020-03-01 Outpatient R AKINSIPE, [facility] [id number] 8N-20 Univers 09:15:00 09:15:00 MONA ity o f [facility] 2020-03-01 2020-03-01 Outpatient R AKINSIPE, [facility] [id number] Univers 09:15:00 09:15:00 MONA ity o [facility] 2020-02-17 2020-02-17 Telephone Akinsipe, [facility] 1.2.840.114 [id number] Univers 00:00:00 00:00:00 Mona C REVENUE DIRECTOR 350.1.13.10 ity of REGIONAL 4.2.7.2.686 Sridhar as MATERNAL [phone] Med ical & [place]ILD [address] [place] [address] 2020-02-16 2020-02-16 Routine Akinsipe, [facility] 1.2.902.797 [id number] Univers 10:44:57 11:18:35 Mona C REVENUE DIRECTOR 350.1.13.10 ity of Visit REGIONAL 4.2.7.2.686 Sridhar as MATERNAL [id number] Med ical & [place]ILD [address] [place] [address] 2020-02-16 2020-02-16 Outpatient R AKINSIPE, [facility] [id number] 8N-20 Univers 10:45:00 10:45:00 MONA [id number] ity o [facility] 2020-02-16 2020-02-16 Outpatient R AKINSIPE, [facility] [id number] Univers 10:45:00 10:45:00 MONA ity o [facility] 2020-02-15 2020-02-15 Telephone Akinsipe, [facility] 1.2.840.114 [id number] Univers 00:00:00 00:00:00 Mona C REVENUE DIRECTOR 350.1.13.10 ity of REGIONAL 4.2.7.2.686 Sridhar as MATERNAL [id number] [facility] ical & CHILD [address] [place] [address] 2020-02-14 2020-02-14 Outpatient R AKINSIPE, [facility] [id number] 8N-20 Univers 13:00:00 13:00:00 MONA [id number] ity o f [facility] 2020-02-14 2020-02-14 Outpatient R [facility] [id number] Univers 13:00:00 13:00:00 MONA ity o f [facility] 2020-02-13 2020-02-13 Telephone [facility] 1.2.840.114 [id number] Univers 00:00:00 00:00:00 Mona C REVENUE DIRECTOR 350.1.13.10 ity of REGIONAL 4.2.7.2.686 Sridhar as MATERNAL [id number] [facility] [address] [place] [address] 2020-02-01 2020-02-01 Abstract [facility] 1.2.840.114 [id number] Univers 00:00:00 00:00:00 Mona C REVENUE DIRECTOR 350.1.13.10 ity of [facility] 4.2.7.2.686 Sridhar as MATERNAL [id number] [facility] [address] [place] [address] 2020-01-31 2020-01-31 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 4.2.7.2.686 [place] [id number] [address] 2020-01-31 2020-01-31 Outpatient P [facility] [id number] -20 Univers 10:45:00 10:45:00 [id number] ity of [facility] 2020-01-31 2020-01-31 Outpatient P [facility] [id number] Univers 10:45:00 10:45:00 ity [facility] 2020-01-31 2020-01-31 Telephone [facility] 1.2.840.114 [id number] Univers 00:00:00 00:00:00 Mona C REVENUE DIRECTOR 350.1.13.10 ity of [facility] 4.2.7.2.686 Sridhar as MATERNAL [phone] [facility] & CHILD [address] [place] [address] 2020-01-26 2020-01-26 Outpatient R [facility] [id number] -[id number] Univers 13:00:00 13:00:00 [id number] ity [facility] 2020-01-26 2020-01-26 Outpatient P [facility] [id number] Univers 13:00:00 13:00:00 ity [facility] 2020-01-17 2020-01-17 Routine Akinsipe, [facility] 1.2.764.939 [id number] Univers 12:49:15 13:31:47 Mona C REVENUE DIRECTOR 350.1.13.10 ity of Visit REGIONAL 4.2.7.2.686 Sridhar as MATERNAL [id number] [facility] [address] [place] [address] 2020-01-17 2020-01-17 Outpatient R AKINSIPE, [facility] [id number] 8N-20 Univers 12:45:00 12:45:00 MONA [id number] ity o [facility] 2020-01-17 2020-01-17 Outpatient R AKINSIPE, [facility] [id number] Univers 12:45:00 12:45:00 MONA ity o [facility] 2019-12-19 2019-12-19 Telemedici Akinsipe, [facility] 1.2.840.114 [id number] Univers 13:22:09 13:57:58 ne Visit Mona Mancilla REVENUE DIRECTOR 350.1.13.10 ity of REGIONAL 4.2.7.2.686 Sridhar as MATERNAL [phone] [facility] [address] [place] [address] 2019-12-19 2019-12-19 Outpatient R AKINSIPE, [facility] [id number] 8N-20 Univers 13:45:00 13:45:00 MONA [id number] ity o [facility] 2019-12-19 2019-12-19 Outpatient R AKINSIPE, [facility] [id number] Univers 13:45:00 13:45:00 MONA ity o [facility] 2019-11-24 2019-11-24 Outpatient R AKINSIPE, [facility] [id number] 8N-20 Univers 10:45:00 10:45:00 MONA [id number] ity o [facility] 2019-11-24 2019-11-24 Outpatient R AKINSIPE, [facility] [id number] Univers 10:45:00 10:45:00 MONATI matute [facility] 2019-11-21 2019-11-21 Telemedici [facility] 1.2.840.114 [id number] Univers 07:48:27 15:06:30 ne Visit Mona C REVENUE DIRECTOR 350.1.13.10 ity of REGIONAL 4.2.7.2.686 Sridhar as MATERNAL [id number] [facility] [address] [place] [address] 2019-11-21 2019-11-21 Outpatient R AKINSIPE, [facility] [id number] Univers 08:30:00 08:30:00 MONA [id number] annelkervin matute [facility] 2019-11-21 2019-11-21 Outpatient R AKINSIPE, [facility] [id number] Univers 08:30:00 08:30:[address] [facility] 2019-11-21 2019-11-21 Telephone [facility] 1.2.840.114 [id number] Univers 00:00:00 00:00:00 Mona C REVENUE DIRECTOR 350.1.13.10 ity of REGIONAL 4.2.7.2.686 Sridhar as MATERNAL [phone] [facility] & CHILD [address] [place] [address] 2019-11-01 2019-11-01 Telephone [facility] 1.2.840.114 [id number] Univers 00:00:00 00:00:00 Mona C REVENUE DIRECTOR 350.1.13.10 ity of REGIONAL 4.2.7.2.686 Sridhar as MATERNAL [id number] [facility] [address] [place] [address] 2019-10-28 2019-10-28 Initial [facility] 1.2.385.374 [id number] Univers 10:28:47 11:51:12 Mona C REVENUE DIRECTOR 350.1.13.10 ity of Visit REGIONAL 4.2.7.2.686 Sridhar as MATERNAL [id number] [facility] [address] [place] [address] 2019-10-28 2019-10-28 [facility] [id number] 8N-20 Univers 10:30:00 10:30:00 MONA [id number] ity o f [facility] 2019-10-28 2019-10-28 [facility] [id number] Univers 10:30:00 10:30:00 MONA ity o f [facility] 2019-10-28 2019-10-28 Orders Doctor YVROSE 1.2.840.114 [id number] Univers 00:00:00 00:00:00 Only Unassigned, REGINA 350.1.13.10 ity of [place] [facility] 4.2.7.2.686 Sridhar as [id number] [address] 2019-10-25 2019-10-25 Telephone [facility] 1.2.840.114 [id number] [facility] 00:00:00 00:00:00 Mona Mancilla REVENUE DIRECTOR 350.1.13.10 ity of [facility] 4.2.7.2.686 Sridhar as MATERNAL [id number] [facility] ical & CHILD [address] [place] [address] 2019-04-07 2019-04-07 Office [facility] 1.2.177.126 [id number] Univers 14:25:56 15:31:22 Visit Mona Mancilla REVENUE DIRECTOR 350.1.13.10 ity of [facility] 4.2.7.2.686 Sridhar as MATERNAL [phone] [facility] & [address] 2019-04-07 2019-04-07 Orders Doctor YVROSE 1.2.840.114 [id number] Univers 00:00:00 00:00:00 Only Unassigned, REGINA 350.1.13.10 ity of [place] [facility] 4.2.7.2.686 Sridhar as [id number] [address] Results Test Description Test Time Test Comments Results Result Comments Source COMP. METABOLIC PANEL (19008) 2021-07-30 01:59:38 Test Item Value Reference Range Interpretation Comme nts NA (test code = 8682619844) 135 mmol/L 135-145 K (test code = 2285333345) 3.9 mmol/L 3.5-5.0 CL (test code = 1874871841) 102 mmol/L 98-108 CO2 TOTAL (test code = 27 mmol/L 23-31 0532111310) AGAP (test code = 2282892914) 2-16 BUN (test code = 3235034973) 15 mg/dL 7-23 GLUCOSE (test code = 7934602284) 107 mg/dL 70-110 CREATININE (test code = 0.67 mg/dL 0.50-1.04 5647723790) TOTAL BILI (test code = 0.3 mg/dL 0.1-1.4 1183540771) CALCIUM (test code = 5488401386) 8.8 mg/dL 8.6-10.6 T PROTEIN (test code = 7.4 g/dL 6.3-8.2 6245249123) ALBUMIN (test code = 6240002306) 4.5 g/dL 3.5-5.0 ALK PHOS (test code = 3751017656) 114 U/L 34-122 ALTv (test code = 1742-6) 20 U/L 5-35 AST(SGOT) (test code = 28 U/L 13-40 7883771985) eGFR (test code = 9094177793) mL/min/1.73m2 BASIL (test code = BASIL) Association [...] or urine or abnormalities in imaging tests). [facility] Test Item Value Reference Range Interpretation Comments LIPASE (test code = 6454398640) 58 U/L 0-220 Lab Interpretation (test code = Normal 40730-6) [id number] 01:46:19 Test Item Value Reference Range Interpretation Comments WBC (test code = See_Comment [Automated 9097-2) message] The sy stem which generated this result transmitted reference range : 4.30 - 11.10 10*3/?L. The reference range was not used to interpret this result as normal/abnormal . RBC (test code = See_Comment [Automated 189-8) message] The sy stem which generated this [...] RDW-SD (test code = 45.5 fL 39.0-49.9 98463-8) RDW-CV (test code = 13.2 % 12.0-15.5 788-0) PLT (test code = See_Comment [Automated 067-3) message] The sy stem which generated this result transmitted reference range : 166 - 358 10*3/ ?L. The reference r emile was not used to interpret this result as normal/abnormal . MPV (test code = 11.2 fL 9.5-12.9 51573-8) NRBC/100 WBC (test See_Comment [Automat ed code = 6792206259) message] The system which generated this result transmitted reference range : 0.0 - 10.0 /100 WBCs. The refer ence range was not u sed to interpret th is result as normal/abnormal . NRBC x10^3 (test code <0.01 See_Comment [Auto mated = 9155934356) message] The s ystem which generated this result transmitted reference range : 10*3/?L. The reference range was not used to interpret this result as normal/abnormal . GRAN MAT (NEUT) % 73.5 % (test code = 770-8) IMM GRAN % (test code 0.50 % = 6980149902) LYMPH % (test code = 19.0 % 736-9) MONO % (test code = 5.2 % 5905-5) EOS % (test code = 1.1 % 713-8) BASO % (test code = 0.7 % 706-2) GRAN MAT x10^3(ANC) 7.95 10*3/uL 1.88-7.09 H (test code = 7376106554) IMM GRAN x10^3 (test 0.05 10*3/uL 0.00-0.06 code = 8485056573) LYMPH x10^3 (test code 2.05 10*3/uL 1.32-3.29 = 731-0) MONO x10^3 (test code 0.56 10*3/uL 0.33-0.92 = 742-7) EOS x10^3 (test code = 0.12 10*3/uL 0.03-0.39 711-2) BASO x10^3 (test code 0.08 10*3/uL 0.01-0.07 H = 704-7) Lab Interpretation Abnormal (test code = 41103-1) [id number] 01:38[facility]00 Test Item Value Reference Range Interpretation Comments POCT PREG (test code = 1605) negative On board controls acceptable with present C Line (test code = 3574) POCT PREG LOT # (test code = 3575) [id number] POCT PREG TEST DATE (test 2022-09-30 code = 3576) Lab Interpretation (test code = Normal 96840-4) [facility] [id number] 19:11:00 Test Item Value Reference Range Interpretation Comments POCT PREG (test code = 1605) negative On board controls acceptable with present C Line (test code = 3574) POCT PREG LOT # (test code = 3575) [id number] POCT PREG TEST DATE (test 09-02-2022 code = 3576) Lab Interpretation (test code = Normal 32010-2) [facility] URINALYSIS W/O SPECIFIC [id number] 20:41:00 Test Item Value Reference Range Interpretation [...] code = 3257) Trace Negative - Negative [facility] URINALYSIS W/O SPECIFIC [id number] 20:41:00 Test Item Value Reference Range Interpretation [...] code = 3257) Trace Negative - [facility] [id number] 20:41:00 Test Item Value Reference Range Interpretation [...] code = 3257) Trace Negative - Negative [facility] [id number] 19:50:00 Test Item Value Reference Range Interpretation Comments POCT PREG (test code = 1605) Negative On board controls acceptable with C Yes Line (test code = 3574) POCT PREG LOT # (test code = 3575) POCT PREG TEST DATE (test code = 3576) [facility] [id number] 19:50:00 Test Item Value Reference Range Interpretation Comments POCT PREG (test code = 1605) Negative On board controls acceptable with C Yes Line (test code = 3574) POCT PREG LOT # (test code = 3575) POCT PREG TEST DATE (test code = 3576) [facility] [id number] 19:50:00 Test Item Value Reference Range Interpretation Comments POCT PREG (test code = 1605) Negative On board controls acceptable with C Yes Line (test code = 3574) POCT PREG LOT # (test code = 3575) POCT PREG TEST DATE (test code = 3576) [facility] [id number] 19:50:00 Test Item Value Reference Range Interpretation Comments POCT PREG (test code = 1605) Negative On board controls acceptable with C Yes Line (test code = 3574) POCT PREG LOT # (test code = 3575) POCT PREG TEST DATE (test code = 3576) [facility] [id number] 20:08:00 Test Item Value Reference Range Interpretation Comments POCT PREG (test code = 1605) Negative On board controls acceptable with C Yes Line (test code = 3574) POCT PREG LOT # (test code = 3575) POCT PREG TEST DATE (test code = 3576) [facility] [id number] 20:08:00 Test Item Value Reference Range Interpretation Comments POCT PREG (test code = 1605) Negative On board controls acceptable with C Yes Line (test code = 3574) POCT PREG LOT # (test code = 3575) POCT PREG TEST DATE (test code = 357) [facility] URINALYSIS W/O SPECIFIC [id number] 19:12:00 Test Item Value Reference Range Interpretation [...] code = 3257) Trace Negative - Negative [facility] [id number] 19:12:00 Test Item Value Reference Range Interpretation [...] code = 3257) Trace Negative - Negative [facility] COVID [id number] 00:16:00COVID DMT InterpretationInterpretation/RecommendationTests (PCR) for Active Infection [...] a nasopharyngeal sample, there is approximately a jot-bq-ssuxq chance that the patient has indeed been [...] be important to perform if the IgM ayhe-YFZEO-82 antibody test is positive. ? B. ?A [...] and IgG antibodies, this may be the explanation.[facility] LABORATORY SERVICESCOVID [id number] Rapid ID NOW (no units) ? ? Date ? Value ? 05/27/2020 ? Not Detected ? CoV-2 IgG (nounits) ? ? Date ? Value ? 05/09/2020 ? Negative ? ? ? [facility] LABORATORY SERVICESUnVal[facility]lingenGALV ONLY - SYPHILIS [id number] 13:53:00 Test Item Value Reference Range Interpretation Comments Syphilis IgG/IgM (test Non-reactive Non-reactive code = 84729-1) BASIL (test code = BASIL) Non-reactive - No serologic evidence of T. pallidum infection. Cannot exclude incubating or early syphilis. Submit a second specimen in 2-4 weeks if syphilis is clinically suspected. Equivocal - Further testing to follow. Reactive - Further testing to follow. Lab Interpretation (test Normal code = 64051-3) [facility] with [id number] 10:09:00 Test Item Value Reference Range Interpretation Comments WBC (test code = See_Comment H [Automated 3390-2) message] The sy stem which generated this result transmitted reference range : 4.30 - 11.10 10*3/?L. The reference range was not used to interpret this result as normal/abnormal . RBC (test code = See_Comment L [Automated 789-8) message] The sy stem which generated this [...] RDW-SD (test code = 41.8 fL 39-49.9 93097-3) RDW-CV (test code = 13.4 % 12-15.5 788-0) PLT (test code = See_Comment [Automated 777-3) message] The sy stem which generated this result transmitted reference range : 166 - 358 10*3/ ?L. The reference r emile was not used to interpret this result as normal/abnormal . MPV (test code = 11.7 fL 9.5-12.9 34197-8) NRBC/100 WBC (test See_Comment [Automat ed code = 8396162943) message] The system which generated this result transmitted reference range : 0.0 - 10.0 /100 WBCs. The refer ence range was not u sed to interpret th is result as normal/abnormal . NRBC x10^3 (test code <0.01 See_Comment [Auto mated = 4979318746) message] The s ystem which generated this result transmitted reference range : 10*3/?L. The reference range was not used to interpret this result as normal/abnormal . GRAN MAT (NEUT) % 72.6 % (test code = 770-8) IMM GRAN % (test code 0.80 % = 3365063516) LYMPH % (test code = 20.0 % 736-9) MONO % (test code = 5.6 % 5905-5) EOS % (test code = 0.6 % 713-8) BASO % (test code = 0.4 % 706-2) GRAN MAT x10^3(ANC) 9.03 10*3/uL 1.88-7.09 H (test code = 8119966344) IMM GRAN x10^3 (test 0.10 10*3/uL 0-0.06 H code = 5680673267) LYMPH x10^3 (test code 2.49 10*3/uL 1.32-3.29 = 731-0) MONO x10^3 (test code 0.70 10*3/uL 0.33-0.92 = 742-7) EOS x10^3 (test code = 0.07 10*3/uL 0.03-0.39 711-2) BASO x10^3 (test code 0.05 10*3/uL 0.01-0.07 = 704-7) Lab Interpretation Abnormal (test code = 61464-8) [facility] IMMUNE [id number] 03:57:06 Test Item Value Reference Range Interpretation Comments RHIG CANDIDATE? No- see comment Patient i s not a (test code = candidate for R hIg- 5055) Patient is Rh Positive.Perfor med at [facility] Laboratory Services - [facility] Blood [address] [address]Asjt Free: [phone] A No. [id number] [facility] CenterVENOUS CORD [id number] 01:29:00 Test Item Value Reference Range Interpretation Comments VENOUS BASE EXCESS, mEq/L CORD (test code = 1246930216) VENOUS PH, CORD (test 7.25-7.45 code = 5029906675) VENOUS PC02, CORD See_Comment [Automate d message] The (test code = system which ge nerated 0462204426) this result tra nsmitted reference range : 27 - 49 mmHg. The refer ence range was not used to interpret this result as normal/abnormal . VENOUS PO2, CORD (test See_Comment [Aut omated message] The code = 9052943412) system wh ich generated this result tra nsmitted reference range : 17 - 41 mmHg. The refer ence range was not used to interpret this result as normal/abnormal . VENOUS BICARBONATE, See_Comment QUES [Au tomated message] CORD (test code = The system which generated 3040197364) this result tra nsmitted reference range : 12 - 29 mEq/L. The refe rence range was not used to interpret this result as normal/abnormal . [facility] CenterHepatitis B Surface [id number] 22:52:00 Test Item Value Reference Range Interpretation Comments HBsAg Semi-Quantitative (test code = Negative Negative 5195-3) [facility] CenterType and Screen - ONCE [id number] 21:31:21 Test Item Value Reference Range Interpretation Comments ABO & RH (test code O POSITIVE Performe d at [facility] = 20) Laboratory Serv [facility] Blood Bank3 [facility] s [address]Xsjo Free: [phone] A No. [id number] IAT (test code = Negative Performed a t [facility] 1185) Laboratory Serv [facility] Blood Bank3 [address] [facility] s [address]Zcqi Free: [phone] A No. [id number] [facility] CenterCOVID-19 (ID NOW RAPID TESTING)2020-05-27 18:12:00 Test Item Value Reference Range Interpretation Comments SARS-CoV-2 Rapid ID NOW Not Detected Not Detected (test code = 77675-3) BASIL (test code = BASIL) ID NOW COVID-19 Assay is an isothermal nucleic acid amplification test intended for the qualitative detection of nucleic acid from SARS-CoV-2 viral RNA in nasopharyngeal (ELECTRONIC REPAIR TROUBLESHOOTER) specimens. It is used under Emergency Use [...] indicated. Lab Interpretation Normal (test code = 26655-3) [facility] URINALYSIS W SPECIFIC [id number] 16:00:00 Test Item Value Reference Range Interpretation [...] POCT U APPEAR (test code = 3267) [facility] URINALYSIS W SPECIFIC [id number] 16:16:00 Test Item Value Reference Range Interpretation [...] 3267) Lab Interpretation (test code = Normal 69281-7) [facility] URINALYSIS W SPECIFIC [id number] 16:16:00 Test Item Value Reference Range Interpretation [...] 3267) Lab Interpretation (test code = Normal 48829-3) [facility] URINALYSIS W SPECIFIC [id number] 16:16:00 Test Item Value Reference Range Interpretation [...] 3267) Lab Interpretation (test code = Normal 34932-4) [facility] URINALYSIS W SPECIFIC [id number] 16:16:00 Test Item Value Reference Range Interpretation [...] 3267) Lab Interpretation (test code = Normal 75541-9) [facility] URINALYSIS W SPECIFIC [id number] 16:28:00 Test Item Value Reference Range Interpretation [...] POCT U APPEAR (test code = 3267) [facility] URINALYSIS W SPECIFIC [id number] 14:55:00 Test Item Value Reference Range Interpretation [...] POCT U APPEAR (test code = 3267) [facility] URINALYSIS W SPECIFIC [id number] 14:55:00 Test Item Value Reference Range Interpretation [...] POCT U APPEAR (test code = 3267) [facility] URINALYSIS W SPECIFIC [id number] 15:56:00 Test Item Value Reference Range Interpretation [...] POCT U APPEAR (test code = 3267) [facility] URINALYSIS W SPECIFIC [id number] 15:56:00 Test Item Value Reference Range Interpretation [...] POCT U APPEAR (test code = 3267) [facility] URINALYSIS W SPECIFIC [id number] 15:56:00 Test Item Value Reference Range Interpretation [...] POCT U APPEAR (test code = 3267) [facility] URINALYSIS W SPECIFIC [id number] 18:08:00 Test Item Value Reference Range Interpretation [...] 3267) Lab Interpretation (test code = Abnormal 62755-1) [facility] [id number] 15:48:00 Test Item Value Reference Range Interpretation Comments POCT PREG (test code = 1605) Positive On board controls acceptable with C Yes Line (test code = 3574) POCT PREG LOT # (test code = 3575) POCT PREG TEST DATE (test code = 3576) [facility] URINALYSIS W/O SPECIFIC [id number] 15:47:00 Test Item Value Reference Range Interpretation [...] code = 3257) Neg Negative - Negative [facility] CenterPOCT [id number] 19:51:00 Test Item Value Reference Range Interpretation Comments POCT PREG (test code = 1605) Negative On board controls acceptable with C Yes Line (test code = 3574) POCT PREG LOT # (test code = 3575) POCT PREG TEST DATE (test code = 3576) [facility] Center[facility] [id number] 19:51:00 Test Item Value Reference Range Interpretation Comments POCT PREG (test code = 1605) Negative On board controls acceptable with C Yes Line (test code = 3574) POCT PREG LOT # (test code = 3575) POCT PREG TEST DATE (test code = 3576) [facility]
[2021-10-04 03:09] LABS: Absolute Lymphocytes (CBC) 0.8 K/uL (0.7-4.9); Hematocrit 36.8 % (36.0-45.0); Lymphocytes % 11.7 % (15.3-44.8); MPV 9.5 fL (7.6-11.3); RBC Red Blood Cell Count 4.05 M/uL (3.86-4.86)
[2021-10-04 03:12] LABS: Urine Blood Negative (Negative); Urine Glucose Negative (Negative); Urine Protein Negative (Negative); Urine Specific Gravity >=1.030 (1.005-1.030)
[2021-10-04 04:08] LABS: BUN Blood Urea Nitrogen 8 mg/dL (7-18); Bicarbonate 24 mmol/L (21-32); Glucose Level 102 mg/dL (74-106); HCG, Quantitative 76947 mIU/mL (1-3); Potassium 3.5 mmol/L (3.5-5.1); Sodium Level 137 mmol/L (136-145)
--- NOTE | 2021-10-04 04:58 | EDPHYS ---
Physician Documentation [facility] Name: Sofia Redd Age: 21 yrs Sex: Female : 2000 Arrival Date: 10/04/2021 Time: 02:33 Bed 5 Private MD: ED Physician Vannessa Moe HPI: 10/04 02:49 This 21 yrs old Female presents to ER via Ambulatory with complaints of Pelvic sp3 Pain, . 02:49 21-year-old female with history of colitis and ovarian cysts who is G3, P2, A0 at 12 sp3 weeks presents for pelvic cramping for 3 days and spotting proximately 1 week ago. Patient has not yet seen an OB but is in the middle of setting up an appointment. Patient also states that the pain radiates to her rectum area and left flank. No history of dysuria or urinary frequency reported. Patient also has no headache, chest pain, shortness of breath, upper abdominal pain, fever, or any other symptoms on ROS at this time.. 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 - Social history:: Smoking status: Patient denies any tobacco usage or history of. Patient/guardian denies using alcohol, street drugs. ROS: 02:51 Constitutional: Negative for fever, chills, and weight loss, Eyes: Negative for injury, sp3 pain, redness, and discharge, ENT: Negative for injury, pain, and discharge, Neck: Negative for injury, pain, and swelling, Cardiovascular: Negative for chest pain, palpitations, and edema, Respiratory: Negative for shortness of breath, cough, wheezing, and pleuritic chest pain, MS/Extremity: Negative for injury and deformity, Skin: Negative for injury, rash, and discoloration, Neuro: Negative for headache, weakness, numbness, tingling, and seizure. 02:51 All other systems are negative. sp3 Exam: 02:52 Constitutional: This is a well developed, well nourished patient who is awake, alert, sp3 and in no acute distress. Head/Face: Normocephalic, atraumatic. Eyes: Pupils equal round and reactive to light, extra-ocular motions intact. Lids and lashes normal. Conjunctiva and sclera are non-icteric and not injected. Cornea within normal limits. Periorbital areas with no swelling, redness, or edema. ENT: Nares patent. No nasal discharge, no septal abnormalities noted. External auditory canals are clear. Oropharynx with no redness, swelling, or masses, exudates, or evidence of obstruction, uvula midline. Mucous membranes moist. Neck: Trachea midline, no thyromegaly or masses palpated, and no cervical lymphadenopathy. Supple, full range of motion without nuchal rigidity, or vertebral point tenderness. No Meningismus. Chest/axilla: Normal chest wall appearance and motion. Nontender with no deformity. No lesions are appreciated. Cardiovascular: Regular rate and rhythm with a normal S1 and S2. No gallops, murmurs, or rubs. Normal PMI, no JVD. No pulse deficits. Respiratory: Lungs have equal breath sounds bilaterally, clear to auscultation and percussion. No rales, rhonchi or wheezes noted. No increased work of breathing, no retractions or nasal flaring. Back: No spinal tenderness. No costovertebral tenderness. Full range of motion. 02:52 Abdomen/GI: Mild abdominal pain on lower abdomen. No peritoneal signs.. 02:52 : No evidence of bleeding. Internal exam deferred to ultrasound.. Vital Signs: 02:39 BP 99 / 69; Pulse 97; Resp 20 S; Temp 99.1(O); Pulse Ox 100% on R/A; Weight 65.77 kg lg3 (R); Height 5 ft. 1 in. (154.94 cm) (R); Pain 8/10; 02:39 BP 113 / 74; Pulse 96; Resp 16; Pulse Ox 100% on R/A; st1 02:39 Body Mass Index 27.40 (65.77 kg, 154.94 cm) lg3 MDM: 02:37 Patient medically screened. sp3 02:53 Data reviewed: vital signs, nurses notes. ED course: 21-year-old female on her third sp3 with pelvic pain. Differential diagnosis includes miscarriage, tubal , UTI, pyelonephritis, constipation, functional abdominal pain. Will obtain ultrasound, laboratory values, and urinalysis. There is no current bleeding at this time.. 04:56 ED course: Sign is negative and blood type is positive. No other abnormalities on lab sp3 work. Will discharge patient home at this time.. 10/04 02:46 Order name: Abo/rh Typing; Complete Time: 04:56 sp3 10/04 02:46 Order name: Basic Metabolic Panel; Complete Time: 04:56 sp3 10/04 02:46 Order name: CBC with Diff; Complete Time: 04:56 sp3 10/04 02:46 Order name: Quantitative Hcg; Complete Time: 04:56 sp3 10/04 03:12 Order name: Urine Dipstick-Ancillary; Complete Time: 04:56 EDMS 10/04 03:12 Order name: Urine --Ancillary (enter results); Complete Time: 04:56 cs9 10/04 02:46 Order name: IV Saline Lock; Complete Time: 03:07 sp3 10/04 02:46 Order name: Labs collected and sent; Complete Time: 03:07 sp3 10/04 02:46 Order name: NPO; Complete Time: 03:07 sp3 10/04 02:46 Order name: Urine Dipstick-Ancillary (obtain specimen); Complete Time: 03:07 sp3 10/04 02:46 Order name: Urine Test (obtain specimen); Complete Time: 03:07 sp3 10/04 03:23 Order name: 1st Trimest Single 1st Fetus sp3 Administered Medications: No medications were administered Disposition Summary: 10/04/21 04:57 Discharge Ordered Location: Home sp3 Condition: Stable sp3 Diagnosis - Threatened sp3 Followup: sp3 - With: Private Physician - When: Upon discharge from the Emergency Department - Reason: Continuance of care Discharge Instructions: - Discharge Summary Sheet sp3 - Threatened Miscarriage sp3 Forms: - Medication Reconciliation Form sp3 - Thank You Letter sp3 - Antibiotic Education sp3 - Prescription Opioid Use sp3 Signatures: Dispatcher [employer] Kailee Cabrera RN RN lg3 Vannessa Moe MD MD sp3
--- NOTE | 2021-10-04 04:58 | ER ---
Nurse's Notes [facility] Name: Sofia Redd Age: 21 yrs Sex: Female : 2000 Arrival Date: 10/04/2021 Time: 02:33 Bed 5 Private MD: Diagnosis: Threatened Presentation: 10/04 02:39 Chief complaint: Patient states: lower left abdominal pain radiating to the back and lg3 rectum for the last 3 days. currently 12 weeks . started spotting for 2 days last week. not currently spotting. Coronavirus screen: Client denies travel out of the [place] in the last 14 days. At this time, the client does not indicate any symptoms associated with coronavirus-19. Ebola Screen: No symptoms or risks identified at this time. Initial Sepsis Screen: Does the patient meet any 2 criteria? No. Patient's initial sepsis screen is negative. Does the patient have a suspected source of infection? No. Patient's initial sepsis screen is negative. Risk Assessment: Do you want to hurt yourself or someone else? Patient reports no desire to harm self or others. Onset of symptoms was October 01, 2021. 02:39 Method Of Arrival: Ambulatory lg3 02:39 Acuity: BRYCE 3 lg3 Triage Assessment: 02:43 General: Appears in no apparent distress. uncomfortable, Behavior is calm, cooperative. lg3 Pain: Complains of pain in right lower quadrant and left lower quadrant Pain radiates to back Pain currently is 8 out of 10 on a pain scale. EENT: No deficits noted. No signs and/or symptoms were reported regarding the EENT system. Neuro: No deficits noted. Level of Consciousness is awake, alert, obeys commands, Oriented to person, place, time, situation. Cardiovascular: No deficits noted. Denies chest pain, nausea, shortness of breath, vomiting. Respiratory: No deficits noted. Airway is patent Trachea midline Respiratory effort is even, unlabored, Respiratory pattern is regular, symmetrical. GI: Abdomen is round non-distended, Bowel sounds present X 4 quads. Reports lower abdominal pain, cramping, gaseousness. : No deficits noted. No signs and/or symptoms were reported regarding the genitourinary system. Derm: No deficits noted. No signs and/or symptoms reported regarding the dermatologic system. Skin is intact, is healthy with good turgor, Skin is dry. Musculoskeletal: No deficits noted. No signs and/or symptoms reported regarding the musculoskeletal system. Circulation, motion, and sensation intact. Range of motion: intact in all extremities. 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 - Social history:: Smoking status: Patient denies any tobacco usage or history of. Patient/guardian denies using alcohol, street drugs. Screenin:46 Abuse screen: Denies threats or abuse. Denies injuries from another. Nutritional lg3 screening: No deficits noted. Tuberculosis screening: No symptoms or risk factors identified. Fall Risk None identified. Assessment: 03:10 General: Appears in no apparent distress. Behavior is calm, cooperative, appropriate kd3 for age. Pain:. Vital Signs: 02:39 BP 99 / 69; Pulse 97; Resp 20 S; Temp 99.1(O); Pulse Ox 100% on R/A; Weight 65.77 kg lg3 (R); Height 5 ft. 1 in. (154.94 cm) (R); Pain 8/10; 02:39 BP 113 / 74; Pulse 96; Resp 16; Pulse Ox 100% on R/A; st1 02:39 Body Mass Index 27.40 (65.77 kg, 154.94 cm) lg3 ED Course: 02:33 Patient arrived in ED. wm 02:35 Vannessa Moe MD is Attending Physician. sp3 02:36 Amber Markham, OLE is Primary Nurse. kd3 02:42 Triage completed. lg3 02:43 Arm band placed on right wrist. lg3 03:05 Patient has correct armband on for positive identification. Bed in low position. Call st1 light in reach. Side rails up X 1. Pulse ox on. NIBP on. 03:13 Quantitative Hcg Sent. kd3 03:13 CBC with Diff Sent. kd3 03:13 Basic Metabolic Panel Sent. kd3 03:13 Abo/rh Typing Sent. kd3 04:02 Notified ED physician of other ultrasound- 11 weeks, heart rate 157. tw5 04:03 US 1st Trimest Single 1st Fetus In Process Unspecified. EDMS 05:11 No provider procedures requiring assistance completed. IV discontinued, intact, kd3 bleeding controlled, No redness/swelling at site. Pressure dressing applied. Administered Medications: No medications were administered Outcome: 04:57 Discharge ordered by . sp3 05:11 Discharged to home ambulatory. kd3 05:11 Condition: stable 05:11 Discharge instructions given to patient, Instructed on discharge instructions, follow up and referral plans. 05:12 Patient left the ED. kd3 Signatures: Dispatcher [employer] EDMS Kailee Saul, RN RN lg3 Ambreen Mabry Vannessa Moe MD MD sp3 Natividad Kelly tw5 Amber Markham RN RN kd3 Sandra Quesada RN RN st1
--- NOTE | 2021-10-04 07:07 | RAD REPORT ---
EXAM DESCRIPTION: US - 1St Trimest Single 1St Fetus - 10/04/2021 4:03 am CLINICAL HISTORY: ABD CRAMPING, COMPARISON: No comparisons FINDINGS: Single IUP identified. The crown-rump length measures 4.8 cm which is consistent with an u ltrasound age of 11 weeks 2 days. The GWENDOLYN is 04/23/2022. heart tones are present in measured at 150 6 beats . minute. The uterus measures 11.6 cm. The right ovary measures 2.3 x 1.2 x 1.6 cm with volume of 2.3 cc. The l eft ovary measures 2 point by 1.6 x 2 cm with volume of 5 cc. Bilateral ovarian blood flow is present . IMPRESSION: Single IUP identified with positive heart tones. The crown-rump length measures 11 weeks 3 days. The GWENDOLYN is 04/23/2022. Bilateral ovarian blood flow.
[2021-10-04 08:04] VITALS: BP 99/69; TEMP 99.1; O2SAT 100
== END 2021-10-04 05:12 | disposition home or self-care (01) ==
LOC: ER 02:28
DX: O20.0 Threatened abortion (principal); Z88.8 Allergy status to other drugs, medicaments and biological substances; Z91.013 Allergy to seafood
CPT/HCPCS: 36415; 76801; 80048; 81003; 81025; 84702; 85025; 86900; 86901; 99283

== ENCOUNTER 2024-09-03 05:12 | Emergency (ER) | payer OTHER, SELFPAY ==
[2024-09-03] MEDS ORDERED: ZIPRASIDONE MESYLA 20 MG/VIAL IM ONE (05:18)
[2024-09-03] MEDS ORDERED: LORazepam 2 MG/ML VIAL ONE ×2 (05:18→12:26)
[2024-09-03] MEDS ORDERED: WATER FOR INJ,STERILE 10 ML ONE (05:19)
[2024-09-03 07:02] LABS: Absolute Basophils 0.1 K/uL (0-0.5); Absolute Lymphocytes (CBC) 1.3 K/uL (0.7-4.9); Absolute Monocytes 0.2 K/uL (0.1-1.3); Basophils % 0.7 % (0-1.3); Hematocrit 37.5 % (36.0-45.0); Hemoglobin 12.5 g/dL (12.0-15.0); Lymphocytes % 17.4 % (15.3-44.8); MCH 29.7 pg (27.0-35.0); MCHC 33.2 g/dL (32.0-36.0); MCV 89.4 fL (80-100); MPV 9.4 fL (7.6-11.3); Monocytes % 3.1 % (3.3-12.3); Neutrophils % 78.8 % (41.7-73.7); Nucleated Red Blood Cells % 0.1 % (0-0); Platelets 261 thou/uL (152-406); Red Cell Distribution Width 14.9 % (12.1-15.2)
[2024-09-03 07:09] LABS: PT Prothrombin Time 10.9 SECONDS (9.4-12.5); Protime INR 1.04
[2024-09-03 07:23] LABS: ALT/SGPT 18 U/L (13-56); Albumin 3.7 g/dL (3.4-5.0); Albumin/Globulin Ratio 0.9 (1.1-1.8); Alkaline Phosphatase 94 U/L (45-117); Anion Gap 13.2 mEq/L (5.0-15.0); BUN Blood Urea Nitrogen 12 mg/dL (7-18); Bicarbonate 21 mEq/L (21-32); Globulin 4.1 g/dL (2.3-3.5); Glomerular Filtration Rate 119 ml/min (=/>90); Glucose Level 96 mg/dL (74-106); Potassium 3.2 mEq/L (3.5-5.1); Protein, Total 7.8 g/dL (6.4-8.2); Sodium Level 140 mEq/L (136-145)
[2024-09-03 07:26] LABS: AST/SGOT < 10 U/L (15-37); Bilirubin Direct < 0.2 mg/dL (0-0.2); Bilirubin Total < 0.2 mg/dL (0.2-1.0)
[2024-09-03] MEDS ORDERED: NA CHLORIDE 0.9% 2,000 ML ONE (08:23)
--- NOTE | 2024-09-03 11:04 | ER ---
Nurse's Notes [facility] Name: Sofia Redd Age: 24 yrs Sex: Female : 2000 Arrival Date: 09/03/2024 Time: 05:12 Bed 6 Private MD: Diagnosis: Suicidal ideations Presentation: 09/03 05:12 Chief complaint: EMS states: pt called us stating she took half a bottle of melatonin, vc1 did some cocaine, and took an unknown amount of medication she got from [place]. 05:12 Coronavirus screen: Client denies travel out of the [place] in the last 14 days. At this vc1 time, the client does not indicate any symptoms associated with coronavirus-19. Ebola Screen: Patient negative for fever greater than or equal to 101.5 degrees Fahrenheit, and additional compatible Ebola Virus Disease symptoms Patient denies exposure to infectious person. Patient denies travel to an Ebola-affected area in the 21 days before illness onset. No symptoms or risks identified at this time. Care prior to arrival: None. Activity prior to arrival: None. Mechanism of Injury: No Mechanism of Injury. 05:12 Method Of Arrival: EMS: [facility] vc1 05:12 Initial Sepsis Screen: Does the patient meet any 2 criteria? No. Patient's initial vc1 sepsis screen is negative. Does the patient have a suspected source of infection? No. Patient's initial sepsis screen is negative. Risk Assessment: Do you want to hurt yourself or someone else? Patient reports desire/thoughts of hurting themselves or someone else. Provider notified. Onset of symptoms was September 03, 2024. 05:12 Acuity: BRYCE 2 vc1 Triage Assessment: 05:12 General: Appears in no apparent distress. uncomfortable, Behavior is combative, vc1 restless, uncooperative. Pain: Denies pain. EENT: No deficits noted. No signs and/or symptoms were reported regarding the EENT system. Neuro: Level of Consciousness is awake, alert, obeys commands, Oriented to person, place, time, situation, Appropriate for age. Cardiovascular: Capillary refill < 3 seconds Patient's skin is warm and dry. Rhythm is sinus tachycardia. Respiratory: Airway is patent Respiratory effort is even, unlabored, Respiratory pattern is regular, symmetrical, Breath sounds are clear bilaterally. GI: No deficits noted. No signs and/or symptoms were reported involving the gastrointestinal system. : No deficits noted. No signs and/or symptoms were reported regarding the genitourinary system. Derm: Skin is intact, is healthy with good turgor, Skin is dry, Skin is normal, Skin temperature is warm. Musculoskeletal: Circulation, motion, and sensation intact. Range of motion: intact in all extremities. 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 - Infectious Disease History:: CDIFF, . - Social history:: Smoking status: Patient denies any tobacco usage or history of. Patient uses alcohol, street drugs, marijuana. Screenin:48 [facility] ED Fall Risk Assessment (Adult) History of falling in the last 3 months, vc1 including since admission No falls in past 3 months (0 pts) Confusion or Disorientation No (0 pts) Intoxicated or Sedated Yes (3 pts) Impaired Gait No (0 pts) Mobility Assist Device Used No (0 pt) Altered Elimination No (0 pt) Score/Fall Risk Level 3 or more points = High Risk Oriented to surroundings, Maintained a safe environment, Educated pt \\T\\ family on fall prevention, incl call for assistance when getting out of bed. Abuse screen: Denies threats or abuse. Nutritional screening: No deficits noted. Tuberculosis screening: No symptoms or risk factors identified. Assessment: 05:42 General: Pt states she took half a bottle of melatonin and 5 pills that she got from [address] that is made to induce . This nurse asked the patient if she took the medication to take try to kill her self. Pt stated, "yes, but I got scared and called for help because I have 3 babies at home. I live with my mom but she doesn't help". 06:33 General: pt made statements to police service technician that she was ready to provide urine and bm8 blood samples. When this nurse went in pt refused to allow collection of samples.. 07:00 Reassessment: Patient appears in no apparent distress at this time. SLEEPING. bp 09:11 Reassessment: REPORT TO ALETA HANDY AT [facility]. bp 10:07 Reassessment: PT DENYING SI/HI, D/C OWN PIV. bp 12:25 Reassessment: Police department arrived at facility to assist staff with aniket erazo. Pt ld1 violent and aggressive at this time. Pt screaming "I don't want to be here, you can't make me stay or be transferred for mental health." Educated patient on KAUSHIK. 12:32 Reassessment: PT GRABBED PERSONAL BELONGINGS FROM HALLWAY AND CALLING FAMILY. ANIKET ERAZO hb CALLED. REFUSING TO REMAIN IN ROOM WHEN VERBALLY REDIRECTED AND INFORMED OF KAUSHIK ON FILE. PT SHOVED STAFF TO THE SIDE AND BROKE INTO A RUN FOR THE EXIT. PT DETAINED BY STAFF AND PHYSICALLY RETURNED TO ROOM. 13:20 Reassessment: Patient appears in no apparent distress at this time. No changes from ld1 previously documented assessment. Patient and/or family updated on plan of care and expected duration. Pain level reassessed. Patient is alert, oriented x 3, equal unlabored respirations, skin warm/dry/pink. Mental health at bedside to transport patient to mental health facility. Overdose: 05:12 [place] Suicide Severity Screening: "In the past month, have you wished you were vc1 or wished you could go to sleep and not wake up?" Pt refused to answer "In the past month, have you actually had any thoughts of killing yourself?" Patient responds "yes." Based off client's responses, additional C-SSRS screening questions required. "In your lifetime, have you ever done anything, started to do anything, or prepared to do anything to end your life?" Pt refuses to answer. 05:12 Patient took 1/2 a bottle of melatonin, 5 unknown pills from [place] (states causes vc1 abortions). 13:21 [place] Suicide Severity Screening: "In the past month, have you wished you were ld1 or wished you could go to sleep and not wake up?" Patient responds "yes." Based off client's responses, additional C-SSRS screening questions required. Vital Signs: 05:12 BP 159 / 98; Pulse 140; Resp 18; Temp 98.7; Pulse Ox 100% ; Weight 65.77 kg; Height 5 vc1 ft. 1 in. ; Pain 0/10; 06:44 BP 109 / 94; Pulse 100; Resp 14; Temp 97.7; Pulse Ox 100% ; vc1 07:30 BP 94 / 75; Pulse 97; Resp 15; Pulse Ox 97% ; bp 12:42 BP 131 / 93; Pulse 106; Resp 18; Pulse Ox 98% on R/A; ld1 13:20 BP 129 / 79; Pulse 91; Resp 18; Pulse Ox 100% on R/A; ld1 05:12 Body Mass Index 27.40 (65.77 kg, 154.94 cm) vc1 05:12 Pain Scale: Adult vc1 ED Course: 05:12 Patient has correct armband on for positive identification. vc1 05:12 Arm band placed on right wrist. vc1 05:12 Provided Education on: KAUSHIK. vc1 05:14 Patient arrived in ED. gm2 05:18 [place] [employer] DUE TO PT BEING COMBATIVE WITH STAFF. kmf 05:55 Dao Mata MD is Attending Physician. vc1 06:46 Triage completed. vc1 06:56 Patricia Palafox, RN is Primary Nurse. vc1 09:11 connected Aleta Handy from [facility] with Vinod Rn for nurse to nurse. eb 09:29 Attending Physician role handed off by Dao Mata MD rn 09:29 Pedro Lew MD is Attending Physician. rn 10:08 PIV D/C BY PT. bp 10:09 Vinod Jennings, RN is Primary Nurse. bp 11:02 administrative approval given by Dyana [facility] / [place] [facility] [place] the patient in transfer/. 12:25 Police [place] [employer] called to help with patient trying to leave. eb [facility] chief sales officer transverse abdominal muscle surgeon to sign a patient transfer warrant. eb 12:36 No provider procedures requiring assistance completed. bp Administered Medications: 05:50 Drug: LORazepam IM 2 mg IM once Route: IM; Site: right ventrogluteal; vc1 06:52 Follow up: Response: No adverse reaction; RASS: Light sedation (-2) vc1 05:50 Drug: Geodon IM 20 mg IM once Route: IM; Site: right ventrogluteal; vc1 06:51 Follow up: Response: No adverse reaction; Marked relief of symptoms vc1 08:29 Drug: NS 0.9% IV 1000 ml IV at 1000 ml once; to be given as a bolus over 60 minutes bp Route: IV; Rate: 1000 ml; Site: right antecubital; 08:29 Drug: NS 0.9% IV 1000 ml IV at 1000 ml once; to be given as a bolus over 60 minutes bp Route: IV; Rate: 1000 ml; Site: right antecubital; 12:25 CANCELLED (Duplicate Order): midazolam3 mg IM once rn 12:40 Drug: LORazepam IM 2 mg IM once Route: IM; Site: right deltoid; ld1 Medication: 06:51 VIS not applicable for this client. vc1 Outcome: 11:04 ER care complete, transfer ordered by . rn 13:21 Discharged to Law Enforcement ld1 13:21 Condition: unchanged 13:21 Instructed on the need for transfer, 13:23 Patient left the ED. ld1 Signatures: Pedro Lew MD MD rn Baxter, Heather RN RN Vinod Obrien RN Geneva Cruz Lauren RN RN ld1 Patricia Palafox RN RN vc1 Jessy Mendiola 2 Lani Gray [facility] Jorge Marcos, RN RN bm8 Corrections: (The following items were deleted from the chart) 13:36 12:32 Reassessment: PT GRABBED PERSONAL BELONGINGS FROM HALLWAY AND CALLING FAMILY. CODE ERAZO CALLED. REFUSING TO REMAIN IN ROOM WHEN VERBALLY REDIRECTED AND INFORMED OF KAUSHIK ON FILE. PT SHOVED STAFF TO THE SIDE AND BROKE INTO A RUN FOR THE EXIT. PT DETAINED BY STAFF AND PHYSICALLY RETURNED TO ROOM. bp
--- NOTE | 2024-09-03 11:04 | EDPHYS ---
Physician Documentation [facility] Name: Sofia Redd Age: 24 yrs Sex: Female : 2000 Arrival Date: 09/03/2024 Time: 05:12 Bed 6 Private MD: ED Physician Pedro Lew HPI: 09/03 08:00 This 24 yrs old Female presents to ER via EMS with complaints of Drug Abuse. bo1 08:00 Onset: The symptoms/episode began/occurred acutely. Severity of symptoms: At their bo1 worst the symptoms were severe just prior to arrival. Unable to obtain HPI due to patient is being uncooperative, Pt is agitated and Ana Gonzalez called. PD from [place] called for an KAUSHIK. Pt had been transported by EMS for cocaine abuse and not feeling well. Pt had called 911 having stated that she took sleeping pills and did not wish to live. TRIBAL DELEGATE: 05:12 LMP 08/19/2024, unknown vc1 Historical: - Allergies: 05:12 Benadryl; vc1 05:12 fish; vc1 - Home Meds: 05:12 None [Active]; vc1 - PMHx: 05:12 Colitis; Ovarian cyst; vc1 - PSHx: 05:12 None; vc1 - Immunization history:: Client reports receiving the 1st dose of the Covid vaccine. - Infectious Disease History:: CDIFF, . - Social history:: Smoking status: Patient denies any tobacco usage or history of. Patient uses alcohol, street drugs, marijuana. ROS: 08:03 Unable to obtain ROS due to patient being uncooperative, Agitated and combative pt, bo1 Exam: 08:05 Constitutional: This is a well developed, well nourished patient who is sedated and in bo1 no acute distress after IM meds upon KAUSHIK being obtained and pt agreeing for meds and lab draw. 08:05 Constitutional: The patient appears alert, awake, agitated, 08:05 Neck: External neck: is normal, no acute changes, 08:05 Cardiovascular: Rate: normal, Rhythm: regular, Pulses: no pulse deficits are appreciated, 08:05 ECG was reviewed by the Attending Physician. 08:05 Respiratory: Breath sounds: are clear throughout, 08:05 Abdomen/GI: Palpation: soft, involuntary guarding, is not appreciated, 08:05 Musculoskeletal/extremity: Extremities: all appear grossly normal, with no appreciated pain with palpation, no acute changes, 08:05 Skin: injury, is not appreciated, no rash present. 08:05 Neuro: seizure activity, is not displayed by the patient, Pt not cooperative for testing, 08:05 Psych: Behavior/mood is aggressive, uncooperative, Patient having thoughts of suicide. Denies suicidal plan. Judgement / Insight is impaired. Vital Signs: 05:12 BP 159 / 98; Pulse 140; Resp 18; Temp 98.7; Pulse Ox 100% ; Weight 65.77 kg; Height 5 vc1 ft. 1 in. ; Pain 0/10; 06:44 BP 109 / 94; Pulse 100; Resp 14; Temp 97.7; Pulse Ox 100% ; vc1 07:30 BP 94 / 75; Pulse 97; Resp 15; Pulse Ox 97% ; bp 12:42 BP 131 / 93; Pulse 106; Resp 18; Pulse Ox 98% on R/A; ld1 13:20 BP 129 / 79; Pulse 91; Resp 18; Pulse Ox 100% on R/A; ld1 05:12 Body Mass Index 27.40 (65.77 kg, 154.94 cm) vc1 05:12 Pain Scale: Adult vc1 MDM: 07:28 Medical Screening Exam initiated bo1 08:08 Differential Diagnosis SI symptoms - substance/drug abuse suspected. Data reviewed: bo1 vital signs, lab test result(s), EKG. Transition of care: After a detail discussion of the patient's case, care is transferred to Pedro Lew MD. ED course: Pending detox of ETOH for psyc eval. 11:03 Counseling: I had a detailed discussion with the patient and/or guardian regarding the rn historical points, exam findings, and any diagnostic results supporting the discharge/admit diagnosis, lab results. 09/03 06:42 Order name: Acetaminophen; Complete Time: 07:29 bm8 09/03 06:42 Order name: Basic Metabolic Panel; Complete Time: 07:29 bm8 09/03 06:42 Order name: CBC with Diff; Complete Time: 07:29 bm8 09/03 06:42 Order name: ETOH Level; Complete Time: 07:29 bm8 09/03 06:42 Order name: Hepatic Function; Complete Time: 07:29 bm8 09/03 06:42 Order name: PT-INR; Complete Time: 07:29 8 09/03 06:42 Order name: Ptt, Activated; Complete Time: 07:29 8 09/03 06:42 Order name: Salicylate; Complete Time: 08:10 8 09/03 06:42 Order name: Urine Drug Screen [facility] 09/03 09:23 Order name: Test, Serum; Complete Time: 10:26 hb 09/03 09:24 Order name: LAB Add On eb 09/03 06:42 Order name: IV Saline Lock; Complete Time: 06:51 8 09/03 06:42 Order name: Labs collected and sent; Complete Time: 06:51 8 09/03 06:42 Order name: Suicide Screening ([place]); Complete Time: 06:51 8 EC:05 Rate is 85 beats/min. Rhythm is regular. QRS [place] is Normal. [place] interval is normal. QRS bo1 interval is normal. QT interval is normal. No Q waves. T waves are Normal. No ST changes noted. Clinical impression: Normal ECG. Interpreted by me. Reviewed by me. Administered Medications: 05:50 Drug: LORazepam IM 2 mg IM once Route: IM; Site: right ventrogluteal; vc1 06:52 Follow up: Response: No adverse reaction; RASS: Light sedation (-2) vc1 05:50 Drug: Geodon IM 20 mg IM once Route: IM; Site: right ventrogluteal; vc1 06:51 Follow up: Response: No adverse reaction; Marked relief of symptoms vc1 08:29 Drug: NS 0.9% IV 1000 ml IV at 1000 ml once; to be given as a bolus over 60 minutes bp Route: IV; Rate: 1000 ml; Site: right antecubital; 08:29 Drug: NS 0.9% IV 1000 ml IV at 1000 ml once; to be given as a bolus over 60 minutes bp Route: IV; Rate: 1000 ml; Site: right antecubital; 12:25 CANCELLED (Duplicate Order): midazolam3 mg IM once rn 12:40 Drug: LORazepam IM 2 mg IM once Route: IM; Site: right deltoid; ld1 Disposition Summary: 09/03/24 11:04 Transfer Ordered Notes: Transfer Location: [facility] Facility rn Reason: Higher level of care rn Condition: Stable rn Problem: new rn Symptoms: have improved rn Accepting Physician: (09/03/24 13:23) ld1 Diagnosis - Suicidal ideations rn Forms: - Medication Reconciliation Form rn - SBAR form rn Signatures: Dispatcher [employer] Pedro Roger MD MD rn Peltier, Brian, RN RN Kailee Hayward RN RN lg3 Armida Oliveros RN RN ld1 Patricia Palafox RN RN vc1 Dao Mata MD MD bo1 Jorge Marcos RN RN bm8 Corrections: (The following items were deleted from the chart) 12 12:25 Midazolam IM 3 mg IM once ordered. rn rn 13:23 11:04 rn ld1
[2024-09-03 12:54] LABS: Barbiturates NEGATIVE (NEGATIVE); Benzodiazepines NEGATIVE (NEGATIVE); Cocaine POSITIVE (NEGATIVE); METHAMPHETAM NEGATIVE (NEGATIVE); Methadone NEGATIVE (NEGATIVE); Opiates NEGATIVE (NEGATIVE); Phencyclidine NEGATIVE (NEGATIVE); THC Cannibis POSITIVE (NEGATIVE)
[2024-09-03 13:37] VITALS: TEMP 97.7
[2024-09-03 13:41] VITALS: BP 129/79; O2SAT 100
== END 2024-09-03 13:23 ==
LOC: ER 05:12
DX: R45.851 Suicidal ideations (principal)
CPT/HCPCS: 36415; 80048; 80076; 80143; 80179; 80307; 82077; 84703; 85025; 85610; 85730; 96372; 99285; J3486; J7030